=== PATIENT | female | born 1940 | race Caucasian/White ===

== ENCOUNTER → 2020-07-07 09:32 | Outpatient (BNVA) | payer MEDICARE, SELFPAY | PROVIDERS: PCP Student in an Organized Health Care Education/Training Program; Referring Provider Student in an Organized Health Care Education/Training Program; Visit Provider Nurse Practitioner | DX: D12.6 Benign neoplasm of colon, unspecified (principal) | CPT/HCPCS: 99203; Q3014 ==

== ENCOUNTER → 2020-09-03 14:13 | Outpatient (BNVA) | payer MEDICARE, SELFPAY | PROVIDERS: PCP Student in an Organized Health Care Education/Training Program; Visit Provider Orthopaedic Surgery | DX: Z96.652 Presence of left artificial knee joint (principal) | CPT/HCPCS: 99212 ==

== ENCOUNTER 2020-09-30 13:00 | Outpatient (RCR) | payer MEDICARE, SELFPAY ==
--- NOTE | 2020-09-23 13:52 | MHC.PT.EP ---
[facility] [place] [facility] [place] [facility] [place] [facility] [address] [phone] F: [phone] F: [phone] F: [phone] F: [phone] Physical Therapy Plan of Care Date of Evaluation: 09/23/20 Date of Surgery: 03/03/2020 Diagnosis: This is an 80 yo female presenting to skilled PT with a script for hx of L TKA . Assessment: This patient has been to this facility in the past after her original surgery on 03/03/2020. She had 11 visits of outpatient and DC'd to [facility] (DC PT note reads: pt notes that she is feeling better overall and feels ready for d/c. reviewed stair mechanics and HEP. Knee strength 4-/5 flex/ext. SLB 8 seconds. I with HEP. d/c to HEP at this time). She returns today reporting continuation of pain and because my doctor told me to . States that she sometimes does exercises still at home. Her pain is located at the anterior knee and calf, it is constant. Assessment reveals pain that averages about a 6/10. She demos decreased knee ROM, strength, decreased pain tolerance and decreased gross functional and general conditioning. She reports functional limitations in walking, pain and ADLs. She would benefit from a general PT program for knee ROM, general strengthening and balance. She is a good candidate for skilled PT 2x/wk for 5wks but patient would like to do a month of therapy at this time. Frequency and Duration: The patient will be seen 2x/wk for 5wks Short Term Goals: I with [facility]P - 2 weeks SLS to 8 sec - weeks [facility] Goals: LEFS 50/80 - 5 weeks AROM 0-115, strength 4/5 - 3 weeks symmetrical gait with stairs, no HH assist - 4 weeks Treatment Plan: Modalities to reduce pain, spasms and effusion. Manual therapy to restore motion and function. Therapeutic exercise to improve strength and flexibility. Neuromuscular re-education for posture and balance. Therapeutic activities to return to functional activities of daily living. Electronically signed by: Melissa Saez, PT Please sign and return to therapist. Thank you for your referral.
--- NOTE | 2020-10-22 13:17 | MHC.PT.DC ---
[facility] [place] [facility] [place] [facility] [place] [facility] [address] Lynn Sharpe [address] [phone] F: [phone] F: [phone] F: [phone] F: [phone] Physical Therapy Discharge Report Diagnosis: This is an 80 yo female presenting to skilled PT with a script for hx of L TKA . Date of Surgery: 03/03/2020 Date of Evaluation: 09/23/20 Date of Discharge: 10/22/20 Treatments to Date: 2 Cancellations to Date: 0 No Shows to Date: 0 Discharge Status: Independent with [facility]P Patient Elected to Stop Discharge Summary: This patient has been to this facility in the past after her original surgery on 03/03/2020. She had 11 visits of outpatient and DC'd to [facility]. She came for a second eval as she was told to by the MD however called after 2 visits and reported that she is ready for DC at this time. Has [facility]P, DC to [facility]P per patient request. Electronically signed by: Melissa Saez PT Please sign and return to therapist. Thank you for your referral.
== END 2020-10-22 13:18 | disposition home or self-care (01) ==
LOC: HO.PTCHIC 13:00
PROVIDERS: Visit Provider Orthopaedic Surgery
DX: Z47.1 Aftercare following joint replacement surgery (principal); Z96.652 Presence of left artificial knee joint
CPT/HCPCS: 97110; 97162

== ENCOUNTER 2021-03-06 08:17 | Outpatient (REF) | payer MEDICARE, SELFPAY | END 2021-03-06 08:18 | disposition home or self-care (01) | LOC: HO.HOSX 08:17 | PROVIDERS: Visit Provider Orthopaedic Surgery | DX: Z13.89 Encounter for screening for other disorder (principal) ==

== ENCOUNTER 2021-03-11 06:27 | Outpatient (REF) | payer MEDICARE, SELFPAY ==
--- NOTE | ~2021-03-11 | XR_ITS ---
EXAMINATION: KNEE X-RAY CLINICAL INFORMATION: Pain COMPARISON: Previous x-ray May 2020 TECHNIQUE: Standing AP view of both knees and lateral view of the left knee FINDINGS: Left knee: There is a 3 component left knee replacement in satisfactory position. No fracture, dislocation or x-ray evidence of loosening is seen. There is no joint effusion. There is a right knee replacement in satisfactory position. XR/XR knee LT 2V IMPRESSION: Bilateral knee replacements. Satisfactory appearance of left knee replacement.
--- NOTE | ~2021-03-11 | XR_ITS ---
EXAMINATION: KNEE X-RAY CLINICAL INFORMATION: Pain COMPARISON: Previous x-ray May 2020 TECHNIQUE: Standing AP view of both knees and lateral view of the left knee FINDINGS: Left knee: There is a 3 component left knee replacement in satisfactory position. No fracture, dislocation or x-ray evidence of loosening is seen. There is no joint effusion. There is a right knee replacement in satisfactory position. XR/XR knee standing BI IMPRESSION: Bilateral knee replacements. Satisfactory appearance of left knee replacement.
== END 2021-03-11 06:28 | disposition home or self-care (01) ==
LOC: HO.HOSX 06:27
PROVIDERS: Visit Provider Orthopaedic Surgery
DX: T84.84XA Pain due to internal orthopedic prosthetic devices, implants and grafts, initial encounter (principal); M25.561 Pain in right knee; Z96.652 Presence of left artificial knee joint
CPT/HCPCS: 73560; 73565; 99212

== ENCOUNTER → 2021-04-13 07:56 | Outpatient (BNVA) | payer MEDICARE, SELFPAY | PROVIDERS: PCP Student in an Organized Health Care Education/Training Program; Visit Provider Obstetrics & Gynecology | DX: N90.4 Leukoplakia of vulva (principal) | CPT/HCPCS: 99212 ==

== ENCOUNTER 2021-04-27 11:03 | Outpatient (REF) | payer MEDICARE, SELFPAY | END 2021-04-27 11:04 | disposition home or self-care (01) | LOC: HO.LAB 11:03 | PROVIDERS: PCP Student in an Organized Health Care Education/Training Program; Visit Provider Obstetrics & Gynecology | DX: N90.4 Leukoplakia of vulva (principal); Z87.891 Personal history of nicotine dependence | CPT/HCPCS: 56605; 88305; 88312 ==

== ENCOUNTER → 2021-05-11 11:25 | Outpatient (BNVA) | payer MEDICARE, SELFPAY | PROVIDERS: PCP Student in an Organized Health Care Education/Training Program; Visit Provider Obstetrics & Gynecology | DX: L90.0 Lichen sclerosus et atrophicus (principal) | CPT/HCPCS: Q3014 ==

== ENCOUNTER → 2022-02-11 09:12 | Outpatient (BNVA) | payer OTHER, SELFPAY | PROVIDERS: PCP Student in an Organized Health Care Education/Training Program; Visit Provider Internal Medicine | DX: R06.02 Shortness of breath (principal); I10 Essential (primary) hypertension; I35.8 Other nonrheumatic aortic valve disorders | CPT/HCPCS: 93005; 99202 ==

== ENCOUNTER → 2022-03-05 12:44 | Outpatient (BNVA) | payer OTHER, SELFPAY | PROVIDERS: Visit Provider Physician Assistant | DX: Z47.1 Aftercare following joint replacement surgery (principal); Z96.652 Presence of left artificial knee joint | CPT/HCPCS: 99212 ==

== ENCOUNTER → 2022-03-30 12:43 | Outpatient (REF) | payer OTHER, SELFPAY ==
--- NOTE | 2022-03-30 12:46 | CA_ITS ---
Transthoracic Echocardiogram Patient (Last, First, Middle): Neha Bowman, Gender: Female Date of : 1940 Age: 82 Procedure Date: 03/30/2022 Procedure Type: Transthoracic Echocardiogram Location: OP Height: 152.4 cm Weight: 66.23 kg BSA: 1.63 m2 Heart Rate: 80 bpm BP: 146 / 84 mmHg Plasterer Spray Gun: SAM Referring MD: Tapan Weber MD Construction Materials Tester: Vic Mcfadden MD Symptoms: R06.02 - Shortness of breath Study Quality: Adequate ECG Rhythm: Sinus Conclusions: - 1. Normal LV systolic function with impaired relaxation filling pattern with elevated filling pressures 2. Mildly dilated left atrium 3. Normal cardiac valvular Doppler 4. Upper limits of normal RV systolic pressure 5. No pericardial effusion Findings Left Ventricle Normal left ventricular size, thickness, and systolic function. The visually estimated ejection fraction is between 60-65%. Spectral Doppler is indicative of an impaired relaxation filling pattern. Elevated filling pressures. E/E prime ratio is >15, consistent with elevated filling pressures. Right Ventricle Normal right ventricular cavity size and systolic function. Atria The left atrium is mildly dilated. There is lipomatous hypertrophy of the interatrial septum. There is no evidence of interatrial shunt. The right atrium is likely dilated. Aortic Valve Normal aortic valve structure and function. There is no aortic valve stenosis. There is no aortic valve regurgitation. Mitral Valve There is trace mitral valve regurgitation. There is no mitral valve stenosis. Pulmonic Valve The pulmonic valve was not well visualized. Tricuspid Valve Normal tricuspid valve structure. There is trace tricuspid valve regurgitation. The right ventricular systolic pressure is 38 mmHg. Normal right atrial pressure. There is no evidence of pulmonary hypertension. Great Vessels All visible segments of the aorta are normal in size. The pulmonary artery was not well visualized. Venous The inferior vena cava is normal in size and collapses greater than 50% with inspiration. Pericardium/Pleural There is no evidence of pericardial effusion. Prior Study Comparison No prior study available for comparison. Measurements 2D Linear Measurements IVSd: 1.16 0.6-0.9/0.6-1.0 cm LVIDd: 4.44 3.9-5.3/4.2-5.9 cm LVIDd Index: 2.72 2.4-3.2/2.2-3.1 cm/m2 LVIDs: 2.96 2.0-3.6 cm LVPWd: 0.61 0.7-1.1 cm LA Diam: 4.00 2.7-3.8/3.0-4.0 cm LAIDs Index: 2.45 1.5-2.3 cm/m2 LV Mass: 157.55 67-162/88-224 g LV Mass Index: 96.66 43-95/49-115 g/m2 LVOT Diam: 1.70 3.0+(-)1.3 cm 2D Systolic Function EF 4C: 58.70 >55% EF 2C: 51.40 >55% EF BiP: 55.10 >55% Mitral Valve MV Pk E: 1.05 MV PK A: 1.17 MV Decel Time: 237.00 E/A: 0.90 E'Lateral: 6.09 E'Medial: 4.68 E/E' Med: 22.40 E/E' Lat: 17.20 PHT: 70.00 MVA PHT: 3.14 Decel [place]: 4.42 Aortic Valve AoV Pk Rodri: 1.47 AoV Mn Rodri: 1.00 AoV VTI: 0.31 AoV Pk Grad: 9.00 Aov Mn Grad: 5.00 JUAN Cont.VTI: 1.98 LVOT LVOT Pk Rodri: 1.26 LVOT Mn Rodri: 0.83 LVOT VTI: 0.27 LVOT Pk Grad: 6.00 LVOT Mn Grad: 3.00 LVOT Diam: 1.70 LVOT Area: 2.27 Diastolic Function MV Pk E: 1.05 MV Pk A: 1.17 E/A: 0.90 E'Medial: 4.68 E/E' Med: 22.40 E' Laterial: 6.09 E/E' Lat: 17.20 Right Ventricle TAPSE (mm): 15.50 TVS' Rodri: 10.70 Tricuspid Valve TR Pk Rodri: 2.94 TR Pk Grad: 35.00 RA Press: 3.00 RVSP: 38.00 Great Vessels Aorta Sinus of Valsalva: 3.10 2.0-3.5 cm Ao Asc: 3.20 2.1-3.4 cm Pulmonary Veins Pulm Vein S/D 1.30 Pulmonary Valve PV Pk Rodri: 1.01 Peak PV Grad: 4.00 Updated in Other Vendor System with Status of Final Vic Mcfadden MD electronically signed on 03/30/2022 2:18:49 PM with status of Final
== END ==
LOC: HO.CARD 12:43
PROVIDERS: PCP Student in an Organized Health Care Education/Training Program; Visit Provider Internal Medicine
DX: R06.02 Shortness of breath (principal)
CPT/HCPCS: 93306

== ENCOUNTER → 2022-04-06 09:33 | Outpatient (REF) | payer OTHER, SELFPAY ==
--- NOTE | ~2022-04-06 | NM_ITS ---
Myocardial perfusion study Indication: Shortness of breath evaluate for myocardial ischemia Technique: The patient was brought in for a Lexiscan perfusion study on 04/06/2022. Patient performed low-level exercise and was injected 0.4 mg of Lexiscan intravenously. Within a minute of injection, 25 mCi of sestamibi was given intravenously. Images were obtained using the SPECT gamma camera interlaced with the gating device. Images were obtained in supine position. Resting perfusion study was performed on 04/08/2022. Patient was administered 25 mCi of sestamibi intravenously at rest. Images were then obtained in supine position. Images obtained with and without CT attenuation. Total DLP 79 mGy-cm. Images were processed with the software and compared side to side in short axis, horizontal long axis and vertical long axis views. Findings: The stress perfusion study showed non attenuated images show minimal thinning of the apex of the LV myocardium. Remainder of the LV myocardium is normally perfused. Attenuation corrected images show normal uptake of radiotracer in all segments of LV myocardium. The gated study shows normal LV systolic function with calculated LVEF of 72%. LV cavity is normal in size. The gated study shows normal systolic wall thickening and contraction of segments. Resting study shows no change in perfusion pattern compared to stress perfusion study. Gating at rest reveals normal systolic wall motion with ejection fraction at 72%. The findings are consistent with normal myocardial perfusion. VA/NM cardiolite stress test Impression: 1. Myocardial perfusion imaging study shows normal myocardial perfusion 2. Gated LVEF is 72% 3. Transient ischemic dilatation not present EKG is nondiagnostic for ischemia
--- NOTE | 2022-04-06 09:37 | CA_ITS ---
Acquisition Time: 2022-04-06 09:44:40 Total Exercise Time: 00:02:00 Test Indications: R06.02 SHORTNESS OF BREATH Medications: SEE H Protocol: LEXISCAN Max HR: 116 BPM 84% of Pred: 138 BPM Max BP: 160/084 mmHG Max Work Load: 1.0 METS Pharmacological stress test with Lexiscan injection, while sitting and kicking her legs, without anginal symptoms, with isolated PAC, with normotensive response to injection, with nondiagnostic EKG for ischemia. In recovery she reported sharp pains in her abdomen which was treated with Aminophylline 75mg IVP to reverse Lexiscan with resolution of symptom. Nuclear images pending. Test reviewed with Dr Weber. Referred By: Tapan Weber Overread By: ADONIS BYRD
== END ==
LOC: HO.CARD 09:33
PROVIDERS: PCP Student in an Organized Health Care Education/Training Program; Visit Provider Internal Medicine
DX: R06.02 Shortness of breath (principal)
CPT/HCPCS: 78452; 93017; A9500; J0280; J2785

== ENCOUNTER → 2022-04-22 12:42 | Outpatient (BNVA) | payer OTHER, SELFPAY | PROVIDERS: PCP Student in an Organized Health Care Education/Training Program; Visit Provider Nurse Practitioner Family | DX: R06.02 Shortness of breath (principal); I10 Essential (primary) hypertension | CPT/HCPCS: 99212 ==

== ENCOUNTER 2022-06-02 13:01 | Outpatient (REF) | payer OTHER, SELFPAY ==
--- NOTE | ~2022-06-02 | MM_ITS ---
EXAMINATION: MM SCREENING DIGITAL BREAST TOMOSYNTHESIS, BILATERAL CLINICAL INFORMATION: Screening. Asymptomatic. The lifetime risk of breast cancer based on the Tyrer-Cuzick Model is 2%. COMPARISON: Outside mammography: 01/17/2018, 09/01/2016 ([facility]) TECHNIQUE: Digital breast tomosynthesis is performed in both the craniocaudal and mediolateral oblique views along with computer-aided detection (CAD). Synthesized 2D images are generated from the tomosynthesis. FINDINGS: There are scattered areas of fibroglandular density (ACR BI-RADS breast composition Category b). There are no significant masses, abnormal calcifications, or other abnormalities. Parenchymal pattern is similar to prior outside exams. There is no developing density or architectural abnormality. The axilla and skin contours are unremarkable. No significant changes. MM/MM tomosynthesis screening BI IMPRESSION: No mammographic evidence of malignancy. ASSESSMENT: BI-RADS 1: Negative RECOMMENDATION: Routine annual mammography screening. This patient's information was entered into a reminder system with a target due date for their next mammogram.
--- NOTE | ~2022-06-02 | MM_ITS ---
EXAMINATION: BONE DENSITOMETRY CLINICAL INDICATION: Asymptomatic menopausal state. COMPARISON: Baseline BD dated 05/28/2014. TECHNIQUE: Using a [employer] DXA System (software version: 13.1) manufactured by [employer], dual-energy x-ray absorptiometry was performed of the lumbar spine and left hip. The images are of good technical quality. Summary results are attached. FINDINGS: AP SPINE L1-L4: Current: BMD 0.690 g/cm2, Z-score -2.2, T-score -4.1, osteoporosis, 1.0% increase from baseline (<5% change is not significant). Baseline: BMD 0.683 g/cm2. LEFT FEMUR, NECK: Current: BMD 0.531 g/cm2, Z-score -1.4, T-score -3.6, osteoporosis. Baseline: BMD 0.507 g/cm2. LEFT FEMUR, TOTAL: Current: BMD 0.566 g/cm2, Z-score -1.4, T-score -3.5, osteoporosis, 0.4% increase from baseline (<5% change is not significant). Baseline: BMD 0.564 g/cm2. IDENTIFIED RISK FACTORS: Height loss, osteoporosis, menopause. HISTORY OF FRACTURE: None listed. MEDICATIONS: Vitamin D. MM/XR DEXA axial skeleton IMPRESSION: 1. DIAGNOSIS: Osteoporosis based on the lowest T-score value of -4.1 in the lumbar spine applying World Health Organization criteria. 2. 10- 10-YEAR FRACTURE RISK PREDICTION, FRAX: According to the guidelines, FRAX calculation should only be performed on patients in the osteopenia bone density category. Therefore, FRAX was not performed on this patient. 3. Treatment Recommendations: NOF guidelines recommend consideration for treatment in postmenopausal women and men age 50 and older presenting with the following: -A hip or vertebral (clinical or morphometric) fracture. -T-score less than or equal to -2.5 at the femoral neck or spine after appropriate evaluation to exclude secondary causes. -Low bone mass at the hip or spine and a 10-year fracture probability by FRAX of greater than or equal to 3% for hip fracture or greater than or equal to 20% for major osteoporotic fracture based on the [place] adapted WHO algorithm. 4. Other Recommendations: All treatment decisions require clinical judgment and consideration of individual patient factors, including patient preferences, comorbidities, previous drug use, risk factors not captured in the FRAX model (e.g. frailty, falls, vitamin D deficiency, increased bone turnover, interval significant decline in bone density) and possible under or overestimation of fracture risk by FRAX. Additional medical evaluation for secondary cause of low bone mineral density may be appropriate. FUTURE SCAN RECOMMENDATION: People with diagnosed cases of osteoporosis or at high risk for fracture should have regular bone mineral density tests. For patients eligible for Medicare, routine testing is allowed once every 2 years. The testing frequency can be increased to one year for patients who have rapidly progressing disease, those who are receiving or discontinuing medical therapy to restore bone mass, or have additional risk factors.
== END 2022-06-02 13:02 | disposition home or self-care (01) ==
LOC: HO.MAMMO 13:01
PROVIDERS: PCP Student in an Organized Health Care Education/Training Program; Visit Provider Obstetrics & Gynecology
DX: Z12.31 Encounter for screening mammogram for malignant neoplasm of breast (principal); Z13.820 Encounter for screening for osteoporosis; Z78.0 Asymptomatic menopausal state
CPT/HCPCS: 77063; 77067; 77080

== ENCOUNTER → 2022-06-22 11:38 | Outpatient (BNVA) | payer OTHER, SELFPAY | PROVIDERS: PCP Student in an Organized Health Care Education/Training Program; Visit Provider Obstetrics & Gynecology | DX: M81.0 Age-related osteoporosis without current pathological fracture (principal) | CPT/HCPCS: 99212 ==

== ENCOUNTER → 2022-08-26 12:51 | Outpatient (BNVA) | payer OTHER, SELFPAY | PROVIDERS: PCP Student in an Organized Health Care Education/Training Program; Referring Provider Student in an Organized Health Care Education/Training Program; Visit Provider Nurse Practitioner Family | DX: R06.02 Shortness of breath (principal); I10 Essential (primary) hypertension | CPT/HCPCS: 99212 ==

== ENCOUNTER → 2022-09-24 09:30 | Outpatient (BNVA) | payer OTHER, SELFPAY | PROVIDERS: PCP Student in an Organized Health Care Education/Training Program; Visit Provider Student in an Organized Health Care Education/Training Program | DX: M81.0 Age-related osteoporosis without current pathological fracture (principal) | CPT/HCPCS: 99202 ==

== ENCOUNTER 2022-09-24 10:46 | Outpatient (REF) | payer OTHER, SELFPAY ==
[2022-09-24 10:59] LABS: MANUAL DIFF FLAG NO
[2022-09-24 12:29] LABS: Basophils Absolute Auto 0.1 X10*3/uL (0.0-0.2); Basophils Percent Auto 0.9 % (0-2); Eosinophils Absolute Auto 0.3 X10*3/uL (0.0-0.4); Eosinophils Percent Auto 3.4 % (0-4); Hematocrit 39.3 % (37.0-47.0); Hemoglobin 12.6 g/dl (12.0-16.0); Imm Gran Abs Auto 0.02 X10*3/uL (0.00-0.03); Imm Gran Pct Auto 0.3 % (0.0-0.4); Lymphocytes Absolute Auto 2.3 X10*3/uL (1.2-4.9); Lymphocytes Percent Auto 30.9 % (20-40); Mean Corpuscular HGB Conc 32.1 g/dl (31.0-35.0); Mean Corpuscular Volume 93.6 fL (80.0-98.0); Mean Platelet Volume 10.3 fL (9.4-12.3); Monocytes Absolute Auto 0.7 X10*3/uL (0.1-1.2); Monocytes Percent Auto 9.4 % (2-11); Neutrophils Absolute Auto 4.1 x10*3/uL (2.0-8.3); Neutrophils Percent Auto 55.1 % (45-73); Platelet Count 313 X10*3/uL (160-400); Red Cell Distribution Width 13.4 % (11.0-16.0); White Blood Count 7.4 X10*3/uL (4.8-10.8)
[2022-09-24 12:53] LABS: Alanine Aminotransferase 15 U/L (0-31); Albumin Level 4.1 g/dL (3.5-5.0); Alkaline Phosphatase 96 U/L (39-117); Anion Gap 13 (12-20); Aspartate Amino Transferase 25 U/L (5-31); Bilirubin Total 0.5 mg/dL (0.0-1.0); Blood Urea Nitrogen 19 mg/dL (9-16); Calcium 9.5 mg/dL (8.4-10.2); Carbon Dioxide 28 mmol/L (22-29); Chloride 106 mmol/L (96-108); Estimated Glomerular Filt Rate > 60; Glucose Random 95 mg/dL (60-115); Potassium 4.5 mmol/L (3.3-5.1); Sodium 142 mmol/L (135-145); Total Protein 7.4 g/dL (6.5-8.0)
[2022-09-24 13:03] LABS: TSH reflex Free T4 7.58 uIU/mL (0.32-4.0)
[2022-09-24 13:39] LABS: Free T4 (Free Thyroxine) 0.91 ng/dL (0.71-1.85)
[2022-09-27 12:13] LABS: Prot Elec - Albumin 4.1 g/dL (3.8-4.8); Prot Elec - Alpha1 0.2 g/dL (0.2-0.3); Prot Elec - Alpha2 0.7 g/dL (0.5-0.9); Prot Elec - Beta 1 0.4 g/dL (0.4-0.6); Prot Elec - Beta 2 0.6 g/dL (0.2-0.5); Prot Elec - Gamma 1.2 g/dL (0.8-1.7); Prot Elec - Total Protein 7.1 g/dL (6.1-8.1)
[2022-09-27 13:24] LABS: Calcium (PTHI) 9.4 mg/dL (8.6-10.4); PTHI 53 pg/mL (16-77)
[2022-10-02 00:44] LABS: VITAMIN D (1,25 OH) D3 32 pg/mL; Vit D (1,25-Dihydroxy) Total 32 pg/mL (18-72); Vitamin D (1,25 OH) D2 <8 pg/mL
[2022-10-02 15:17] LABS: Vitamin D 25-OH, D2 <4 ng/mL; Vitamin D 25-OH, D3 14 ng/mL; Vitamin D 25-OH, Total 14 ng/mL (30-100)
== END 2022-09-24 10:47 | disposition home or self-care (01) ==
LOC: HO.LAB 10:46
PROVIDERS: Visit Provider Student in an Organized Health Care Education/Training Program
DX: M81.0 Age-related osteoporosis without current pathological fracture (principal); E03.9 Hypothyroidism, unspecified; I10 Essential (primary) hypertension; Z79.899 Other long term (current) drug therapy
CPT/HCPCS: 36415; 80053; 82306; 82652; 83519; 83970; 84165; 84439; 84443; 85025

== ENCOUNTER → 2022-10-26 10:45 | Outpatient (BNVA) | payer OTHER, SELFPAY | PROVIDERS: PCP Student in an Organized Health Care Education/Training Program; Visit Provider Student in an Organized Health Care Education/Training Program | DX: M81.0 Age-related osteoporosis without current pathological fracture (principal) | CPT/HCPCS: 96372 ==

== ENCOUNTER 2023-05-12 14:41 | Outpatient (AMB) | payer OTHER, SELFPAY ==
--- NOTE | 2023-05-12 14:46 | A.OFFVIS_ITS ---
Intake Vital Signs 05/12/23 14:47 Height 5 ft 1 in Weight 139 lb 15.896 oz BMI 26.4 BP 122/70 Blood Pressure Location Rt brachial Position Sitting Pulse 73 Pulse Source Pulse Oximeter Temp 98.3 F Temp Source Skin Pulse Oximetry (%) 96 Intake Visit Reasons: Osteoporosis/Prolia inj. Intake Note: Pt seen today for Osteoporosis follow up. Italian Lecturer Required: No Accompanied by: Sister Allergies sulfamethoxazole [From BACTRIM] Allergy (Intermediate, Verified 05/12/23 15:00) ITCHING trimethoprim [From BACTRIM] Allergy (Intermediate, Verified 05/12/23 15:00) ITCHING Penicillins [PENICILLINS] Allergy (Unknown, Verified 05/12/23 15:00) UNKNOWN-? CHILDHOOD ALLERGY Medication List - Last Reconciled 05/12/23 by Rosie Durán MD cholecalciferol (vitamin D3) 125 mcg PO DAILY denosumab (Prolia) 60 mg subcut [id number] levothyroxine 100 mcg PO DAILY losartan 50 mg PO DAILY melatonin 5 mg PO BEDTIME HPI HPI Comments History of Present Illness Details 83-year-old female with osteoporosis and osteoarthritis returns for follow-up. Prolia injection 11/04 was uneventful. Patient states that she is doing about the same overall. She gets knee pain when standing up after sitting down for a while. Able to walk a little less than a mile, limited by her knee pain Initial history: This is an 82-year-old female with a past medical history of hypothyroidism and hypertension who presents for evaluation of osteoporosis. She has no complaints. She denies history of kidney stones. Her sister who is 70 years old accompanies her and she also mentions she has osteoporosis. Denies history of falls or fractures PFSH Medical History Essential hypertension Surgical History H/O tubal ligation H/O: knee surgery Hx of colonoscopy Family History Father Throat cancer Mother No problems noted. Brother Diabetes Social History Household Members: None Household Members Other:: Lives alone Housing: Apartment Alcohol intake: former Patient Tobacco Use Status: Former Tobacco user Quit Date: 4-5 yrs ago Female Reproductive History Menstrual Age of Menarche: 12 Review of Systems [facility] [place] Reports arthralgias Physical Exam Vital Signs: Last Vital Signs Temp 98.3 F 05/12/23 14:47 Pulse 73 05/12/23 14:47 BP 122/70 05/12/23 14:47 Pulse Ox 96 05/12/23 14:47 BMI result Body Mass Index 26.4 Const General: cooperative, healthy appearing, comfortable and no acute distress Nutritional Appearance: overweight Limitations: no limitations HEENT Head: Yes normocephalic and Yes atraumatic Resp Effort & Inspection: normal respiratory effort and able to speak in complete sentences Auscultation: crackles bilateral at the base Extrem Other: Mild osteoarthritic changes of both hands. Normal range of motion of shoulders, normal gait Bilateral knee pain with flexion Results Reviewed Results Reviewed: DEXA 05/2022 Impression: L spine T-score -4.1.? 1% increase from baseline Left femur neck T-score -3.6 Left femur total T-score -3.5 Assessment & Plan Assessment & Plan (1) Osteoporosis: Comment: DEXA 05/2022 L spine T-score -4.1.? 1% increase from baseline Left femur neck T-score -3.6 Left femur total T-score -3.5 Prolia 10/2022 Code(s): M81.0 - Age-related osteoporosis without current pathological fracture Qualifiers: Osteoporosis type: age-related Presence of current pathological fracture: without current pathological fracture Qualified Code(s): M81.0 - Age- related osteoporosis without current pathological fracture Plan: This is an 83-year-old female with osteoporosis presents for follow-up. Doing well overall. Tolerated the 1st injection of Prolia. She is due for her 2nd injection today. Continue Prolia every 6 months. Labs before next visit. Repeat DEXA 05/2024 (2) Bilateral primary osteoarthritis of knee: Code(s): M17.0 - Bilateral primary osteoarthritis of knee Plan: Mildly symptomatic. Patient still able to walk. Advised patient to use Tylenol as needed, consider using [id number] Voltaren gel Plan I spent 26 minutes reviewing patient's chart, evaluating patient, ordering diagnostic workup, counseling patient and her sister and documenting in the chart Orders: Orders Basic Metabolic Panel 6 Months M81.0 - Age-related osteoporosis without current pathological fracture Coding Level of Care Code Est Pt Level 4 (01450) Diagnoses Osteoporosis M81.0 Osteoporosis type: age-related Presence of current pathological fracture: without current pathological fracture Bilateral primary osteoarthritis of knee M17.0
[2023-05-12 14:47] VITALS: BP 122/70; PULSE 73; TEMP 36.8; O2SAT 96; BMI 26.4
== END 2023-05-12 15:15 | disposition home or self-care (01) ==
PROVIDERS: PCP Student in an Organized Health Care Education/Training Program; Visit Provider Student in an Organized Health Care Education/Training Program
DX: M81.0 Age-related osteoporosis without current pathological fracture (principal); M17.0 Bilateral primary osteoarthritis of knee
CPT/HCPCS: 99214

== ENCOUNTER → 2023-05-12 14:41 | Outpatient (BNVA) | payer OTHER, SELFPAY | PROVIDERS: Visit Provider Student in an Organized Health Care Education/Training Program | DX: M81.0 Age-related osteoporosis without current pathological fracture (principal); M17.0 Bilateral primary osteoarthritis of knee | CPT/HCPCS: 96372; 99212; J0897 ==

== ENCOUNTER 2023-06-08 13:01 | Outpatient (REF) | payer OTHER, SELFPAY | END 2023-06-08 13:02 | disposition home or self-care (01) | LOC: HO.MAMMO 13:01 | PROVIDERS: PCP Student in an Organized Health Care Education/Training Program; Visit Provider Student in an Organized Health Care Education/Training Program | DX: Z12.31 Encounter for screening mammogram for malignant neoplasm of breast (principal) | CPT/HCPCS: 77063; 77067 ==

== ENCOUNTER → 2023-06-08 13:30 | Outpatient (BNV) | payer OTHER, SELFPAY | PROVIDERS: PCP Student in an Organized Health Care Education/Training Program; Visit Provider Radiology Diagnostic Radiology | DX: Z12.31 Encounter for screening mammogram for malignant neoplasm of breast (principal) | CPT/HCPCS: 77063; 77067 ==

== ENCOUNTER 2023-10-10 14:01 | Outpatient (REF) | payer OTHER, SELFPAY | END 2023-10-10 14:02 | disposition home or self-care (01) | LOC: HO.CHCLNP 14:01 | PROVIDERS: Visit Provider Registered Nurse | DX: R30.0 Dysuria (principal) | CPT/HCPCS: 36415; 81513; 87086; 87481; 87491; 87591; 87661 ==

== ENCOUNTER 2023-11-01 09:46 | Outpatient (REF) | payer OTHER, SELFPAY ==
[2023-11-01 15:19] LABS: Anion Gap 12 (12-20); Blood Urea Nitrogen 19 mg/dL (9-16); Carbon Dioxide 29 mmol/L (22-29); Chloride 105 mmol/L (96-108); Estimated Glomerular Filt Rate > 60; Glucose Random 102 mg/dL (60-115); Sodium 142 mmol/L (135-145)
== END 2023-11-01 09:47 | disposition home or self-care (01) ==
LOC: HO.CHCLDS 09:46
PROVIDERS: Visit Provider Student in an Organized Health Care Education/Training Program
DX: M81.0 Age-related osteoporosis without current pathological fracture (principal)
CPT/HCPCS: 36415; 80048

== ENCOUNTER 2023-11-09 12:54 | Outpatient (AMB) | payer OTHER, SELFPAY ==
[2023-11-09 13:04] VITALS: BP 140/72; PULSE 70; TEMP 36.2; O2SAT 97; BMI 28.2
--- NOTE | 2023-11-09 13:04 | A.OFFVIS_ITS ---
Intake Vital Signs 11/09/23 13:04 Height 4 ft 11.17 in Weight 140 lb 6.951 oz BMI 28.2 BP 140/72 H Blood Pressure Location Rt brachial Position Sitting Pulse 70 Pulse Source Pulse Oximeter Temp 97.2 F Temp Source Skin Pulse Oximetry (%) 97 Oxygen Delivery Method Room Air Intake Visit Reasons: osteoporosis/prolia Intake Note: Patient last seen 05/12/23 presents today for follow up and prolia injection. Seen at [facility] ED 10/31 for high BP and flu like symptoms, today still has congestion. Taking coricidin Information Assurance Specialist Required: No Accompanied by: Sister Allergies sulfamethoxazole [From BACTRIM] Allergy (Intermediate, Verified 11/09/23 13:07) ITCHING trimethoprim [From BACTRIM] Allergy (Intermediate, Verified 11/09/23 13:07) ITCHING Penicillins [PENICILLINS] Allergy (Unknown, Verified 11/09/23 13:07) UNKNOWN-? CHILDHOOD ALLERGY Medication List - Last Reconciled 11/09/23 by Rosie Durán MD cholecalciferol (vitamin D3) 125 mcg PO DAILY denosumab (Prolia) 60 mg subcut [id number] levothyroxine 100 mcg PO DAILY losartan 50 mg PO DAILY melatonin 5 mg PO BEDTIME HPI HPI Comments History of Present Illness Details 83-year-old female with osteoporosis and osteoarthritis returns for follow-up. Prolia injection 05/04 was uneventful. Patient states that she is doing about the same overall. She went to the hospital about a week ago for flu-like symptoms and prescribed cough remedy with improvement. He has no complaints today. Initial history: This is an 82-year-old female with a past medical history of hypothyroidism and hypertension who presents for evaluation of osteoporosis. She has no complaints. She denies history of kidney stones. Her sister who is 70 years old accompanies her and she also mentions she has osteoporosis. Denies history of falls or fractures [facility] Medical History Essential hypertension Surgical History H/O tubal ligation H/O: knee surgery Hx of colonoscopy Family History Father Throat cancer Mother No problems noted. Brother Diabetes Social History Household Members: None Household Members Other:: Lives alone Housing: Apartment Alcohol intake: former Patient Tobacco Use Status: Former Tobacco user Quit Date: 4-5 yrs ago Female Reproductive History Menstrual Age of Menarche: 12 Review of Systems ENT Details: Nasal congestion and runny nose Physical Exam Vital Signs: Last Vital Signs Temp 97.2 F 11/09/23 13:04 Pulse 70 11/09/23 13:04 BP 140/72 H 11/09/23 13:04 Pulse Ox 97 11/09/23 13:04 Oxygen Delivery Method Room Air 11/09/23 13:04 BMI result Body Mass Index 28.2 Const General: cooperative, healthy appearing, comfortable and no acute distress Nutritional Appearance: overweight Limitations: no limitations HEENT Other: Runny nose Head: Yes normocephalic and Yes atraumatic Resp Effort & Inspection: normal respiratory effort and able to speak in complete sentences Extrem Other: Mild osteoarthritic changes of both hands. Normal range of motion of shoulders, normal gait Kyphotic Bilateral knee pain with flexion Normal gait Results Reviewed Results Reviewed: DEXA 05/2022 Impression: L spine T-score -4.1.? 1% increase from baseline Left femur neck T-score -3.6 Left femur total T-score -3.5 Assessment & Plan Assessment & Plan (1) Osteoporosis: Comment: DEXA 05/2022 L spine T-score -4.1.? 1% increase from baseline Left femur neck T-score -3.6 Left femur total T-score -3.5 Prolia 10/2022 Code(s): M81.0 - Age-related osteoporosis without current pathological fracture Qualifiers: Osteoporosis type: age-related Presence of current pathological fracture: without current pathological fracture Qualified Code(s): M81.0 - Age- related osteoporosis without current pathological fracture Plan: This is an 83-year-old female with osteoporosis presents for follow-up. Doing well overall. She is here for her 3rd Prolia injection the 1st 2 injections were uneventful Continue Prolia every 6 months. Continue with vitamin-D supplementation Labs before next visit. Repeat DEXA 05/2024 Plan I spent 26 minutes reviewing patient's chart, evaluating patient, ordering diagnostic workup, counseling patient and her sister and documenting in the chart Orders: Orders Comprehensive Met. Panel 6 Months M81.0 - Age-related osteoporosis without current pathological fracture Vitamin D 25-OH (D2 and D3) 6 Months E55.9 - Vitamin D deficiency, unspecified Coding Level of Care Code Est Pt Level 4 (25931) Diagnoses Age-related osteoporosis without current pathological fracture M81.0 Osteoporosis type: age-related Presence of current pathological fracture: without current pathological fracture
== END 2023-11-09 13:28 | disposition home or self-care (01) ==
PROVIDERS: PCP Student in an Organized Health Care Education/Training Program; Visit Provider Student in an Organized Health Care Education/Training Program
DX: M81.0 Age-related osteoporosis without current pathological fracture (principal)
CPT/HCPCS: 99214

== ENCOUNTER → 2023-11-09 12:54 | Outpatient (BNVA) | payer OTHER, SELFPAY | PROVIDERS: PCP Student in an Organized Health Care Education/Training Program; Visit Provider Student in an Organized Health Care Education/Training Program | DX: L90.0 Lichen sclerosus et atrophicus (principal); M81.0 Age-related osteoporosis without current pathological fracture | CPT/HCPCS: 96372; 99212; J0897 ==

== ENCOUNTER 2023-11-09 13:49 | Outpatient (AMB) | payer OTHER, SELFPAY ==
[2023-11-09 14:18] VITALS: BP 130/72; BMI 28.0
--- NOTE | 2023-11-09 14:18 | MHC.OFFVIS ---
Intake Vital Signs 11/09/23 14:18 Height 4 ft 11 in Weight 138 lb 14.259 oz BMI 28.0 BP 130/72 Intake Visit Reasons: Lichen sclerosus Crane Chaser Required: Yes Crane Chaser Language: Reading Recovery Teacher Name: Jenna ISRAEL Information Interpreted: non-clinical & clinical Operating Engineer Apprentice: Operating Engineer Apprentice Present (Jenna ISRAEL) Accompanied by: Self / Same As Patient Allergies sulfamethoxazole [From BACTRIM] Allergy (Intermediate, Verified 11/09/23 14:22) ITCHING trimethoprim [From BACTRIM] Allergy (Intermediate, Verified 11/09/23 14:22) ITCHING Penicillins [PENICILLINS] Allergy (Unknown, Verified 11/09/23 14:22) UNKNOWN-? CHILDHOOD ALLERGY HPI HPI Comments History of Present Illness Details Presenting for yearly vulvar inspection for lichen sclerosus. The patient is doing well being clobetasol cream 2 to 3 times a week with good relief. No reported open ulcer or hard area the perineal area PFSH Medical History Essential hypertension Surgical History H/O tubal ligation H/O: knee surgery Hx of colonoscopy Family History Father Throat cancer Mother No problems noted. 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, 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) Speculum Exam - Vagina: normal appearance of the vagina, normal palpation, no lesions and no masses Speculum Exam - Cervix: normal appearance of the cervix, normal palpation, no lesions, no masses and nontender Bimanual exam- vagina & uterus: normal bimanual exam, normal palpation, uterine size normal, normal palpation, uterine shape normal, No Cervical tenderness present and non-tender Bimanual Exam- Adnexa, other: normal adnexae Back/Spine/Pelvis Back: no CVA tenderness Assessment & Plan Assessment & Plan (1) Lichen sclerosus: Code(s): L90.0 - Lichen sclerosus et atrophicus Plan: Discussed with the patient the findings on pelvic exam showing no evidence of ulcers, or hard areas. Explained to the patient that Lichen sclerosus refers to a benign, chronic, progressive dermatologic condition characterized by marked inflammation, epithelial thinning accompanied by pruritus and pain. In addition, discussed with the patient that there is a small increased risk of squamous cell cancer of the vulva in patients with lichen sclerosus. Adequate treatment of the disease seems to be associated with a reduced risk of development of neoplasia. Instructed the patient to schedule an appointment in a year to examine the affected area, with possible biopsy of suspicious lesions, in addition explained to the patient that she should look at the skin of the affected area and touch with fingertips monthly to search for thickened lumps or sores that do not heal & to report such findings for inspection & possible biopsy to rule out vulvar cancer Recommended the patient to continue Clobetasol propionate 0.05% ointment and to be applied as maintenance therapy two to three times per week . Coding Level of Care Code Est Pt Level 3 (28771) Diagnoses Lichen sclerosus L90.0
== END 2023-11-09 14:41 | disposition home or self-care (01) ==
LOC: HO.HWS 13:50
PROVIDERS: PCP Student in an Organized Health Care Education/Training Program; Visit Provider Obstetrics & Gynecology
DX: L90.0 Lichen sclerosus et atrophicus (principal)
CPT/HCPCS: 99213

== ENCOUNTER 2023-11-30 11:25 | Outpatient (REF) | payer OTHER, SELFPAY ==
[2023-11-30 14:54] LABS: Alanine Aminotransferase 13 U/L (0-31); Albumin Level 3.8 g/dL (3.5-5.0); Alkaline Phosphatase 54 U/L (39-117); Anion Gap 11 (12-20); Aspartate Amino Transferase 25 U/L (5-31); Bilirubin Total 0.4 mg/dL (0.0-1.0); Blood Urea Nitrogen 24 mg/dL (9-16); Calcium 9.5 mg/dL (8.4-10.2); Carbon Dioxide 30 mmol/L (22-29); Chloride 104 mmol/L (96-108); Estimated Glomerular Filt Rate > 60; Glucose Random 178 mg/dL (60-115); Potassium 3.7 mmol/L (3.3-5.1); Sodium 141 mmol/L (135-145); Total Protein 7.2 g/dL (6.5-8.0)
[2023-12-06 13:34] LABS: Vitamin D 25-OH, D2 <4 ng/mL; Vitamin D 25-OH, D3 20 ng/mL; Vitamin D 25-OH, Total 20 ng/mL (30-100)
== END 2023-11-30 11:26 | disposition home or self-care (01) ==
LOC: HO.CHCLDS 11:25
PROVIDERS: Visit Provider Student in an Organized Health Care Education/Training Program
DX: M81.0 Age-related osteoporosis without current pathological fracture (principal); E55.9 Vitamin D deficiency, unspecified
CPT/HCPCS: 36415; 80053; 82306

== ENCOUNTER 2024-01-12 11:43 | Outpatient (REF) | payer OTHER, SELFPAY | END 2024-01-12 11:44 | disposition home or self-care (01) | LOC: HO.CHCLNP 11:43 | PROVIDERS: Visit Provider Family Medicine | DX: N90.4 Leukoplakia of vulva (principal) | CPT/HCPCS: 36415; 81513; 87481; 87491; 87591; 87661 ==

== ENCOUNTER 2024-03-29 09:56 | Outpatient (REF) | payer OTHER, SELFPAY ==
[2024-03-29 14:36] LABS: TSH reflex Free T4 4.98 uIU/mL (0.32-4.0)
[2024-03-29 15:20] LABS: Free T4 (Free Thyroxine) 0.83 ng/dL (0.71-1.85)
== END 2024-03-29 09:57 | disposition home or self-care (01) ==
LOC: HO.CHCLDS 09:56
PROVIDERS: Visit Provider Student in an Organized Health Care Education/Training Program
DX: E03.9 Hypothyroidism, unspecified (principal)
CPT/HCPCS: 36415; 84439; 84443

== ENCOUNTER 2024-04-06 17:42 | Outpatient (REF) | payer OTHER, SELFPAY ==
[2024-04-06 19:36] LABS: Bacterial Vaginosis PCR NEGATIVE (Negative); Candida Group PCR NOT DETECTED (Not Detect); Candida glab krusei PCR NOT DETECTED (Not Detect); Trichomonas vaginalis PCR NOT DETECTED (Not Detect)
[2024-04-06 20:00] LABS: CT PCR NOT DETECTED (Not Detect.); NG PCR NOT DETECTED (Not Detect.)
== END 2024-04-06 17:43 | disposition home or self-care (01) ==
LOC: HO.HHCLNP 17:42
PROVIDERS: Visit Provider Registered Nurse
DX: N94.9 Unspecified condition associated with female genital organs and menstrual cycle (principal); R31.29 Other microscopic hematuria; R39.9 Unspecified symptoms and signs involving the genitourinary system
CPT/HCPCS: 0352U; 87086; 87491; 87591

== ENCOUNTER 2024-05-11 13:26 | Outpatient (REF) | payer OTHER, SELFPAY ==
[2024-05-11 15:35] LABS: Anion Gap 13 (12-20); Blood Urea Nitrogen 16 mg/dL (9-16); Calcium 9.7 mg/dL (8.4-10.2); Carbon Dioxide 26 mmol/L (22-29); Chloride 103 mmol/L (96-108); Estimated Glomerular Filt Rate > 60; Glucose Random 205 mg/dL (60-115); Potassium 4.2 mmol/L (3.3-5.1); Sodium 138 mmol/L (135-145)
[2024-05-17 15:13] LABS: Vitamin D 25-OH, D2 <4 ng/mL; Vitamin D 25-OH, D3 21 ng/mL; Vitamin D 25-OH, Total 21 ng/mL (30-100)
== END 2024-05-11 13:27 | disposition home or self-care (01) ==
LOC: HO.CHCLDS 13:26
PROVIDERS: Visit Provider Student in an Organized Health Care Education/Training Program
DX: M81.0 Age-related osteoporosis without current pathological fracture (principal); E55.9 Vitamin D deficiency, unspecified
CPT/HCPCS: 36415; 80048; 82306

== ENCOUNTER 2024-05-24 14:20 | Outpatient (AMB) | payer OTHER, SELFPAY ==
--- NOTE | 2024-05-24 14:25 | MHC.OFFVIS ---
Vital Signs 05/24/24 14:34 Height 4 ft 11 in Weight 140 lb 3.424 oz BMI 28.3 BP 134/72 Blood Pressure Location Lt brachial Position Sitting Pulse 68 Pulse Source Pulse Oximeter Pulse Oximetry (%) 98 Oxygen Delivery Method Room Air Intake Visit Reasons: Osteoporosis/prolia Intake Note: Patient presents for Osteoporosis/Prolia injection. Allergies sulfamethoxazole [From BACTRIM] Allergy (Intermediate, Verified 05/24/24 14:30) ITCHING trimethoprim [From BACTRIM] Allergy (Intermediate, Verified 05/24/24 14:30) ITCHING Penicillins [PENICILLINS] Allergy (Unknown, Verified 05/24/24 14:30) UNKNOWN-? CHILDHOOD ALLERGY Medication List - Last Reconciled 05/24/24 by Rosie Durán MD cholecalciferol (vitamin D3) 2,000 units PO TID denosumab (Prolia) 60 mg subcut [id number] levothyroxine 150 mcg PO DAILY losartan 25 mg PO DAILY melatonin 5 mg PO BEDTIME HPI Comments Details: 84-year-old female with osteoporosis and osteoarthritis returns for follow-up with her sister. Prolia injection 11/05 was uneventful. Patient states that she is doing about the same overall. Denies any recent falls or fractures. She takes 50 mcg of vitamin D daily Initial history: This is an 82-year-old female with a past medical history of hypothyroidism and hypertension who presents for evaluation of osteoporosis. She has no complaints. She denies history of kidney stones. Her sister who is 70 years old accompanies her and she also mentions she has osteoporosis. Denies history of falls or fractures [facility] Medical History Essential hypertension Surgical History H/O tubal ligation H/O: knee surgery Hx of colonoscopy Family History Father Throat cancer Mother No problems noted. Brother Diabetes Social History Household Members: None Household Members Other:: Lives alone Housing: Apartment Alcohol intake: former Patient Tobacco Use Status: Former Tobacco user Female Reproductive History Menstrual Age of Menarche: 12 Review of Systems Musc Denies joint swelling Physical Exam Vital Signs: Last Vital Signs Pulse 68 05/24/24 14:34 BP 134/72 05/24/24 14:34 Pulse Ox 98 05/24/24 14:34 Oxygen Delivery Method Room Air 05/24/24 14:34 BMI result Body Mass Index 28.3 Const General: cooperative, healthy appearing, comfortable and no acute distress Nutritional Appearance: overweight Limitations: no limitations HEENT Head: Yes normocephalic and Yes atraumatic Resp Effort & Inspection: normal respiratory effort and able to speak in complete sentences Extrem Other: Mild osteoarthritic changes of both hands. Normal range of motion of shoulders, normal gait Kyphotic Bilateral knee pain with flexion Normal gait Office Meds Prolia 60 mg/mL subcutaneous syringe Performing Provider: Rosie Durán MD Performing Location: [facility] [place] Rhe[facility] Administered by: Rosie Durán MD on 05/24/24 15:32 Dose Route Admin Location Dispensed Lot Number Expiration Date ND Tag Machine Operator 60 mg subcut 1 mL [id number] 08/11/26 25849-300-23 [employer] Results Reviewed Results Reviewed: DEXA 05/2022 Impression: L spine T-score -4.1.? 1% increase from baseline Left femur neck T-score -3.6 Left femur total T-score -3.5 Assessment & Plan Assessment & Plan (1) Osteoporosis: Comment: DEXA 05/2022 L spine T-score -4.1.? 1% increase from baseline Left femur neck T-score -3.6 Left femur total T-score -3.5 Prolia 10/2022 Code(s): M81.0 - Age-related osteoporosis without current pathological fracture Category: Medical Qualifiers: Osteoporosis type: age-related Presence of current pathological fracture: without current pathological fracture Qualified Code(s): M81.0 - Age-related osteoporosis without current pathological fracture Plan: This is an 84-year-old female with osteoporosis presents for follow-up. Doing well overall. She is here for her 4th Prolia injection. Previous injections were uneventful. She received the Prolia injection in clinic today. Continue Prolia every 6 months. Vitamin-D levels low. Advised patient to increase her vitamin D from 50 mcg daily to 150 mcg daily Labs before next visit. Repeat DEXA 10/2024 Plan I spent 26 minutes reviewing patient's chart, evaluating patient, ordering diagnostic workup, counseling patient and her sister and documenting in the chart Orders: Orders Comprehensive Met. Panel 6 Months M81.0 - Age-related osteoporosis without current pathological fracture Vitamin D 25-OH (D2 and D3) 6 Months E55.9 - Vitamin D deficiency, unspecified XR DEXA axial skeleton 10/15/24 M81.0 - Age-related osteoporosis without current pathological fracture AMB Denosumab Injection Patient Supplied Today M81.0 - Age-related osteoporosis without current pathological fracture Medications: New Prolia (denosumab) 60 mg subcut ONCE 1 mL 0RF NS M81.0 - Age-related osteoporosis without current pathological fracture Changed From cholecalciferol (vitamin D3) 2,000 units PO BID 180 caps 1RF To cholecalciferol (vitamin D3) 2,000 units PO TID 270 caps 1RF Coding Level of Care Code Est Pt Level 3 (16502) Diagnoses Age-related osteoporosis without current pathological fracture M81.0 Osteoporosis type: age-related Presence of current pathological fracture: without current pathological fracture
[2024-05-24 14:34] VITALS: BP 134/72; PULSE 68; O2SAT 98; BMI 28.3
== END 2024-05-24 15:06 | disposition home or self-care (01) ==
PROVIDERS: PCP Student in an Organized Health Care Education/Training Program; Visit Provider Student in an Organized Health Care Education/Training Program
DX: M81.0 Age-related osteoporosis without current pathological fracture (principal)
CPT/HCPCS: 99213

== ENCOUNTER → 2024-05-24 14:20 | Outpatient (BNVA) | payer OTHER, SELFPAY | PROVIDERS: PCP Student in an Organized Health Care Education/Training Program; Visit Provider Student in an Organized Health Care Education/Training Program | DX: M81.0 Age-related osteoporosis without current pathological fracture (principal); Z79.620 Long term (current) use of immunosuppressive biologic | CPT/HCPCS: 96372; 99212; J0897 ==

== ENCOUNTER 2024-06-13 13:08 | Outpatient (REF) | payer OTHER, SELFPAY ==
--- NOTE | ~2024-06-13 | MM_ITS ---
EXAMINATION: MM SCREENING DIGITAL BREAST TOMOSYNTHESIS, BILATERAL CLINICAL INFORMATION: Screening. Asymptomatic. COMPARISON: Mammography: Comparison is made with available priors TECHNIQUE: Digital breast mammography with tomosynthesis is performed in both the craniocaudal and mediolateral oblique views along with computer-aided detection (CAD). FINDINGS: There are scattered areas of fibroglandular density (ACR BI-RADS breast composition Category b). There are no significant masses, abnormal calcifications, or other abnormalities. MM/MM tomosynthesis screening BI IMPRESSION: No mammographic evidence of malignancy. ASSESSMENT: BI-RADS BI-RADS 1 - Negative RECOMMENDATION: Routine annual mammography screening. 1 year F/U This examination should not preclude the clinical evaluation of a suspicious palpable abnormality. This patient's information was entered into a reminder system with a target due date for their next mammogram. Electronically signed by: Kym Sidhu DO 06/25/2024 01:51 PM EDT
== END 2024-06-13 13:09 | disposition home or self-care (01) ==
LOC: HO.MAMMO 13:08
PROVIDERS: PCP Student in an Organized Health Care Education/Training Program; Visit Provider Student in an Organized Health Care Education/Training Program
DX: Z12.31 Encounter for screening mammogram for malignant neoplasm of breast (principal)
CPT/HCPCS: 77063; 77067

== ENCOUNTER → 2024-06-13 13:30 | Outpatient (BNV) | payer OTHER, SELFPAY | PROVIDERS: PCP Student in an Organized Health Care Education/Training Program; Visit Provider Internal Medicine | DX: Z12.31 Encounter for screening mammogram for malignant neoplasm of breast (principal) | CPT/HCPCS: 77063; 77067 ==

== ENCOUNTER 2024-07-09 13:13 | Outpatient (REF) | payer OTHER, SELFPAY ==
[2024-07-09 15:09] LABS: TSH reflex Free T4 2.38 uIU/mL (0.32-4.0)
== END 2024-07-09 13:14 | disposition home or self-care (01) ==
LOC: HO.CHCLDS 13:13
PROVIDERS: Visit Provider Student in an Organized Health Care Education/Training Program
DX: E03.9 Hypothyroidism, unspecified (principal)
CPT/HCPCS: 36415; 84443

== ENCOUNTER 2024-10-16 12:31 | Outpatient (REF) | payer OTHER, SELFPAY ==
--- NOTE | ~2024-10-16 | MM_ITS ---
EXAMINATION: DXA BONE DENSITY AXIAL HISTORY: Estrogen deficiency TECHNIQUE: anchor.travel Dual energy absorptiometry (DEXA) of the lumbar spine, total left hip, and femoral neck was performed. COMPARISON: Comparison is made with the prior examination dated 06/02/2022. FINDINGS: The bone mineral density of the lumbar spine is 0.717 with a T-score of -3.9, and a Z-score of -1.9. This represents a BMD change of 3.9% compared to the prior exam. This is not statistically significant. The bone mineral density of the left total hip is 0.596 with a T-score of -3.3, and a Z-score of -1.0. This represents BMD change of 5.3% compared to the prior exam. This is not statistically significant. The bone mineral density of the left femoral neck is 0.563 with a T-score of -3.4, and a Z-score of -1.0. This represents BMD change of 6.0% compared to the prior exam. MM/XR DEXA axial skeleton IMPRESSION: Based on bone mineral density, and according to World Health Organization (WHO) criteria, the diagnosis is consistent with osteoporosis. All bone density values are in grams per centimeter squared (g/cm2). Statistically, 68% of repeat scans fall within 1 SD (+/- 0.010 g/cm2 for AP spine L1-L4) and 1 SD (+/- 0.012 g/cm2 for femur total) FRAX is a trademark of the [employer]'s [place] for Metabolic Bone Disease, a World Health Organization (WHO) Collaborating Center. Electronically signed by: Jose Elias Gibson MD 10/18/2024 07:41 AM EST
--- OUTSIDE RECORDS SUMMARY | 2024-10-16 13:02 | XMS_ITS | Encounter Summary ---
Author Organization [employer] Address [address] [place] [address] Care Team Providers Care Bookseamer Blindstitch Name Role Phone Sonya Interiano MD Primary Care Provider [phone] Encounter Details Date Type Department Care Team ([facility] Contact Info) Description 02/03/2023 Orders Only [facility] MED [facility] PEDS [address], [place] [phone] Sonya Interiano MD [address] [place], [place] [phone] Social History Tobacco Use Types Packs/Day Years Used Date Smoking Tobacco: Never Passive Smoke Exposure: Never Smokeless Tobacco: Never Alcohol Use Standard Drinks/Week Comments Never 0 (1 standard drink = 0.6 oz pur e alcohol) Comments Unknown Sex and Gender Information Value Date Recorded Sex Assigned at Female 07/12/2022 10:20 AM EDT Legal Sex Female 10:20 AM EDT Gender Identity Female 07/12/2022 10:20 AM EDT Sexual Orientation Straight 07/12/2022 10 :20 AM EDT COVID-19 Exposure Response Date Recorded In the last 10 days, have yo u been in contact with someone who was confirmed or suspected to have Coronavirus/COVID-19? No / Unsure 02/02/2023 9:04 AM EDT documented as of this encounter Plan of Treatment Upcoming Encounters Date Type Department Care Team ([facility] Contact Info) Description 10/25/2024 11:15 AM EST Office Visit [facility] [address], [place] [phone] Aneta Carlson, HUNTER [address] [place], [place] [phone] documented as of this encounter Visit Diagnoses Not on filedocumented in this encounter Care Teams Bookseamer Blindstitch Relationship Specialty Start Date End Date Sonya Interiano MD [address] [place] [phone] PCP - General Family Medicine 08/28/12 [facility] 09/17/24 documented as of this encounter
--- OUTSIDE RECORDS SUMMARY | 2024-10-16 13:02 | XMS_ITS | Encounter Summary ---
Author Organization [employer] Address [address] [place] [address] Care Team Providers Care Mold Shifter Name Role Phone Sonya Interiano MD Primary Care Provider Reason for Visit * Reason Onset Date Comments Call Back Request 03/26/2024 Encounter Details Date Type Department Care Team ([facility] st Contact Info) Description 03/26/2024 Telephone [facility] [address] [place] [address] Sonya Interiano MD [address] [place] [address] Call Back Request Social History Tobacco Use Types Packs/Day Years Used Date Smoking Tobacco: Never Passive Smoke Exposure: Never Smokeless Tobacco: Never Alcohol Use Standard Drinks/Week Comments Never 0 (1 standard drink = 0.6 oz pur e alcohol) Depression Answer Date Recorded Patient Health Questionnaire-9 Score 11 10/19/2023 Patient Health Questionnaire-9 Score 11 10/19/2023 Last PHQ-9: Questionnaire Data Not on file 0 10/19/2023 Housing Stability Answer Date Recorded What is your housing situation today? I have ayan badul 10/19/[address] you li ve. Do you have problems with any of the following? None of the above 10/19/2023 Food Insecurity Answer Date Recorded Within the past 12 months, y ou worried that your food would run out before you got money to buy more: Never True 10/19/2023 Within the past 12 months,th e food you bought just didn't last and you didn't have enough money to get more: Never True 03/2024 Transportation Answer Date Recorded In the past 12 months, has l ack of transportation kept you from medical appts, meetings, work or from getting things needed for daily living? No 10/19/2023 Utilities Answer Date Recorded In the past 12 months, has t he electric, gas, oil or water company threatened to shut off services in your home? No 10/19/2023 Depression Answer Date Recorded Patient Health Questionnaire-2 Score 4 10/19/2023 Comments No Sex and Gender Information Value Date Recorded Sex Assigned at Female 07/12/2022 10:20 AM EDT Legal Sex Female 10:20 AM EDT Gender Identity Female 07/12/2022 10:20 AM EDT Sexual Orientation Straight 07/12/2022 10 :20 AM EDT documented as of this encounter Miscellaneous Notes * Telephone Encounter - Letty Gayle RN - 03/28/2024 9:33 AM EDT Tc from patient calling to request a call back in regards to the levothyroxine (Synthroid) 100 MCG tablet states has not been taking this medication due to not having any labs done and is unsure if the thyroid levels are high or low TC placed to pt labs were ordered in November and she needs to go have labs done, pt should not stop taking her medication. Left message for a call back will re- task to green team to make another attempt * Telephone Encounter - Alok Lawler - 03/26/2024 11:27 AM EDT Tc from patient calling to request a call back in regards to the levothyroxine (Synthroid) 100 MCG tablet states has not been taking this medication due to not having any labs done and is unsure if the thyroid levels are high or low documented in this encounter Plan of Treatment Upcoming Encounters Date Type Department Care Team (Late st Contact Info) Description 10/25/2024 11:15 AM EST Office Visit [facility] MED [facility] PEDS [address] [place], [place] [phone] Aneta Carlson, HUNTER [address] [place] [address] documented as of this encounter Visit Diagnoses Not on filedocumented in this encounter Additional Health Concerns Assessment Noted Time PHQ-9 Depression Total Score: 11 024 10:51 AM EST documented as of this encounter Care Teams Mold Shifter Relationship Specialty Start Date End Date Sonya Interiano MD [address] [place] [address] PCP - General Family Medicine 08/28/12 [facility] 09/17/24 documented as of this encounter
--- OUTSIDE RECORDS SUMMARY | 2024-10-16 13:02 | XMS_ITS | Data Portability ---
Author Organization [facility], [facility] Address [address] [place] [phone] Assessment Encounter Date Assessment Date Assessment LastModified by Organization Details LastModified Time 09/30/2023 09/30/2023 I provided real -time medical direction via phone for this encounter, and was available for additional phone based assistance as needed. I have reviewed and agree with the Assessment and Plan as documented by the Drum Printer. We discussed the diagnostic uncertainty of home visits and the risk associated with this. The patient given the opportunity to ask questions. Advised the patient, the computer support specialist that while lack of response 1 dose of meclizine does not rule out BPV, cannot rule out cerebellar stroke. Labs normal/ EKG has no glaring findings on it however she could be developing hypertensive heart disease or unstable angina since has had pain for several hours and I advised the safest thing would be to transfer her to the ER for definitive workup and treatment she verbalized understanding via the computer support specialist [email or web address] Not available 09/30/2023 14:10:34 Plan of Treatment Reminders Order Date Submit Date Provider Last Modified By Organization Details Last Modified Time Details Appointments None recorded. Lab BMP, serum or plasma 2023 024 [email or web address] 0 [facility], [address] [place] [address], [phone], 4 13:59:28 Referral None recorded. Procedures None recorded. Surgeries None recorded. Imaging electrocard iogram 2023 024 [email or web address] 0 [facility], [address] [place] [address], [phone], 4 13:59:24 Medication Orders meclizine 25 mg tablet 2023 024 [email or web address] 0 Not available 13:59:25 metoprolol tartrate 25 mg tablet 2023 024 [email or web address] 0 Not available 13:59:24 Patient TargetsNo targets recorded. Patient InstructionsNo instructions recorded. Reason for Referral None Reported. Results Created Date Observation Date Name Description Value Unit Range Abnormal Flag Note LastModifiedBy Organization Detail LastModifiedTime 09/30/19 24 09/30/2023 BMP, serum or plasm a BUN 16 Not Available Main - Ins [address], [phone], 09/30/2023 12:45:59 09/30/19 24 09/30/2023 BMP, serum or plasm a Ca Ionize d calciu m 1.05 Not Available Main - [address], [address], 09/30/2023 12:45:59 09/30/19 24 09/30/2023 BMP, serum or plasm a CI- 104 Not Available Main - Ins [address], [address], 09/30/2023 12:45:59 09/30/19 24 09/30/2023 BMP, serum or plasm a CRE 0.5 Not Available Main - [facility] [address], [address], 09/30/2023 12:45:59 09/30/19 24 09/30/2023 BMP, serum or plasm a GLU 133 Not Available Main - [facility] [address], [address], 09/30/2023 12:45:59 09/30/19 24 09/30/2023 BMP, serum or plasm a K+ 4.4 Not Available Main - [facility] [address], [address], 09/30/2023 12:45:59 09/30/19 24 09/30/2023 BMP, serum or plasm a Na+ 138 Not Available Main - [facility] [address], [address], 09/30/2023 12:45:59 09/30/19 24 09/30/2023 BMP, serum or plasm a tCO2 28 Not Available Main - Ins jaun [address] [place] [address], [phone], 09/30/2023 12:45:59 09/30/19 24 09/30/2023 elect [email or web address] No observ ation record ed. [email or web address] Main - [facility] [address] [place] [address], [phone], 09/30/2023 13:59:20 Result Notes None recorded. Procedures Surgical History None recorded. Imaging Results Imaging Date Name Status LastModified by Organization Details LastModified Time 09/30/2023 electrocardiogram completed [email or web address] Main - [facility] [address] [place] [address], [phone], 09/30/2023 13:59:20 Procedure Notes None recorded. Medical Equipment None Reported. Allergies Allergen ID Allergen Name Allergen Category Reaction Reaction Severity Criticality Documentation Date Start Date Code Code System Note Provider Name and Address Organization Details Recorded Time 4387 Substance with sulfonami de structure and antibacte rial mechanism of action (substanc e) medicatio n Not available Not available Not available 09/30/2023 46147 8003 SNOMED Yulia Bell MD [address] [place] [address],[address], [place], [phone], [place] [employer] 4 12:44:32 4388 Product containin g penicilli n and antibioti c (product) medicatio n Not available Not available Not available 09/30/2023 67266 05 SNOMED Not Available [facility] - production 4 04:14:08 Medications Name Sig Start Date Stop Date Status Note LastModified by Organization Details LastModified Time losartan 50 mg tablet TAKE ONE TABLET BY MOUTH EVERY DAY active Not Available Not Available No t Available naproxen 375 mg tablet active Not Available Not Available No t Available cetirizine 10 mg tablet TAKE ONE TABLET BY MOUTH EVERY MORNING active Not Available Not Available No t Available cetirizine 5 mg tablet TAKE ONE TABLET EVERY NIGHT active Not Available Not Available Not Available prednisone 20 mg tablet TAKE TWO TABLETS ONCE DAILY IN THE MORNING FOR FIVE DAYS active Not Available Not Available No t Available guaifenesin 100 mg/5 mL oral liquid TAKE 20 ML BY MOUTH EVERY 8 HOURS active Not Available Not Available No t Available triamcinolon e acetonide 0.1 % topical cream APPLY TO THE AFFECTED AREA(S) TWICE DAILY IN THE MORNING AND AT BEDTIME NEEDED FOR PAIN AND FOR SWELLING active Not Available Not Available No t Available Sudogest 30 mg tablet TAKE ONE TABLET EVERY 4 HOURS NEEDED FOR CONGESTION active Not Available Not Available N ot Available levothyroxin e 100 mcg tablet TAKE ONE TABLET DAILY active Not Available Not Available No t Available meclizine 25 mg tablet Take 1 tablet by oral route. 2023 active Not Available Not Available Not Avai lable levothyroxin e 50 mcg tablet TAKE ONE TABLET BY MOUTH EVERY MORNING active Not Available Not Available No t Available triamcinolon e acetonide 0.1 % topical ointment APPLY TO THE AFFECTED AREA(S) TWICE DAILY active Not Available Not Available Not Available clobetasol 0.05 % topical ointment APPLY TO THE AFFECTED AREA(S) TWICE DAILY active Not Available Not Available Not Available cholecalcife rol (vitamin D3) 125 mcg (5,000 unit) capsule TAKE ONE CAPSULE EVERY MORNING active Not Available Not Available No t Available doxycycline hyclate 100 mg tablet TAKE 1 TABLET TWICE DAILY WITH WATER UNTIL FINISHED. DO NOT LIE DOWN FOR 30 MINUTES AFTER active Not Available Not Available No t Available Ventolin HFA 90 mcg/actuatio n aerosol inhaler INHALE TWO PUFFS EVERY 4 HOURS NEEDED FOR WHEEZING active Not Available Not Available No t Available Premarin 0.625 mg/gram vaginal cream INSERT 0.65 MG VAGINALLY ONCE A WEEK active Not Available Not Available Not Available metoprolol tartrate 25 mg tablet Take 1 tablet by oral route. 2023 active Not Available Not Available Not Avai lable nitrofuranto in monohydrate/ macrocrystal s 100 mg capsule TAKE ONE CAPSULE TWICE DAILY FOR 7 DAYS active Not Available Not Available N ot Available melatonin 5 mg tablet TAKE TWO TABLETS BY MOUTH AT BEDTIME active Not Available Not Available No t Available Prolia 60 mg/mL subcutaneous syringe active Not Available Not Available Not Available Chest Congestion Relief DM 10 mg-100 mg/5 mL oral syrup TAKE FIVE ML'S BY MOUTH EVERY 4 HOURS NEEDED FOR COUGH active Not Available Not Available No t Available Vitals Date Recorded Heart rate Body temperature Respiratory rate Oxygen saturation Oxygen saturation in Arterial blood by Pulse oximetry Systolic blood pressure Diastolic blood pressure Provider Name and Address Organization Details Last Updated DateTime 4 72 /min 98.6 [degF] 12 /min 97 % 97 % 168 mm[Hg] 88 mm[Hg] Not Available [facility] 4 12:44:10 Date Recorded Systolic blood pressure Diastolic blood pressure Systolic blood pressure Diastolic blood pressure Provider Name and Address Organization Details Last Updated DateTime 09/30/2023 171 mm[Hg] 82 mm[Hg] 188 mm[Hg] 94 mm[Hg] Yulia Bell MD [address] [place] [address],[address] [place], [address] , [facility] [employer] [facility] 4 13:39:13 Social History None recorded. Functional Status None recorded. Mental Status None recorded. Family History Nothing Reported. Medical History No medical history recorded. Gynecological HistoryNo gynecological history recorded. Obstetrics History GPAL:G 0 P 0 0 0 0 Past Encounters Encounter ID Performer Location Encounter Start Date Encounter Closed Date Diagnosis/Indication Diagnosis SNOMED-CT Code Diagnosis ICD10 Code Diagnosis Note [id number] Yulia Bell MD [address] [address] 09/30/2023 12:44:05 10/02/2023 13:48:29 Chest discomfort 566490312 R07.89 Medic alone, reported only has BLS transport, would avoid nitroglyce rin right now due to risk of increasing headache and symptomati c rapid lowering of blood pressure /report given to the [facility] ER the medic informed me patient declined the 324 mg of asa i ordered. medical laboratory technician aware Essential hypertension 71583081 I10 Will add 1 dose of metoprolol /also cardioprot ective-med ic did not have a chance to recheck the BP after metoprolol administra tion Dizziness 418051241 R42 Described as spinning and movement related question benign positional vertigo-ve rsus cerebellar stroke -no relief after 1 tablet 30 min Health Concerns Section Related Observation LastModified by Organization Detai ls LastModified Time None Recorded Concern Status LastModified by Organization Details LastModified Time None Recorded Advance Directives Directive None Recorded Payers Encounter Date Sequence Insurance Name Policy Number Policy Benoit Covered Member ID Benoit Member ID Guarantor Name 09/30/2023 1 [facility] - DOS ON OR AFTER 2022 - DUAL ELIGIBLE - HALFWAY OPTIONS AND ONE [employer] (MEDICARE REPLACEMENT/ADV ANTAGE - HMO) Neha Bowman [id number] Neha Colby Notes Date Note Type Note Provider Name and Address Organization Details Recorded Time 09/30/2023 text/html HPI: Call to Neha Colby, reports having elevated BP reading this morning 165/88. Per pt having dizziness constantly. Pt had not yet taken BP meds this morning. Pt had small amount of coffee and some crackers. At time of call BP 163/91 HR 71, per pt bp meds taken 1 hour ago. Pt staet has been drinking plenty of water. Pt advised of disposition, agrees to [facility] referral as not able to come into [facility]. Referral submitted online. .................... .................... .................... .................... .................... .................... .................... . [facility] Nurse Triage Notes (Mya Marrufo): Comments: No further information required to process visit. SEGMD: Patient was treated for a cold at the end of August.-Denies current URI symptoms. Awoke with a feeling of room spinning dizziness, making her unsteady on her feet worse when she gets up or walks.. She complains of a minor frontal headache, denies: Visual or speech changes, focal weakness or numbness, ringing in her ears, N/V/D, fever/chills/diaphor esis. She states she is chronically short of breath unchanged from baseline. She denies palpitations or racing heart or skipping beats. She initially denied chest pain to the medic then complained of constant pressure mid sternal non-radiating since she awoke this morning via her computer support specialist. She denied prior episodes of dizziness but her sister told the medics she has complained of this in the past. She has no known history of CAD. She has a history of HTN, hypothyroidism and takes 50 mg of losartan, cetirizine and levothyroxine daily as her only meds. She took her losartan 2 hours prior to medic arrival............. .................... .................... .................... .................... .................... .................... ......... Drum Printer Note From Kelly Montalvo: [facility] Drum Printer Samuel Montalvo [email or web address] dispatched to a orthopaedic hospital for an 83 yof C/O dizziness. Upon arrival, the pt was sitting in her living room, awake and alert, in no apparent distress. Her sister/dictaphone transcriber on scene translated-pt Danish speaking only. The pt stated she took 50 mg losartan daily for HTN, but that she had woken up that AM feeling unsteady on her feet/dizziness inside my head, as well as a MARC. She denied any weakness, syncope, or near syncope. She denied any vision changes, nausea, numbness/tingling, or confusion. No facial droop, one sided weakness, or slurred speech. She stated she did not feel dizzy when she went to bed the night prior at 11:30 pm. She also reported right ear itchiness and chest pressure, which she had felt before. She denied palpitations/tachyca rdia. She denied fever, sore throat, cough, CP, SOB, abd pain, vomiting, diarrhea, or urinary S/S. Lung sounds clear, no pedal edema. [facility] consulted; EKG and BMP in insted. She was given 25 mg meclizine and 25 mg metoprolol PO, and 911 was called. Pt was given 324 mg PO ASA but refused to take it. Nabil ANDUJAR arrived w/ [facility], and the pt was transported to [facility] ED. [facility] – [place] Lab Orders: BMP, serum or plasma: Performed .................... .................... .................... .................... .................... .................... .................... . Disposition: Fulfilled Yulia Bell MD [address] [place] [address],[address], [place], [phone], [employer] 09/30/2023 19:02:09 OBGyn Episode No OBEpisode recorded.
--- OUTSIDE RECORDS SUMMARY | 2024-10-16 13:02 | XMS_ITS | Clinical Summary ---
Author Organization [facility] ity Address [address] [place] [address] Care Team Providers Care Mailroom Clerk Name Role Phone Unavailable Primary Care Provider Unavailabl e Family History Medical History Relation Name Comments Breast cancer Sister 40 Relation Name Status Comments Sister 40 Alive Social History Tobacco Use Types Packs/Day Years Used Date Smoking Tobacco: Never Assessed Sex and Gender Information Value Date Recorded Sex Assigned at Not on file Gender Identity Not on file Sexual Orientation Not on file Obstetrics History Plan of Treatment Health Maintenance Due Date Last Done Comments DTaP,Tdap,and Td Vaccines (1 - Tdap) 02/23/1959 Zoster Vaccines (1 of 2) 02/23/1990 Pneumococcal Vaccine: 65+ Ye ars (1 of 1 - PCV) 02/23/2005 RSV Immunization Patients 60 + Years Old (1 - 1-dose 75+ series) 02/23/2015 Depression Screening 08/15/2022 Falls Risk Assessment 08/15/2022 Osteoporosis Screening (Bone Density Screening) 08/15/2022 Social Influencers of Health Screening 08/15/2022 COVID-19 Vaccine ( - 2023-2 5 season) 2024 Influenza Vaccine (#1) 2024 06/18/2020 HIB Vaccines Aged Out No longer eligi ble based on patient's age to complete this topic HPV Vaccines Aged Out No longer eligi ble based on patient's age to complete this topic Hepatitis A Vaccines Aged Out No long er eligible based on patient's age to complete this topic Hepatitis B Vaccines Aged Out No long er eligible based on patient's age to complete this topic IPV Vaccines Aged Out No longer eligi ble based on patient's age to complete this topic MMR Vaccines Aged Out No longer eligi ble based on patient's age to complete this topic Meningococcal ACWY Vaccine Aged Out N o longer eligible based on patient's age to complete this topic RSV Immunization Patients Un brown 20 months Aged Out No longer eligible b ased on patient's age to complete this topic Varicella Vaccines Aged Out No longer eligible based on patient's age to complete this topic
--- OUTSIDE RECORDS SUMMARY | 2024-10-16 13:02 | XMS_ITS | Encounter Summary ---
Author Organization [employer] Address [address] [place] [address] Care Team Providers Care Cleaning And Washing Equipment Operator Name Role Phone Sonya Interiano MD Primary Care Provider [phone] Reason for Visit * Reason Onset Date Comments Forms/questionnaires 03/22/2024 Encounter Details Date Type Department Care Team ([facility] st Contact Info) Description 03/22/2024 Telephone [facility] MEDICINE [address] [place] [address] Sonya Interiano MD [address] [place] [address] Forms/questionnaires Social History Tobacco Use Types Packs/Day Years [...] your housing situation today? I have ayan abdul 10/19/[address] you li [...] encounter Miscellaneous Notes * Telephone Encounter - Ale Powell RN - 03/23/2024 10:34 AM EDT Noted. Pt to follow forms process. * Telephone Encounter - Tatyana Barber - 03/22/2024 3:03 PM EDT Tc from [place] with [facility] would like to inform PCP that pt came in with a qualifying chronic condition form that will need to be reviewed and signed by PCP however pt advised [facility] that PCP declined. Narcotics Investigator informed protocol pt will need to come to HIM and dropped forms off. Advised will leave grey Regan verbalizes understanding, if any questions or concerns please contact at [phone] documented in this encounter Plan of Treatment Upcoming Encounters Date Type Department Care Team (Late st Contact Info) Description 10/25/2024 11:15 AM EST Office Visit [facility] MED & PEDS [address] [place] [address] Aneta Carlson, HUNTER [address] [place] [address] documented as of this encounter Visit Diagnoses Not on filedocumented in this encounter Additional Health Concerns Assessment Noted Time PHQ-9 Depression Total Score: 11 024 10:51 AM EST documented as of this encounter Care Teams Cleaning And Washing Equipment Operator Relationship Specialty Start Date End Date Sonya Interiano MD [address] [place] [id number] PCP - General Family Medicine 08/28/12 Stratio 09/17/24 documented as of this encounter
--- OUTSIDE RECORDS SUMMARY | 2024-10-16 13:03 | XMS_ITS | Clinical Summary ---
Author Organization [employer] Address [address] [facility] 7[address] [place] [address] Care Team Providers Care Car Sales Associate Name Role Phone Sonya Interiano MD Primary Care Provider [phone] Allergies Active Allergy Reactions Criticality Noted Date Comments Penicillin V Other reaction(s): unspecified Sulfamethoxazole 06/06/2012 Other reaction(s): Rash, Rash Trimethoprim 06/06/2012 Other reaction(s): Rash, Rash Medications polyethylene glycol, PEG, 3350 (MiraLax) 17 GM/SCOOP powder Take 1 packet by mouth every 12 (twelve) hours. 2 Active omeprazole (PriLOSEC) [address] capsule TAKE ONE CAPSULE TWICE DAILY 30 TO 60 MINUTES BEFORE MEALS 2 Active gabapentin (Neurontin) 100 MG capsule Take 100 mg by mouth at bedtime. 2 Active Prolia 60 MG/ML solution prefilled syringe 3 Active Elastic Bandages & Supports (TruForm Stockings 10-20mmHg) miscIndications: Venous stasis dermatitis of both lower extremities To use daily prior to getting out of bed 1 each 3 Active Emollient (CeraVe Moisturizing) creamIndications :Xerosis cutis Apply 453 g topically 2 times daily. 453 g 11 3 Active albuterol 108 (90 Base) MCG/ACT inhalerIndicatio ns:Bronchitis Inhale 2 puffs every 4 (four) hours if needed for wheezing. 18 g 4 Active cetirizine (ZyrTEC) 5 MG tabletIndication s:Upper respiratory tract infection, unspecified type Take 1 tablet by mouth at night. 30 tablet 4 Active Premarin 0.625 MG/GM cream Insert 0.65 mg into the vagina 1 (one) time per week. 30 g 3 4 Active mometasone (Elocon) 0.1 % ointment Apply topically Once per day. 45 g 3 4 Active naproxen (Naprosyn) 375 MG tabletIndication s:Acute midline thoracic back pain,Low back pain at multiple sites TAKE ONE TABLET TWICE DAILY WITH BREAKFAST AND SUPPER 60 tablet 11 4 Active levothyroxine (Synthroid) 150 MCG tablet Take 1 tablet (150 mcg) by mouth before breakfast. 30 tablet 11 4 03/30/20 25 Active triamcinolone (Kenalog) 0.1 % ointmentIndicati ons:Venous stasis dermatitis Apply topically 2 times daily. Apply thin layer to left lower leg topically 2 times daily for up to 2 weeks. 30 g 1 4 Active clobetasol (Temovate) 0.05 % ointmentIndicati ons:Lichen sclerosus of female genitalia Apply thin layer by topical route to vulva 2-3 times per week. 30 g 1 4 Active diphenhydrAMINE HCl, Sleep, (Unisom SleepMinis) 25 MG capsule 1 cap 1/2 hr before bedtime 28 capsule 3 4 Active losartan (Cozaar) 50 MG tablet Take 1 tablet (50 mg) by mouth Once per day. 90 tablet 1 4 Active Active Problems Problem Noted Date Diagnosed Date Bronchitis 09/14/2023 Assessment & Plan (09/19/2023 10:32 AM EST): Discussed supportive care, will send codeine-guaifenesin, cough may last for a while. Reports she is breathing better. Antibiotic was given for bronchitis, can hold. Recommended followup if worsening symptoms Assessment & Plan (09/14/2023 2:53 PM EST): Will treat for bronchitis, if no improvement recommended f/up prn. Rapid testing negative, will send out for PCR. Primary hypertension 10/08/2022 Assessment & Plan (10/05/2024 1:37 PM EST): Blood pressure is stable on today visit, told to keep a bp log, keep low sodium diet, target <140/90 Assessment & Plan (09/06/2024 2:34 PM EST): Uncontrolled HTN. Patient with hx of poor compliance and poor health literacy. - At this point will incr losartan 50 mg and recommend for patient to schedule followup with PCP - requested nursing to get records from ED, pt insist she was seen in [facility] - also requesting home VNA, this should suffice as a face to face attestation of her need, her confusion, poor health literacy and overall health issues will strongly benefit of monitoring. Assessment & Plan (10/13/2023 4:28 PM EST): -BP elevated in office, although appears well controlled per home readings -Asymptomatic -Continues losartan 50mg daily -Encouraged low salt diet and physical activity as able -ED/urgent care precautions reviewed Assessment & Plan (11/15/2022 1:50 PM EST): Uncontrolled. Last time seen by PCP was controlled following AAFP guidelines. Did not take medication today, recommended f/up PCP Assessment & Plan (10/08/2022 3:58 PM EST): - If SBP < 140/DBP <90 mmHg in more than 75% of home self-monitoring, continue current medication regimen and make f/u with PCP in 3 month - If SBP >140-165/DBP >90-115 mmHg , increase losartan to 100 mg and f/u with PCP in 1 month - If SBP > 165/ DBP> 115 mmHg, consult with covering provider - If SBP <90/DBP <50 mmHg, consult with covering provider. Dysuria 10/08/2022 Lichen sclerosus of female genitalia 05/06/2021 Assessment & Plan (04/08/2024 2:47 PM EDT): -Likely the cause of her symptoms as she had been using the premarin but not the high-potency steroid -Refill of clobetasol propionate 0.05% oint to be used 2-3 times per week -Follow up with specialists and PCP PRN Assessment & Plan (01/12/2024 11:20 AM EDT): Prescribed high potency steroids, she declined referral to [facility]. Will send out swab. Assessment & Plan (10/08/2022 3:57 PM EST): Patient with similar complaint she had prior, will send swab. Rx high dose steroid, reports she doesn't know if the gabapentin sent in the past was helpful, she has not asked for a refill. Recommended f/u with PCP Calculus in biliary tract 12/20/2013 Vitamin D deficiency 03/30/2012 Osteoporosis 03/30/2012 Microscopic hematuria 03/30/2012 Assessment & Plan (04/08/2024 2:46 PM EDT): History of microscopic hematuria, no recent consult notes on file. Pt does not recall following with Urology in the past few years. Will place update referral for further eval Insomnia 03/30/2012 Assessment & Plan (04/08/2024 2:45 PM EDT): Previous med trials: melatonin, doxepin Referral to Sleep medicine placed Assessment & Plan (01/12/2024 11:21 AM EDT): Explain to patient my concern of providing strong sleep medicine, reports has problems starting to sleep, send trial of doxepin and encourage her to discuss this issue with her PCP Generalized osteoarthritis 03/30/2012 Resolved Problems Problem Noted Date Diagnosed Date Resolved Date Upper respiratory tract infection 11/15/2022 12/16/2022 Assessment & Plan (11/15/2022 1:51 PM EST): Nl lung exam, nasal congestion, rapid testing negative. Pending PCR results. Recommended supportive care. Rx expectorant and antihistamine. Blood in urine 05/15/2013 04/08/2024 Encounters Date Type Department Care Team Description 10/15/2024 Telephone [facility] [address] [place], [place] [phone] Sonya Interiano MD Nurse Triage 10/03/2024 Travel 09/28/2024 11:15 AM EST Office Visit [facility] [address] [place] [address] Tayo Nelson MD Primary hypertension (Primary Dx) 09/28/2024 Travel 09/26/2024 Telephone [facility] [address] [place] [phone] Sonya Interiano MD Medication Question 09/21/2024 Telephone [facility] [address] [place] [address] Sonya Interiano MD isntED Follow UP 09/20/2024 10:45 AM EST Telemedicine [facility] [address] [place] [address] Sonya Interiano MD Primary hypertension (Primary Dx); Lichen sclerosus of female genitalia 09/20/2024 Telephone [facility] [address] [place] [address] Sonya Interiano MD Nurse Triage 09/20/2024 Travel 09/19/2024 Telephone [facility] [address] [place] [address] Sonya Interiano MD Nurse Triage 09/11/2024 Telephone [facility] [address] [place] [address] Sonya Interiano MD Nurse Triage 09/06/2024 2:30 PM EST Office Visit [facility] [address] [place] [address] Caroline Medina MD Primary hypertension (Primary Dx) 09/06/2024 Travel 08/29/2024 Telephone [facility] [address] [place] [address] Sonya Interiano MD 08/27/2024 Telephone [facility] [address] [place] [address] Sonya Interiano MD Nurse Triage 08/27/2024 Telephone [facility] [address] [place] [address] Sonya Interiano MD ER Follow-up 08/22/2024 Telephone [facility] [address] [place] [address], [place] [address] Sonya Interiano MD Nurse Triage 08/13/2024 Telephone [facility] [address] [place] [address] Sonya Interiano MD Nurse Triage from Last 3 Months Immunizations Name Administration Dates Next Due Influenza High-dose Quadrivalent Preservative Fr ee 07/06/2022,06/18/2020 Influenza injectable quadriv alent IIV4 with preservative 08/16/2018,07/20/2017 Influenza injectable quadrivalent preservative f ree 06/30/2015 Influenza, High Dose Seasonal, Preservative Free 06/20/2024 Influenza, Split (incl. purified surface antigen ) 07/18/2013 Pfizer Covid-19 Vaccine 12+ 06/02/2021, 1 Pneumococcal Conjugate PCV 13 07/20/2017 Pneumococcal Polysaccharide PPSV23 08/16/2018 Tdap 11/07/2017 Social History Tobacco Use Types Packs/Day Years Used Date Smoking Tobacco: Never Passive Smoke Exposure: Never Smokeless Tobacco: Never Tobacco Cessation:Counseling Given: Not Answered Alcohol Use Standard Drinks/Week Comments Never 0 [...] t he electric, gas, oil or water [employer] threatened to shut off services in your home? No 10/19/2023 Depression Answer Date Recorded Patient Health Questionnaire-2 Score 4 10/19/2023 Comments No Sex and Gender Information Value Date Recorded Sex Assigned at Female 07/12/2022 10:20 AM EDT Legal Sex Female 10:20 AM EDT Gender Identity Female 07/12/2022 10:20 AM EDT Sexual Orientation Straight 07/12/2022 10 :20 AM EDT Last Filed Vital Signs Vital Sign Reading Time Taken Comments Blood Pressure 136/78 09/28/2024 11:42 AM EST Pulse 68 09/28/2024 11:42 AM EST Temperature 37.1 ??C (98.7 ??F) 09/28/2024 11:[address] Respiratory Rate 16 09/28/2024 11:42 AM EST Oxygen Saturation 98% 09/06/2024 2:21 PM EST Inhaled Oxygen Concentration - - Weight 63.1 kg (139 lb 3.2 oz) 09/28/2024 11:42 AM EST Height 152.4 cm (5') 09/28/2024 11:42 AM EST Body Mass Index 27.19 09/28/2024 11:42 AM EST Plan of Treatment Upcoming Encounters Date Type Department Care Team (Late st Contact Info) Description 10/25/2024 11:15 AM EST Office Visit [facility] [address] [place] [address] Aneta Carlson, CNM [address] [place] [address] Health Maintenance Due Date Last Done Comments Alcohol/Substance Use Screening 1952 Zoster Vaccines (1 of 2) 02/23/1990 RSV Patients and Patients Aged 60 years or older (1 - 1-dose 75+ series) 02/23/2015 Depression Monitoring (PHQ-9) 04/18/2024 10/19/2023, 10/19/2023 COVID-19 Vaccine ( season) 2024 01/25/2023, 06/02/2021, 05/12/2021 Depression Screening 10/19/2024 10/19/2023, 10/19/19 24 SDOH Screening 10/19/2024 10/19/2023 Tobacco Screening 06/20/2025 06/20/2024 Lipid Panel 11/16/2026 11/16/2021 DTaP/Tdap/Td Vaccines (2 - Td or Tdap) 11/07/2027 11/07/2017, 08/23/2008 Pneumococcal Vaccine: 50+ Years Completed 08/16/2018, 07/20/2017, 07/08/2003 Influenza Vaccine Completed 06/20/2024, , 06/18/2020, Additional history exists HIB Vaccines Aged Out No longer eligi [...] patient's age to complete this topic Meningococcal Vaccine Aged Out No rahul yolanda eligible based on patient's age to complete this topic RSV under 20 months Aged Out No longe r eligible based on patient's age to complete this topic Rotavirus Vaccines Aged Out No longer eligible based on patient's age to complete this topic Procedures Procedure Name Priority Date/Time Associated Diagnosis Comments LIPID PANEL, STANDARD Routine 11/16/2021 10:13 AM EST from Last 3 Months or Most Recently Relevant to Health Maintenance Results * (ABNORMAL) LIPID PANEL, STANDARD (11/16/2021 10:13 AM EST) Chol/HDLC Ratio 2.8 <5.0 (calc) [facility] Cholesterol, Total 187 <200 mg/dL [facility] HDL Cholesterol 67 > OR = 50 mg/dL [facility] LDL Cholesterol 103(H) mg/dL (calc) [facility] Comment: Reference range: <100 ?? Desirable range <100 mg/dL for primary prevention; ?? <70 mg/dL for patients with CHD or diabetic patients ?? with > or = 2 CHD risk factors. ?? LDL-C is now calculated using the Alfred-Nuñez ?? calculation, which is a validated novel method providing ?? better accuracy than the Friedewald equation in the ?? estimation of LDL-C. ?? Alfred SS et al. JULI. 2013;310(19): 8177-6401 ?? (http://20/20 [employer]LY.com/faq/IFR619) Non-HDL Cholesterol 120 <130 mg/dL (calc) [facility] Comment: For patients with diabetes plus 1 major ASCVD risk ?? factor, treating to a non-HDL-C goal of <100 mg/dL ?? (LDL-C of <70 mg/dL) is considered a therapeutic ?? option. Triglycerides 78 <150 mg/dL [facility] 11/16/2021 10:1 3 AM EST us Sonya Interiano MD LAB BLOOD ORDERABLES Final Resul t [facility] [address] from Last 3 Months or Most Recently Relevant to Health Maintenance Insurance [facility] Care Teams Car Sales Associate Relationship Specialty Start Date End Date Sonya Interiano MD [address] [place] [phone] PCP - General Family Medicine 08/28/12 [employer] (Work) 09/17/24
--- OUTSIDE RECORDS SUMMARY | 2024-10-16 13:03 | XMS_ITS | Encounter Summary ---
Author Organization [email or web address] Address [address] [facility] 7[address] [place] [address] Care Team Providers Care Wine Master Name Role Phone Sonya Interiano MD Primary Care Provider [phone] Encounter Details Date Type Department Care Team ([facility] Contact Info) Description 06/11/2024 Orders Only [facility] P[facility]S [address] [place] [address] Sonya Interiano MD [address] [place] [address] Social History Tobacco Use Types Packs/Day Years [...] is your housing situation today? I have aayn abdul 10/19/[address] you [...] as of this encounter Miscellaneous Notes * Result Encounter Note - Sonya Interiano MD - 06/11/2024 4:26 PM EDT Annual Mammo documented in this encounter Plan of Treatment Upcoming Encounters Date Type Department Care Team (Late st Contact Info) Description 10/25/2024 11:15 AM EST Office Visit [facility] [address] [place] [address] Aneta Carlson, ANNY [address] [place] [address] documented as of this encounter Procedures Procedure Name Priority Date/Time Associated Diagnosis Comments BI MAMMOGRAM SCREENING TOMOSYNTHESIS BILATERAL Routine 06/13/2024 1:15 PM EDT documented in this encounter Results * BI Mammogram Screening Tomosynthesis Bilateral (06/13/2024 1:15 PM EDT) Anatomical Region Laterality Modality Breast Bilateral Mammography 06/13/2024 1:15 PM EDT Narrative 06/25/2024 1:54 PM EDT ? [facility] ? [address] ?[place] [address] ? Mammography Report ? Signed ? Patient: Colby,Neha ?MR#: [id number] ?? [id number] ? : 1940 ?Acct:[id number] ? Age/Sex: 84 / F ?ADM Date: 10//24 ? Loc: HO.MAMMO ? Attending Dr: Sonya Interiano MD ? Ordering Physician: Sonya Interiano MD ?Results: 1Negati ?? ve ? Date of Service: 06/13/24 ?Follow Up: 1 Year From Orig ?? inal Mammogram ? Procedure(s): MM tomosynthesis screening BI ?? Accession Number(s): [id number] ? cc: Sonya Interiano MD ? EXAMINATION: ?? MM SCREENING DIGITAL BREAST TOMOSYNTHESIS, BILATERAL ? CLINICAL INFORMATION: ? Screening. Asymptomatic. ? COMPARISON: ?? Mammography: Comparison is made with available priors ? TECHNIQUE: ?? Digital breast mammography with tomosynthesis is performed in both the ?? craniocaudal and mediolateral oblique views along with computer-aided ?? detection (CAD). ? FINDINGS: ?? There are scattered areas of fibroglandular density (ACR BI-RADS breast ?? composition Category b). ? There are no significant masses, abnormal calcifications, or other ?? abnormalities. ? MM/MM tomosynthesis screening BI ?? IMPRESSION: ?? No mammographic evidence of malignancy. ? ASSESSMENT: ? BI-RADS BI-RADS 1 - Negative ? RECOMMENDATION: ?? Routine annual mammography screening. ? 1 year F/U ? This examination should not preclude the clinical evaluation of a ?? suspicious palpable abnormality. ? This patient's information was entered into a reminder system with a ?? target due date for their next mammogram. ? Electronically signed by: ??Kym Sidhu DO ??06/25/2024 01:51 PM EDT ?? RP ? Dictated By: ?Kym Sidhu DO ? Signed By: ?<Electronically signed by Kym Sidhu, DO in OV> ? 06/25/24 1351 ? DD/ 1315 ? TD/TT: 06/13/24 1341 ? Smooth Stucco Resurfacer: ? Procedure Note Donotuseinterpreter, Image - 06/25/2024 [facility] [address] [place] [address] Mammography Report Signed Patient: Yusuf Bowman#: [id number] : 1940Acct:[id number] Age/Sex: 84 / FADM Date: 06/13/24 Loc: HO.MAMMO Attending Dr: Sonya Interiano MD Ordering Physician: Sonya Interiano MDResults: 1Negati ve Date of Service: 06/13/24Follow Up: 1 Year From Orig inal Mammogram Procedure(s): MM tomosynthesis screening BI Accession Number(s): [id number] cc: Sonya Interiano MD EXAMINATION: MM SCREENING DIGITAL BREAST TOMOSYNTHESIS, BILATERAL CLINICAL INFORMATION: Screening. Asymptomatic. COMPARISON: Mammography: Comparison is made with available priors TECHNIQUE: Digital breast mammography with tomosynthesis is performed in both the craniocaudal and mediolateral oblique views along with computer-aided detection (CAD). FINDINGS: There are scattered areas of fibroglandular density (ACR BI-RADS breast composition Category b). There are no significant masses, abnormal calcifications, or other abnormalities. MM/MM tomosynthesis screening BI IMPRESSION: No mammographic evidence of malignancy. ASSESSMENT: BI-RADS BI-RADS 1 - Negative RECOMMENDATION: Routine annual mammography screening. 1 year F/U This examination should not preclude the clinical evaluation of a suspicious palpable abnormality. This patient's information was entered into a reminder system with a target due date for their next mammogram. Electronically signed by: Kym Sidhu DO 06/25/2024 01:51 PM EDT Dictated By: Kym Sidhu DO Signed By: <Electronically signed by Kym Sidhu DO in OV> 06/25/24 1351 DD/ 1315 TD/TT: 06/13/24 1341 Smooth Stucco Resurfacer: Sonya Interiano MD IMG BI PROCEDURES Final Result documented in this encounter Visit Diagnoses Not on filedocumented in this encounter Additional Health Concerns Assessment Noted Time PHQ-9 Depression Total Score: 11 024 10:51 AM EST documented as of this encounter Care Teams Wine Master Relationship Specialty Start Date End Date Sonya Interiano MD [address] [place] [address] PCP - General Family Medicine 08/28/12 [employer] 09/17/24 documented as of this encounter
--- OUTSIDE RECORDS SUMMARY | 2024-10-16 13:03 | XMS_ITS | Encounter Summary ---
Author Organization [employer] Address [address] [facility] 7[address] [place] [address] Care Team Providers Care Plant Propagator Name Role Phone Sonya Interiano MD Primary Care Provider [phone] Reason for Visit * Reason Onset Date Comments Medication Question 09/20/2023 Encounter Details Date Type Department Care Team ([facility] st Contact Info) Description 09/20/2023 Telephone [facility] [address] [place] [address] Sonya Interiano MD [address] [place], [place] [id number] Medication Question Social History Tobacco Use Types Packs/Day Years [...] encounter Miscellaneous Notes * Telephone Encounter - Lanie Sosa RN - 09/20/2023 6:32 PM EST TC placed to patient via [employer] Herbicide Sprayer. No answer. LM to call us back. TC placed to patient without [place] [employer] Sprayer. Patient answered. Patient states that she is trying to take doxycycline as prescribed with just a glass of water but she is having nausea. States that she takes the prednisone with food but that the doxy says to take it with water. Advised to try taking both her prednisone and the doxy with food. She expressed understanding and said she would try it. States that she is still feeling chest tightness, SOB, and difficulty with respiration. Offered a f/u appointment at [facility] this week. Agreed to an appointment with Dr. Guardado on 09/23/23, @ 11:15. Advised to call us if she feels worse before that time. Routing to Dr. Medina so she is aware. * Telephone Encounter - Alok Lawler - 09/20/2023 2:33 PM EST Tc from patient calling in regards to the medication that was prescribed by Dr. Medina for bronchitis states every time patient takes the antibiotics the patient gets nauseous documented in this encounter Plan of Treatment Upcoming Encounters Date Type Department Care Team (Late st Contact Info) Description 10/25/2024 11:15 AM EST Office Visit [facility] MED & PEDS [address] [place] [address] Aneta Carlson CNM [address] [place] [address] documented as of this encounter Visit Diagnoses Not on filedocumented in this encounter Care Teams Plant Propagator Relationship Specialty Start Date End Date Sonya Interiano MD [address] [place] [address] PCP - General Family Medicine 08/28/12 [employer] 09/17/24 documented as of this encounter
--- OUTSIDE RECORDS SUMMARY | 2024-10-16 13:03 | XMS_ITS | Encounter Summary ---
Author Organization [employer] Address [address] [facility] 7t [place] [address] Care Team Providers Care Staff Climate Scientist Name Role Phone Sonya Interiano MD Primary Care Provider [phone] Reason for Visit * Reason Onset Date Comments Nurse Triage 11/04/2023 Encounter Details Date Type Department Care Team ([facility] Contact Info) Description 11/04/2023 Telephone [facility] [address] [place] [address] Sonya Interiano MD [address] [place] [address] Nurse Triage Social History Tobacco Use Types Packs/Day Years [...] encounter Miscellaneous Notes * Telephone Encounter - Sanam Wagner RN - 11/04/2023 11:03 AM EST Called pt. Via [employer] per diem interpreter [phone] Cb. Pt. States that she has been having a runny nose and eyes are watery x 4 days. Positive fever- 100.2. cough- slight. Pt. Has been taking Tylenol andit has helped her headache. Pt has bought some Sudafed but wants to know if she can take it. I advised pt. Not to take Sudafed due to her HTN and Diabetes dx. Pt. Does have sneezing also. Advised pt. To take 1 Zyrtec daily to reduce runny nose, sneezing, and watery eyes. Pt. BP this am 100/74- advised to increase water intake. Will call pt. Insurance [facility] to have a Nurse go to pt. Home to set up appt. To assess pt. Today. Called [facility]. Spoke with Nurse Wing. Gave sx. And they will be in touch with pt. Within 3 hours to set up arrival time. Pt. Aware that [facility] will be calling to make a home visit. Protocol Used: Sinus Pain or Congestion (Adult) Protocol-Based Disposition: [facility] will do in home visit today. Address and phone number confirmed with pt. And [facility]. Video visit not offered Positive Triage Questions: * headache * Fever present > 3 days (72 hours) * All higher-acuity triage questions were negative Care Advice Discussed: * For a Runny Nose - Blow Your Nose * Hydration * Telephone Encounter - Mari Cowan - 11/04/2023 11:00 AM EST Symptom: Cough Outcome: Schedule an appointment to be seen within 24 hours Reason: Caller denied all higher acuity questions The caller accepted this outcome Please contact pt at [phone] (Burmese) documented in this encounter Plan of Treatment Upcoming Encounters Date Type Department Care Team (Late st Contact Info) Description 10/25/2024 11:15 AM EST Office Visit [facility] PED[facility] [address] [place] [address] Antea Carlson CNM [address] [place] [address] documented as of this encounter Visit Diagnoses Diagnosis Upper respiratory tract infection, unspecified type documented in this encounter Additional Health Concerns Assessment Noted Time PHQ-9 Depression Total Score: 11 024 10:51 AM EST documented as of this encounter Care Teams Staff Climate Scientist Relationship Specialty Start Date End Date Sonya Interiano MD [address] [place] [address] PCP - General Family Medicine 08/28/12 [employer] 09/17/24 documented as of this encounter
--- OUTSIDE RECORDS SUMMARY | 2024-10-16 13:03 | XMS_ITS | Continuity of Care Document ---
Author Organization [employer] [facility] [employer] Address [address] [place] [id number] Care Team Providers Care Business Applications Manager Name Role Phone [facility] Referring Provider [facility] OTHER Assessment No assessment recorded. Plan of Treatment Reminders Order Date Submit Date Provider Last Modified By Organization Details Last Modified Time Details Appointments None record ed. Lab None record ed. Referral None record ed. Procedures None record ed. Surgeries None record ed. Imaging None record ed. Medication Orders None record ed. Patient TargetsNo targets recorded. Patient InstructionsNo instructions recorded. Reason for Referral None Reported. Medical Equipment None Reported. Allergies Allergen ID Allergen Name Allergen Category Reaction Reaction Severity Criticality Documentation Date Start Date Code Code System Note Provider Name and Address Organization Details Recorded Time 90149 sulfameth oxazole medicatio n Not available Not available Not available 08/13/2024 45789 RxNorm Not Available [facility] - production 4 09:53:45 76614 trimethop rim medicatio n Not available Not available Not available 08/13/2024 41234 RxNorm Not Available [facility] - production 4 09:53:45 8800 Product containin g penicilli n and antibioti c (product) medicatio n Not available Not available Not available 07/10/2024 08974 05 SNOMED Not Available [facility] - production 4 03:46:53 8801 Bactrim medicatio n Not available Not available Not available 07/10/2024 70396 9 RxNorm Not Available [facility] - production 4 03:46:53 Medications Name Sig Start Date Stop Date Status Note LastModified by Organization Details LastModified Time losartan 50 mg tablet TAKE ONE TABLET EVERY DAY active Not Available Not Available No t Available betamethason e valerate 0.1 % topical ointment APPLY TO THE AFFECTED AREA(S) TWICE DAILY IN THE MORNING AND AT BEDTIME NEEDED FOR DRY SKIN active Not Available Not Available No t Available naproxen 375 mg tablet TAKE ONE TABLET BY MOUTH TWICE DAILY WITH BREAKFAST AND WITH DINNER active Not Available Not Available No t Available loperamide 2 mg capsule TAKE 1 CAPSULE BY MOUTH FOUR TIMES A DAY NEEDED FOR DIARRHEA active Not Available Not Available No t Available polyethylene glycol 3350 17 gram oral powder packet MIX 1 PACKET IN 8OZ OF WATER, JUICE, SODA, COFFEE OR TEA TWICE DAILY NEEDED FOR CONSTIPATIO N active Not Available Not Available No t Available cetirizine 10 mg tablet TAKE ONE TABLET BY MOUTH EVERY MORNING active Not Available Not Available No t Available cetirizine 5 mg tablet TAKE ONE TABLET EVERY NIGHT active Not Available Not Available Not Available fluconazole 150 mg tablet TAKE ONE TABLET BY MOUTH ONCE active Not Available Not Available N ot Available metronidazol e 0.75 % (37.5 mg/5 gram) vaginal gel INSERT ONE APPLICATORF UL VAGINALLY AT BEDTIME FOR FIVE DAYS active Not Available Not Available No t Available prednisone 20 mg tablet TAKE TWO TABLETS ONCE DAILY IN THE MORNING FOR FIVE DAYS active Not Available Not Available No t Available loperamide 2 mg tablet Take 2 tablets by oral route. 2023 active Not Available Not Available Not Avai lable lactated Ringers intravenous solution Inject 1000 mL by intravenous route. 2023 active Not Available Not Available Not Avai lable clobetasol 0.05 % topical cream APPLY TO THE AFFECTED AREA(S) TWICE DAILY FOR FOURTEEN DAYS, THEN USE 2-3 TIMES WEEKLY DIRECTED. active Not Available Not Available No t Available clotrimazole 1 % vaginal cream INSERT ONE APPLICATORF UL VAGINALLY AT BEDTIME FOR SEVEN DAYS active Not Available Not Available No t Available amlodipine 5 mg tablet TAKE ONE TABLET BY MOUTH EVERY EVENING active Not Available Not Available No t Available doxepin 10 mg capsule TAKE ONE CAPSULE AT BEDTIME active Not Available Not Available No t Available amitriptylin e 50 mg tablet TAKE ONE TABLET BY MOUTH AT BEDTIME active Not Available Not Available No t Available acetaminophe n 500 mg tablet TAKE 1 TABLET BY MOUTH EVERY 4 TO 6 HOURS NEEDED FOR FEVER OR PAIN. DO NOT EXCEED 5 TABLETS PER 24 HOURS active Not Available Not Available No [...] Not Available N ot Available levothyroxin e 25 mcg tablet TAKE ONE TABLET BY MOUTH EVERY DAY active Not Available Not Available No t Available levothyroxin e 100 mcg tablet TAKE ONE TABLET DAILY active Not Available Not Available No t Available famotidine 20 mg tablet TAKE 1 TABLET BY MOUTH TWICE DAILY FOR 10 DAYS active Not Available Not Available No t Available meclizine 25 mg tablet TAKE 1 TABLET BY MOUTH THREE TIMES DAILY NEEDED FOR DIZZINESS active Not Available Not Available No t Available levothyroxin e 50 mcg tablet TAKE ONE TABLET BY MOUTH EVERY MORNING active Not Available Not Available No t Available triamcinolon e acetonide 0.1 % topical ointment APPLY A THIN LAYER TO LEGS TWICE DAILY FOR UP TO TWO WEEKS active Not Available Not Available No t Available levothyroxin e 150 mcg tablet TAKE ONE TABLET BY MOUTH EVERY DAY BEFORE BREAKFAST active Not Available Not Available No t Available losartan 25 mg tablet TAKE ONE TABLET BY MOUTH ONCE DAILY active Not Available Not Available No t Available Ear Drops (carbamide peroxide) 6.5 % PLACE FIVE DROPS IN AFFECTED EAR(S) TWICE DAILY active Not Available Not Available Not Available omeprazole 20 mg capsule,christel yed release TAKE ONE CAPSULE TWICE DAILY 30 TO 60 MINUTES BEFORE MEALS active Not Available Not Available No t Available Banophen 25 mg capsule TAKE ONE CAPSULE ONE-HALF HOUR BEFORE BEDTIME active Not Available Not Available No t Available mometasone 0.1 % topical ointment active Not Available Not Available Not Available zolpidem 5 mg tablet TAKE 1 TABLET BY MOUTH DAILY active Not Available Not Available Not Available gabapentin 100 mg capsule TAKE ONE CAPSULE BY MOUTH AT BEDTIME active Not Available Not Available No t Available clobetasol 0.05 % topical ointment APPLY A THIN LAYER TO VULVA TWO TO THREE TIMES PER WEEK active Not Available Not Available No t Available ondansetron 4 mg disintegrati ng tablet DISSOLVE 1 TABLET ON THE TONGUE EVERY 8 HOURS NEEDED FOR NAUSEA OR VOMITING active Not Available Not Available No t Available losartan 100 mg tablet TAKE ONE TABLET DAILY active Not Available Not Available No t Available cholecalcife rol (vitamin D3) 125 mcg [...] Premarin 0.625 mg/gram vaginal cream INSERT 0.65 mg's VAGINALLY ONCE PER WEEK active Not Available Not Available No t Available nitrofuranto in monohydrate/ macrocrystal s 100 mg capsule TAKE ONE CAPSULE TWICE DAILY FOR 7 DAYS active Not Available Not Available N ot Available ondansetron HCl (PF) 4 mg/2 mL injection solution Take 4 mg by injection route. 2023 active Not Available Not Available Not Avai lable melatonin 5 mg tablet TAKE TWO TABLETS BY MOUTH AT BEDTIME active Not Available Not Available No t Available cholecalcife rol (vitamin D3) 50 mcg (2,000 unit) capsule TAKE ONE CAPSULE TWICE DAILY active Not Available Not Available Not Available blood pressure test kit-large cuff Check blood pressure on arm as directed ONE TO TWO TIMES DAILY active Not Available Not Available Not Available Prolia 60 mg/mL subcutaneous syringe active Not Available Not Available Not Available Proctosol HC 2.5 % topical cream perineal applicator APPLY TO THE AFFECTED AREA(s) ONCE DAILY active Not Available Not Available N ot Available Chest Congestion Relief DM 10 mg-100 mg/5 mL oral syrup TAKE FIVE ML'S BY MOUTH EVERY 4 HOURS NEEDED FOR COUGH active Not Available Not Available No t Available Vitals Date Recorded Body temperature Oxygen saturation Oxygen saturation in Arterial blood by Pulse oximetry Heart rate Body weight Respiratory rate Systolic blood pressure Diastolic blood pressure Systolic blood pressure Diastolic blood pressure Provider Name and Address Organization Details Last Updated DateTime 5 98.4 [degF] 98 % 98 % 96 /min 70240.4 32 g 16 /min 176 mm[Hg] 62 mm[Hg] 168 mm[Hg] 98 mm[Hg] Not Available [facility] - production 5 20:16:12 Social History None recorded. Functional Status None recorded. Mental Status None recorded. Family History Nothing Reported. Medical History No medical history recorded. Gynecological HistoryNo gynecological history recorded. Obstetrics History GPAL:G 0 P 0 0 0 0 Past Encounters Encounter ID Performer Location Encounter Start Date Encounter Closed Date Diagnosis/Indication Diagnosis SNOMED-CT Code Diagnosis ICD10 Code Diagnosis Note [id number] Hai Govea MD [facility] [address] [place] [phone] 08/22/2024 18:15:29 08/23/2024 00:16:45 Headache 33466570 R51.9 [id number] Rachel Hines MD [facility] - [facility] [address] [place] [phone] 09/11/2024 14:10:17 09/11/2024 22:35:33 Hypertensive urgency [id number] I16.0 84 year old female with HTN, being evaluated for elevated BP readings on her home cuff. Patient reports feeling fine, without any headache, chest pain or neurologic symptoms, and only noticed her BP was elevated after incidental ly checking it, after taking her morning medication s. She takes losartan 50 mg daily, which is an increase from her 25 mg daily she started 1-2 weeks ago. Patient's home BP readings have been ranging from 150's to 190's systolic by her home BP cuff over the last few days. Exam notable for BP 204/98, with otherwise normal vital signs. Presentati on consistent with hypertensi ve urgency related to poorly controlled HTN. Recommend doubling losartan dose to 100 mg and contacting PCP on next available business day to reassess BP regimen. I have reviewed and agree with the assessment and plan as documented by the senior javascript engineer. I provided real-time medical direction for this encounter and was immediatel y available to provide additional phone-base d assistance as needed. We discussed the diagnostic uncertaint y of home visits and associated risks. We discussed the need to seek care urgently/e mergently in the setting of any new or worsening symptoms. [id number] John Ashraf MD [facility] - [facility] [address] [place] [phone] 09/20/2024 20:14:10 09/21/2024 12:53:55 Headache [id number] R51.9 Has resolved since making call. Essential hypertension [id number] I10 Asymptomat ic. Elevated today. Taking Losartan. Advised patient to reach out to PCP regarding up titrating her antihypert ensives. Discussed red flag symptoms for which to seek higher level of care. Health Concerns Section Related Observation LastModified by Organization [employer] LastModified Time None Recorded Concern Status LastModified by Organization Details LastModified Time None Recorded Payers Encounter Date Sequence Insurance Name Policy Number Policy Benoit Covered Member ID Benoit Member ID Guarantor Name 09/20/2024 1 [facility] - DOS ON OR AFTER 2022 - DUAL ELIGIBLE - DETENTION OPTIONS AND ONE CARE (MEDICARE REPLACEMENT/ADV ANTAGE - HMO) Neha Bowmna [id number] Neha Bowman Notes Date Note Type Note Provider Name and Address Organization Details Recorded Time 09/20/2024 text/html HPI: Call to Neha Bowman reports continues to have headache. Pt called in for triage yesterday and did not mention to provider during telehalth visit today. Pt states BP continues elevated today. Pt states headache and blurry vision. Not resolving with Tyelnol. No CP , SOB or severe dizziness. Pt advised of disposition, wishes to be seen. Requesting [facility] for eval. Confirmed demographics and allergies. .................. .................. .................. .................. .................. .................. .................. ............... [facility] Nurse Triage Notes (Leonora Barr - RN): Denies: Active Chest pain, radiates to neck jaw and or arm Sudden onset of nausea/Vomiting and shortness of breath. Shortness of Breath Unable to speak in full sentences without distress Palpitations, feeling dizzy Chest pain, increased fatigue Weakness/tachycard ia Chief Complaints: Headache PMH: Hypertension PMH Reviewed at 09/20/2024 - 17:07 Allergies Reviewed at 09/20/2024 - 17:07 Comments: HPI reviewed, called member for further details. Member reporting headache since yesterday, but pain is worse today. Not resolved w/ Tylenol. Denies blurry vision, reports eye irritation to x2 months d/t dry eye. Member reporting BP to be 172/86 this morning. Unaware of baseline BP. Denies CP, heart palpitations or SOB. Education provided on the response time and the member was advised to monitor reported s/s and seek emergency treatment if needed. .................. .................. .................. .................. .................. .................. .................. ............... Fire Investigator Note From Buster Renteria: Pt co low BP reading , pt denies dizziness headache, NVD, cp sob , blurry vision , or abdominal pain. Baseline vitals assessed, WNL , orthos assessed WNL . [facility] contacted and advised or to continue to monitor BP and record and follow up with pcp. Education provided on signs indicating the ER. .................. .................. .................. .................. .................. .................. .................. ............... [facility] Consulted: David Ashraf .................. .................. .................. .................. .................. .................. .................. ............... Disposition: Fulfilled John Ashraf MD [address] [place] [address],[address], [place], [phone], NIKA - CARLOS ARGUETA 09/20/2024 21:30:05 OBGyn Episode No OBEpisode recorded.
--- OUTSIDE RECORDS SUMMARY | 2024-10-16 13:03 | XMS_ITS | Encounter Summary ---
Author Organization [email or web address] Address [address] [facility] [facility] [address] [place] [address] Care Team Providers Care Demand Inspector Name Role Phone Sonya Interiano MD Primary Care Provider [phone] Encounter Details Date Type Department Care Team ([facility] Contact Info) Description 04/09/2024 Orders Only [facility] [address] [place], [place] [phone] ProviderAga MD Social History Tobacco Use Types Packs/Day Years [...] Description 10/25/2024 11:15 AM EST Office Visit [facility] [address] [place], [place] [phone] Aneta Carlson CNM [address] [place] [address] documented as of this encounter Procedures Procedure Name Priority Date/Time Associated Diagnosis Comments CT HEAD/BRAIN VENOGRAM Routine 04/07/2024 10:01 AM EDT MRI BRAIN W WO CONTRAST Routine 04/07/2024 10:[address] HEAD/BRAIN VENOGRAM Routine 04/07/2024 10:00 AM EDT documented in this encounter Results * CT HEAD/BRAIN VENOGRAM (04/07/2024 10:01 AM EDT) Anatomical Region Laterality Modality Computed Tomogra phy Historical Provider MD ESCUDERO CT PROCEDURES Final R esult * MRI BRAIN W WO CONTRAST (04/07/2024 10:00 AM EDT) Anatomical Region Laterality Modality Magnetic Resonan ce Historical Provider MD ESCUDERO MRI PROCEDURES Final Result * CT HEAD/BRAIN VENOGRAM (04/07/2024 10:00 AM EDT) Anatomical Region Laterality Modality Computed Tomogra phy Historical Provider MD ESCUDERO CT PROCEDURES Final R esult documented in this encounter Visit Diagnoses Not on filedocumented in this encounter Additional Health Concerns Assessment Noted Time PHQ-9 Depression Total Score: 11 024 10:51 AM EST documented as of this encounter Care Teams Demand Inspector Relationship Specialty Start Date End Date Sonya Interiano MD [address] [place] [id number] PCP - General Family Medicine 08/28/12 [employer] 09/17/24 documented as of this encounter
--- OUTSIDE RECORDS SUMMARY | 2024-10-16 13:03 | XMS_ITS | Encounter Summary ---
Author Organization [employer] Address [address] [place] [address] Care Team Providers Care Quill Collector Name Role Phone Sonya Interiano MD Primary Care Provider [phone] Reason for Visit * Reason Onset Date Comments Nurse Triage 06/06/2024 Encounter Details Date Type Department Care Team ([facility] st Contact Info) Description 06/06/2024 Telephone [facility] [address] [place] [address] Sonya Interiano MD [address] [place] [address] Nurse Triage Social History Tobacco Use Types [...] your housing situation today? I have ayan abudl 10/19/[address] you li [...] encounter Miscellaneous Notes * Telephone Encounter - Zee Leong RN - 06/07/2024 9:28 AM EDT Call to Neha Bowman for status check after review of [facility] note. Per notes in [employer] portal Sent to a call for a pt complaining of hypertension. SC8 arrives on scene, pt is alert and oriented, airway is patent. Pt states she has history of hypertension. Pt's Losartan was changed from 50mg to 25mg each morning. Family states pt complained of hypertension a few weeks ago for a short time. Pt complains of hypertension in evenings x 3 days. Pt states her BP is normal in morning before taking Losartan, but around 4:30pm BP starts to rise. Pt denies marc, dizziness, cp, sob, n/v/d, abd pain, fever, or loc. (sitting) BP:184/81, P:71, RR:18, SpO2:97% RA, T:98.5; (standing) BP:198/82, P:73; Head: unremarkable; Lung sounds: clear bilaterally; Abdomen: soft, non-tender, no distention; Back: unremarkable; Extremities: unremarkable; Skin: pink, warm, dry; 12 lead ECG: uploaded to [employer]; [facility] consulted and orders POC bloodwork. Venous blood draw performed; Istat Chem8+ results: uploaded to [employer]; Pt is advised to take Losartan 25mg PO this evening. Pt advised to contact PCP tomorrow for treatment plan. Pt advised if she does not hear from PCP tomorrow and BP rises in evening she can takeLosartan 25mg PO again. Pt is advised that PCP contact is imperative to ensure proper control/treatment of pt's hypertension. Red flags discussed. Pt has no further questions. ' Call to Neha Bowman, states has not yet checked BP this morning. Pt did take second dose of losartan 25mg as instructed. Pt advised will need PCP follow up. Offered appt next week but pt has conflicting appt. Pt agrees to OV with PCP the following week. Reviewed with pt to return call if BP elevated again this evening. Will forward update to PCP and team for review and follow up PRN with any changes to Plan of care for HTN management. * Telephone Encounter - Zee Leong RN - 06/06/2024 4:53 PM EDT Sent to team for ER status check PRN. * Telephone Encounter - Zee Leong RN - 06/06/2024 4:36 PM EDT Call returned to Neha Bowman to triage below. Reports checked BP of 192/89. Pt reports did take BP med losartan 25mg this AM as ordered. Per pt BP of 218/112. On right arm. Per pt was in sitting position. Pt denies any MARC or dizziness. This morning prior to meds had SBP of 140. Pt denies any MARC, CP, SOB or dizziness. Unsure if pt had correct placement of BP cuff. Pt states unable to come into our walk in center for BP check and to be evaluated by a provider. Pt agrees to instead for eval tonight. Confirmed name and > Pt advised to call 911 if sx develop. To rest, drink extra waterand recheck in 30 mins. Pt agrees. Protocol Used: Blood Pressure - High (Adult) Protocol-Based Disposition: Go to Office or Video Visit Now Positive Triage Question: * Systolic BP >= 200 OR Diastolic >= 120 and having NO cardiac or neurologic symptoms * All higher-acuity triage questions were negative Care Advice Discussed: * High Blood Pressure * Reasons To Call Back - Headache, blurred vision, difficulty talking, or difficulty walking occurs - Chest pain or difficulty breathing occurs - You become worse * Telephone Encounter - James Jacobsen - 06/06/2024 4:31 PM EDT Symptom: High Blood Pressure - Caller Reports Outcome: Schedule a same-day appointment or talk to a nurse or provider today Reason: Caller denied all higher acuity questions The caller accepted this outcome. documented in this encounter Plan of Treatment Upcoming Encounters Date Type Department Care Team (Late st Contact Info) Description 10/25/2024 11:15 AM EST Office Visit [facility] [address] [place] [address] Aneta Carlson CNM [address] [place] [address] documented as of this encounter Visit Diagnoses Not on filedocumented in this encounter Additional Health Concerns Assessment Noted Time PHQ-9 Depression Total Score: 11 024 10:51 AM EST documented as of this encounter Care Teams Quill Collector Relationship Specialty Start Date End Date Sonya Interiano MD [address] [place] [address] PCP - General Family Medicine 08/28/12 [employer] 09/17/24 documented as of this encounter
--- OUTSIDE RECORDS SUMMARY | 2024-10-16 13:03 | XMS_ITS | Continuity of Care Document ---
Author Organization [employer] [facility] [place] [facility] Address [address] [place] [phone] Care Team Providers Care Fire Investigator Name Role Phone [facility] Referring Provider HIM CCA OTHER Assessment Encounter Date Assessment Date Assessment LastModified by Organization Details LastModified Time 10/15/2024 10/15/2024 84 yo F with chronic insomnia calls with trouble sleeping. She has tried several medications in the past, has discussed this with her PCP, and has an upcoming sleep study to evaluate whether or not she has TARIK. Her VS sig for SBP 190s. Exam is unremarkable. Unfortunately, we do not have any medications to offer her with [facility]. She is aware of proper sleep hygiene habits. She plans to follow up with her PCP re: insomnia and BP. [email or web address] Not available 10/15/2024 20:57:09 Plan of Treatment Reminders Order Date Submit [...] Name and Address Organization Details Recorded Time 80213 sulfameth oxazole medicatio n Not available Not available Not available 08/13/2024 20973 RxNorm Not Available [facility] - production 09:53:45 83050 trimethop rim medicatio n Not available Not available Not available 08/13/2024 98862 RxNorm Not Available [facility] - production 09:53:45 8800 Product containin g penicilli n and antibioti c (product) medicatio n Not available Not available Not available 07/10/2024 76061 05 SNOMED Not Available [facility] 4 03:46:53 8801 Bactrim medicatio n Not available Not available Not available 07/10/2024 08668 9 RxNorm Not Available [facility] 4 03:46:53 Medications Name Sig [...] No t Available Vitals Date Recorded Body height Heart rate Body temperature Body weight Respiratory rate Oxygen saturation Oxygen saturation in Arterial blood by Pulse oximetry Systolic blood pressure Diastolic blood pressure Provider Name and Address Organization Details Last Updated DateTime 5 152.4 cm 86 /min 98.6 [degF] 81835.8 8 g 16 /min 99 % 99 % 192 mm[Hg] 84 mm[Hg] Not Available [facility] 18:29:03 Social History None recorded. Functional Status None recorded. Mental Status None recorded. Family History Nothing Reported. Medical History No medical history recorded. Gynecological HistoryNo gynecological history recorded. Obstetrics History GPAL:G 0 P 0 0 0 0 Past Encounters Encounter ID Performer Location Encounter Start Date Encounter Closed Date Diagnosis/Indication Diagnosis SNOMED-CT Code Diagnosis ICD10 Code Diagnosis Note [id number] John Ashraf MD [facility] [address] [place] [phone] 09/20/2024 20:14:10 09/21/2024 12:53:55 Headache 02418354 R51.9 Has resolved since making call. Essential hypertension 01388354 I10 Asymptomat ic. Elevated today. Taking Losartan. Advised patient to reach out to PCP regarding up titrating her antihypert ensives. Discussed red flag symptoms for which to seek higher level of care. [id number] REGGIE ESPOSITO MD [facility] [address] [place] [phone] 10/15/2024 18:29:01 10/15/2024 20:57:18 Chronic insomnia 553045792 F51.04 Essential hypertension 41827296 I10 Health Concerns Section Related Observation LastModified by Organization Detai ls LastModified Time None Recorded Concern Status LastModified by Organization Details LastModified Time None Recorded Payers Encounter Date Sequence Insurance Name Policy Number Policy Benoit Covered Member ID Benoit Member ID Guarantor Name 10/15/2024 1 [facility] - DOS ON OR AFTER 2022 - DUAL ELIGIBLE - LONG TERM OPTIONS AND ONE CARE (MEDICARE REPLACEMENT/ADV ANTAGE - HMO) Neha Bowman [id number] Neha Bowman Notes Date Note Type Note Provider Name and Address Organization Details Recorded Time 10/15/2024 text/html HPI: Triage call to Pt reports weakness, not sleeping, excessive fatigue. Pt unable to come to facility to be seen. Neg for fever, bodyaches, headache. .................. .................. .................. .................. .................. .................. .................. ............... [facility] Nurse Triage Notes (Isabel Cook - RN): Chief Complaints: Dizziness, Fatigue, Weakness PMH: Hypertension, Kidney Stones, Osteoarthritis, Osteoporosis PMH Reviewed at 10/15/2024:57 Allergies Reviewed at 10/15/2024:57 Comments: HPI reviewed .................. .................. .................. .................. .................. .................. .................. ............... Fisheries Officer Note From Mauricio Garcia: [facility] visit for female pt. Pt is [place]i speaking and so automobile or truck rental dispatcher was used. Pt presents complaining of 1 year of insomnia and resulting fatigue. Pt is currently taking benadryl without much reported effectiveness. Pt has sleep study scheduled in about 2 weeks. Pt states she has tried trazodone before and not enjoyed it. V/S taken as listed. Pt afebrile. Consulted with [facility] Dr. Esposito who suggested pt follow up with PCP and proceed with sleep study. Pt education provided. .................. .................. .................. .................. .................. .................. .................. ............... [facility] Consulted: Reggie Esposito .................. .................. .................. .................. .................. .................. .................. ............... Disposition: Fulfilled REGGIE ESPOSITO MD [address] [facility] [facility], [place], [phone], [employer] 10/15/2024 20:57:15 OBGyn Episode No OBEpisode recorded.
--- OUTSIDE RECORDS SUMMARY | 2024-10-16 13:03 | XMS_ITS | Encounter Summary ---
Author Organization [employer] Address [address] [facility] [address] [place] [address] Care Team Providers Care Infrastructure Administrator Name Role Phone Sonya Interiano MD Primary Care Provider [phone] Reason for Visit * Reason Onset Date Comments Appointment Request 08/12/2023 Encounter Details Date Type Department Care Team (Late Contact Info) Description 08/12/2023 Telephone [facility] [address] [place] [address] Sonya Interiano MD [address] [place] [phone] Appointment Request Social History Tobacco Use Types Packs/Day [...] encounter Miscellaneous Notes * Telephone Encounter - Carmen Knott - 08/12/2023 4:23 PM EST Tc from pt requesting a f/u appt with PCP, ghost writer ask pt and no concerns with her health. documented in this encounter Plan of Treatment Upcoming Encounters Date Type Department Care Team ([facility] Contact Info) Description 10/25/2024 11:15 AM EST Office Visit [facility] [address] [place] [address] Aneta Carlson CNM [address], [place] [phone] documented as of this encounter Visit Diagnoses Not on filedocumented in this encounter Care Teams Infrastructure Administrator Relationship Specialty Start Date End Date Sonya Interiano MD [address] [place] [address] PCP - General Family Medicine 08/28/12 Secure-24 09/17/24 documented as of this encounter
--- OUTSIDE RECORDS SUMMARY | 2024-10-16 13:03 | XMS_ITS | Data Portability ---
Author Organization [employer], [place] [facility] [place] Address [address] [place] [address] Care Team Providers Care Teleprinter Name Role Phone [facility] Referring Provider HIM [facility] OTHER Assessment Encounter Date Assessment Date Assessment LastModified by Organization Details LastModified Time 08/13/2024 08/13/2024 I provided real -time medical direction via phone for this encounter, and was available for additional phone based assistance as needed. I have reviewed and agree with the Assessment and Plan as documented by the Transcript Evaluator. We discussed the diagnostic uncertainty of home visits and the risk associated with this. In this case the patient and I felt this to be an acceptable and reasonable amount of risk given the benefit of avoiding an ED visit. The patient given the opportunity to ask questions. Advised if develops CP/severe SOB/turning blue/ severe abd pain/uncontrolle d n/v/d or black/bloody emesis or stool/ AMS/ syncope/ hi fever unresponsive to APAP to call 911- verbalized understanding of instruction [email or web address] Not available 08/13/2024 11:24:41 08/22/2024 08/22/2024 service called for confusion and MARC found 84 irene with hx HTN c/o MARC, confusion pt unable provide history given acute sx apparently LKW previous night VS BP 208/100 86 reported exam unable to follow instructions, neuro deficits BS 180 #MARC and Confusion very concerning re CVA immediate refer ED [email or web address] Not available 08/22/2024 19:59:15 10/15/2024 10/15/2024 84 yo F with chronic insomnia calls with trouble sleeping. She has tried several medications in the past, has discussed this with her PCP, and has an upcoming sleep study to evaluate whether or not she has TARIK. Her VS sig for SBP 190s. Exam is unremarkable. Unfortunately, we do not have any medications to offer her with [facility]. She is aware of proper sleep hygiene habits. She plans to follow up with her PCP re: insomnia and BP. [email or web address] Not available 10/15/2024 20:57:09 Plan of Treatment Reminders Order Date Submit Date Provider Last Modified By Organization Details Last Modified Time Details Appointments None recorded. Lab BMP, serum or plasma 2023 [email or web address] 0 [facility], [address] [place] [address], [id number], 4 11:24:13 rapid SARS CoV 2 Ag, QL IA, respiratory specimen 2023 [email or web address] 0 [facility] - [facility], [address] [place] [address], [id number], 4 11:24:13 rapid flu (A+B) 2023 [email or web address] 0 [facility], [address] [place] [address], [phone], 11:24:13 Referral None recorded. Procedures None recorded. Surgeries None recorded. Imaging None recorded. Medication Orders ondansetron HCl (PF) 4 mg/2 mL injection solution 2023 [email or web address] 0 [facility], [address] [place] [address], [id number], 4 11:24:13 ondansetron 4 mg disintegrat ing tablet 2023 [facility] #[id number], [address] [place], [place], [id number], 4 11:24:22 loperamide 2 mg tablet 2023 [email or web address] 0 [facility], [address] [place] [address], [id number], 4 11:24:13 loperamide 2 mg capsule 2023 [facility] #[id number], [address] [place], [place], [id number], 4 11:24:21 lactated Ringers intravenous solution 2023 024 [email or web address] 0 [facility], [address] [place], [place], [id number], 4 11:24:13 acetaminoph en 500 mg tablet 2023 024 [email or web address] 0 [facility], [address] [place], [place], [id number], 4 11:24:14 acetaminoph en 500 mg tablet 2023 [facility] #42775, [address] [place], [place], [id number], 4 11:24:23 famotidine 20 mg tablet 2023 024 [facility] #[id number], [address] [place], [place], [id number], 4 11:24:22 Patient TargetsNo targets recorded. Patient InstructionsNo instructions recorded. Reason for Referral None Reported. Results Created Date Observation Date Name Description Value Unit Range Abnormal Flag Note LastModifiedBy Organization Detail LastModifiedTime 08/13/20 24 08/13/2024 rapid flu (A+B) Flu negati ve Not Available Main - [facility] ed [address] [place] [address], [phone], 08/13/2024 11:11:30 08/13/20 24 08/13/2024 rapid SARS CoV 2 Ag, QL IA, respi rator y speci men rapid SARS CoV 2 Ag, QL IA, respiratory specimen negati ve Not Available Main - [facility] [address] [place] [address], [id number], 08/13/2024 11:11:29 Result Notes None recorded. Medical Equipment None Reported. Allergies Allergen ID Allergen Name Allergen Category Reaction Reaction Severity Criticality Documentation Date Start Date Code Code System Note Provider Name and Address Organization Details Recorded Time 24318 sulfameth oxazole medicatio n Not available Not available Not available 08/13/2024 69935 RxNorm Not Available [facility] - production 4 09:53:45 55183 trimethop rim medicatio n Not available Not available Not available 08/13/2024 75699 RxNorm Not Available [facility] - production 4 09:53:45 8800 Product containin g penicilli n and antibioti c (product) medicatio n Not available Not available Not available 07/10/2024 29362 05 SNOMED Not Available [facility] - production 4 03:46:53 8801 Bactrim medicatio n Not available Not available Not available 07/10/2024 89819 9 RxNorm Not Available [facility] - production 4 03:46:53 Medications Name Sig [...] Available No t Available Vitals Date Recorded Respiratory rate Oxygen saturation Oxygen saturation in Arterial blood by Pulse oximetry Body height Heart rate Body temperature Body weight Body height Body weight Body temperature Heart rate Respiratory rate Oxygen saturation Oxygen saturation in Arterial blood by Pulse oximetry Systolic blood pressure Diastolic blood pressure Systolic blood pressure Diastolic blood pressure Provider Name and Address Organization Details Last Updated DateTime 4 16 /min 97 % 97 % 152.4 cm 94 /min 98.8 [degF] 23800.6 56 g 152.4 cm 11288.6 56 g 98.8 [degF] 94 /min 16 /min 97 % 97 % 147 mm[Hg] 89 mm[Hg] 147 mm[Hg] 89 mm[Hg] Not Available [employer] 4 11:35:51 Date Recorded Respiratory rate Oxygen saturation Oxygen saturation in Arterial blood by Pulse oximetry Body temperature Heart rate Systolic blood pressure Diastolic blood pressure Provider Name and Address Organization Details Last Updated DateTime 4 16 /min 97 % 97 % 97.9 [degF] 86 /min 208 mm[Hg] 100 mm[Hg] Not Available [employer] 4 18:15:31 Date Recorded Respiratory rate Heart rate Body temperature Oxygen saturation Oxygen saturation in Arterial blood by Pulse oximetry Systolic blood pressure Diastolic blood pressure Provider Name and Address Organization Details Last Updated DateTime 4 16 /min 83 /min 98.9 [degF] 97 % 97 % 204 mm[Hg] 98 mm[Hg] Not Available [employer] 4 14:10:20 Date Recorded Body temperature Oxygen saturation Oxygen saturation in Arterial blood by Pulse oximetry Heart rate Body weight Respiratory rate Systolic blood pressure Diastolic blood pressure Systolic blood pressure Diastolic blood pressure Provider Name and Address Organization Details Last Updated DateTime 5 98.4 [degF] 98 % 98 % 96 /min 86779.4 32 g 16 /min 176 mm[Hg] 62 mm[Hg] 168 mm[Hg] 98 mm[Hg] Not Available [employer] 5 20:16:12 Date Recorded Body height Heart rate Body temperature Body weight Respiratory rate Oxygen saturation Oxygen saturation in Arterial blood by Pulse oximetry Systolic blood pressure Diastolic blood pressure Provider Name and Address Organization Details Last Updated DateTime 5 152.4 cm 86 /min 98.6 [degF] 36726.8 8 g 16 /min 99 % 99 % 192 mm[Hg] 84 mm[Hg] Not Available [employer] 5 18:29:03 Social History None recorded. Functional Status None recorded. Mental Status None recorded. Family History Nothing Reported. Medical History No medical history recorded. Gynecological HistoryNo gynecological history recorded. Obstetrics History GPAL:G 0 P 0 0 0 0 Past Encounters Encounter ID Performer Location Encounter Start Date Encounter Closed Date Diagnosis/Indication Diagnosis SNOMED-CT Code Diagnosis ICD10 Code Diagnosis Note [id number] Krystle Herrera MD Main - [facility] [address] [place] [id number] 11/09/2021 18:24:02 04/28/2022 12:20:20 Hypertension screening 263830825 Z13.6 [id number] Olaf Yusuf MD Main - [facility] [address] [place] [id number] 01/26/2023 12:05:56 01/27/2023 10:25:23 Fatigue 38200201 R53.83 Patient reports worsening fatigue, difficulty sleeping, and poor mood. No suicidal ideation. House appears well kept. Taking ARB and levothyrox ine as prescribed . Labs obtained and unremarkab le. Seems most consistent with mild depression . Does not meet criteria for involuntar y hospitaliz ation and I do not think that she is an acute danger to herself or others. Recommende d PCP appointmen t for recheck of TSH/FT4 and possible initiation of antidepres luis enrique. Of note, initial K hemolyzed and elevated to 5.9, normal at 4.0 on recheck. [id number] Prakash Watkins MD Main - [facility] [address] [place] [phone] 06/24/2023 15:47:53 06/26/2023 12:46:47 Urinary symptoms [id number] R39.9 [id number] Bradford Deshpande MD Main - [facility] [address] [place] [phone] 12/06/2023 10:18:38 12/06/2023 16:05:50 Influenza 3033775 J11.1 [id number] Hai Govea MD Main - [facility] [address] [place] [phone] 06/06/2024 19:33:14 06/07/2024 08:10:55 Essential hypertension 44019704 I10 [id number] Yulia Bell MD Main - [facility] [address] [place] [phone] 08/13/2024 10:51:26 08/13/2024 16:45:01 Epigastric pain 67137461 R10.13 w/ n/v/d- likely viral- labs non concerning - exposed to person with gi s/s last week- no recent abxPatient better after medication s. Medic does not have any Pepcid will send Rx. Patient has no chest pain or discomfort or shortness of breath. Her EKG on 06/06/2024 showed a QTc of 409-no QT prolongati on.Allergi es and pharmacy reviewed patient request to prescripti ons go to [facility] [place] Advised may take Tylenol along with the Pepcid. Her Tylenol , new Rx sent. Medic reviewed red flags as above and advised to stay on a clear liquid diet for 24 hours then advance slowly to a BRAT diet-patie nt reports feeling better after Rx. Advised to follow-up with PCP this week and is aware may call us for another visit whenever she feels the need. [id number] Hai Govea MD [facility] [address] [place] [phone] 08/22/2024 18:15:29 08/23/2024 00:16:45 Headache 76378078 R51.9 [id number] Rachel Hines MD Main - [facility] [address] [place] [phone] 09/11/2024 14:10:17 09/11/2024 22:35:33 Hypertensive urgency 008477101 I16.0 84 year old female with HTN, [...] assessment and plan as documented by the semiconductor bonder. I provided real-time medical direction for this encounter and was immediatel y available to provide additional phone-base d assistance as needed. We discussed the diagnostic uncertaint y of home visits and associated risks. We discussed the need to seek care urgently/e mergently in the setting of any new or worsening symptoms. [id number] John Ashraf MD [facility] - [facility] [address] [place] [id number] 09/20/2024 20:14:10 09/21/2024 12:53:55 Headache 91384028 R51.9 Has resolved since making call. Essential hypertension 08165048 I10 Asymptomat ic. Elevated today. Taking Losartan. Advised patient to reach out to PCP regarding up titrating her antihypert ensives. Discussed red flag symptoms for which to seek higher level of care. [id number] REGGIE SKY MD [facility] [address] [place] [phone] 10/15/2024 18:29:01 10/15/2024 20:57:18 Chronic insomnia 417755249 F51.04 Essential hypertension 79172987 I10 Health Concerns Section Related Observation LastModified by Organization Detai ls LastModified Time None Recorded Concern Status LastModified by Organization Details LastModified Time None Recorded Advance Directives Directive None Recorded Payers Encounter Date Sequence Insurance Name Policy Number Policy Benoit Covered Member ID Benoit Member ID Guarantor Name 08/13/2024 1 [facility] DOS ON OR AFTER 2022 - DUAL ELIGIBLE - [employer] OPTIONS AND ONE CARE (MEDICARE REPLACEMENT/ADV ANTAGE - HMO) Neha Bowman [id number] Neha Bowman 08/22/2024 1 [employer] - DOS ON OR AFTER 2022 - DUAL ELIGIBLE - [employer] OPTIONS AND ONE CARE (MEDICARE REPLACEMENT/ADV ANTAGE - HMO) Neha Bowman [id number] Neha Bowman 09/11/2024 1 [employer] - DOS ON OR AFTER 2022 - DUAL ELIGIBLE - [employer] OPTIONS AND ONE CARE (MEDICARE REPLACEMENT/ADV ANTAGE - HMO) Neha Bowman [id number] Neha Bowman 09/20/2024 1 [facility] - DOS ON OR AFTER 2022 - DUAL ELIGIBLE - [employer] OPTIONS AND ONE CARE (MEDICARE REPLACEMENT/ADV ANTAGE - HMO) Neha Bowman [id number] Neha Bowman 10/15/2024 1 [facility] - DOS ON OR AFTER 2022 - DUAL ELIGIBLE - [employer] OPTIONS AND ONE CARE (MEDICARE REPLACEMENT/ADV ANTAGE - HMO) Neha Bowman [id number] Neha Bowman Notes Date Note Type Note Provider Name and Address Organization Details Recorded Time 08/13/2024 text/html HPI: Call returned to Neha Bowman to triage below. Reports having epigastric pain and vomiting since Tuesday. Pt denies any green bile, blood or coffee grounds. Reports having vomiting today. Pt also endorses diarrhea. No blood in stool. No fever, QUIQUE. Reports having normal voiding. Pt does endorse mild dizziness. Pt advised of disposition, agrees to [facility] referral for exam. Confirmed demographics and allergies. ..................... ..................... ..................... ..................... ..................... ..................... ............... [facility] Nurse Triage Notes (Leonora Barr): Chief Complaints: Abdominal pain, Vomiting PMH: Hypertension Comments: No further questions at this time. Transcript Evaluator Organization Information for Edgar Gonzales Legal Name: [employer] Address: [address] [place] [address], [place] [address], [employer]ellow[employer] Filler: Rudi Forbes MD CLIA No.: [id number] Transcript Evaluator POC Test Results from Edgar Gonzales [facility] (10:59:52) pH: 7.41 pH units pCO2: 45.5 mmHg pO2: 25.1 mmHg Na: 138 mmol/L K: 3.6 mmol/L iCa: 1.05 mmol/L Cl: 102 mmol/L TCO2: 29.1 mEq/L Hct: 43 % Hb: 14.5 g/dL Glu: 140 mg/dL Lac: 1.2 mmol/L Cr: 0.76 mg/dL BUN: 28 mg/dL A Rapid COVID antigen (10:59:55) COVID: - Rapid influenza antigen (10:59:56) Flu: - ..................... ..................... ..................... ..................... ..................... ..................... ............... Transcript Evaluator Note From Edgar Gonzales: This 84-year-old female with a history including but not limited to HTN and hypothyroidism requested a visit today to address four days of ongoing nausea, vomiting, diarrhea. Patient states her grandsons girlfriend was at her home last week and was sick with similar symptoms. Patient states she's having two to three episodes of diarrhea per day and vomits any time she eats or drinks something. Patient also reports mild epigastric bloating. Patient denies any chest pain, shortness of breath, URI symptoms, headache, dizziness, fevers, chills or urinary symptoms.Patient presents awake and alert, in no acute distress. Her vital signs are reasonably stable and she is afebrile. Nonfocal neurological exam. Normal gait. Dry mucous membranes, normal skin turgor. Lungs are clear throughout auscultation. Abdomen is soft, nontender, nondistended. No CVA tenderness. No lower extremity edema. Rapid COVID and flu are both negative. Unremarkable POC labs are uploaded.I treated this patient with lactated ringers 1 L IV, ondansetron 4 mg IVP, acetaminophen 1 g PO and loperamide 4 mg PO. I provided education on all of her prescriptions as well as recommendations of clear liquids and BRAT diet for the next 24 to 48 hours. I instructed her to follow up with her primary care physician if symptoms persist and to present to the emergency department for any new or worsening severe symptoms such as chest pain, shortness of breath, high fever, altered mental status, black/blood he stools or emesis. The patient was given the opportunity to ask questions and is agreeable to this plan. ..................... ..................... ..................... ..................... ..................... ..................... ............... [facility] Consulted: Yulia Bell ..................... ..................... ..................... ..................... ..................... ..................... ............... Disposition: Fulfilled SEGMD: As above. Patient seen by me not Dr. Kwan-as above -patient denies hematemesis, melena or hematochezia. She does feel bloated. She denies any recent antibiotic use and was exposed to someone with identical symptoms which have since resolved per her report. She denies UTI symptoms. Yulia Bell MD [address] [facility],[address], [place], [phone], [employer] 08/13/2024 14:50:57 08/22/2024 text/html HPI: Elder;ly female with complaints of headache over left ey. Has not taken OTC analgesic. Has noted confusion this morning as she reports choosing flour instead of sugar for coffee.. Able to express all needs no slurred or delay in speech. ..................... ..................... ..................... ..................... ..................... ..................... ............... [facility] Nurse Triage Notes (Mya Marrufo): Chief Complaints: Altered mental status, Headache PMH: Hypertension Comments: HPI reviewed- NE Transcript Evaluator Organization Information for Nicholas Hinson [employer] Legal Name: [employer] Address: [address] [place] [id number], [employer]ellows Filler: Yuri FITZGERALD No.: [id number] Transcript Evaluator POC Test Results from Nicholas Hinson [employer] Blood Glucose Measurement (18:51:31) Blood Glucose: 184 mg/dL ..................... ..................... ..................... ..................... ..................... ..................... ............... Transcript Evaluator Note From Nicholas Hinson: Dispatched to the call address for the elderly female with confusion and a headache. Pt lives alone and speaks Indian and Burundian. Pt is not good historian at this time. She states she is confused and has a headache all over. Pt was not able to answer questions appropriately, even when asked in Burundian. Pt could not repeat the phrase The myriam is blue over Hope , Pt was able to smile and show appliquer zigzag strength (both equal) but she was unable to follow other commands, she had difficulty touching her own nose and then used her other hand to touch my finger, instructions repeated in Burundian and Pt still could not follow commands. Pt stated it was Tuesday, the year 2008 and was not sure which city she was currently in, could not tell me how old she was or when her birthday is but was aware that she was confused. When asked if she was having difficulty getting words out she nodded her head yes. Pt was found to be hypertensive and noted to take Losartan, No blood thinners were found amongst Pts medications. [facility] consulted and agreed that Pt needed to be seen in the ED for CVA rule out. 911 called, while on phone with dispatch IV place (20g L AC). Pt was asked when she last felt OK and not confused and she started 2330 last night. Blood glucose checked (184), Pt was found opening door, Alert and oriented to name only, airway open and patent, breathing non labored, able to speak in full sentences, -JVD, -HEENT, skin PWD with good turgor, mucous membranes pink and moist, lungs CTA, abd soft non tender/distended, pupils PERRL, +CMSx4, Afebrile. EMS arrival (Nabil ANDUJAR with [facility]). Pt was transported to [facility]. ALL times are approx. ..................... ..................... ..................... ..................... ..................... ..................... ............... [facility] Consulted: Hia Govea ..................... ..................... ..................... ..................... ..................... ..................... ............... Disposition: Fulfilled Hai Govea MD [address] [place] [address],[address] [facility], [place], [phone], [employer] 08/22/2024 19:59:35 09/11/2024 text/html HPI: Call returned to Neha Bowman to triage below. Reports having elevated BP reading of 160/88 this morning. This was half an hour after meds. Pt having palpitations. Pt denies any CP, SOB or MARC. Reports having BP 190/102 on left arm. HR 79. Pt denies any sx. Pt refusing to seek ER for evaluation of possible hypertensive crisis. [facility] and [facility]. Confirmed demographics and allergies. Pt instructed to call EMS If sx worsen. ..................... ..................... ..................... ..................... ..................... ..................... ............... [facility] Nurse Triage Notes (Isabel Cook - RN): Chief Complaints: Hypertension PMH: Hypertension Comments: HPI reviewed ..................... ..................... ..................... ..................... ..................... ..................... ............... Transcript Evaluator Note From Nicholas Hinson: Dispatched to the call address for the female with high blood pressure. Pt states prior to taking her BP medication her pressure was 190s systolic and approx 30 minutes after taking it she rechecked it and it was 160s systolic. She states that she was seen by her doctor last and they increased her losartan from 25mg to 50mg. Yesterday her BP was 150s systolic. Pt denies headache, diff breathing/sob, vision changes, dizziness, weakness or any other ailments. She states she feels fine but was worried because her pressure was high. Pt was found opening door, in no apparent distress, CAOx4, airway open and patent, breathing non labored, able to speak in full sentences, -JVD, -HEENT, skin PWD with good turgor, mucous membranes pink and moist, pupils PERRL, abd soft non tender/distended, lung sounds CTA, +CMSx4, -edema/swelling, afebrile, Rapid Covid/flu (-). [facility] consulted. Pt advised to follow up with PCP. Pt requested that I remain with her for 10-15 minutes because she was nervous, I sat with Pt and we had pleasant conversation until she felt more comfortable. Red flags discussed. ALL times are approx. ..................... ..................... ..................... ..................... ..................... ..................... ............... [facility] Consulted: Rachel Hines ..................... ..................... ..................... ..................... ..................... ..................... ............... Disposition: Fulfilled Rachel Hines MD [address] [place] [address],[address], [place], [phone], [employer] 09/11/2024 15:08:23 09/20/2024 text/html HPI: Call to Neha Bowman reports continues to have headache. Pt called in for triage yesterday and did not mention to provider during telehalth visit today. Pt states BP continues elevated today. Pt states headache and blurry vision. Not resolving with Tyelnol. No CP , SOB or severe dizziness. Pt advised of disposition, wishes to be seen. Requesting [facility] for eval. Confirmed demographics and allergies. ..................... ..................... ..................... ..................... ..................... ..................... ............... [facility] Nurse Triage Notes (Leonora Barr - RN): Denies: Active Chest pain, radiates to neck jaw and or arm Sudden onset of nausea/Vomiting and shortness of breath. Shortness of Breath Unable to speak in full sentences without distress Palpitations, feeling dizzy Chest pain, increased fatigue Weakness/tachycardia Chief Complaints: Headache PMH: Hypertension PMH Reviewed at 09/20/2024 - : Allergies Reviewed at 09/20/2024 - : Comments: HPI reviewed, called member for further [...] s/s and seek emergency treatment if needed. ..................... ..................... ..................... ..................... ..................... ..................... ............... Transcript Evaluator Note From Buster Renteria: Pt co low BP reading , pt denies dizziness headache, NVD, cp sob , blurry vision , or abdominal pain. Baseline vitals assessed, WNL , orthos assessed WNL . C contacted and advised or to continue to monitor BP and record and follow up with pcp. Education provided on signs indicating the ER. ..................... ..................... ..................... ..................... ..................... ..................... ............... [facility] Consulted: David Ashraf ..................... ..................... ..................... ..................... ..................... ..................... ............... Disposition: Fulfilled John Ashraf MD [address] [place] [address],[address], [place], [address], [employer]ONTAINE 09/20/2024 21:30:05 10/15/2024 text/html HPI: Triage call to Pt reports weakness, not sleeping, excessive fatigue. Pt unable to come to facility to be seen. Neg for fever, bodyaches, headache. ..................... ..................... ..................... ..................... ..................... ..................... ............... [facility] Nurse Triage Notes (Isabel Cook - RN): Chief Complaints: Dizziness, Fatigue, Weakness PMH: Hypertension, Kidney Stones, Osteoarthritis, Osteoporosis PMH Reviewed at 10/15/2024:57 Allergies Reviewed at 10/15/2024:57 Comments: HPI reviewed ..................... ..................... ..................... ..................... ..................... ..................... ............... Transcript Evaluator Note From Mauricio Garcia: [employer] visit for female pt. Pt is Burundian speaking and so paraprofessional interpreter was used. Pt presents complaining of 1 year of insomnia and resulting fatigue. Pt is currently taking benadryl without much reported effectiveness. Pt has sleep study scheduled in about 2 weeks. Pt states she has tried trazodone before and not enjoyed it. V/S taken as listed. Pt afebrile. Consulted with [facility] Dr. Sky who suggested pt follow up with PCP and proceed with sleep study. Pt education provided. ..................... ..................... ..................... ..................... ..................... ..................... ............... [facility] Consulted: Reggie Sky ..................... ..................... ..................... ..................... ..................... ..................... ............... Disposition: Fulfilled REGGIE SKY MD [address] [place] [address],[address], [place], [address], [facility] [email or web address] [facility] 10/15/2024 20:57:15 OBGyn Episode No OBEpisode recorded.
--- OUTSIDE RECORDS SUMMARY | 2024-10-16 13:04 | XMS_ITS | Encounter Summary ---
Author Organization [employer] Address [address] [facility] 7t [place] [address] Care Team Providers Care Debit Agent Name Role Phone Sonya Interiano MD Primary Care Provider [phone] Encounter Details Date Type Department Care Team ([facility] Contact Info) Description 09/28/2024 11:15 AM EST Office Visit [facility] MED & PEDS [address] [place], [place] [phone] Tayo Nelson MD [address] [place] [address] Primary hypertension (Primary Dx) Social History Tobacco Use Types Packs/Day Years [...] AM EDT documented as of this encounter Last Filed Vital Signs Vital Sign Reading Time Taken Comments Blood Pressure 136/78 09/28/2024 11:42 AM EST Pulse 68 09/28/2024 11:42 AM EST Temperature 37.1 ??C (98.7 ??F) 09/28/2024 11:[address] Respiratory Rate 16 09/28/2024 11:42 AM EST Oxygen Saturation - - Inhaled Oxygen Concentration - - Weight 63.1 kg (139 lb 3.2 oz) 09/28/2024 11:42 AM EST Height 152.4 cm (5') 09/28/2024 11:42 AM EST Body Mass Index 27.19 09/28/2024 11:42 AM EST documented in this encounter Progress Notes * Tayo Castaneda MD - 09/28/2024 11:15 AM EST Subjective Patient ID: Neha Bowman is a 84 y.o. female who presents for No chief complaint on file.. Hypertension This is a chronic problem. Pertinent negatives include no chest pain, headaches, malaise/fatigue orshortness of breath. Review of Systems Constitutional: Negative for malaise/fatigue. Respiratory: Negative for shortness of breath. Cardiovascular: Negative for chest pain. Neurological: Negative for headaches. Objective Physical Exam Constitutional: Appearance: Normal appearance. Cardiovascular: Rate and Rhythm: Normal rate. Heart sounds: No murmur heard. Pulmonary: Effort: Pulmonary effort is normal. No respiratory distress. Breath sounds: No stridor. Neurological: General: No focal deficit present. Mental Status: She is alert and oriented to person, place, and time. Psychiatric: Mood and Affect: Mood normal. Behavior: Behavior normal. Assessment/Plan Problem List Items Addressed This Visit Primary hypertension - Primary Blood pressure is stable on today visit, told to keep a bp log, keep low sodium diet, target <140/90 documented in this encounter Miscellaneous Notes * Assessment & Plan Note - Tayo Castaneda MD - 10/05/2024 1:37 PM ESTAssociated Problem(s): Primary hypertension Blood pressure is stable on today visit, told to keep a bp log, keep low sodium diet, target <140/90 documented in this encounter Plan of Treatment Upcoming Encounters Date Type Department Care Team (Late st Contact Info) Description 10/25/2024 11:15 AM EST Office Visit [facility] MED & PEDS [address] [place] [address] Aneta Carlson CNM [address] [place] [address] documented as of this encounter Visit Diagnoses Diagnosis Primary hypertension- Primary Unspecified essential hypertension documented in this encounter Additional Health Concerns Assessment Noted Time PHQ-9 Depression Total Score: 11 024 10:51 AM EST documented as of this encounter Care Teams Debit Agent Relationship Specialty Start Date End Date Sonya Interiano MD [address] [place] [address] PCP - General Family Medicine 08/28/12 [employer] 09/17/24 documented as of this encounter
--- OUTSIDE RECORDS SUMMARY | 2024-10-16 13:04 | XMS_ITS | Encounter Summary ---
Author Organization [employer] Address [address] [place] [address] Care Team Providers Care Claim Service Representative Name Role Phone Sonya Interiano MD Primary Care Provider [phone] Reason for Visit * Reason Onset Date Comments Call Back Request 12/06/2023 Med Refill 12/06/2023 Encounter Details Date Type Department Care Team ([facility] st Contact Info) Description 12/06/2023 Telephone [facility] MEDICINE [address] [place], [place] [phone] Sonya Interiano MD [address] [place] [address] Call Back Request; Med Refill Social History Tobacco Use Types Packs/Day Years [...] encounter Miscellaneous Notes * Telephone Encounter - Kay Basurto - 12/16/2023 4:00 PM EDT TC from pt calling requesting a refill on medication Losartan 50mg. PCP DR. Interiano * Telephone Encounter - Alok Lawler - 12/06/2023 3:26 PM EDT Tc from patient calling states was advised to call back to speak with nurse however there is no messages on patient charts documented in this encounter Plan of Treatment Upcoming Encounters Date Type Department Care Team (Late st Contact Info) Description 10/25/2024 11:15 AM EST Office Visit [facility] MED & PEDS [address] [place] [address] Aneta Carlson CNM [address] [place] [address] documented as of this encounter Visit Diagnoses Not on filedocumented in this encounter Additional Health Concerns Assessment Noted Time PHQ-9 Depression Total Score: 11 024 10:51 AM EST documented as of this encounter Care Teams Claim Service Representative Relationship Specialty Start Date End Date Sonya Interiano MD [address] [place] [address] PCP - General Family Medicine 08/28/12 [employer] 09/17/24 documented as of this encounter
--- OUTSIDE RECORDS SUMMARY | 2024-10-16 13:04 | XMS_ITS | Encounter Summary ---
Author Organization [employer] Address [address] [facility] [address]t [place] [address] Care Team Providers Care Clinical Research Assistant Name Role Phone Sonya Interiano MD Primary Care Provider [phone] Reason for Visit * Reason Onset Date Comments isntED Follow UP 09/21/2024 Encounter Details Date Type Department Care Team ([facility] Contact Info) Description 09/21/2024 Telephone [facility] CHC MED & PEDS [address] [place], [place] [phone] Sonya Interiano MD [address] [place] [address] isntED Follow UP Social History Tobacco Use Types Packs/Day Years [...] encounter Miscellaneous Notes * Telephone Encounter - Sonya Interiano MD - 09/24/2024 10:19 AM EST ER report reviewed. No ER follow up needed at this time. * Telephone Encounter - Zee Leong RN - 09/21/2024 9:59 AM EST Reviewed [facility] note. Scanned into chart. Sent to PCP as FYI to review and have [facility] primary care team follow up PRN re: HTN management. documented in this encounter Plan of Treatment Upcoming Encounters Date Type Department Care Team (Late st Contact Info) Description 10/25/2024 11:15 AM EST Office Visit [facility] MED & PEDS [address] [place], [place] [phone] Aneta Carlson CNM [address] [place] [address] documented as of this encounter Visit Diagnoses Not on filedocumented in this encounter Additional Health Concerns Assessment Noted Time PHQ-9 Depression Total Score: 11 024 10:51 AM EST documented as of this encounter Care Teams Clinical Research Assistant Relationship Specialty Start Date End Date Sonya Interiano MD [address] [place] [id number] PCP - General Family Medicine 08/28/12 [employer] 09/17/24 documented as of this encounter
--- OUTSIDE RECORDS SUMMARY | 2024-10-16 13:04 | XMS_ITS | Encounter Summary ---
Author Organization [employer] Address [address] [place] [address] Care Team Providers Care Knotter Name Role Phone Sonya Interiano MD Primary Care Provider [phone] Reason for Visit * Reason Onset Date Comments Medication Question 09/26/2024 Encounter Details Date Type Department Care Team ([facility] st Contact Info) Description 09/26/2024 Telephone [facility] MEDICINE [address] [place] [address] Sonya Interiano MD [address] [place], [place] [phone] Medication Question Social History Tobacco Use Types [...] Telephone Encounter - Zee Leong RN - 09/26/2024 11:04 AM EST Message forwarded to triage from primary care team. Call returned to Neha Bowman to triage below. States continues to have mildly elevated BP even with taking losartan 50mg daily. Pt wants to know if levothyroxine interacts with losartan. Per upto date no known interaction with both meds. Left arm BP 170/97 HR 79. Med taken 2 hours ago. Pt denies any MARC, dizziness , CP or SOB. Pt wants follow up appt. Pt given appt with team provider as no PCP appts in office with in 2 weeks.Unable to book into sick on site >24- 48 in advance. Pt also given number to contact [facility] to have in event needs them after hours or weekend. Reviewed home careadvise, ER precautions and reasons to call back. Pt advised to recheck in 1 hour and call back if continues elevated. Protocol Used: Blood Pressure - High (Adult) Protocol-Based Disposition: See in Office or Video Visit within 3 Days Future Appointments Date Time Provider Department Center 09/28/2024 11:15 AM Tayo Castaneda MD [facility] Insurance verified as active per Real Time Eligibility in [facility]. Video visit offer not recorded Positive Triage Question: * Systolic BP >= 160 OR Diastolic >= 100 * All higher-acuity triage questions were negative Care Advice Discussed: * Reassurance and Education - BP Under 130 / 80 and Taking BP Meds * Reasons To Call Back - Headache, blurred vision, difficulty talking, or difficulty walking occurs - Chest pain or difficulty breathing occurs - You become worse * Telephone Encounter - Jeremie Quigley - 09/26/2024 8:41 AM EST Tc from pt requesting a callback as pt having several concerns and will like to know if thyroid medication will level her blood pressure up. [phone] documented in this encounter Plan of Treatment Upcoming Encounters Date Type Department Care Team (Late st Contact Info) Description 10/25/2024 11:15 AM EST Office Visit [facility] CHC MED & PEDS [address] [place] [address] Aneta Carlson CNM [address] [place] [address] documented as of this encounter Visit Diagnoses Not on filedocumented in this encounter Additional Health Concerns Assessment Noted Time PHQ-9 Depression Total Score: 11 024 10:51 AM EST documented as of this encounter Care Teams Knotter Relationship Specialty Start Date End Date Sonya Interiano MD [address] [place] [address] PCP - General Family Medicine 08/28/12 [employer] 09/17/24 documented as of this encounter
--- OUTSIDE RECORDS SUMMARY | 2024-10-16 13:04 | XMS_ITS | Encounter Summary ---
Author Organization [employer] Address [address] [facility] [address]t [place] [address] Care Team Providers Care Data Support Specialist Name Role Phone Sonya Interiano MD Primary Care Provider [phone] Encounter Details Date Type Department Care Team (Latest Contact Info) Description 09/28/2024 Travel Social History Tobacco Use Types Packs/Day Years [...] 10/25/2024 11:15 AM EST Office Visit [facility] MED & PEDS [address] [place] [address] Aneta Carlson CNM [address] [place] [address] documented as of this encounter Visit Diagnoses Not on filedocumented in this encounter Additional Health Concerns Assessment Noted Time PHQ-9 Depression Total Score: 11 024 10:51 AM EST documented as of this encounter Care Teams Data Support Specialist Relationship Specialty Start Date End Date Sonya Interiano MD [address] [place] [address] PCP - General Family Medicine 08/28/12 [employer] 09/17/24 documented as of this encounter
--- OUTSIDE RECORDS SUMMARY | 2024-10-16 13:04 | XMS_ITS | Encounter Summary ---
Author Organization [employer] Address [address] [place] [address] Care Team Providers Care Forestry Adviser Name Role Phone Sonya Interiano MD Primary Care Provider [phone] Reason for Visit * Reason Onset Date Comments Nurse Triage 09/20/2024 Encounter Details Date Type Department Care Team ([facility] st Contact Info) Description 09/20/2024 Telephone [facility] MEDICINE [address] [place] [address] Sonya Interiano MD [address] [place] [address] Nurse Triage Social History Tobacco Use Types [...] Telephone Encounter - Zee Leong RN - 09/20/2024 4:41 PM EST Call to Neha Bowman reports continues to have headache. Pt called in for triage yesterday anddid not mention to provider during telehealth visit today. Pt states BP continues elevated today. Pt states headache and blurry vision. Not resolving with Tylenol. No CP , SOB or severe dizziness. Ptadvised of disposition, wishes to be seen. Requesting [facility] for eval. Confirmed demographics and allergies. instED referral place. Will set reminder for status check tomorrow by this triage nurse. Protocol Used: Headache (Adult) Protocol-Based Disposition: See in Office or Video Visit Today Video visit offer not recorded Positive Triage Question: * Patient wants to be seen * All higher-acuity triage questions were negative Care Advice Discussed: * Reassurance and Education - Migraine Headache * Pain Medicines * Cold Pack for Headache * Reasons To Call Back - Severe headache lasts over 2 hours after pain medicine - Stiff neck occurs (can't touch chin to chest) * Telephone Encounter - Sanam Wagner RN - 09/20/2024 4:05 PM EST Called pt. Via S cubing machine tender [id number] [address]. No answer. Audio Narrator left message for pt. To call back [facility] nurses at [phone]. Called pt. Back x 2 and no answer. Audio Narrator DID leave second message for pt. To call back [facility] nurses at [phone]. RE: Headache vision change and dizziness. * Telephone Encounter - Jerica Popeye Rojas - 09/20/2024 3:50 PM EST Symptoms: Headache, Vision Loss or Change Outcome: Talk to a nurse or provider within 15 minutes Reason: Trouble walking The caller accepted this outcome. [phone] ([place] Islander) documented in this encounter Plan of Treatment Upcoming Encounters Date Type Department Care Team (Late st Contact Info) Description 10/25/2024 11:15 AM EST Office Visit [facility] MED & PEDS [address] [place] [address] Aneta Carlson CNM [address] [place] [address] documented as of this encounter Visit Diagnoses Not on filedocumented in this encounter Additional Health Concerns Assessment Noted Time PHQ-9 Depression Total Score: 11 024 10:51 AM EST documented as of this encounter Care Teams Forestry Adviser Relationship Specialty Start Date End Date Sonya Interiano MD [address] [place] [address] PCP - General Family Medicine 08/28/12 [employer] 09/17/24 documented as of this encounter
--- OUTSIDE RECORDS SUMMARY | 2024-10-16 13:04 | XMS_ITS | Encounter Summary ---
Author Organization [employer] Address [address] [facility] [address]t [place] [address] Care Team Providers Care Digital Sales Director Name Role Phone Sonya Interiano MD Primary Care Provider [phone] Reason for Visit * Reason Onset Date Comments Nurse Triage 10/15/2024 Encounter Details Date Type Department Care Team ([facility] Contact Info) Description 10/15/2024 Telephone C CHC MED & PEDS [address] [place] [address] Sonya Interiano MD [address] [place] [address] Nurse Triage Social History Tobacco Use Types [...] encounter Miscellaneous Notes * Telephone Encounter - Marlys Myers RN - 10/15/2024 1:52 PM EST Triage call with S raw hide trimmer [place] [id number] Pt reports insominia, weakness and excessive fatigue for last 2 months. Pt may not be drinking adequate liquids. Pt denies any QUIQUE sx , neg for fever, bodyahces, headache. Pt is unable to come to facility to be seen by provider . InSTED visit is requested, Information is submitted and Pt agrees with this visit. Protocol Used: Weakness (Generalized) and Fatigue (Adult) Protocol-Based Disposition: See in Office or Video Visit within 3 Days Video visit not offered Positive Triage Questions: * Mild weakness (e.g., does not interfere with ability to work, go to school, normal activities) and persists > 1 week * Fatigue (i.e., tires easily, decreased energy) and persists > 1 week * All higher-acuity triage questions were negative Care Advice Discussed: * Reasons To Call Back - Unable to stand or walk - Passes out - Breathing difficulty occurs - You become worse * Drink Fluids * Telephone Encounter - Laurence Donahue - 10/15/2024 12:51 PM EST Symptom: Lethargic (Tired) and difficulty sleeping and weakness Outcome: Schedule an appointment to be seen within 3 days Reason: Caller denied all higher acuity questions The caller accepted this outcome. documented in this encounter Plan of Treatment Upcoming Encounters Date Type Department Care Team (Late st Contact Info) Description 10/25/2024 11:15 AM EST Office Visit [facility] MED & PEDS [address] [place] [address] Aneta Carlson CNM [address] [place] [address] documented as of this encounter Visit Diagnoses Not on filedocumented in this encounter Additional Health Concerns Assessment Noted Time PHQ-9 Depression Total Score: 11 024 10:51 AM EST documented as of this encounter Care Teams Digital Sales Director Relationship Specialty Start Date End Date Sonya Interiano MD [address] [place] [address] PCP - General Family Medicine 08/28/12 [employer] 09/17/24 documented as of this encounter
--- OUTSIDE RECORDS SUMMARY | 2024-10-16 13:04 | XMS_ITS | Encounter Summary ---
Author Organization [employer] Address [address] [place] [address] Care Team Providers Care Gas Singer Name Role Phone Sonya Interiano MD Primary Care Provider [phone] Reason for Visit * Reason Onset Date Comments Nurse Triage 01/02/2024 Lab Orders 01/02/2024 Encounter Details Date Type Department Care Team ([facility] st Contact Info) Description 01/02/2024 Telephone [facility] MEDICINE [address] [place] [address] Sonya Interiano MD [address] [place] [address] Nurse Triage; Lab Orders Social History Tobacco Use Types Packs/Day Years [...] Telephone Encounter - Ale Powell RN - 01/02/2024 12:10 PM EDT Noted. Pt to f/u PRN. * Telephone Encounter - Zee Leong RN - 01/02/2024 11:21 AM EDT Call to Neha Bowman, reports having dizziness x 2-3 days. Per pt has BP 129/80 HR 79. Pt denies any vomiting ,diarrhea or abdominal pain. No fever. Per pt dizziness with position changes. Pt denies any CP, SOB or MARC. Pt offered to set up inst[facility] or to seek WIC. Pt states will be stepping out with daughter and unsure when will return to home. Pt wants [facility] to go out tomorrow. Pt given contact for [facility] when ready to have them come to the home . Reviewed home care advise, ER precautions and reasons to call back. Sent to PCP and team per disposition below for follow up PRN Protocol Used: Dizziness (Adult) Protocol-Based Disposition: Discuss with PCP and Callback by Nurse Today Positive Triage Question: * Taking a medicine that could cause dizziness (e.g., blood pressure medications, diuretics) * All higher-acuity triage questions were negative Care Advice Discussed: * Sit Up Slowly Before Standing * Drink Fluids * Lie Down and Rest * Cool Off * Prevention - Dizziness * Reasons To Call Back - After 2 hours of rest and fluids and still feeling dizzy. - Passes out (faints). - You become worse. * Telephone Encounter - Tatyana Frosta - 01/02/2024 11:19 AM EDT Symptom: Dizziness Outcome: Schedule an urgent appointment (within 4 hours) or talk to a nurse or provider soon Reason: Getting worse The caller accepted this outcome Please contact at [phone] [employer] documented in this encounter Plan of Treatment Upcoming Encounters Date Type Department Care Team ([facility] st Contact Info) Description 10/25/2024 11:15 AM EST Office Visit [facility] MED & PEDS [address] [place] [address] Aneta Carlson CNM [address] [place] [address] documented as of this encounter Visit Diagnoses Not on filedocumented in this encounter Additional Health Concerns Assessment Noted Time PHQ-9 Depression Total Score: 11 024 10:51 AM EST documented as of this encounter Care Teams Gas Singer Relationship Specialty Start Date End Date Sonya Interiano MD [address] [place] [address] PCP - General Family Medicine 08/28/12 [employer] 09/17/24 documented as of this encounter
--- OUTSIDE RECORDS SUMMARY | 2024-10-16 13:04 | XMS_ITS | Encounter Summary ---
Author Organization [employer] Address 75 [facility] 7t [place] [address] Care Team Providers Care Food Quality Technician Name Role Phone Sonya Interiano MD Primary Care Provider [phone] Encounter Details Date Type Department Care Team (Latest Contact Info) Description 09/20/2024 Travel Social History Tobacco Use Types Packs/Day [...] Description 10/25/2024 11:15 AM EST Office Visit [facility] MED & PEDS [address] [place] [address] Aneta Carlson CNM [address] [place] [address] documented as of this encounter Visit Diagnoses Not on filedocumented in this encounter Additional Health Concerns Assessment Noted Time PHQ-9 Depression Total Score: 11 024 10:51 AM EST documented as of this encounter Care Teams Food Quality Technician Relationship Specialty Start Date End Date Sonya Interiano MD [address] [place] [address] PCP - General Family Medicine 08/28/12 [employer] 09/17/24 documented as of this encounter
--- OUTSIDE RECORDS SUMMARY | 2024-10-16 13:04 | XMS_ITS | Encounter Summary ---
Author Organization [employer] Address [address] [facility] [address] 7t [place] [address] Care Team Providers Care Senior Corporate Accountant Name Role Phone Sonya Interiano MD Primary Care Provider [phone] Reason for Visit * Reason Onset Date Comments Nurse Triage 09/19/2024 Encounter Details Date Type Department Care Team ([facility] st Contact Info) Description 09/19/2024 Telephone [facility] MEDICINE [address] [place] [address] Sonya Interiano MD [address] [place] [address] Nurse Triage Social History Tobacco Use Types [...] Telephone Encounter - Zee Leong RN - 09/19/2024 12:38 PM EST Call returned to Neha Bowman to triage below. Reports having headache x 2 days. Per pt using OTC tylenol with mild relief. Pt denies any QUIQUE sx. Denies any fever. Denies any N/V or dizziness. NO CP or SOB reported. Pt checked SBP 168. Per pt was 1 hour after meds. Current BP of 160/74, pt took Tylenol 1 hour ago for pain. Pt wants to know if able to take another dose of her losartan 50mg since one tab does not seem to be helping. Pt reminded of appt tomorrow with PCP for BP follow up. Will forward note to PCP to review and advise [facility] Primary Care team nurse of plan of care regarding dosing of Losartan. Protocol Used: Blood Pressure - High (Adult) Protocol-Based Disposition: See in Office or Video Visit within 3 Days Override (Final) Disposition: Discuss with PCP and Callback by Nurse within 1 Hour Override Reason: Other Override Notes: Pt has appt tomorrow. Looking for advise for today regarding BP meds Video visit offer not recorded Positive Triage Question: * Systolic BP >= 160 OR Diastolic >= 100 * All higher-acuity triage questions were negative Care Advice Discussed: * Reasons To Call Back - Headache, blurred vision, difficulty talking, or difficulty walking occurs - Chest pain or difficulty breathing occurs - You become worse * Telephone Encounter - Woody De Dios - 09/19/2024 10:45 AM EST Symptom: Headache Outcome: Schedule an urgent appointment (within 4 hours) or talk to a nurse or provider soon Reason: Getting worse The caller accepted this outcome. documented in this encounter Plan of Treatment Upcoming Encounters Date Type Department Care Team (Late st Contact Info) Description 10/25/2024 11:15 AM EST Office Visit [facility] MED & PEDS [address] [place] [address] Aneta Carlson CNM [address] [place] [address] documented as of this encounter Visit Diagnoses Not on filedocumented in this encounter Additional Health Concerns Assessment Noted Time PHQ-9 Depression Total Score: 11 024 10:51 AM EST documented as of this encounter Care Teams Senior Corporate Accountant Relationship Specialty Start Date End Date Sonya Interiano MD [address] [place] [address] PCP - General Family Medicine 08/28/12 [employer] 09/17/24 documented as of this encounter
--- OUTSIDE RECORDS SUMMARY | 2024-10-16 13:04 | XMS_ITS | Encounter Summary ---
Author Organization [employer] Address [address] [facility] [address] 7t [place] [address] Care Team Providers Care Regional Sales Engineer Name Role Phone Sonya Interiano MD Primary Care Provider [phone] Reason for Visit * Reason Onset Date Comments Med Refill 11/22/2022 Encounter Details Date Type Department Care Team ([facility] st Contact Info) Description 11/22/2022 Telephone [facility] MEDICINE [address] [place] [address] Sonya Interiano MD [address] [place] [address] Med Refill Social History Tobacco Use Types [...] Patient Health Questionnaire-2 Score 4 10/19/2023 Comments Unknown Sex and Gender Information Value [...] suspected to have Coronavirus/COVID-19? No / Unsure 02/22/2023 11:20 AM EDT documented as of this encounter Miscellaneous Notes * Telephone Encounter - Tatyana Barber - 11/22/2022 1:58 PM EDT Tc from pt requesting a med refill for guaifenesin 200 mg , advised pt script was sent 11/15/22 , however pharmacist stated never received script @ [facility] . Please contact at [phone] documented in this encounter Plan of Treatment Upcoming Encounters Date Type Department Care Team (Late st Contact Info) Description 10/25/2024 11:15 AM EST Office Visit [facility] MED & PEDS [address] [place] [address] Aneta Carlson CNM [address] [place] [address] documented as of this encounter Visit Diagnoses Not on filedocumented in this encounter Care Teams Regional Sales Engineer Relationship Specialty Start Date End Date Sonya Interiano MD [address] [place] [address] PCP - General Family Medicine 08/28/12 [employer] (Social Influence Quotient) 09/17/24 documented as of this encounter
--- OUTSIDE RECORDS SUMMARY | 2024-10-16 13:04 | XMS_ITS | Encounter Summary ---
Author Organization [employer] Address 75 [facility] 7t [place] [address] Care Team Providers Care Career Technical Supervisor Name Role Phone Sonya Interiano MD Primary Care Provider [phone] Encounter Details Date Type Department Care Team (Latest Contact Info) Description 10/03/2024 Travel Social History Tobacco Use Types Packs/Day [...] Description 10/25/2024 11:15 AM EST Office Visit [facility] MED & PEDS [address] [place] [address] Aneta Carlson CNM [address] [place] [address] documented as of this encounter Visit Diagnoses Not on filedocumented in this encounter Additional Health Concerns Assessment Noted Time PHQ-9 Depression Total Score: 11 024 10:51 AM EST documented as of this encounter Care Teams Career Technical Supervisor Relationship Specialty Start Date End Date Sonya Interiano MD [address] [place] [address] PCP - General Family Medicine 08/28/12 [employer] 09/17/24 documented as of this encounter
--- OUTSIDE RECORDS SUMMARY | 2024-10-16 13:04 | XMS_ITS | Encounter Summary ---
Author Organization [employer] Address 75 [facility] 7t [place] [address] Care Team Providers Care Bilingual Spanish Inbound Sales Name Role Phone Sonya Interiaon MD Primary Care Provider [phone] Reason for Referral * Consultation (Routine) - Closed Specialty Diagnoses / Procedures Referred By Martín holden Referred To Contact Midwifery Diagnoses Lichen sclerosus of female genitalia Sonya Interiano MD [address] [place] [address] Phone: tel: fax: Aneta Carlson, ANNY [address] [place] [address] Phone: tel: fax: Referral ID Status Reason Start Date Expiration Date V isits Requested Visits Authorized [id number] Closed Consult and Treat 09/20/2024 09/20/2025 1 1 Encounter Details Date Type Department Care Team (Late st Contact Info) Description 09/20/2024 10:45 AM EST Telemedicine [facility] MED & PEDS [address] [place], [place] [phone] Sonya Interiano MD [address] [place], [place] [phone] Primary hypertension (Primary Dx); Lichen sclerosus of female genitalia Social History Tobacco Use Types Packs/Day Years [...] Sign Reading Time Taken Comments Blood Pressure 162/86 09/20/2024 10:36 AM EST Ta purnima by CCA clinical case manager at 9:30am Pulse - - Temperature - - Respiratory Rate - - Oxygen Saturation - - Inhaled Oxygen Concentration - - Weight - - Height - - Body Mass Index - - documented in this encounter Progress Notes * Sonya Interiano MD - 09/20/2024 10:45 AM EST Subjective Patient ID: Neha Bowman is a 84 y.o. female who presents for No chief complaint on file.. Hypertension This is a chronic problem. The current episode started more than 1 year ago. The problem is unchanged. The problem is controlled (fluctuating). Pertinent negatives include no chest pain, headaches, neck pain, palpitations or shortness of breath. Risk factors for coronary artery disease include family history and sedentary lifestyle. Review of Systems Constitutional: Negative. Respiratory: Negative. Negative for shortness of breath. Cardiovascular: Negative for chest pain and palpitations. Gastrointestinal: Negative. Genitourinary: Negative. Musculoskeletal: Negative for neck pain. Neurological: Negative for headaches. Objective Physical Exam Psychiatric: Mood and Affect: Mood normal. Behavior: Behavior normal. Thought Content: Thought content normal. Judgment: Judgment normal. Assessment/Plan Diagnoses and all orders for this visit: Primary hypertension Comments: Strongly advised to be compliant with meds reduce caffine intake Lichen sclerosus of female genitalia Comments: Cont Premarin referred to Miri Orders: - Referral to Gynecology (Aneta); Future documented in this encounter Plan of Treatment Upcoming Encounters Date Type Department Care Team (Late st Contact Info) Description 10/25/2024 11:15 AM EST Office Visit [facility] MED & PEDS [address] [place] [address] Aneta Carlson, CNM [address] [place] [address] Scheduled Referrals Name Type Priority Associated Diagnoses Order Schedule Referral to Gynecology (Aneta) Outpatient Referral Routine Lichen sclerosus of female genitalia Expected: 09/20/2024 (Approximate), Expires: 09/20/2025 documented as of this encounter Visit Diagnoses Diagnosis Primary hypertension- Primary Unspecified essential hypertension Lichen sclerosus of female genitalia documented in this encounter Additional Health Concerns Assessment Noted Time PHQ-9 Depression Total Score: 11 024 10:51 AM EST documented as of this encounter Care Teams Bilingual Spanish Inbound Sales Relationship Specialty Start Date End Date Sonya Interiano MD [address] [place] [address] PCP - General Family Medicine 08/28/12 [employer] 09/17/24 documented as of this encounter
--- OUTSIDE RECORDS SUMMARY | 2024-10-16 13:04 | XMS_ITS | Encounter Summary ---
Author Organization [employer] Address 75 [facility] 7t [place] [address] Care Team Providers Care Programs Assistant Name Role Phone Sonya Interiano MD Primary Care Provider Reason for Visit * Reason Onset Date Comments call back 10/22/2022 Encounter Details Date Type Department Care Team ([facility] st Contact Info) Description 10/22/2022 Telephone [facility] MEDICINE [address] [place] [address] Sonya Interiano MD [address] [place] [address] call back Social History Tobacco Use Types Packs/Day Years [...] suspected to have Coronavirus/COVID-19? No / Unsure 10/22/2022 9:16 AM EST documented as of this encounter Miscellaneous Notes * Telephone Encounter - Keith Ponce - 10/22/2022 3:11 PM EST Tc from pt returning call. Pt requesting a call back documented in this encounter Plan of Treatment Upcoming Encounters Date Type Department Care Team (Late st Contact Info) Description 10/25/2024 11:15 AM EST Office Visit [facility] MED & PEDS [address] [place] [address] Aneta Carlson CNM [address] [place] [address] documented as of this encounter Visit Diagnoses Not on filedocumented in this encounter Care Teams Programs Assistant Relationship Specialty Start Date End Date Sonya Interiano MD [address] [place] [address] PCP - General Family Medicine 08/28/12 [employer] 09/17/24 documented as of this encounter
--- OUTSIDE RECORDS SUMMARY | 2024-10-16 13:04 | XMS_ITS | Encounter Summary ---
Author Organization [employer] Address [address] [facility] 7t [place] [address] Care Team Providers Care Salvation [employer] Officer Name Role Phone Sonya Interiano MD Primary Care Provider [phone] Encounter Details Date Type Department Care Team ([facility] Contact Info) Description 08/29/2024 Telephone [facility] MED & PEDS [address] [place], [place] [phone] Sonya Interiano MD [address] [place] [address] Social History Tobacco Use Types Packs/Day Years [...] encounter Miscellaneous Notes * Telephone Encounter - Mahi Valdovinos RN - 08/29/2024 12:16 PM EST Attempted to call x2 to reschedule appt, unable to reach. Will task to team nurses to follow up andschedule as appropriate. * Telephone Encounter - Laurence Donahue - 08/29/2024 11:06 AM EST TC from pt calling in to r/s sick appt. documented in this encounter Plan of Treatment Upcoming Encounters Date Type Department Care Team (Late st Contact Info) Description 10/25/2024 11:15 AM EST Office Visit [facility] MED & PEDS [address] [place] [address] Aneta Carlson CNM [address] [place] [address] documented as of this encounter Visit Diagnoses Not on filedocumented in this encounter Additional Health Concerns Assessment Noted Time PHQ-9 Depression Total Score: 11 024 10:51 AM EST documented as of this encounter Care Teams Salvation Army Officer Relationship Specialty Start Date End Date Sonya Interiano MD [address] [place] [address] PCP - General Family Medicine 08/28/12 [employer] 09/17/24 documented as of this encounter
== END 2024-10-16 12:32 | disposition home or self-care (01) ==
LOC: HO.MAMMO 12:31
PROVIDERS: PCP Student in an Organized Health Care Education/Training Program; Visit Provider Student in an Organized Health Care Education/Training Program
DX: M81.0 Age-related osteoporosis without current pathological fracture (principal)
CPT/HCPCS: 77080

== ENCOUNTER → 2024-10-16 13:00 | Outpatient (BNV) | payer OTHER, SELFPAY | PROVIDERS: PCP Student in an Organized Health Care Education/Training Program; Visit Provider Radiology Diagnostic Radiology | DX: M81.0 Age-related osteoporosis without current pathological fracture (principal); E28.39 Other primary ovarian failure | CPT/HCPCS: 77080 ==

== ENCOUNTER 2024-11-20 13:07 | Outpatient (REF) | payer OTHER, SELFPAY ==
[2024-11-20 14:49] LABS: Alanine Aminotransferase 16 U/L (0-31); Albumin Level 3.9 g/dL (3.5-5.0); Alkaline Phosphatase 52 U/L (39-117); Anion Gap 11 (12-20); Aspartate Amino Transferase 34 U/L (5-31); Bilirubin Total 0.5 mg/dL (0.0-1.0); Blood Urea Nitrogen 22 mg/dL (9-16); Calcium 9.5 mg/dL (8.4-10.2); Carbon Dioxide 26 mmol/L (22-29); Chloride 109 mmol/L (96-108); Estimated Glomerular Filt Rate > 60; Glucose Random 132 mg/dL (60-115); Sodium 142 mmol/L (135-145); Total Protein 7.6 g/dL (6.5-8.0)
[2024-11-20 15:02] LABS: TSH reflex Free T4 2.72 uIU/mL (0.32-4.0)
--- OUTSIDE RECORDS SUMMARY | 2024-11-20 15:56 | XMS_ITS | Data Portability ---
Author Organization [employer] [facility], Id in - [facility] Address [address] [place] [phone] Assessment Encounter Date Assessment Date Assessment LastModified by Organization Details LastModified Time 09/30/2023 09/30/2023 I provided real -time medical direction via phone for this encounter, and was available for additional phone based assistance as needed. I have reviewed and agree with the Assessment and Plan as documented by the Tourist Home Keeper. We discussed the diagnostic uncertainty of home visits and the risk associated with this. The patient given the opportunity to ask questions. Advised the patient, the bean picker machine operator that while lack of response 1 dose [...] and treatment she verbalized understanding via the bean picker machine operator [email or web address] Not available 09/30/2023 14:10:34 Plan of Treatment Reminders Order Date Submit Date Provider Last Modified By Organization Details Last Modified Time Details Appointments None recorded. Lab BMP, serum or plasma 2023 024 [email or web address] 0 [facility], [address] [place] [address], [phone], 4 13:59:28 Referral None recorded. Procedures None recorded. Surgeries None recorded. Imaging electrocard iogram 2023 024 [email or web address] 0 [facility], [address] [place] [address], [phone], 4 13:59:24 Medication Orders meclizine 25 mg [...] BUN 16 Not Available Main - Ins [address], [address], 09/30/2023 12:45:59 09/30/19 24 09/30/2023 BMP, serum or plasm a Ca Ionize d calciu m 1.05 Not Available Main - [address], [phone], 09/30/2023 12:45:59 09/30/19 24 09/30/2023 BMP, serum or plasm a CI- 104 Not Available Main - Ins [address], [address], 09/30/2023 12:45:59 09/30/19 24 09/30/2023 BMP, serum or plasm a CRE 0.5 Not Available Main - Ins [address], [address], 09/30/2023 12:45:59 09/30/19 24 09/30/2023 BMP, serum or plasm a GLU 133 Not Available Main - Ins [address], [address], 09/30/2023 12:45:59 09/30/19 24 09/30/2023 BMP, serum or plasm a K+ 4.4 Not Available Main - Ins [address], [address], 09/30/2023 12:45:59 09/30/19 24 09/30/2023 BMP, serum or plasm a Na+ 138 Not Available Main - Ins [address], [address], 09/30/2023 12:45:59 09/30/19 24 09/30/2023 BMP, serum or plasm a tCO2 28 Not Available Main - Ins juan [address] [place] [address], [phone], 09/30/2023 12:45:59 09/30/19 24 09/30/2023 elect josephine [email or web address] am No observ ation record ed. [email or web address] Main - [facility] [address] [place] [address], [phone], 09/30/2023 13:59:20 Result Notes None recorded. Procedures Surgical History None recorded. Imaging Results Imaging Date Name Status LastModified by Organization Details LastModified Time 09/30/2023 electrocardiogram completed [email or web address] Main - [facility] [address] [place] [address], [phone], 09/30/2023 13:59:20 Procedure Notes None recorded. Medical Equipment None Reported. Allergies Allergen ID Allergen Name Allergen Category Reaction Reaction Severity Criticality Documentation Date Start Date Code Code System Note Provider Name and Address Organization Details Recorded Time 4387 Substance with sulfonami de structure and antibacte rial mechanism of action (substanc e) medicatio n Not available Not available Not available 09/30/2023 80211 8003 SNOMED Yulia Bell MD [address] [place] [address],[address], [place], [address], [place] [employer] - [employer] 4 12:44:32 4388 Product containin g penicilli n (product) medicatio n Not available Not available Not available 09/30/2023 93248 8001 SNOMED Not Available [employer] - production 4 [...] 188 mm[Hg] 94 mm[Hg] Yulia Bell MD [address] [place] [address],[address], [place], [address] , [facility] [employer] [facility] 4 13:39:13 Social History None recorded. Functional Status None recorded. Mental Status None recorded. Family History Nothing Reported. Medical History No medical history recorded. Gynecological HistoryNo gynecological history recorded. Obstetrics History GPAL:G 0 P 0 0 0 0 Past Encounters Encounter ID Performer Location Encounter Start Date Encounter Closed Date Diagnosis/Indication Diagnosis SNOMED-CT Code Diagnosis ICD10 Code Diagnosis Note [id number] Yulia Bell MD [address] [phone] 09/30/2023 12:44:05 10/02/2023 13:48:29 Chest discomfort 620167857 R07.89 Medic alone, reported only has BLS transport, would avoid nitroglyce rin right now due to risk of increasing headache and symptomati c rapid lowering of blood pressure /report given to the [facility] ER the medic informed me patient declined the 324 mg of asa i ordered. transportation logistics internship aware Essential hypertension 66274940 I10 Will add 1 dose of metoprolol /also cardioprot ective-med ic did not have a chance to recheck the BP after metoprolol administra tion Dizziness 540083367 R42 Described as spinning and movement related [...] Benoit Member ID Guarantor Name 09/30/2023 1 [facility] - DOS ON OR AFTER 2022 - DUAL ELIGIBLE - RESIDENTIAL OPTIONS AND ONE CARE (MEDICARE REPLACEMENT/ADV ANTAGE - HMO) Neha Colby [id number] Neha Colby Notes Date Note Type Note [...] referral as not able to come into [facility] Office. Referral submitted online. .................... .................... .................... [...] since she awoke this morning via her bean picker machine operator. She denied prior episodes of dizziness but [...] .................... .................... .................... .................... .................... .................... ......... Tourist Home Keeper Note From Kelly Montalvo: [facility] Tourist Home Keeper Samuel Montalvo CCA1 dispatched to a [facility] for an 83 yof C/O dizziness. Upon arrival, the pt was sitting in her living room, awake and alert, in no apparent distress. Her sister/router tender on scene translated-pt Slovenian speaking only. The pt stated she took [...] ALS, and the pt was transported to [facility] ED. [facility] Lab Orders: BMP, serum or plasma: Performed .................... .................... .................... .................... .................... .................... .................... . Disposition: Fulfilled Yulia Bell MD [address] [place] [address],[address], [place], [address], [employer] [facility] [employer] 09/30/2023 19:02:09 OBGyn Episode No OBEpisode recorded.
--- OUTSIDE RECORDS SUMMARY | 2024-11-20 15:56 | XMS_ITS | Encounter Summary ---
Author Organization [employer] Address 75 [facility] 7t [place] [address] Care Team Providers Care Inspector [employer] Products Name Role Phone Sonya Interiano MD Primary Care Provider [phone] Reason for Visit * Reason Onset Date Comments Appointment Request 08/12/2023 Encounter Details Date Type Department Care Team ([facility] st Contact Info) Description 08/12/2023 Telephone [facility] MEDICINE [address] [place] [address] Sonya Interiano MD [address] [place], [place] [phone] Appointment Request Social History Tobacco Use Types [...] pt requesting a f/u appt with PCP, communications writer ask pt and no concerns with her health. documented in this encounter Plan of Treatment Not on file documented as of this encounter Visit Diagnoses Not on filedocumented in this encounter Care Teams Inspector [employer] Products Relationship Specialty Start Date End Date Sonya Interiano MD [address] [place] [address] PCP - General Family Medicine 08/28/12 [employer] 09/17/24 documented as of this encounter
--- OUTSIDE RECORDS SUMMARY | 2024-11-20 15:56 | XMS_ITS | Clinical Summary ---
Author Organization [facility] ity Address [address] [place] [address] Care Team Providers Care Alteration Tailor Apprentice Name Role Phone Unavailable Primary Care Provider Unavailabl e Family History Medical History Relation Name Comments Breast cancer Sister 40 Relation Name Status Comments Sister 40 Alive Social History Tobacco Use Types Packs/Day Years Used Date Smoking Tobacco: Never Assessed Comments Unknown Sex and Gender Information Value Date Recorded Sex Assigned at Not on file Legal Sex Female 4:55 AM EST Gender Identity Not on file Sexual Orientation Not on file Obstetrics History Plan of Treatment Health Maintenance Due Date Last Done Comments DTaP,Tdap,and Td Vaccines (1 - Tdap) 02/23/1959 Pneumococcal Vaccine: 50+ Ye ars (1 of 1 - PCV) 02/23/1990 Zoster Vaccines (1 of 2) 02/23/1990 RSV Immunization Patients 60 + Years Old [...] patient's age to complete this topic Meningococcal B Vacine Aged Out No lo nger eligible based on patient's age to complete this topic RSV Immunization Patients Un brown 20 months Aged Out No longer eligible b ased on patient's age to complete this topic Varicella Vaccines Aged Out No longer eligible based on patient's age to complete this topic
--- OUTSIDE RECORDS SUMMARY | 2024-11-20 15:56 | XMS_ITS | Encounter Summary ---
Author Organization [employer] Address [address] [facility] 7t [place] [address] Care Team Providers Care Finisher Wallboard And Plasterboard Name Role Phone Sonya Interiano MD Primary Care Provider [phone] Encounter Details Date Type Department Care Team ([facility] st Contact Info) Description 11/20/2024 Orders Only [facility] MEDICINE [address] [place] [address] Ant Badillo MD [address] [place], [place] [phone] Social History Tobacco Use Types Packs/Day Years [...] Recorded Patient Health Questionnaire-2 Score 4 10/19/2023 Internet Access Answer Date Recorded Internet Access Q1 Yes 10/17/2024 Internet Access Q2 Not on file 10/17/2024 Comments No Sex and Gender Information Value Date Recorded Sex Assigned at Female 07/12/2022 10:20 AM EDT Legal Sex Female 10:20 AM EDT Gender Identity Female 07/12/2022 10:20 AM EDT Sexual Orientation Straight 07/12/2022 10 :20 AM EDT documented as of this encounter Plan of Treatment Not on file documented as of this encounter Procedures Procedure Name Priority Date/Time Associated Diagnosis Comments TSH W/REFLEX TO FT4 Routine 11/20/2024 1 :10 PM EDT documented in this encounter Results * TSH with Reflex to Free T4 (11/20/2024 1:10 PM EDT) TSH reflex Free T4 2.72 0.32 - 4.0 uIU/mL [facility] 11/20/2024 1:10 PM EDT 11/20/2024 2:07 PM EDT us Ant Badillo MD LAB BLOOD ORDERABLES Final Result [facility] [address] [place] [phone] documented in this encounter Visit Diagnoses Not on filedocumented in this encounter Additional Health Concerns Assessment Noted Time PHQ-9 Depression Total Score: 11 024 10:51 AM EST documented as of this encounter Care Teams Finisher Wallboard And Plasterboard Relationship Specialty Start Date End Date Sonya Interiano MD [address] [place] [address] PCP - General Family Medicine 08/28/12 [employer] 09/17/24 documented as of this encounter
--- OUTSIDE RECORDS SUMMARY | 2024-11-20 15:56 | XMS_ITS | Encounter Summary ---
Author Organization [employer] Address [address] [facility] [address] 7t [place] [address] Care Team Providers Care Senior Architect/Design Manager Name Role Phone Sonya Interiano MD Primary Care Provider [phone] Reason for Visit * Reason Onset Date Comments Call Back Request 03/26/2024 Encounter Details Date Type Department Care Team ([facility] st Contact Info) Description 03/26/2024 Telephone [facility] MEDICINE [address] [place] [address] Sonya Interiano MD [address] [place] [address] Call Back Request Social History Tobacco Use [...] as of this encounter Care Teams Senior Architect/Design Manager Relationship Specialty Start Date End Date Sonya Interiano MD [address] [place] [address] PCP - General Family Medicine 08/28/12 [employer] 09/17/24 documented as of this encounter
--- OUTSIDE RECORDS SUMMARY | 2024-11-20 15:56 | XMS_ITS | Encounter Summary ---
Author Organization [employer] Address [address] [facility] 7t [place] [address] Care Team Providers Care Telephone Appointment Clerk Name Role Phone Sonya Interiano MD Primary Care Provider [phone] Encounter Details Date Type Department Care Team ([facility] Contact Info) Description 06/11/2024 Orders Only [facility] CHC MED & PEDS [address] [place] [address] Sonya Interiano MD 505 [place] [address] Social History Tobacco Use Types Packs/Day Years [...] EDT Narrative 06/25/2024 1:54 PM EDT ? [facility] [place] ? [facility] ?[place] [address] ? Mammography Report ? Signed ? Patient: Colby,Neha ?MR#: [id number] ?? [id number] ? : 1940 ?Acct:[id number] ? Age/Sex: 84 / F ?ADM Date: 10/02/24 ? Loc: HO.MAMMO ? Attending Dr: Sonya Interiano MD ? Ordering Physician: Sonya Interiano MD ?Results: 1Negati ?? ve ? Date of Service: 06/13/24 ?Follow Up: 1 Year From Orig ?? inal Mammogram ? Procedure(s): MM tomosynthesis screening BI ?? Accession Number(s): [id number] ? cc: Sonya Interiano MD ? EXAMINATION: [...] DD/ 1315 ? TD/TT: 06/13/24 1341 ? Motor Room Controller: ? Procedure Note Donotuseinterpreter, Image - 06/25/2024 [facility] [address] [place], [place] [address] Mammography Report Signed Patient: Yusuf Bowman#: [id number] : 1940Acct:[id number] Age/Sex: 84 / FADM Date: 06/13/24 Loc: HO.MAMMO Attending Dr: Sonya Interiano MD Ordering Physician: Sonya Interiano MDResults: 1Negati ve Date of Service: 06/13/24Follow Up: 1 Year From Orig inal Mammogram Procedure(s): MM tomosynthesis screening BI Accession Number(s): [id number] cc: Sonya Interiano MD EXAMINATION: MM SCREENING [...] 06/25/24 1351 DD/ 1315 TD/TT: 06/13/24 1341 Motor Room Controller: us Sonya Interiano MD IMG BI PROCEDURES Final Result documented in this encounter Visit Diagnoses Not on filedocumented in this encounter Additional Health Concerns Assessment Noted Time PHQ-9 Depression Total Score: 11 024 10:51 AM EST documented as of this encounter Care Teams Telephone Appointment Clerk Relationship Specialty Start Date End Date Sonya Interiano MD [address] [place] [address] PCP - General Family Medicine 08/28/12 [employer] 09/17/24 documented as of this encounter
--- OUTSIDE RECORDS SUMMARY | 2024-11-20 15:56 | XMS_ITS | Encounter Summary ---
Author Organization [employer] Address [address] [facility] 7t [place] [address] Care Team Providers Care Supervisor Mold Cleaning And Storage Name Role Phone Sonya Interiano MD Primary Care Provider Reason for Visit * Reason Onset Date Comments Nurse Triage 11/04/2023 Encounter Details Date Type Department Care Team ([facility] [place] [facility] Contact Info) Description 11/04/2023 Telephone [facility] MED [facility] PEDS 505 [place] [address] Sonya Interiano MD 505 [place] [address] Nurse Triage Social History Tobacco Use Types [...] 11/04/2023 11:03 AM EST Called pt. Via [employer] medical grade shoemaker [id number] Cb. Pt. States that she has been [...] accepted this outcome Please contact pt at [phone] (Tajik) documented in this encounter Plan of Treatment Not on file documented as of this encounter Visit Diagnoses Diagnosis Upper respiratory tract infection, unspecified type documented in this encounter Additional Health Concerns Assessment Noted Time PHQ-9 Depression Total Score: 11 024 10:51 AM EST documented as of this encounter Care Teams Supervisor Mold Cleaning And Storage Relationship Specialty Start Date End Date Sonya Interiano MD [address] [place] [address] PCP - General Family Medicine 08/28/12 [email or web address] 09/17/24 documented as of this encounter
--- OUTSIDE RECORDS SUMMARY | 2024-11-20 15:56 | XMS_ITS | Encounter Summary ---
Author Organization [employer] Address [address] [facility] [address] 7t [place] [address] Care Team Providers Care Heart Doctor Name Role Phone Sonya Interiano MD Primary Care Provider [phone] Encounter Details Date Type Department Care Team ([facility] Contact Info) Description 11/16/2024 Telephone [facility] CHC MED & PEDS [address] [place], [place] [phone] Sonya Interiano MD 505 [place] [address] Social History Tobacco Use Types Packs/Day Years [...] encounter Miscellaneous Notes * Telephone Encounter - Jerica Butt - 11/16/2024 1:14 PM EST Tc from [facility] calling to inform provider pt has been discharged VNA services as of 11/14/24. [facility] also stated pt is monitoring BP and will be reporting readings. If any questions contact [phone] documented in this encounter Plan of Treatment Not on file documented as of this encounter Visit Diagnoses Not on filedocumented in this encounter Additional Health Concerns Assessment Noted Time PHQ-9 Depression Total Score: 11 024 10:51 AM EST documented as of this encounter Care Teams Heart Doctor Relationship Specialty Start Date End Date Sonya Interiano MD [address] [place] [address] PCP - General Family Medicine 08/28/12 [employer] 09/17/24 documented as of this encounter
--- OUTSIDE RECORDS SUMMARY | 2024-11-20 15:56 | XMS_ITS | Encounter Summary ---
Author Organization [employer] Address [address] [facility] [address] 7[address] [place] [address] Care Team Providers Care Supervisor Lime Name Role Phone Sonya Interiano MD Primary Care Provider Reason for Visit * Reason Onset Date Comments Nurse Triage 06/06/2024 Encounter Details Date Type Department Care Team ([facility] st Contact Info) Description 06/06/2024 Telephone [facility] MEDICINE [address] [place] [address] Sonya Interiano MD [address] [place] [address] Nurse Triage Social History Tobacco Use Types [...] review of instED note. Per notes in [employer] portal Sent to a call for a [...] warm, dry; 12 lead ECG: uploaded to [employer]; [facility] consulted and orders POC bloodwork. Venous blood draw performed; Istat Chem8+ results: uploaded to [employer]; Pt is advised to take Losartan 25mg [...] as of this encounter Care Teams Supervisor Lime Relationship Specialty Start Date End Date Sonya Interiano MD [address] [place] [address] PCP - General Family Medicine 08/28/12 [employer] 09/17/24 documented as of this encounter
--- OUTSIDE RECORDS SUMMARY | 2024-11-20 15:56 | XMS_ITS | Encounter Summary ---
Author Organization [employer] Address [address] [facility] 7t [place] [address] Care Team Providers Care Clinical Instructor Name Role Phone Sonya Interiano MD Primary Care Provider [phone] Encounter Details Date Type Department Care Team ([facility] [address] Contact Info) Description 04/09/2024 Orders Only [facility] [address] [place], [place] [phone] ProviderAga MD Social History Tobacco Use Types [...] Laterality Modality Magnetic Resonan ce Historical Provider IMLeonila MRI PROCEDURES Final Result * CT HEAD/BRAIN VENOGRAM (04/07/2024 10:00 AM EDT) Anatomical Region Laterality Modality Computed Tomogra phy Historical Provider MD ESCUDERO CT PROCEDURES Final R esult documented in this encounter Visit Diagnoses Not on filedocumented in this encounter Additional Health Concerns Assessment Noted Time PHQ-9 Depression Total Score: 11 024 10:51 AM EST documented as of this encounter Care Teams Clinical Instructor Relationship Specialty Start Date End Date Sonya Interiano MD [address] [place] [address] PCP - General Family Medicine 08/28/12 [employer] 09/17/24 documented as of this encounter
--- OUTSIDE RECORDS SUMMARY | 2024-11-20 15:56 | XMS_ITS | Encounter Summary ---
Author Organization [employer] Address [address] [facility] 7t [place] [address] Care Team Providers Care Local Truck Driver Name Role Phone Sonya Interiano MD Primary Care Provider [phone] Encounter Details Date Type Department Care Team ([facility] Contact Info) Description 02/03/2023 Orders Only [facility] CHC MED & PEDS [address] [place], [place] [phone] Sonya Interiano MD [address] [place], [place] [phone] Social History Tobacco Use Types Packs/Day Years [...] on filedocumented in this encounter Care Teams Local Truck Driver Relationship Specialty Start Date End Date Sonya Interiano MD [address] [place] [address] PCP - General Family Medicine 08/28/12 [employer] 09/17/24 documented as of this encounter
--- OUTSIDE RECORDS SUMMARY | 2024-11-20 15:56 | XMS_ITS | Encounter Summary ---
Author Organization [employer] Address [address] [facility] 7t [place] [address] Care Team Providers Care Vending Supervisor Name Role Phone Sonya Interiano MD Primary Care Provider [phone] Reason for Visit * Reason Onset Date Comments Medication Question 09/20/2023 Encounter Details Date Type Department Care Team ([facility] st Contact Info) Description 09/20/2023 Telephone [facility] MEDICINE [address] [place] [address] Sonya Interiano MD [address] [place], [place] [phone] Medication Question Social History Tobacco Use Types [...] PM EST TC placed to patient via [employer] Regional Director. No answer. LM to call us back. TC placed to patient without [employer] Regional Director. Patient answered. Patient states that she is [...] respiration. Offered a f/u appointment at [facility] this week. Agreed to an appointment with [...] on filedocumented in this encounter Care Teams Vending Supervisor Relationship Specialty Start Date End Date Sonya Interiano MD [address] [place] [address] PCP - General Family Medicine 08/28/12 [employer] 09/17/24 documented as of this encounter
--- OUTSIDE RECORDS SUMMARY | 2024-11-20 15:56 | XMS_ITS | Encounter Summary ---
Author Organization [employer] Address [address] [facility] [address] 7t [place] [address] Care Team Providers Care Value Stream Manager Name Role Phone Sonya Interiano MD Primary Care Provider Reason for Visit * Reason Onset Date Comments Results 11/08/2024 Encounter Details Date Type Department Care Team ([facility] Contact Info) Description 11/08/[address] [facility] MEDICINE [address] [place] [address] Sonya Interiano MD [address] [place], [place] [phone] Results Social History Tobacco Use Types Packs/Day Years [...] encounter Miscellaneous Notes * Telephone Encounter - Sophia Terry RN - 11/19/2024 9:25 AM EDT TC to patient. Detailed message left for patient on voice. Instructed to call with any questions orconcerns. * Telephone Encounter - Sonya Interiano MD - 11/19/2024 9:08 AM EDT SLEEP STUDY WAS NORMAL * Telephone Encounter - Sophia Terry RN - 11/08/2024 9:04 AM EST Routing to provider for review and recommendations. * Telephone Encounter - Jeremie Quigley - 11/08/2024 8:57 AM EST Tc from pt requesting results from sleep medicine services that was done 10/27/2024 documented in this encounter Plan of Treatment Not on file documented as of this encounter Visit Diagnoses Not on filedocumented in this encounter Additional Health Concerns Assessment Noted Time PHQ-9 Depression Total Score: 11 024 10:51 AM EST documented as of this encounter Care Teams Value Stream Manager Relationship Specialty Start Date End Date Sonya Interiano MD [address] [place] [address] PCP - General Family Medicine 08/28/12 [employer] 09/17/24 documented as of this encounter
--- OUTSIDE RECORDS SUMMARY | 2024-11-20 15:57 | XMS_ITS | Encounter Summary ---
Author Organization [employer] Address [address] [facility] 7t [place] [address] Care Team Providers Care Client Solutions Specialist Name Role Phone Sonya Interiano MD Primary Care Provider [phone] Reason for Visit * Reason Onset Date Comments appointment cx 10/25/2024 Encounter Details Date Type Department Care Team ([facility] Contact Info) Description 10/25/2024 Telephone [facility] CHC MED & PEDS [address] [place] [address] Sonya Interiano MD [address] [place] [address] appointment cx Social History Tobacco Use Types Packs/Day Years [...] encounter Miscellaneous Notes * Telephone Encounter - Yamileth Marshall - 10/25/2024 9:17 AM EST Pt aware appt is cx today due to md being out, per pt she will call back to [place] due to transportation. Ok for call cnt to book documented in this encounter Plan of Treatment Not on file documented as of this encounter Visit Diagnoses Not on filedocumented in this encounter Additional Health Concerns Assessment Noted Time PHQ-9 Depression Total Score: 11 024 10:51 AM EST documented as of this encounter Care Teams Client Solutions Specialist Relationship Specialty Start Date End Date Sonya Interiano MD [address] [place] [address] PCP - General Family Medicine 08/28/12 [employer] 09/17/24 documented as of this encounter
--- OUTSIDE RECORDS SUMMARY | 2024-11-20 15:57 | XMS_ITS | Encounter Summary ---
Author Organization [email or web address] Address [address] [facility] [address] 7t [place] [address] Care Team Providers Care Glue Clamp Operator Name Role Phone Sonya Interiano MD Primary Care Provider [phone] Reason for Visit * Reason Onset Date Comments Nurse Triage 09/20/2024 Encounter Details Date Type Department Care Team ([facility] st Contact Info) Description 09/20/2024 Telephone [facility] MEDICINE [address] [place] [address] Sonya Interiano MD [address] [place] [address] Nurse Triage Social History Tobacco Use Types [...] 4:05 PM EST Called pt. Via S veneer glue spreader [phone] Adri. No answer. Quality Cloth Tester left message for pt. To call back [facility] nurses at [phone]. Called pt. Back x 2 and no answer. Quality Cloth Tester DID leave second message for pt. To call back [facility] nurses at [phone]. RE: Headache vision change and dizziness. * Telephone Encounter - Jerica Rojas - 09/20/2024 3:50 PM EST Symptoms: Headache, Vision Loss or Change Outcome: Talk to a nurse or provider within 15 minutes Reason: Trouble walking The caller accepted this outcome. [phone] (Chinese) documented in this encounter Plan of Treatment Not on file documented as of this encounter Visit Diagnoses Not on filedocumented in this encounter Additional Health Concerns Assessment Noted Time PHQ-9 Depression Total Score: 11 024 10:51 AM EST documented as of this encounter Care Teams Glue Clamp Operator Relationship Specialty Start Date End Date Sonya Interiano MD [address] [place] [id number] PCP - General Family Medicine 08/28/12 [employer] 09/17/24 documented as of this encounter
--- OUTSIDE RECORDS SUMMARY | 2024-11-20 15:57 | XMS_ITS | Clinical Summary ---
Author Organization [employer] Address [address] [facility] [address] [place] [address] Care Team Providers Care Department Coordinator Name Role Phone Sonya Interiano MD Primary Care Provider [phone] Allergies Active Allergy Reactions Criticality Noted Date [...] ED, pt insist she was seen in [facility] - also requesting home VNA, this should [...] high potency steroids, she declined referral to [facility]. Will send out swab. Assessment & Plan [...] Encounters Date Type Department Care Team Description 11/20/2024 Orders Only [facility] [address] [place] [phone] Ant Badillo MD 11/16/2024 Telephone [facility] [address] [place] [address] Sonya Interiano MD 11/08/[address] [address] Sonya Interiano MD Results 10/25/2024 Telephone [facility] [address] [place] [address] Sonya Interiano MD appointment cx 10/17/2024 Patient Outreach [facility] [address] [place] [address] Sonya Interiano MD Pre-visit Planning (SDOH negative, Tobacco screening negative. ) 10/16/2024 Orders Only [facility] External Provider, [facility] 10/15/2024 Telephone [facility] [address] [place] [address] Sonya Interiano MD Nurse Triage 10/03/2024 Travel 09/28/2024 11:15 AM EST Office Visit [facility] [address] [place] [address] Tayo Nelson MD Primary hypertension (Primary Dx) 09/28/2024 Travel 09/26/[address] [address] Sonya Interiano MD Medication Question 09/21/2024 Telephone [facility] [address] [place] [address] Sonya Interiano MD isntED Follow UP 09/20/2024 10:45 AM EST Telemedicine [facility] [address] [place] [address] Sonya Interiano MD Primary hypertension (Primary Dx); Lichen sclerosus of female genitalia 09/20/[address] [address] Sonya Interiano MD Nurse Triage 09/20/2024 Travel 09/19/[address] [address] Sonya Interiano MD Nurse Triage 09/11/2024 Telephone [facility] [address] [place] [address] Sonya Interiano MD Nurse Triage 09/06/2024 2:30 PM EST Office Visit [facility] [address] [place] [address] Caroline Medina MD Primary hypertension (Primary Dx) 09/06/2024 Travel 08/29/2024 Telephone [facility] [address] [place] [address] Sonya Interiano MD 08/27/2024 Telephone [facility] [address] [place] [address] Sonya Interiano MD Nurse Triage 08/27/[address] [address] Sonya Interiano MD ER Follow-up 08/22/2024 Telephone [facility] [address] [place] [address] Sonya Interiano MD Nurse Triage from Last 3 Months Immunizations Name Administration Dates Next Due Influenza High-dose Quadrivalent Preservative Fr ee 07/06/2022,06/18/2020 Influenza injectable quadriv alent IIV4 with preservative 08/16/2018,07/20/2017 Influenza injectable quadrivalent preservative f ree 06/30/2015 Influenza, High Dose Seasonal, Preservative Free 06/20/2024 Influenza, Split (incl. purified surface antigen ) 07/18/2013 Pfizer Covid-19 Vaccine 12+ 06/02/2021, Pneumococcal Conjugate PCV 13 07/20/2017 Pneumococcal Polysaccharide [...] 09/28/2024 11:42 AM EST Plan of Treatment Health Maintenance Due Date Last Done Comments Alcohol/Substance Use Screening 1952 Zoster Vaccines (1 of 2) 02/23/1990 RSV Patients and Patients Aged 60 years or older (1 - 1-dose 75+ series) 02/23/2015 Depression Monitoring (PHQ-9) 04/18/2024 10/19/2023, 10/19/2023 COVID-19 Vaccine ( - 2023- season) 2024 01/25/2023, 06/02/2021, 05/12/2021 Depression Screening 10/19/2024 10/19/2023, 10/19/19 24 Tobacco Screening 06/20/2025 06/20/2024 SDOH Screening 10/17/2025 10/17/2024 Lipid Panel 11/16/2026 11/16/2021 DTaP/Tdap/Td Vaccines (2 [...] FT4 Routine 11/20/2024 1 :10 PM EDT BD DEXA AXIAL Routine 10/16/2024 12:50 PM EST LIPID PANEL, STANDARD Routine 11/16/2021 10:13 AM EST from Last 3 Months or Most Recently Relevant to Health Maintenance Results * TSH with Reflex to Free T4 (11/20/2024 1:10 PM EDT) TSH reflex Free T4 2.72 0.32 - 4.0 uIU/mL [facility] 11/20/2024 1:10 PM EDT 11/20/2024 2:07 PM EDT us Ant Badillo MD LAB BLOOD ORDERABLES Final Result [facility] [address] [place] [address] [phone] * BD DEXA Axial (10/16/2024 12:50 PM EST) Anatomical Region Laterality Modality Body Radiographic Marisol ging 10/16/2024 12:5 0 PM EST Narrative 10/18/2024 7:44 AM EST ? [facility] [place] ? [address] ?[place] [address] ? Mammography Report ? Signed ? Patient: Neha Bowman ?MR#: [id number] ?? [id number] ? : 1940 ?Acct:[id number] ? Age/Sex: 84 / F ?ADM Date: // ? Loc: HO.MAMMO ? Attending Dr: Mohamed Talaat MD ? Ordering Physician: Talaat,Mohamed MD ?Results: ? Date of Service: // ?Follow Up: ? Procedure(s): XR DEXA axial skeleton ?? Accession Number(s): [id number] ? cc: Sonya Interiano MD; Rosie Durán MD ? EXAMINATION: ??DXA BONE DENSITY AXIAL ? HISTORY: ??Estrogen deficiency ? TECHNIQUE: SetMeUp Dual energy absorptiometry (DEXA) ?? of the lumbar spine, total left hip, and femoral neck was performed. ? COMPARISON: Comparison is made with the prior examination dated ?? 06/02/2022. ? FINDINGS: ? The bone mineral density of the lumbar spine is 0.717 with a T-score of ?? -3.9, and a Z-score of -1.9. ? This represents a BMD change of 3.9% compared to the prior exam. ??This ?? is not statistically significant. ? The bone mineral density of the left total hip is 0.596 with a T-score ?? of -3.3, and a Z-score of -1.0. ? This represents BMD change of 5.3% compared to the prior exam. ??This is ?? not statistically significant. ? The bone mineral density of the left femoral neck is 0.563 with a ?? T-score of -3.4, and a Z-score of -1.0. ? This represents BMD change of 6.0% compared to the prior exam. ? MM/XR DEXA axial skeleton ?? IMPRESSION: ?? Based on bone mineral density, and according to World Health ?? Organization (WHO) criteria, the diagnosis is consistent with ?? osteoporosis. ? All bone density values are in grams per centimeter squared (g/cm2). ?? Statistically, 68% of repeat scans fall within 1 SD (+/- 0.010 g/cm2 ?? for AP spine L1-L4) and 1 SD (+/- 0.012 g/cm2 for femur total) ?? FRAX is a trademark of the [employer]'s ?? [employer] for Metabolic Bone Disease, a World Health Organization (WHO) ?? Collaborating Center. ? Electronically signed by: ??Jose Elias Gibson MD ??10/18/2024 07:41 AM EST ?? RP ? Dictated By: ?Jose Elias Gibson MD ? Signed By: ?<Electronically signed by Jose Elias Gibson MD in OV> ?10/18/24 0741 ? DD/ 1250 ? TD/TT: 10/16/24 1311 ? Cable Dispatcher: ? Procedure Note Donotuseinterpreter, Image - 10/18/2024 [facility] [address] [place], [place] [address] Mammography Report Signed Patient: Yusuf Bowman#: [id number] : 1940Acct:[id number] Age/Sex: 84 / FADM Date: 10/16/24 Loc: HO.MAMMO Attending Dr: Rosie Durán MD Ordering Physician: Rosie Duránesults: Date of Service: 10/16/24Follow Up: Procedure(s): XR DEXA axial skeleton Accession Number(s): [id number] cc: Sonya Interiano MD; Rosie Durán MD EXAMINATION: DXA BONE DENSITY AXIAL HISTORY: Estrogen deficiency TECHNIQUE: SetMeUp Dual energy absorptiometry (DEXA) of the lumbar spine, total left hip, and femoral neck was performed. COMPARISON: Comparison is made with the prior examination dated 06/02/2022. FINDINGS: The bone mineral density of the lumbar spine is 0.717 with a T-score of -3.9, and a Z-score of -1.9. This represents a BMD change of 3.9% compared to the prior exam. This is not statistically significant. The bone mineral density of the left total hip is 0.596 with a T-score of -3.3, and a Z-score of -1.0. This represents BMD change of 5.3% compared to the prior exam. This is not statistically significant. The bone mineral density of the left femoral neck is 0.563 with a T-score of -3.4, and a Z-score of -1.0. This represents BMD change of 6.0% compared to the prior exam. MM/XR DEXA axial skeleton IMPRESSION: Based on bone mineral density, and according to World Health Organization (WHO) criteria, the diagnosis is consistent with osteoporosis. All bone density values are in grams per centimeter squared (g/cm2). Statistically, 68% of repeat scans fall within 1 SD (+/- 0.010 g/cm2 for AP spine L1-L4) and 1 SD (+/- 0.012 g/cm2 for femur total) FRAX is a trademark of the [employer] for Metabolic Bone Disease, a World Health Organization (WHO) Collaborating Center. Electronically signed by: Jose Elias Gibson MD 10/18/2024 07:41 AM EST RP Dictated By: Jose Elias Gibson MD Signed By: <Electronically signed by Jose Elias Gibson MD in OV> 10/18/24 0741 DD/ 1250 TD/TT: 10/16/24 1311 Cable Dispatcher: [facility] External Provider IMG DXA PROCEDURES Edited Result - Final * (ABNORMAL) LIPID PANEL, STANDARD (11/16/2021 10:13 [...] ?? Alfred SS et al. JULI. 2013;310(19): 1209-6843 ?? (http://education.[employer]/faq/RDP463) Non-HDL Cholesterol 120 <130 mg/dL (calc) [facility] Comment: For patients with diabetes plus 1 major ASCVD risk ?? factor, treating to a non-HDL-C goal of <100 mg/dL ?? (LDL-C of <70 mg/dL) is considered a therapeutic ?? option. Triglycerides 78 <150 mg/dL [facility] 11/16/2021 10:1 3 AM EST us Sonya Interiano MD LAB BLOOD ORDERABLES Final Resul t [facility] [address] from Last 3 Months or Most Recently Relevant to Health Maintenance Insurance [facility] Care Teams Department Coordinator Relationship Specialty Start Date End Date Sonya Interiano MD [address] [place] [address] PCP - General Family Medicine 08/28/12 [place] 09/17/24
--- OUTSIDE RECORDS SUMMARY | 2024-11-20 15:57 | XMS_ITS | Data Portability ---
Author Organization [employer] Address [address] [place] [address] Care Team Providers Care Hardware Supplies Sales Representative Name Role Phone [facility] Referring Provider HIM CCA OTHER Assessment Encounter Date Assessment Date Assessment LastModified by Organization Details LastModified Time 08/13/2024 08/13/2024 I provided real -time medical direction via phone for this encounter, and was available for additional phone based assistance as needed. I have reviewed and agree with the Assessment and Plan as documented by the Admin Prog Coord. We discussed the diagnostic uncertainty of home [...] to call 911- verbalized understanding of instruction [email or web address] Not available 08/13/2024 11:24:41 08/22/2024 08/22/2024 service [...] with her PCP re: insomnia and BP. [email or web address] Not available 10/15/2024 20:57:09 Plan of Treatment Reminders Order Date Submit Date Provider Last Modified By Organization Details Last Modified Time Details Appointments None recorded. Lab BMP, serum or plasma 2023 [email or web address] 0 [facility], [address] [place] [address], [phone], 4 11:24:13 rapid SARS CoV 2 Ag, QL IA, respiratory specimen 2023 [email or web address] 0 Main - [facility], [address] [place] [address], [phone], 4 11:24:13 rapid flu (A+B) 2023 [email or web address] 0 [facility], [address] [place] [address], [phone], 11:24:13 Referral None recorded. Procedures None recorded. Surgeries None recorded. Imaging None recorded. Medication Orders ondansetron HCl (PF) 4 mg/2 mL injection solution 2023 [email or web address] 0 [facility], [address] [place] [address], [id number], 4 11:24:13 ondansetron 4 mg disintegrat ing tablet 2023 [facility] #[id number], [address] [place], [place], [id number], 4 11:24:22 loperamide 2 mg tablet 2023 [email or web address] 0 [facility], [address] [place] [address], [id number], 4 11:24:13 loperamide 2 mg capsule 2023 [facility] #08741, [address] [place], [id number], 4 11:24:21 lactated Ringers intravenous solution 2023 024 [email or web address] 0 [facility], [address] [place], [place], [id number], 4 11:24:13 acetaminoph en 500 mg tablet 2023 024 [email or web address] 0 [facility], [address] [place], [place], [id number], 4 11:24:14 acetaminoph en 500 mg tablet 2023 [facility] #31927, [address] [place], [id number], 4 11:24:23 famotidine 20 mg tablet 2023 024 [facility] #58542, [address] [place], [id number], 4 11:24:22 Patient TargetsNo targets recorded. Patient InstructionsNo instructions recorded. Reason for Referral None Reported. Results Created Date Observation Date Name Description Value Unit Range Abnormal Flag Note LastModifiedBy Organization Detail LastModifiedTime 08/13/20 24 08/13/2024 rapid flu (A+B) Flu negati ve Not Available Main - [facility] ed [address] [place] [address], [phone], 08/13/2024 11:11:30 08/13/20 24 08/13/2024 rapid SARS CoV 2 Ag, QL IA, respi rator y speci men rapid SARS CoV 2 Ag, QL IA, respiratory specimen negati ve Not Available Main - [facility] [address] [place] [address], [phone], 08/13/2024 11:11:29 Result Notes None recorded. Medical Equipment None Reported. Allergies Allergen ID Allergen Name Allergen Category Reaction Reaction Severity Criticality Documentation Date Start Date Code Code System Note Provider Name and Address Organization Details Recorded Time 83662 sulfameth oxazole medicatio n Not available Not available Not available 08/13/2024 74300 RxNorm Not Available [facility] - production 4 09:53:45 82545 trimethop rim medicatio n Not available Not available Not available 08/13/2024 21800 RxNorm Not Available [facility] - production 4 09:53:45 8800 Product containin g penicilli n (product) medicatio n Not available Not available Not available 07/10/2024 86350 8001 SNOMED Not Available [employer] - production 4 03:46:53 8801 Bactrim medicatio n Not available Not available Not available 07/10/2024 38699 9 RxNorm Not Available [employer] - production 4 03:46:53 Medications Name Sig [...] % 152.4 cm 94 /min 98.8 [degF] 42047.6 56 g 152.4 cm 15754.6 56 g 98.8 [degF] 94 /min 16 /min 97 % 97 % 147 mm[Hg] 89 mm[Hg] 147 mm[Hg] 89 mm[Hg] Not Available POI 4 11:35:51 Date Recorded Respiratory rate Oxygen saturation Oxygen saturation in Arterial blood by Pulse oximetry Body temperature Heart rate Systolic blood pressure Diastolic blood pressure Provider Name and Address Organization Details Last Updated DateTime 4 16 /min 97 % 97 % 97.9 [degF] 86 /min 208 mm[Hg] 100 mm[Hg] Not Available POI 4 18:15:31 Date Recorded Respiratory rate Heart rate Body temperature Oxygen saturation Oxygen saturation in Arterial blood by Pulse oximetry Systolic blood pressure Diastolic blood pressure Provider Name and Address Organization Details Last Updated DateTime 4 16 /min 83 /min 98.9 [degF] 97 % 97 % 204 mm[Hg] 98 mm[Hg] Not Available POI 4 14:10:20 Date Recorded Body temperature Oxygen saturation Oxygen saturation in Arterial blood by Pulse oximetry Heart rate Body weight Respiratory rate Systolic blood pressure Diastolic blood pressure Systolic blood pressure Diastolic blood pressure Provider Name and Address Organization Details Last Updated DateTime 5 98.4 [degF] 98 % 98 % 96 /min 36030.4 32 g 16 /min 176 mm[Hg] 62 mm[Hg] 168 mm[Hg] 98 mm[Hg] Not Available [facility] - production 5 20:16:12 Date Recorded Body height Heart rate Body temperature Body weight Respiratory rate Oxygen saturation Oxygen saturation in Arterial blood by Pulse oximetry Systolic blood pressure Diastolic blood pressure Provider Name and Address Organization Details Last Updated DateTime 5 152.4 cm 86 /min 98.6 [degF] 78858.8 8 g 16 /min 99 % 99 % 192 mm[Hg] 84 mm[Hg] Not Available [facility] - production 5 18:29:03 Social History None recorded. Functional [...] 251 Krystle Herrera MD Main - [facility] [address] [place] [phone] 11/09/2021 18:24:02 04/28/2022 12:20:20 Hypertension screening [id number] Z13.6 [id number] Olaf Yusuf MD Main - [facility] [address] [place] [phone] 01/26/2023 12:05:56 01/27/2023 10:25:23 Fatigue 89373694 R53.83 Patient reports worsening fatigue, difficulty sleeping, [...] to 5.9, normal at 4.0 on recheck. [id number] Prakash Watkins MD Main - [facility] [address] [place] [phone] 06/24/2023 15:47:53 06/26/2023 12:46:47 Urinary symptoms [id number] R39.9 [id number] Bradford Deshpande MD Main - [facility] [address] [place] [phone] 0 12/06/2023 10:18:38 12/06/2023 16:05:50 Influenza 9664475 J11.1 27452 Hai Govea MD Main - [facility] [address] [place] [phone] [address] 06/06/2024 19:33:14 06/07/2024 08:10:55 Essential hypertension [id number] I10 [id number] Yulia Bell MD Main - [facility] [address] [place] [phone] 0 08/13/2024 10:51:26 08/13/2024 16:45:01 Epigastric pain 52867406 R10.13 w/ n/v/d- likely viral- labs non [...] patient request to prescripti ons go to [facility] [place] Advised may take Tylenol along with the [...] another visit whenever she feels the need. [id number] Hai oGvea MD Main - [facility] [address] [place] [address] [phone] 0 08/22/2024 18:15:29 08/23/2024 00:16:45 Headache 59404870 R51.9 [id number] Rachel Hines MD Main - [facility] [address] [place] [phone] 0 09/11/2024 14:10:17 09/11/2024 22:35:33 Hypertensive urgency [id number] I16.0 84 year old female with HTN, [...] assessment and plan as documented by the retina subspecialist. I provided real-time medical direction for this encounter and was immediatel y available to provide additional phone-base d assistance as needed. We discussed the diagnostic uncertaint y of home visits and associated risks. We discussed the need to seek care urgently/e mergently in the setting of any new or worsening symptoms. [id number] John Ashraf MD Main - [facility] [address] [place] [phone] 09/20/2024 20:14:10 09/21/2024 12:53:55 Headache 16970509 R51.9 Has resolved since making call. Essential hypertension [id number] I10 Asymptomat ic. Elevated today. Taking Losartan. Advised patient to reach out to PCP regarding up titrating her antihypert ensives. Discussed red flag symptoms for which to seek higher level of care. [id number] REGGIE SKY MD Main - [facility] [address] [place] [phone] 0 10/15/2024 18:29:01 10/16/2024 17:18:24 Chronic insomnia [id number] F51.04 Essential hypertension [id number] I10 Health Concerns Section Related Observation LastModified by Organization Detai ls LastModified Time None Recorded Concern Status LastModified by Organization Details LastModified Time None Recorded Advance Directives Directive None Recorded Payers Encounter Date Sequence Insurance Name Policy Number Policy Benoit Covered Member ID Benoit Member ID Guarantor Name 08/13/2024 1 [employer] - DOS ON OR AFTER 2022 - DUAL ELIGIBLE - RESIDENTIAL OPTIONS AND ONE CARE (MEDICARE REPLACEMENT/AD VANTAGE - HMO) Neha Bowman [id number] Neha Bowman 08/22/2024 1 [facility] - DOS ON OR AFTER 2022 - DUAL ELIGIBLE - RESIDENTIAL OPTIONS AND ONE CARE (MEDICARE REPLACEMENT/AD VANTAGE - HMO) Neha Bowman [id number] Neha Bowman 09/11/2024 1 [facility] [employer] - DOS ON OR AFTER 2022 - DUAL ELIGIBLE - RESIDENTIAL OPTIONS AND ONE CARE (MEDICARE REPLACEMENT/AD VANTAGE - HMO) Neha Bowman [id number] Neha Bowman 09/20/2024 1 [facility] [employer] - DOS ON OR AFTER 2022 - DUAL ELIGIBLE - RESIDENTIAL OPTIONS AND ONE CARE (MEDICARE REPLACEMENT/AD VANTAGE - HMO) Neha Bowman [id number] Neha Bowman 10/15/2024 1 [facility] - DOS ON OR AFTER 2022 - DUAL ELIGIBLE - RESIDENTIAL OPTIONS AND ONE CARE (MEDICARE REPLACEMENT/AD VANTAGE - HMO) Neha Bowman [id number] Neha Bowman Notes Date Note Type Note [...] Comments: No further questions at this time. Admin Prog Coord Organization Information for Edgar Gonzales Legal Name: [facility] [employer] Address: [address] [place] [address], [place] [address], Avian Keeper: Rudi Forbes MD CLIA No.: [id number] Admin Prog Coord POC Test Results from Edgar Gonzales [facility] (10:59:52) pH: 7.41 pH units pCO2: 45.5 [...] ..................... ..................... ..................... ..................... ..................... ..................... ............... Admin Prog Coord Note From Edgar Gonzales: This 84-year-old female [...] ..................... ..................... ..................... ..................... ..................... ..................... ............... [facility] Consulted: Yulia Bell ..................... ..................... ..................... ..................... ..................... ..................... ............... Disposition: Fulfilled SEGMD: As above. Patient seen by me not Dr. Kwan-as above -patient denies hematemesis, melena or hematochezia. She does feel bloated. She denies any recent antibiotic use and was exposed to someone with identical symptoms which have since resolved per her report. She denies UTI symptoms. Yulia Bell MD [address] [facility],[address], [place], [address], [employer] 08/13/2024 14:50:57 08/22/2024 text/html HPI: Elder;ly female with complaints of headache over left ey. Has not taken OTC analgesic. Has noted confusion this morning as she reports choosing flour instead of sugar for coffee.. Able to express all needs no slurred or delay in speech. ..................... ..................... ..................... ..................... ..................... ..................... ............... [facility] Nurse Triage Notes (Mya Marrufo): Chief Complaints: Altered mental status, Headache PMH: Hypertension Comments: HPI reviewed- NE Admin Prog Coord Organization Information for Nicholas Hinson [employer] Legal Name: [employer].? ? Address: [address] [place] [address], Avian Keeper: Yuri FITZGERALD No.: [id number] Admin Prog Coord POC Test Results from Nicholas Hinson [employer] [facility] Blood Glucose Measurement (18:51:31) Blood Glucose: 184 mg/dL ..................... ..................... ..................... ..................... ..................... ..................... ............... Admin Prog Coord Note From Nicholas Hinson: Dispatched to the call address for the elderly female with confusion and a headache. Pt lives alone and speaks Mongolian and Tajik. Pt is not good historian at this time. She states she is confused and has a headache all over. Pt was not able to answer questions appropriately, even when asked in Tajik. Pt could not repeat the phrase The myriam is blue over Randolph , Pt was able to smile and show assistant women's basketball coach strength (both equal) but she was unable to follow other commands, she had difficulty touching her own nose and then used her other hand to touch my finger, instructions repeated in Tajik and Pt still could not follow commands. [...] blood thinners were found amongst Pts medications. [facility] consulted and agreed that Pt needed to [...] with [facility]). Pt was transported to [facility]. ALL times are approx. ..................... ..................... ..................... ..................... ..................... ..................... ............... [facility] Consulted: Hai Govea ..................... ..................... ..................... ..................... ..................... ..................... ............... Disposition: Fulfilled Hai Govea MD [address] [place] [address],[address] [facility], [place], [address], [employer] 08/22/2024 19:59:35 09/11/2024 text/html HPI: Call returned [...] evaluation of possible hypertensive crisis. [email or web address]. Confirmed demographics and allergies. Pt instructed to call EMS If sx worsen. ..................... ..................... ..................... ..................... ..................... ..................... ............... [facility] Nurse Triage Notes (Isabel Cook - RN): Chief Complaints: Hypertension PMH: Hypertension Comments: HPI reviewed ..................... ..................... ..................... ..................... ..................... ..................... ............... Admin Prog Coord Note From Nicholas Hinson: Dispatched to the [...] ..................... ..................... ..................... ..................... ..................... ..................... ............... [facility] Consulted: Rachel Hines ..................... ..................... ..................... ..................... ..................... ..................... ............... Disposition: Fulfilled Rachel Hines MD [address] [place] [address],[address], [place], [address], [employer] 09/11/2024 15:08:23 09/20/2024 text/html HPI: Call to Neha Bowman reports continues to have headache. Pt called in for triage yesterday and did not mention to provider during telehalth visit today. Pt states BP continues elevated today. Pt states headache and blurry vision. Not resolving with Tyelnol. No CP , SOB or severe dizziness. Pt advised of disposition, wishes to be seen. Requesting [employer] for eval. Confirmed demographics and allergies. ..................... [...] ..................... ..................... ..................... ..................... ..................... ..................... ............... Admin Prog Coord Note From Buster Renteria: Pt co low [...] ..................... ..................... ..................... ..................... ..................... ..................... ............... [facility] Consulted: David Asharf ..................... ..................... ..................... ..................... ..................... ..................... ............... Disposition: Fulfilled John Ashraf MD [address] [place] [address],[address], [place], [address], [employer] 09/20/2024 21:30:05 10/15/2024 text/html HPI: Triage call [...] ..................... ..................... ..................... ..................... ..................... ..................... ............... Admin Prog Coord Note From Mauricio Garcia: [facility] Pt is Tajik speaking and so district wildlife manager was used. Pt presents complaining of 1 year of insomnia and resulting fatigue. Pt is currently taking benadryl without much reported effectiveness. Pt has sleep study scheduled in about 2 weeks. Pt states she has tried trazodone before and not enjoyed it. V/S taken as listed. Pt afebrile. Consulted with [facility] Dr. Sky who suggested pt follow up with PCP and proceed with sleep study. Pt education provided. ..................... ..................... ..................... ..................... ..................... ..................... ............... [facility] Consulted: Reggie Sky ..................... ..................... ..................... ..................... ..................... ..................... ............... Disposition: Fulfilled REGGIE SKY MD [address] [place] [address],[address], [place], [address], [facility] 10/15/2024 20:57:15 OBGyn Episode No OBEpisode recorded.
--- OUTSIDE RECORDS SUMMARY | 2024-11-20 15:57 | XMS_ITS | Encounter Summary ---
Author Organization [employer] Address [address] [facility] 7[address] [place] [address] Care Team Providers Care Mat Linker Name Role Phone Sonya Interiano MD Primary Care Provider [phone] Reason for Visit * Reason Onset Date Comments Nurse Triage 10/15/2024 Encounter Details Date Type Department Care Team ([facility] Contact Info) Description 10/15/2024 Telephone [facility] [address] [place] [address] Sonya Interiano MD [address] [place] [address] Nurse Triage Social History Tobacco Use Types [...] 10/15/2024 1:52 PM EST Triage call with [facility] salon/spa manager [place] [id number] Pt reports insominia, weakness and excessive fatigue [...] documented as of this encounter Care Teams Mat Linker Relationship Specialty Start Date End Date Sonya Interiano MD [address] [place] [address] PCP - General Family Medicine 08/28/12 [employer] 09/17/24 documented as of this encounter
--- OUTSIDE RECORDS SUMMARY | 2024-11-20 15:57 | XMS_ITS | Encounter Summary ---
Author Organization [employer] Address [address] [facility] [address] [place] [address] Care Team Providers Care Railway Traction Line Worker Name Role Phone Sonya Interiano MD Primary Care Provider Encounter Details Date Type Department Care Team ([facility] Contact Info) Description 08/29/[address] [facility] [address] [place], [place] [phone] Sonya Interiano MD [address] [place] [address] Social History Tobacco Use Types Packs/Day Years [...] documented as of this encounter Care Teams Railway Traction Line Worker Relationship Specialty Start Date End Date Sonya Interiano MD [address] [place] [address] PCP - General Family Medicine 08/28/12 [email or web address] 09/17/24 documented as of this encounter
--- OUTSIDE RECORDS SUMMARY | 2024-11-20 15:57 | XMS_ITS | Encounter Summary ---
Author Organization [employer] Address [address] [facility] [address] [place] [address] Care Team Providers Care Pretzel Twister Name Role Phone Sonya Interiano MD Primary Care Provider Reason for Visit * Reason Onset Date Comments Nurse Triage 09/19/2024 Encounter Details Date Type Department Care Team ([facility] st Contact Info) Description 09/19/2024 Telephone [facility] MEDICINE [address] [place] [address] Sonya Interiano MD [address] [place] [address] Nurse Triage Social History Tobacco Use Types [...] documented as of this encounter Care Teams Pretzel Twister Relationship Specialty Start Date End Date Sonya Interiano MD [address] [place] [address] PCP - General Family Medicine 08/28/12 [email or web address] 09/17/24 documented as of this encounter
--- OUTSIDE RECORDS SUMMARY | 2024-11-20 15:57 | XMS_ITS | Encounter Summary ---
Author Organization [employer] Address [address] [facility] [address] [place] [address] Care Team Providers Care Visualization Developer Name Role Phone Sonya Interiano MD Primary Care Provider [phone] Reason for Visit * Reason Onset Date Comments call back 10/22/2022 Encounter Details Date Type Department Care Team ([facility] st Contact Info) Description 10/22/2022 Telephone [facility] MEDICINE [address] [place] [address] Sonya Interiano MD [address] [place] [address] call back Social History Tobacco Use Types [...] on filedocumented in this encounter Care Teams Visualization Developer Relationship Specialty Start Date End Date Sonya Interiano MD [address] [place] [address] PCP - General Family Medicine 08/28/12 [employer] 09/17/24 documented as of this encounter
--- OUTSIDE RECORDS SUMMARY | 2024-11-20 15:57 | XMS_ITS | Encounter Summary ---
Author Organization [employer] Address [address] [facility] [address] [place] [address] Care Team Providers Care Automatic Data Processing Planner Name Role Phone Sonya Interiano MD Primary Care Provider [phone] Reason for Visit * Reason Onset Date Comments Call Back Request 12/06/2023 Med Refill 12/06/2023 Encounter Details Date Type Department Care Team ([facility] st Contact Info) Description 12/06/2023 Telephone [facility] MEDICINE [address] [place], [place] [phone] Sonya Interiano MD [address] [place] [address] Call Back Request; Med Refill Social History [...] documented as of this encounter Care Teams Automatic Data Processing Planner Relationship Specialty Start Date End Date Sonya Interiano MD [address] [place] [address] PCP - General Family Medicine 08/28/12 [employer] 09/17/24 documented as of this encounter
[2024-11-24 13:20] LABS: Vitamin D 25-OH, D2 <4 ng/mL; Vitamin D 25-OH, D3 22 ng/mL; Vitamin D 25-OH, Total 22 ng/mL (30-100)
== END 2024-11-20 13:08 | disposition home or self-care (01) ==
LOC: HO.CHCLDS 13:07
PROVIDERS: Referring Provider Internal Medicine; Visit Provider Student in an Organized Health Care Education/Training Program
DX: M81.0 Age-related osteoporosis without current pathological fracture (principal); E55.9 Vitamin D deficiency, unspecified
CPT/HCPCS: 36415; 80053; 82306; 84443

== ENCOUNTER 2024-11-23 08:47 | Outpatient (AMB) | payer OTHER, SELFPAY ==
--- OUTSIDE RECORDS SUMMARY | 2024-11-23 09:03 | XMS_ITS | Encounter Summary ---
Author Organization [employer] Address [address] [facility] [address] [place] [address] Care Team Providers Care Willow Specialists Name Role Phone Sonya Interiano MD Primary Care Provider [phone] Reason for Visit * Reason Onset Date Comments Call Back Request 03/26/2024 Encounter Details Date Type Department Care Team ([facility] st Contact Info) Description 03/26/[address] [facility] MEDICINE [address] [place] [address] Sonya Interiano MD [address] [place] [address] Call Back Request Social History Tobacco Use [...] Care Team (Late st Contact Info) Description 12/04/2024 11:00 AM EDT Office Visit [facility] [address] [place] [address] Sonya Interiano MD [address] [place] [address] documented as of this encounter Visit Diagnoses Not on filedocumented in this encounter Additional Health Concerns Assessment Noted Time PHQ-9 Depression Total Score: 11 10/19/ 024 10:51 AM EST documented as of this encounter Care Teams Willow Specialists Relationship Specialty Start Date End Date Sonya Interiano MD [address] [place] [address] PCP - General Family Medicine 08/28/12 [employer] 09/17/24 documented as of this encounter
--- OUTSIDE RECORDS SUMMARY | 2024-11-23 09:04 | XMS_ITS | Clinical Summary ---
Author Organization [facility] ity Address [address] [place] [address] Care Team Providers Care Human Resource Consultant Name Role Phone Unavailable Primary Care Provider [...]
--- OUTSIDE RECORDS SUMMARY | 2024-11-23 09:04 | XMS_ITS | Encounter Summary ---
Author Organization [employer] Address [address] [place] [address] Care Team Providers Care Commercial Driver Name Role Phone Sonya Interiano MD Primary Care Provider [phone] Reason for Visit * Reason Onset Date Comments Nurse Triage 11/22/2024 Encounter Details Date Type Department Care Team ([facility] st Contact Info) Description 11/22/2024 Telephone [facility] MED[facility]INE [address] [place] [address] Sonya Interiano MD [address] [place] [address] Nurse Triage Social History Tobacco Use Types [...] Telephone Encounter - Sonya Interiano MD - 11/22/2024 11:34 AM EDT Pt needs to be seen by a provider.Please advise pt to cont same meds * Telephone Encounter - Zee Leong RN - 11/22/2024 11:33 AM EDT Call returned to Neha Bowman to follow up below. States was not able to find notebook. Pt rechecked during call and left arm BP 160/92 HR 64. Still denies having any sx. Pt advised will send update to PCP. Pt offered appt tomorrow with PCP, pt not sure if appt with Ortho will allow for traveltime to appt tomorrow. Agrees to first OV with PCP available. Pt advised to return call if any sx develop. Future Appointments Date Time Provider Department Center 12/04/2024 11:00 AM Sonya Interiano MD [facility] Insurance verified as active per Real Time Eligibility in [facility]. * Telephone Encounter - Zee Leong RN - 11/22/2024 10:14 AM EDT Per chart rview pt has hx of primary HTN, on rx losartan 50mg daily. No interpreter and translator needed as this board writer speaks Czech. Call returned to Neha Bowman to triage below. Reports BP of 170/68 was 20 mins ago. Per pt took losartan around 9:30am. 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 Denies any CP , SOB or MARC. Pt not on any other BP meds. Per pt having higher readings x 4 days. Pt offered WIC today or appt tomorrow. Pt states will go to [place] tomorrow as already has appt in [place] with Ortho. Pt has a log but notebook is not nearby. Pt advised will contact within 1 hour to have pt read off BP log as well as repeat BP within 1 hour. Willforward note to PCP to review and further advise Primary Care team nurse of any other plan of care. Protocol Used: Blood Pressure - High (Adult) Protocol-Based Disposition: See in Office or Video Visit within 3 Days Video visit offer not recorded Positive Triage Question: * Systolic BP >= 160 OR Diastolic >= 100 * All higher-acuity triage questions were negative Care Advice Discussed: * Reasons To Call Back - Headache, blurred vision, difficulty talking, or difficulty walking occurs - Chest pain or difficulty breathing occurs - You become worse * Telephone Encounter - Jerica Rojas - 11/22/2024 9:39 AM EDT Symptom: High Blood Pressure - Caller Reports (170/68) Outcome: Schedule a same-day appointment or talk to a nurse or provider today Reason: Caller denied all higher acuity questions The caller accepted this outcome. [phone] *denied interpreter and translator ( states she understand a little) documented in this encounter Plan of Treatment Upcoming Encounters Date Type Department Care Team ([facility] st Contact Info) Description 12/04/2024 11:00 AM EDT Office Visit [facility] [address] [place] [address] Sonya Interiano MD [address] [place] [address] documented as of this encounter Visit Diagnoses Not on filedocumented in this encounter Additional Health Concerns Assessment Noted Time PHQ-9 Depression Total Score: 11 024 10:51 AM EST documented as of this encounter Care Teams Commercial Driver Relationship Specialty Start Date End Date Sonya Interiano MD [address] [place] [address] PCP - General Family Medicine 08/28/12 General Blood 09/17/24 documented as of this encounter
--- OUTSIDE RECORDS SUMMARY | 2024-11-23 09:04 | XMS_ITS | Encounter Summary ---
Author Organization [employer] Address [address] [place] [address] Care Team Providers Care Heavy Duty Mechanic Name Role Phone Sonya Interiano MD Primary Care Provider [phone] Encounter Details Date Type Department Care Team ([facility] Contact Info) Description 11/16/2024 Telephone [facility] MED & PEDS [address] [place], [place] [phone] Sonya Interiano MD [address] [place] [address] Social History Tobacco Use Types Packs/Day Years [...] - 11/16/2024 1:14 PM EST T[facility] from [facility] calling to inform provider pt has been discharged [facility] services as of 11/14/24. Maggie also stated pt is monitoring BP and will be reporting readings. If any questions contact [phone] documented in this encounter Plan of Treatment Upcoming Encounters Date Type Department Care Team (Late st Contact Info) Description 12/04/2024 11:00 AM EDT Office Visit [facility] [address] [place] [address] Sonya Interiano MD [address] [place] [address] documented as of this encounter Visit Diagnoses Not on filedocumented in this encounter Additional Health Concerns Assessment Noted Time PHQ-9 Depression Total Score: 11 024 10:51 AM EST documented as of this encounter Care Teams Heavy Duty Mechanic Relationship Specialty Start Date End Date Sonya Interiano MD [address] [place] [phone] PCP - General Family Medicine 08/28/12 [employer] 09/17/24 documented as of this encounter
--- OUTSIDE RECORDS SUMMARY | 2024-11-23 09:04 | XMS_ITS | Encounter Summary ---
Author Organization [employer] Address [address] [place] [address] Care Team Providers Care Gyroscopic Instrument Mechanic Name Role Phone Sonya Interiano MD Primary Care Provider [phone] Encounter Details Date Type Department Care Team ([facility] st Contact Info) Description 11/20/2024 Orders Only [facility] MEDICINE [address] [place] [address] Ant Badillo MD [address] [place], [place] [phone] Social History Tobacco Use Types Packs/Day Years [...] Upcoming Encounters Date Type Department Care Team ([facility] st Contact Info) Description 12/04/2024 11:00 AM EDT Office Visit [facility] PEDS [address] [place] [address] Sonya Interiano MD [address] [place] [address] documented as of this encounter Procedures Procedure Name Priority Date/Time Associated Diagnosis Comments TSH W/REFLEX TO FT4 Routine 11/20/2024 1 :10 PM EDT documented in this encounter Results * TSH with Reflex to Free T4 (11/20/2024 1:10 PM EDT) TSH reflex Free T4 2.72 0.32 - 4.0 uIU/mL [facility] 11/20/2024 1:10 PM EDT 11/20/2024 2:07 PM EDT us Ant Badillo MD LAB BLOOD ORDERABLES Final Result [facility] [address] [place] [address] [phone] documented in this encounter Visit Diagnoses Not on filedocumented in this encounter Additional Health Concerns Assessment Noted Time PHQ-9 Depression Total Score: 11 024 10:51 AM EST documented as of this encounter Care Teams Gyroscopic Instrument Mechanic Relationship Specialty Start Date End Date Sonya Interiano MD [address] [place] [phone] PCP - General Family Medicine 08/28/12 [employer] 09/17/24 documented as of this encounter
--- OUTSIDE RECORDS SUMMARY | 2024-11-23 09:04 | XMS_ITS | Encounter Summary ---
Author Organization [employer] Address [address] [place] [address] Care Team Providers Care Academic Computing Director Name Role Phone Sonya Interiano MD Primary Care Provider [phone] Reason for Visit * Reason Onset Date Comments Results 11/08/2024 Encounter Details Date Type Department Care Team ([facility] Contact Info) Description 11/08/2024 Telephone [facility] MEDICINE [address] [place] [address] Sonya Interiano MD [address] [place], [place] [phone] Results Social History Tobacco Use Types Packs/Day [...] Upcoming Encounters Date Type Department Care Team ([facility] st Contact Info) Description 12/04/2024 11:00 AM EDT Office Visit [facility] & PED[facility] [address] [place] [address] Sonya Interiano MD [address] [place] [address] documented as of this encounter Visit Diagnoses Not on filedocumented in this encounter Additional Health Concerns Assessment Noted Time PHQ-9 Depression Total Score: 11 024 10:51 AM EST documented as of this encounter Care Teams Academic Computing Director Relationship Specialty Start Date End Date Sonya Interiano MD [address] [place] [phone] PCP - General Family Medicine 08/28/12 [employer] 09/17/24 documented as of this encounter
--- OUTSIDE RECORDS SUMMARY | 2024-11-23 09:04 | XMS_ITS | Encounter Summary ---
Author Organization [employer] Address [address] [place] [address] Care Team Providers Care Grocery Carrier Name Role Phone Sonya Interiano MD Primary Care Provider [phone] Encounter Details Date Type Department Care Team ([facility] Contact Info) Description 04/09/2024 Orders Only [facility] [address] [place], [place] [phone] ProviderAga MD Social History Tobacco Use Types [...] Description 12/04/2024 11:00 AM EDT Office Visit [facility] MED [facility] PEDS [address] [place] [address] Sonya Interiano MD [address] [place] [address] documented as of this encounter Procedures Procedure [...] documented as of this encounter Care Teams Grocery Carrier Relationship Specialty Start Date End Date Sonya Interiano MD [address] [place] [address] PCP - General Family Medicine 08/28/12 [employer] 09/17/24 documented as of this encounter
--- OUTSIDE RECORDS SUMMARY | 2024-11-23 09:04 | XMS_ITS | Data Portability ---
Author Organization [facility], [place] - [facility] Address [address] [place] [address] Care Team Providers Care Tile Layer Drainage Name Role Phone [facility] Referring Provider HIM CCA OTHER Assessment Encounter Date Assessment Date Assessment LastModified by Organization Details LastModified Time 08/13/2024 08/13/2024 I provided real -time medical direction via phone for this encounter, and was available for additional phone based assistance as needed. I have reviewed and agree with the Assessment and Plan as documented by the Entertainment Agent. We discussed the diagnostic uncertainty of home [...] to call 911- verbalized understanding of instruction [email or web address] Not available 08/13/2024 11:24:41 08/22/2024 08/22/2024 service called for confusion and MARC found 84 irene with hx HTN c/o MARC, confusion pt unable provide history given acute sx apparently LKW previous night VS BP 208/100 86 reported exam unable to follow instructions, neuro deficits BS 180 #[facility] and Confusion very concerning re CVA immediate [...] with her PCP re: insomnia and BP. [email or web address] Not available 10/15/2024 20:57:09 Plan of Treatment Reminders Order Date Submit Date Provider Last Modified By Organization Details Last Modified Time Details Appointments None recorded. Lab BMP, serum or plasma 2023 [email or web address] 0 [facility], [address] [place] [address], [phone], 4 11:24:13 rapid SARS CoV 2 Ag, QL IA, respiratory specimen 2023 [email or web address] [facility], [address] [place] [address], [phone], 4 11:24:13 rapid flu (A+B) 2023 [email or web address] 0 [facility], [address] [place] [address], [phone], 11:24:13 Referral None recorded. Procedures None recorded. Surgeries None recorded. Imaging None recorded. Medication Orders ondansetron HCl (PF) 4 mg/2 mL injection solution 2023 [email or web address] [facility], [address] [place] [address], [id number], 4 11:24:13 ondansetron 4 mg disintegrat ing tablet 2023 [facility] #[id number], [address] [place], [place], [id number], 4 11:24:22 loperamide 2 mg tablet 2023 [email or web address] 0 [facility], [address] [place] [address], [id number], 4 11:24:13 loperamide 2 mg capsule 2023 [facility] #[id number], [address] [place], [id number], 4 11:24:21 lactated Ringers intravenous solution 2023 024 [email or web address] 0 [facility], [address] [place], [place], [id number], 4 11:24:13 acetaminoph en 500 mg tablet 2023 024 [email or web address] 0 [facility], [address] [place], [place], [id number], 4 11:24:14 acetaminoph en 500 mg tablet 2023 [facility] #19985, [address] [place], [id number], 4 11:24:23 famotidine 20 mg tablet 2023 024 [facility] #[id number], [address] [place], [id number], 4 11:24:22 Patient TargetsNo targets recorded. Patient InstructionsNo instructions recorded. Reason for Referral None Reported. Results Created Date Observation Date Name Description Value Unit Range Abnormal Flag Note LastModifiedBy Organization Detail LastModifiedTime 08/13/20 24 08/13/2024 rapid flu (A+B) Flu negati ve Not Available Main - [facility] ed [address] [place] [address], [phone], 08/13/2024 11:11:30 08/13/20 24 08/13/2024 rapid SARS CoV 2 Ag, QL IA, respi rator y speci men rapid SARS CoV 2 Ag, QL IA, respiratory specimen negati ve Not Available [facility] - [facility] [address] [place] [address], [phone], 08/13/2024 11:11:29 Result Notes None recorded. Medical Equipment None Reported. Allergies Allergen ID Allergen Name Allergen Category Reaction Reaction Severity Criticality Documentation Date Start Date Code Code System Note Provider Name and Address Organization Details Recorded Time 20137 sulfameth oxazole medicatio n Not available Not available Not available 08/13/2024 67204 RxNorm Not Available [facility] - production 4 09:53:45 36431 trimethop rim medicatio n Not available Not available Not available 08/13/2024 87312 RxNorm Not Available [facility] - production 4 09:53:45 8800 Product containin g penicilli n (product) medicatio n Not available Not available Not available 07/10/2024 30523 8001 SNOMED Not Available [facility] - production 4 03:46:53 8801 Bactrim medicatio n Not available Not available Not available 07/10/2024 04122 9 RxNorm Not Available [facility] - production 4 03:46:53 Medications Name Sig [...] % 152.4 cm 94 /min 98.8 [degF] 76325.6 56 g 152.4 cm 83083.6 56 g 98.8 [degF] 94 /min 16 /min 97 % 97 % 147 mm[Hg] 89 mm[Hg] 147 mm[Hg] 89 mm[Hg] Not Available [employer] [facility] [employer] 4 11:35:51 Date Recorded Respiratory rate Oxygen saturation Oxygen saturation in Arterial blood by Pulse oximetry Body temperature Heart rate Systolic blood pressure Diastolic blood pressure Provider Name and Address Organization Details Last Updated DateTime 4 16 /min 97 % 97 % 97.9 [degF] 86 /min 208 mm[Hg] 100 mm[Hg] Not Available [employer] 4 18:15:31 Date Recorded Respiratory rate Heart rate Body temperature Oxygen saturation Oxygen saturation in Arterial blood by Pulse oximetry Systolic blood pressure Diastolic blood pressure Provider Name and Address Organization Details Last Updated DateTime 4 16 /min 83 /min 98.9 [degF] 97 % 97 % 204 mm[Hg] 98 mm[Hg] Not Available [employer] 4 14:10:20 Date Recorded Body temperature Oxygen saturation Oxygen saturation in Arterial blood by Pulse oximetry Heart rate Body weight Respiratory rate Systolic blood pressure Diastolic blood pressure Systolic blood pressure Diastolic blood pressure Provider Name and Address Organization Details Last Updated DateTime 5 98.4 [degF] 98 % 98 % 96 /min 87915.4 32 g 16 /min 176 mm[Hg] 62 mm[Hg] 168 mm[Hg] 98 mm[Hg] Not Available [facility] - production 5 20:16:12 Date Recorded Body height Heart rate Body temperature Body weight Respiratory rate Oxygen saturation Oxygen saturation in Arterial blood by Pulse oximetry Systolic blood pressure Diastolic blood pressure Provider Name and Address Organization Details Last Updated DateTime 5 152.4 cm 86 /min 98.6 [degF] 46417.8 8 g 16 /min 99 % 99 [...] 251 Krystle Herrera MD Main - [facility] [address] [place] [phone] 11/09/2021 18:24:02 04/28/2022 12:20:20 Hypertension screening [id number] Z13.6 93530 Olaf Yusuf MD Main - [facility] [address] [place] [phone] 01/26/2023 12:05:56 01/27/2023 10:25:23 Fatigue 84440797 R53.83 Patient reports worsening fatigue, difficulty sleeping, [...] to 5.9, normal at 4.0 on recheck. 60650 Prakash Watkins MD Main - [facility] [address] [place] [phone] 06/24/2023 15:47:53 06/26/2023 12:46:47 Urinary symptoms [id number] R39.9 02839 Bradford Deshpande MD Main - [facility] [address] [place] [phone] 0 12/06/2023 10:18:38 12/06/2023 16:05:50 Influenza 7141661 J11.1 27285 Hai Govea MD Main - [facility] [address] [place] [phone] 06/06/2024 19:33:14 06/07/2024 08:10:55 Essential hypertension [id number] I10 01156 Yulia Bell MD Main - [facility] [address] [place] [phone] 08/13/2024 10:51:26 08/13/2024 16:45:01 Epigastric pain [id number] R10.13 w/ n/v/d- likely viral- labs non [...] patient request to prescripti ons go to [facility] [place] Advised may take Tylenol along with the [...] another visit whenever she feels the need. 71819 Hai Govea MD Main - [facility] [address] [place] [phone] 08/22/2024 18:15:29 08/23/2024 00:16:45 Headache 23202700 R51.9 32245 Rachel Hines MD Main - [facility] [address] [place] [phone] 09/11/2024 14:10:17 09/11/2024 22:35:33 Hypertensive urgency [id number] I16.0 84 year old female with HTN, [...] assessment and plan as documented by the traveling accountant. I provided real-time medical direction for this encounter and was immediatel y available to provide additional phone-base d assistance as needed. We discussed the diagnostic uncertaint y of home visits and associated risks. We discussed the need to seek care urgently/e mergently in the setting of any new or worsening symptoms. 82262 John Ashraf MD Main - [facility] [address] [place] [phone] 09/20/2024 20:14:10 09/21/2024 12:53:55 Headache 90351867 R51.9 Has resolved since making call. Essential hypertension [id number] I10 Asymptomat ic. Elevated today. Taking Losartan. Advised patient to reach out to PCP regarding up titrating her antihypert ensives. Discussed red flag symptoms for which to seek higher level of care. 88080 REGGIE SYK MD [facility] - [facility] [address] [place] [phone] 10/15/2024 18:29:01 10/16/2024 17:18:24 Chronic insomnia [id number] F51.04 Essential hypertension [id number] I10 Health Concerns Section Related Observation LastModified by Organization Detai ls LastModified Time None Recorded Concern Status LastModified by Organization Details LastModified Time None Recorded Advance Directives Directive None Recorded Payers Encounter Date Sequence Insurance Name Policy Number Policy Benoit Covered Member ID Benoit Member ID Guarantor Name 08/13/2024 1 [facility] [facility] - DOS ON OR AFTER 2022 - DUAL ELIGIBLE - GROUP HOME OPTIONS AND ONE CARE (MEDICARE REPLACEMENT/AD VANTAGE - HMO) Neha Bowman [id number] Neha Bowman 08/22/2024 1 [facility] - DOS ON OR AFTER 2022 - DUAL ELIGIBLE - GROUP HOME OPTIONS AND ONE CARE (MEDICARE REPLACEMENT/AD VANTAGE - HMO) Neha Bowman [id number] Neha Bowman 09/11/2024 1 [facility] [employer] - DOS ON OR AFTER 2022 - DUAL ELIGIBLE - GROUP HOME OPTIONS AND ONE CARE (MEDICARE REPLACEMENT/AD VANTAGE - HMO) Neha Bowman [id number] Neha Bowman 09/20/2024 1 [facility] - DOS ON OR AFTER 2022 - DUAL ELIGIBLE - GROUP HOME OPTIONS AND ONE CARE (MEDICARE REPLACEMENT/AD VANTAGE - HMO) Neha Bowman [id number] Neha Bowman 10/15/2024 1 [facility] - DOS ON OR AFTER 2022 - DUAL ELIGIBLE - GROUP HOME OPTIONS AND ONE CARE (MEDICARE REPLACEMENT/AD VANTAGE - HMO) Neha Bowman [id number] Neha Bowman Notes Date Note Type Note [...] Comments: No further questions at this time. Entertainment Agent Organization Information for Edgar Gonzales Legal Name: [facility] [employer] Address: [address] [place] [address], [place] [address], Supplier Relationship Director: Rudi Forbes MD CLIA No.: [id number] Entertainment Agent POC Test Results from Edgar Gonzales [facility] (10:59:52) pH: 7.41 pH [...] ..................... ..................... ..................... ..................... ..................... ..................... ............... Entertainment Agent Note From Edgar Gonzales: This 84-year-old female [...] ..................... ..................... ..................... ..................... ..................... ..................... ............... [facility] [place] Consulted: Yulia Bell ..................... ..................... ..................... ..................... ..................... ..................... ............... Disposition: Fulfilled SEGMD: As above. Patient seen by me not Dr. Kwan-as above -patient denies hematemesis, melena or hematochezia. She does feel bloated. She denies any recent antibiotic use and was exposed to someone with identical symptoms which have since resolved per her report. She denies UTI symptoms. Yulia Bell MD [address] [facility],[address], [place], [address], [facility] 08/13/2024 14:50:57 08/22/2024 text/html HPI: Elder;ly female with complaints of headache over left ey. Has not taken OTC analgesic. Has noted confusion this morning as she reports choosing flour instead of sugar for coffee.. Able to express all needs no slurred or delay in speech. ..................... ..................... ..................... ..................... ..................... ..................... ............... [facility] Nurse Triage Notes (Mya Marrufo): Chief Complaints: Altered mental status, Headache PMH: Hypertension Comments: HPI reviewed- NE Entertainment Agent Organization Information for Nicholas Hinson [employer] Legal Name: [employer] Address: [address] [place] [address], Supplier Relationship Director: Yuri FITZGERALD No.: [id number] Entertainment Agent POC Test Results from JoyaNicholas kurtz [employer] Blood Glucose Measurement (18:51:31) Blood Glucose: 184 mg/dL ..................... ..................... ..................... ..................... ..................... ..................... ............... Entertainment Agent Note From Nicholas Hinson: Dispatched to the call address for the elderly female with confusion and a headache. Pt lives alone and speaks Romanian and Ecuadorean. Pt is not good historian at this time. She states she is confused and has a headache all over. Pt was not able to answer questions appropriately, even when asked in Ecuadorean. Pt could not repeat the phrase The myriam is blue over [place] , Pt was able to smile and show beauty operator apprentice strength (both equal) but she was unable to follow other commands, she had difficulty touching her own nose and then used her other hand to touch my finger, instructions repeated in Ecuadorean and Pt still could not follow commands. [...] blood thinners were found amongst Pts medications. [facility] [place] and agreed that Pt needed to [...] with [facility]). Pt was transported [facility]. ALL times are approx. ..................... ..................... ..................... ..................... ..................... ..................... ............... [facility] [place] Consulted: Hai Govea ..................... ..................... ..................... ..................... ..................... ..................... ............... Disposition: Fulfilled Hai Govea MD [address] [place] [address],[address] [facility], [place], [phone], [employer] 08/22/2024 19:59:35 09/11/2024 text/html HPI: Call returned [...] evaluation of possible hypertensive crisis. Agreeable to [facility] for eval of BP and EKG. Confirmed demographics and allergies. Pt instructed to call EMS If sx worsen. ..................... ..................... ..................... ..................... ..................... ..................... ............... [facility] Nurse Triage Notes (Isabel Cook - RN): Chief Complaints: Hypertension PMH: Hypertension Comments: HPI reviewed ..................... ..................... ..................... ..................... ..................... ..................... ............... Entertainment Agent Note From Nicholas Hinson: Dispatched to the [...] CTA, +CMSx4, -edema/swelling, afebrile, Rapid Covid/flu (-). [facility] [place]. Pt advised to follow up with PCP. Pt requested that I remain with her for 10-15 minutes because she was nervous, I sat with Pt and we had pleasant conversation until she felt more comfortable. Red flags discussed. ALL times are approx. ..................... ..................... ..................... ..................... ..................... ..................... ............... [facility] [place] Consulted: Rachel Hines ..................... ..................... ..................... ..................... ..................... ..................... ............... Disposition: Fulfilled Rachel Hines MD [address] [place] [address],[address], [place], [phone], [facility] 09/11/2024 15:08:23 09/20/2024 text/html HPI: Call to Neha Bowman reports continues to have headache. Pt called in for triage yesterday and did not mention to provider during telehalth visit today. Pt states BP continues elevated today. Pt states headache and blurry vision. Not resolving with Tyelnol. No CP , SOB or severe dizziness. Pt advised of disposition, wishes to be seen. Requesting [facility] for eval. Confirmed demographics and allergies. ..................... [...] ..................... ..................... ..................... ..................... ..................... ..................... ............... Entertainment Agent Note From Buster Renteria: Pt co low [...] ..................... ..................... ..................... ..................... ..................... ..................... ............... [facility] [place] Consulted: David Ashraf ..................... ..................... ..................... ..................... ..................... ..................... ............... Disposition: Fulfilled John Ashraf MD [address] [place] [address],[address], [place], [phone], [facility] 09/20/2024 21:30:05 10/15/2024 text/html HPI: Triage call [...] ..................... ..................... ..................... ..................... ..................... ..................... ............... Entertainment Agent Note From Mauricio Garcia[facility] Pt is Ecuadorean speaking and so telegraph lineman was used. Pt presents complaining of 1 year of insomnia and resulting fatigue. Pt is currently taking benadryl without much reported effectiveness. Pt has sleep study scheduled in about 2 weeks. Pt states she has tried trazodone before and not enjoyed it. V/S taken as listed. Pt afebrile. Consulted with [facility] [place] Sky who suggested pt follow up with PCP and proceed with sleep study. Pt education provided. ..................... ..................... ..................... ..................... ..................... ..................... ............... [facility] [place] Consulted: Reggie Sky ..................... ..................... ..................... ..................... ..................... ..................... ............... Disposition: Fulfilled REGGIE SKY MD [address] [place] [address],[address], [place], [address], [facility] CARLOS ARGUETA 10/15/2024 20:57:15 OBGyn Episode No OBEpisode recorded.
--- OUTSIDE RECORDS SUMMARY | 2024-11-23 09:04 | XMS_ITS | Encounter Summary ---
Author Organization [employer] Address [address] [facility] [address] [place] [address] Care Team Providers Care Intervention Specialist Name Role Phone Sonya Interiano MD Primary Care Provider [phone] Encounter Details Date Type Department Care Team ([facility] Contact Info) Description 02/03/2023 Orders Only [facility] MED & PEDS [address] [place] [address] Sonya Interiano MD [address] [place] [address] Social History Tobacco Use Types Packs/Day Years [...] Upcoming Encounters Date Type Department Care Team ([facility] Contact Info) Description 12/04/2024 11:00 AM EDT Office Visit [facility] MED & PEDS [address] [place] [address] Sonya Interiano MD [address] [place], [place] [phone] documented as of this encounter Visit Diagnoses Not on filedocumented in this encounter Care Teams Intervention Specialist Relationship Specialty Start Date End Date Sonya Interiano MD [address] [place] [address] PCP - General Family Medicine 08/28/12 [employer] 09/17/24 documented as of this encounter
--- OUTSIDE RECORDS SUMMARY | 2024-11-23 09:04 | XMS_ITS | Encounter Summary ---
Author Organization [employer] Address [address] [facility] [address] [place] [address] Care Team Providers Care Mobile Home Lot Utility Worker Name Role Phone Sonya Interiano MD Primary Care Provider [phone] Reason for Visit * Reason Onset Date Comments Nurse Triage 11/04/2023 Encounter Details Date Type Department Care Team ([facility] Contact Info) Description 11/04/2023 Telephone [facility] MED [facility] PEDS [address] [place] [address] Sonya Interiano MD [address] [place] [address] Nurse Triage Social History Tobacco Use Types [...] 11/04/2023 11:03 AM EST Called pt. Via [employer] spanish interpreter [id number] Cb. Pt. States that she has been [...] accepted this outcome Please contact pt at [phone] (Kazakh) documented in this encounter Plan of Treatment Upcoming Encounters Date Type Department Care Team (Late st Contact Info) Description 12/04/2024 11:00 AM EDT Office Visit [facility] MED & PEDS [address] [place] [address] Sonya Interiano MD [address] [place] [address] documented as of this encounter Visit Diagnoses Diagnosis Upper respiratory tract infection, unspecified type documented in this encounter Additional Health Concerns Assessment Noted Time PHQ-9 Depression Total Score: 11 024 10:51 AM EST documented as of this encounter Care Teams Mobile Home Lot Utility Worker Relationship Specialty Start Date End Date Sonya Interiano MD [address] [place] [address] PCP - General Family Medicine 08/28/12 [employer] 09/17/24 documented as of this encounter
--- OUTSIDE RECORDS SUMMARY | 2024-11-23 09:04 | XMS_ITS | Encounter Summary ---
Author Organization [employer] Address [address] [facility] [address] [place] [address] Care Team Providers Care Plastering Supervisor Name Role Phone Sonya Interiano MD Primary Care Provider Reason for Visit * Reason Onset Date Comments Appointment Request 08/12/2023 Encounter Details Date Type Department Care Team (Late Contact Info) Description 08/12/2023 Telephone [facility] MEDICINE [address] [place] [address] Sonya Interiano MD [address] [place] [address] Appointment Request Social History Tobacco Use Types [...] pt requesting a f/u appt with PCP, tech writer ask pt and no concerns with her health. documented in this encounter Plan of Treatment Upcoming Encounters Date Type Department Care Team ([facility] Contact Info) Description 12/04/2024 11:00 AM EDT Office Visit [facility] MED & PEDS [address] [place] [address] Sonya Interiano MD [address] [place] [address] documented as of this encounter Visit Diagnoses Not on filedocumented in this encounter Care Teams Plastering Supervisor Relationship Specialty Start Date End Date Sonya Interiano MD [address] [place] [address] PCP - General Family Medicine 08/28/12 [employer] 09/17/24 documented as of this encounter
--- OUTSIDE RECORDS SUMMARY | 2024-11-23 09:04 | XMS_ITS | Data Portability ---
Author Organization [employer] [facility], [place] [facility] Address [address] [place] [phone] Assessment Encounter Date Assessment Date Assessment LastModified by Organization Details LastModified Time 09/30/2023 09/30/2023 I provided real -time medical direction via phone for this encounter, and was available for additional phone based assistance as needed. I have reviewed and agree with the Assessment and Plan as documented by the Investigator Internal Revenue. We discussed the diagnostic uncertainty of home visits and the risk associated with this. The patient given the opportunity to ask questions. Advised the patient, the seismic interpreter that while lack of response 1 dose [...] and treatment she verbalized understanding via the seismic interpreter [email or web address] Not available 09/30/2023 14:10:34 Plan of Treatment Reminders Order Date Submit Date Provider Last Modified By Organization Details Last Modified Time Details Appointments None recorded. Lab BMP, serum or plasma 2023 024 [email or web address] 0 [facility], [address] [place] [address], [phone], 4 13:59:28 Referral None recorded. Procedures None recorded. Surgeries None recorded. Imaging electrocard iogram 2023 024 [email or web address] 0 [facility], [address] [place] [address], [address], 4 13:59:24 Medication Orders meclizine 25 mg [...] BUN 16 Not Available Main - Ins [address], [address], 09/30/2023 12:45:59 09/30/19 24 09/30/2023 BMP, serum or plasm a Ca Ionize d calciu m 1.05 Not Available Main - [address], [address], 09/30/2023 12:45:59 09/30/19 24 09/30/2023 BMP, serum or plasm a CI- 104 Not Available Main - Ins [address], [address], 09/30/2023 12:45:59 09/30/19 24 09/30/2023 BMP, serum or plasm a CRE 0.5 Not Available Main - Ins [address], [address], 09/30/2023 12:45:59 09/30/19 24 09/30/2023 BMP, serum or plasm a GLU 133 Not Available Main - Ins [address], [address], 09/30/2023 12:45:59 09/30/19 24 09/30/2023 BMP, serum or plasm a K+ 4.4 Not Available Main - Ins [address], [address], 09/30/2023 12:45:59 09/30/19 24 09/30/2023 BMP, serum or plasm a Na+ 138 Not Available Main - Ins [address], [address], 09/30/2023 12:45:59 09/30/19 24 09/30/2023 BMP, serum or plasm a tCO2 28 Not Available Main - Ins juan [address] [place] [address], [address], 09/30/2023 12:45:59 09/30/19 24 09/30/2023 elect josephine [email or web address] am No observ ation record ed. [email or web address] Main - [facility] [address] [place] [address], [address], 09/30/2023 13:59:20 Result Notes None recorded. Procedures Surgical History None recorded. Imaging Results Imaging Date Name Status LastModified by Organization Details LastModified Time 09/30/2023 electrocardiogram completed [email or web address] Main - [facility] [address] [place] [address], [address], 09/30/2023 13:59:20 Procedure Notes None recorded. Medical Equipment None Reported. Allergies Allergen ID Allergen Name Allergen Category Reaction Reaction Severity Criticality Documentation Date Start Date Code Code System Note Provider Name and Address Organization Details Recorded Time 4387 Substance with sulfonami de structure and antibacte rial mechanism of action (substanc e) medicatio n Not available Not available Not available 09/30/2023 34363 8003 SNOMED Yulia Bell MD [address] [place] [address],[address], [place], [address], [place] [employer] [facility] [employer] 4 12:44:32 4388 Product containin g penicilli n (product) medicatio n Not available Not available Not available 09/30/2023 43418 8001 SNOMED Not Available [employer] - production [...] 188 mm[Hg] 94 mm[Hg] Yulia Bell MD [address] [place] [address],[address], [place], [address] , [facility] [employer] [facility] 4 13:39:13 Social History None recorded. Functional Status None recorded. Mental Status None recorded. Family History Nothing Reported. Medical History No medical history recorded. Gynecological HistoryNo gynecological history recorded. Obstetrics History GPAL:G 0 P 0 0 0 0 Past Encounters Encounter ID Performer Location Encounter Start Date Encounter Closed Date Diagnosis/Indication Diagnosis SNOMED-CT Code Diagnosis ICD10 Code Diagnosis Note [id number] Yulia Bell MD [address] [phone] 09/30/2023 12:44:05 10/02/2023 13:48:29 Chest discomfort 496990169 R07.89 Medic alone, reported only has BLS transport, would avoid nitroglyce rin right now due to risk of increasing headache and symptomati c rapid lowering of blood pressure /report given to the [facility] ER the medic informed me patient declined the 324 mg of asa i ordered. transportation manager aware Essential hypertension 74879685 I10 Will add 1 dose of metoprolol /also cardioprot ective-med ic did not have a chance to recheck the BP after metoprolol administra tion Dizziness 568081717 R42 Described as spinning and movement related [...] Guarantor Name 09/30/2023 1 [facility] - DOS ON OR AFTER 2022 - DUAL ELIGIBLE - RETIREMENT OPTIONS AND ONE CARE (MEDICARE REPLACEMENT/ADV ANTAGE - HMO) Neha Colby [id number] Neha Colby Notes Date Note Type Note [...] referral as not able to come into [facility] Office. Referral submitted online. .................... .................... [...] since she awoke this morning via her seismic interpreter. She denied prior episodes of dizziness but [...] .................... .................... .................... .................... .................... .................... ......... Investigator Internal Revenue Note From Kelly Montalvo: [facility] Investigator Internal Revenue Samuel Montalvo CCA1 dispatched to a [facility] for an 83 yof C/O dizziness. Upon arrival, the pt was sitting in her living room, awake and alert, in no apparent distress. Her sister/jewelry bearing maker on scene translated-pt Hungarian speaking only. The pt stated she took [...] ALS, and the pt was transported to [facility] ED. [facility] Lab Orders: BMP, serum or plasma: Performed .................... .................... .................... .................... .................... .................... .................... . Disposition: Fulfilled Yulia Bell MD [address] [place] [address],[address], [place], [address], [employer] 09/30/2023 19:02:09 OBGyn Episode No OBEpisode recorded.
--- OUTSIDE RECORDS SUMMARY | 2024-11-23 09:04 | XMS_ITS | Encounter Summary ---
Author Organization [employer] Address [address] [facility] [address] [place] [address] Care Team Providers Care Tie In Hand Name Role Phone Sonya Interiano MD Primary Care Provider [phone] Reason for Visit * Reason Onset Date Comments Medication Question 09/20/2023 Encounter Details Date Type Department Care Team ([facility] st Contact Info) Description 09/20/2023 Telephone [facility] MEDICINE [address] [place] [address] Sonya Interiano MD [address] [place], [place] [phone] Medication Question Social History Tobacco Use Types [...] PM EST TC placed to patient via [employer] Senior Environmental Scientist. No answer. LM to call us back. TC placed to patient without [place] Senior Environmental Scientist. Patient answered. Patient states that she is [...] with respiration. Offered a f/u appointment at [facility] this week. Agreed to an appointment with [...] 12/04/2024 11:00 AM EDT Office Visit [facility] [address] [place] [address] Sonya Interiano MD [address] [place] [address] documented as of this encounter Visit Diagnoses Not on filedocumented in this encounter Care Teams Tie In Hand Relationship Specialty Start Date End Date Sonya Interiano MD [address] [place] [address] PCP - General Family Medicine 08/28/12 [employer] 09/17/24 documented as of this encounter
--- OUTSIDE RECORDS SUMMARY | 2024-11-23 09:04 | XMS_ITS | Encounter Summary ---
Author Organization [employer] Address [address] [facility] [facility] [address] 7t [place] [address] Care Team Providers Care Hired Help Name Role Phone Sonya Interiano MD Primary Care Provider [phone] Reason for Visit * Reason Onset Date Comments Nurse Triage 06/06/2024 Encounter Details Date Type Department Care Team ([facility] st Contact Info) Description 06/06/2024 Telephone [facility] MEDICINE [address] [place] [address] Sonya Interiano MD [address] [place] [address] Nurse Triage Social History Tobacco Use Types [...] review of instED note. Per notes in [employer] portal Sent to a call for a [...] warm, dry; 12 lead ECG: uploaded to [email or web address]; [facility] consulted and orders POC bloodwork. Venous blood draw performed; Istat Chem8+ results: uploaded to [email or web address]; Pt is advised to take Losartan 25mg [...] Office Visit [facility] [address] [place] [address] Sonya Interiano MD [address] [place] [address] documented as of this encounter Visit Diagnoses Not on filedocumented in this encounter Additional Health Concerns Assessment Noted Time PHQ-9 Depression Total Score: 11 024 10:51 AM EST documented as of this encounter Care Teams Hired Help Relationship Specialty Start Date End Date Sonya Interiano MD [address] [place] [address] PCP - General Family Medicine 08/28/12 [place] 09/17/24 documented as of this encounter
--- OUTSIDE RECORDS SUMMARY | 2024-11-23 09:04 | XMS_ITS | Encounter Summary ---
Author Organization [employer] Address [address] [facility] 7t [place] [address] Care Team Providers Care Single Resource Boss Name Role Phone Sonya Interiano MD Primary Care Provider [phone] Encounter Details Date Type Department Care Team ([facility] Contact Info) Description 06/11/2024 Orders Only [facility] MED [facility] PEDS [address] [place] [address] Sonya Interiano MD [address] [place] [address] Social History Tobacco Use Types Packs/Day Years [...] Description 12/04/2024 11:00 AM EDT Office Visit [facility] MED & PEDS [address] [place] [address] Sonya Interiano MD [address] [place] [address] documented as of this encounter Procedures Procedure Name Priority Date/Time Associated Diagnosis Comments BI MAMMOGRAM SCREENING TOMOSYNTHESIS BILATERAL Routine 06/13/2024 1:15 PM EDT documented in this encounter Results * BI Mammogram Screening Tomosynthesis Bilateral (06/13/2024 1:15 PM EDT) Anatomical Region Laterality Modality Breast Bilateral Mammography 06/13/2024 1:15 PM EDT Narrative 06/25/2024 1:54 PM EDT ? [facility] ? [address] ?[place] [address] ? Mammography Report ? Signed ? Patient: Colby,Neha ?MR#: [id number] ?? [id number] ? : 1940 ?Acct:[id number] ? Age/Sex: 84 / F ?ADM Date: 10/02/24 ? Loc: HO.MAMMO ? Attending Dr: Sonya Interiano MD ? Ordering Physician: Sonya Interiano MD ?Results: 1Negati ?? ve ? Date of Service: 06/13/24 ?Follow Up: 1 Year From Orig ?? inal Mammogram ? Procedure(s): MM tomosynthesis screening BI ?? Accession Number(s): [id number] ? cc: Sonya Interiano MD ? EXAMINATION: [...] DD/ 1315 ? TD/TT: 06/13/24 1341 ? Air Deodorizer Servicer: ? Procedure Note Donotuseinterpreter, Image - 06/25/2024 [facility] [address] [place], [place] [address] Mammography Report Signed Patient: Yusuf Bowman#: [id number] : 1940Acct:[id number] Age/Sex: 84 / FADM Date: 06/13/24 Loc: HO.MAMMO Attending Dr: Sonya Interiano MD Ordering Physician: Sonya Interiano MDResults: 1Negati ve Date of Service: 06/13/24Follow Up: 1 Year From Orig inal Mammogram Procedure(s): MM tomosynthesis screening BI Accession Number(s): [id number] cc: Sonya Interiano MD EXAMINATION: MM SCREENING [...] Kym Sidhu DO 06/25/2024 01:51 PM EDT RP Dictated By: Kym Siduh DO Signed By: <Electronically signed by Kym Sidhu DO in OV> 06/25/24 1351 DD/ 1315 TD/TT: 06/13/24 1341 Air Deodorizer Servicer: Sonya Interiano MD IMG BI PROCEDURES Final Result documented in this encounter Visit Diagnoses Not on filedocumented in this encounter Additional Health Concerns Assessment Noted Time PHQ-9 Depression Total Score: 11 024 10:51 AM EST documented as of this encounter Care Teams Single Resource Boss Relationship Specialty Start Date End Date Sonya Interiano MD [address] [place] [address] PCP - General Family Medicine 08/28/12 [email or web address] 09/17/24 documented as of this encounter
--- OUTSIDE RECORDS SUMMARY | 2024-11-23 09:05 | XMS_ITS | Encounter Summary ---
Author Organization [employer] Address [address] [facility] [address] 7[address] [place] [address] Care Team Providers Care Boat Person Name Role Phone Sonya Interiano MD Primary Care Provider [phone] Reason for Visit * Reason Onset Date Comments Nurse Triage 09/19/2024 Encounter Details Date Type Department Care Team ([facility] st Contact Info) Description 09/19/2024 Telephone [facility] MEDICINE [address] [place] [address] Sonya Interiano MD [address] [place] [address] Nurse Triage Social History Tobacco Use Types [...] Description 12/04/2024 11:00 AM EDT Office Visit [facility] MED & PEDS [address] [place] [address] Sonya Interiano MD [address] [place] [address] documented as of this encounter Visit Diagnoses Not on filedocumented in this encounter Additional Health Concerns Assessment Noted Time PHQ-9 Depression Total Score: 11 024 10:51 AM EST documented as of this encounter Care Teams Boat Person Relationship Specialty Start Date End Date Sonya Interiano MD [address] [place] [address] PCP - General Family Medicine 08/28/12 [email or web address] 09/17/24 documented as of this encounter
--- OUTSIDE RECORDS SUMMARY | 2024-11-23 09:05 | XMS_ITS | Encounter Summary ---
Author Organization [employer] Address [address] [facility] [address] 7t [place] [address] Care Team Providers Care Programs Director Name Role Phone Sonya Interiano MD Primary Care Provider [phone] Reason for Visit * Reason Onset Date Comments Call Back Request 12/06/2023 Med Refill 12/06/2023 Encounter Details Date Type Department Care Team ([facility] st Contact Info) Description 12/06/[address] [facility] MEDICINE [address] [place], [place] [phone] Sonya Interiano MD [address] [place] [address] Call Back Request; Med Refill Social History [...] Description 12/04/2024 11:00 AM EDT Office Visit [facility] MED & PEDS [address] [place] [address] Sonya Interiano MD [address] [place] [address] documented as of this encounter Visit Diagnoses Not on filedocumented in this encounter Additional Health Concerns Assessment Noted Time PHQ-9 Depression Total Score: 11 024 10:51 AM EST documented as of this encounter Care Teams Programs Director Relationship Specialty Start Date End Date Sonya Interiano MD [address] [place] [address] PCP - General Family Medicine 08/28/12 [place] 09/17/24 documented as of this encounter
--- OUTSIDE RECORDS SUMMARY | 2024-11-23 09:05 | XMS_ITS | Encounter Summary ---
Author Organization [employer] Address [address] [facility] 7t [place] [address] Care Team Providers Care Army Helicopter Pilot Name Role Phone Sonya Interiano MD Primary Care Provider [phone] Reason for Visit * Reason Onset Date Comments appointment cx 10/25/2024 Encounter Details Date Type Department Care Team ([facility] Contact Info) Description 10/25/2024 Telephone [facility] MED [facility]EDS [address] [place] [address] Sonya Interiano MD [address] [place] [address] appointment cx Social History Tobacco Use Types [...] 12/04/2024 11:00 AM EDT Office Visit [facility] MED [facility] PEDS [address] [place] [address] Sonya Interiano MD [address] [place] [address] documented as of this encounter Visit Diagnoses Not on filedocumented in this encounter Additional Health Concerns Assessment Noted Time PHQ-9 Depression Total Score: 11 024 10:51 AM EST documented as of this encounter Care Teams Army Helicopter Pilot Relationship Specialty Start Date End Date Sonya Interiano MD [address] [place] [address] PCP - General Family Medicine 08/28/12 [email or web address] 09/17/24 documented as of this encounter
--- OUTSIDE RECORDS SUMMARY | 2024-11-23 09:05 | XMS_ITS | Encounter Summary ---
Author Organization [employer] Address [address] [facility] 7t [place] [address] Care Team Providers Care Milk Truck Driver Name Role Phone Sonya Interiano MD Primary Care Provider Reason for Visit * Reason Onset Date Comments Nurse Triage 10/15/2024 Encounter Details Date Type Department Care Team ([facility] Contact Info) Description 10/15/2024 Telephone [facility] [address] [place] [address] Sonya Interiano MD [address] [place] [address] Nurse Triage Social History Tobacco Use Types [...] 10/15/2024 1:52 PM EST Triage call with [facility] jewel corner brushing machine operator [place] [id number] Pt reports insominia, weakness and excessive fatigue [...] Upcoming Encounters Date Type Department Care Team ([facility] st Contact Info) Description 12/04/2024 11:00 AM EDT Office Visit [facility] MED & PEDS [address] [place] [address] Sonya Interiano MD [address] [place] [address] documented as of this encounter Visit Diagnoses Not on filedocumented in this encounter Additional Health Concerns Assessment Noted Time PHQ-9 Depression Total Score: 11 024 10:51 AM EST documented as of this encounter Care Teams Milk Truck Driver Relationship Specialty Start Date End Date Sonya Interiano MD [address] [place] [address] PCP - General Family Medicine 08/28/12 [employer] 09/17/24 documented as of this encounter
--- OUTSIDE RECORDS SUMMARY | 2024-11-23 09:05 | XMS_ITS | Encounter Summary ---
Author Organization [employer] Address [address] [facility] [address] [facility] [address] 7t [place] [address] Care Team Providers Care Cigar Making Supervisor Name Role Phone Sonya Interiano MD Primary Care Provider [phone] Reason for Visit * Reason Onset Date Comments Nurse Triage 09/20/2024 Encounter Details Date Type Department Care Team ([facility] st Contact Info) Description 09/20/2024 Telephone [facility] MEDICINE [address] [place] [address] Sonya Interiano MD [address] [place] [address] Nurse Triage Social History Tobacco Use Types [...] to chest) * Telephone Encounter - Sanam aWgner RN - 09/20/2024 4:05 PM EST Called pt. Via S american sign language interpreter [phone] Adri. No answer. Instrumentation And Control Technician left message for pt. To call back [facility] nurses at [phone]. Called pt. Back x 2 and no answer. Instrumentation And Control Technician DID leave second message for pt. To call back [facility] nurses at [phone]. RE: Headache vision change and dizziness. * Telephone Encounter - Jerica Popeye Rojas - 09/20/2024 3:50 PM EST Symptoms: Headache, Vision Loss or Change Outcome: Talk to a nurse or provider within 15 minutes Reason: Trouble walking The caller accepted this outcome. [phone] (Liberian) documented in this encounter Plan of Treatment Upcoming Encounters Date Type Department Care Team (Late st Contact Info) Description 12/04/2024 11:00 AM EDT Office Visit [facility] MED & PEDS [address] [place] [address] Sonya Interiano MD [address] [place] [address] documented as of this encounter Visit Diagnoses Not on filedocumented in this encounter Additional Health Concerns Assessment Noted Time PHQ-9 Depression Total Score: 11 024 10:51 AM EST documented as of this encounter Care Teams Cigar Making Supervisor Relationship Specialty Start Date End Date Sonya Interiano MD [address] [place] [address] PCP - General Family Medicine 08/28/12 [employer] 09/17/24 documented as of this encounter
--- OUTSIDE RECORDS SUMMARY | 2024-11-23 09:05 | XMS_ITS | Clinical Summary ---
Author Organization [employer] Address [address] [facility] 7t [place] [address] Care Team Providers Care Paediatrician Name Role Phone Sonya Interiano MD Primary Care Provider [phone] Allergies Active Allergy Reactions Criticality Noted Date [...] ED, pt insist she was seen in [facility] - also requesting home VNA, this should [...] high potency steroids, she declined referral to [facility]. Will send out swab. Assessment & Plan [...] Encounters Date Type Department Care Team Description 11/22/2024 Telephone [facility] MEDICINE [address] [place] [address] Sonya Interiano MD Nurse Triage 11/20/2024 Orders Only [facility] MEDICINE [address] [place] [address] Ant Badillo MD 11/16/2024 Telephone [facility] MED & PEDS [address] [place] [address] Sonya Interiano MD 11/08/[address] [address] Sonya Interiano MD Results 10/25/2024 Telephone [facility] MED & PEDS [address] [place] [address] Sonya Interiano MD appointment cx 10/17/2024 Patient Outreach [facility] MED [facility] PEDS [address] [place] [address] Sonya Interiano MD Pre-visit Planning (SDOH negative, Tobacco screening negative. ) 10/16/2024 Orders Only [facility] External Provider, [facility] 10/15/2024 Telephone [facility] MED & PEDS [address] [place] [address] Sonya Interiano MD Nurse Triage 10/03/2024 Travel 09/28/2024 11:15 AM EST Office Visit [facility] MED [facility] PEDS [address] [place] [address] Tayo Nelson MD Primary hypertension (Primary Dx) 09/28/2024 Travel 09/26/[address] [address] Sonya Interiano MD Medication Question 09/21/2024 Telephone [facility] MED [facility] PEDS [address] [place] [address] Sonya Interiano MD isntED Follow UP 09/20/2024 10:45 AM EST Telemedicine [facility] MED [facility] PEDS [address] [place] [address] Sonya Interiano MD Primary hypertension (Primary Dx); Lichen sclerosus of female genitalia 09/20/2024 Telephone [facility] MEDICINE [address] [place] [address] Sonya Interiano MD Nurse Triage 09/20/2024 Travel 09/19/2024 Telephone [facility] MEDICINE [address] [place] [address] Sonya Interiano MD Nurse Triage 09/11/[address] [address] Sonya Interiano MD Nurse Triage 09/06/2024 2:30 PM EST Office Visit [facility] MED [facility] PEDS [address] [place] [address] Caroline Medina MD Primary hypertension (Primary Dx) 09/06/2024 Travel 08/29/2024 Telephone [facility] MED & PEDS [address] [place], [place] [phone] Sonya Interiano MD 08/27/[address] [address] Sonya Interiano MD Nurse Triage 08/27/[address] [address] Sonya Interiano MD ER Follow-up from Last 3 Months Immunizations Name Administration [...] Description 12/04/2024 11:00 AM EDT Office Visit [facility] MED & PEDS [address] [place] [address] Sonya Interiano MD [address] [place] [address] Health Maintenance Due Date Last Done Comments Alcohol/Substance Use Screening 1952 Zoster Vaccines (1 of 2) 02/23/1990 RSV Patients and Patients Aged 60 years or older (1 - 1-dose 75+ series) 02/23/2015 Depression Monitoring (PHQ-9) 04/18/2024 10/19/2023, 10/19/2023 COVID-19 Vaccine ( season) 2024 01/25/2023, 06/02/2021, 05/12/2021 Depression Screening 10/19/2024 10/19/2023, 10/19/19 Tobacco Screening 06/20/2025 06/20/2024 SDOH Screening 10/17/2025 [...] Free T4 2.72 0.32 - 4.0 uIU/mL [facility] 11/20/2024 1:10 PM EDT 11/20/2024 2:07 PM EDT us Ant Badillo MD LAB BLOOD ORDERABLES Final Result Performing Organization Address City/State/[facility] Co de Phone Number [facility] [address] [place] [address] [phone] * BD DEXA Axial (10/16/2024 12:50 PM EST) Anatomical Region Laterality Modality Body Radiographic Marisol ging 10/16/2024 12:5 0 PM EST Narrative 10/18/2024 7:44 AM EST ? [facility] ? [address] ?[place] [address] ? Mammography Report ? Signed ? Patient: Colby,Neha ?MR#: [id number] ?? [id number] ? : 1940 ?Acct:[id number] ? Age/Sex: 84 / F ?ADM Date: 02/04/25 ? Loc: HO.MAMMO ? Attending Dr: Rosie Durán MD ? Ordering Physician: Rosie Durán MD ?Results: ? Date of Service: 10/16/24 ?Follow Up: ? Procedure(s): XR DEXA axial skeleton ?? Accession Number(s): [id number] ? cc: Sonya Interiano MD; Rosie Durán MD ? EXAMINATION: ??DXA BONE DENSITY AXIAL ? HISTORY: ??Estrogen deficiency ? TECHNIQUE: Pushing Green Dual energy absorptiometry (DEXA) ?? of the [...] is a trademark of the [employer]'s ?? [employer] for Metabolic Bone Disease, a World Health Organization (WHO) ?? Collaborating Center. ? Electronically signed by: ??Jose Elias Gibson MD ??10/18/2024 07:41 AM EST ?? RP ? Dictated By: ?Jose Elias Gibson MD ? Signed By: ?<Electronically signed by Jose Elias Gibson MD in OV> ?10/18/24 0741 ? DD/ 1250 ? TD/TT: 10/16/24 1311 ? [employer]: ? Procedure Note Radhater, Image - 10/18/2024 [facility] [address] [place] [address] Mammography Report Signed Patient: Yusuf Bowman#: [id number] : 1940Acct:[id number] Age/Sex: 84 / FADM Date: 10/16/24 Loc: HO.MAMMO Attending Dr: Rosie Durán MD Ordering Physician: Rosie Duránesults: Date of Service: 10/16/24Follow Up: Procedure(s): XR DEXA axial skeleton Accession Number(s): [id number] cc: Sonya Interiano MD; Rosie Durán MD EXAMINATION: DXA BONE DENSITY AXIAL HISTORY: Estrogen deficiency TECHNIQUE: Pushing Green Dual energy absorptiometry (DEXA) of the lumbar [...] is a trademark of the [employer]'s [employer] Metabolic Bone Disease, a World Health Organization (WHO) Collaborating Center. Electronically signed by: Jose Elias Gibson MD 10/18/2024 07:41 AM EST Dictated By: Jose Elias Gibson MD Signed By: <Electronically signed by Jose Elias Gibson MD in OV> 10/18/24 0741 DD/ 1250 TD/TT: 10/16/24 1311 [employer]: [facility] External Provider IM DXA PROCEDURES Edited Result - Final * [...] ?? LDL-C is now calculated using the Juani ?? calculation, which is a validated novel method providing ?? better accuracy than the Friedewald equation in the ?? estimation of LDL-C. ?? Alfred COLEMAN et al. JULI. 2013;310(19): 1754-2049 ?? (http://[employer]de[employer]ors/faq/KVV811) Non-HDL Cholesterol 120 <130 mg/dL (calc) [facility] Comment: For patients with diabetes plus 1 major ASCVD risk ?? factor, treating to a non-HDL-C goal of <100 mg/dL ?? (LDL-C of <70 mg/dL) is considered a therapeutic ?? option. Triglycerides 78 <150 mg/dL [facility] 11/16/2021 10:1 3 AM EST us Sonya Interiano MD LAB BLOOD ORDERABLES Final Resul t [facility] [address] from Last 3 Months or Most Recently Relevant to Health Maintenance Insurance [facility] [place] [address] Care Teams Paediatrician Relationship Specialty Start Date End Date Sonya Interiano MD [address] [place] [address] PCP - General Family Medicine 08/28/12 [employer] 09/17/24
--- OUTSIDE RECORDS SUMMARY | 2024-11-23 09:05 | XMS_ITS | Encounter Summary ---
Author Organization [employer] Address [address] [facility] 7t [place] [address] Care Team Providers Care Head Start Director Name Role Phone Sonya Interiano MD Primary Care Provider [phone] Reason for Visit * Reason Onset Date Comments call back 10/22/2022 Encounter Details Date Type Department Care Team ([facility] st Contact Info) Description 10/22/2022 Telephone [facility] MEDICINE [address] [place] [address] Sonya Interiano MD [address] [place] [address] call back Social History Tobacco Use Types [...] Description 12/04/2024 11:00 AM EDT Office Visit [facility]C MED & PEDS [address] [place] [address] Sonya Interiano MD [address] [place] [address] documented as of this encounter Visit Diagnoses Not on filedocumented in this encounter Care Teams Head Start Director Relationship Specialty Start Date End Date Sonya Interiaon MD [address] [place] [phone] PCP - General Family Medicine 08/28/12 [employer] 09/17/24 documented as of this encounter
--- OUTSIDE RECORDS SUMMARY | 2024-11-23 09:05 | XMS_ITS | Encounter Summary ---
Author Organization [employer] Address [address] [facility] [address] [place] [address] Care Team Providers Care Construction Supervisor/Carpenter Name Role Phone Sonya Interiano MD Primary Care Provider [phone] Encounter Details Date Type Department Care Team ([facility] Contact Info) Description 08/29/2024 Telephone [facility] MED & PEDS [address] [place], [place] [phone] Sonya Interiano MD [address] [place] [address] Social History Tobacco Use Types Packs/Day Years [...] Description 12/04/2024 11:00 AM EDT Office Visit [facility] MED & PEDS [address] [place] [address] Sonya Interiano MD [address] [place] [address] documented as of this encounter Visit Diagnoses Not on filedocumented in this encounter Additional Health Concerns Assessment Noted Time PHQ-9 Depression Total Score: 11 024 10:51 AM EST documented as of this encounter Care Teams Construction Supervisor/Carpenter Relationship Specialty Start Date End Date Sonya Interiano MD [address] [place] [address] PCP - General Family Medicine 08/28/12 [employer] 09/17/24 documented as of this encounter
--- NOTE | 2024-11-23 09:06 | A.OFFVIS_ITS ---
Vital Signs 11/23/24 09:13 Height 4 ft 11 in Weight 138 lb 14.259 oz BMI 28.0 BP 140/70 H Blood Pressure Location Lt brachial Position Sitting Pulse 70 Pulse Source Pulse Oximeter Pulse Oximetry (%) 99 Oxygen Delivery Method Room Air Intake Visit Reasons: osteoporosis/prolia inj Intake Note: Patient presents for Osteoporosis and Prolia injection. Supervisor Motor Vehicle Assembly Required: Yes Supervisor Motor Vehicle Assembly Language: Loader Helper Services: Supervisor Motor Vehicle Assembly Offered & Declined Supervisor Motor Vehicle Assembly Name: Kim Delarosa Information Interpreted: non-clinical & clinical Accompanied by: Sister Allergies sulfamethoxazole [From BACTRIM] Allergy (Intermediate, Verified 11/23/24 09:12) ITCHING trimethoprim [From BACTRIM] Allergy (Intermediate, Verified 11/23/24 09:12) ITCHING Penicillins [PENICILLINS] Allergy (Unknown, Verified 11/23/24 09:12) UNKNOWN-? 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 Interval History: Patient last seen 05/24/[address] Durán. At that time she was following up for her osteoporosis and osteoarthritis with her sister. Denied any fractures or falls. Today, Patient and sister had questions about the Prolia. There has been some concern because her blood pressure has been more uncontrolled recently and they had checked online and noticed that Prolia may be associated with increasing blood pressure. I discussed with them that Prolia is not known to cause an increase in blood pressure but can cause an increase in blood pressure especially when associated with steroid induced osteoporosis. It is unlikely that the Prolia is causing her worsening blood pressure at home. Denies any falls or fractures Rheumatologic History: Osteoporosis DEXA 05/2022 L spine T-score -4.1.? 1% increase from baseline Left femur neck T-score -3.6 Left femur total T-score -3.5 Prolia 10/2022 Current Rheumatology Medication(s): Prolia 60mg SC every 6 months Vitamin D 2000U TID PFSH Medical History Essential hypertension Surgical History H/O tubal ligation H/O: knee surgery Hx of colonoscopy Family History Father Throat cancer Mother No problems noted. Brother Diabetes Social History Household Members: None Household Members Other:: Lives alone Housing: Apartment Alcohol intake: former Patient Tobacco Use Status: Former Tobacco user Female Reproductive History Menstrual Age of Menarche: 12 Review of Systems Const Details: Review of Systems Constitutional: Denies fever, chills, weight loss ENT: Denies vision changes, eye pain or eye redness, dental caries, dry mouth GI: Denies nausea, vomiting, diarrhea, abdominal pain, change in BM Pulm: Denies SOB, SMITH, hemoptysis, wheezing Cards: Denies chest pain, palpitations Skin: Denies Raynaud's, rash, nail changes, photosensitivity, TOE TRIMMER: Denies headaches, weakness, paresthesias, recurrent falls MSK: as per HPI All other systems reviewed and are unremarkable except noted above Physical Exam Vital Signs: Last Vital Signs Pulse 70 11/23/24 09:13 BP 140/70 H 11/23/24 09:13 Pulse Ox 99 11/23/24 09:13 Oxygen Delivery Method Room Air 11/23/24 09:13 BMI result Body Mass Index 28.0 Vital signs reviewed Physical Examination CONSTITUITIONAL Patient alert and cooperative. Well appearing and in no apparent painful distress HEENT Conjunctiva and sclera clear. ?Pupils equal round and reactive to light. ?No lymphadenopathy. ? CHEST/RESPIRATORY SYSTEM Normal respiratory effort and able to speak in complete sentences. ?Clear to auscultation bilaterally. ?No crackles, rales, rhonchi, wheezes heard. CARDIAC SYSTEM Regular rate and rhythm. ?S1 and S2 heard no murmurs. ?Radial pulses intact bilaterally MSK Hands: ?Good intelligence group supervisor strength bilaterally. No deformities noted. ?No synovitis noted to the MCPs, PIPs or DIPs. ?No tenderness to palpation of these joints. Herbedens nodes Wrists: ?Full range of motion at the wrists without pain. ?No tenderness to palpation or synovitis noted to the wrists. Elbows: Full range of motion without pain. No tenderness, weakness, swelling, increased warmth or erythema. Shoulders: Full range of motion without pain. No tenderness, weakness, swelling, increased warmth or erythema. Knees: ?Full range of motion. ?No tenderness, swelling, increased warmth or erythema.?No effusion or crepitations. Bilateral surgical scars noted over the knees SKIN Skin intact without rashes. Results Reviewed Results Reviewed: Laboratory Tests 05/11/24 11/20/24 13:28 13:10 Sodium 142 Potassium 4.0 Chloride 109 H Carbon Dioxide 26 BUN 22 H Creatinine 0.78 Random Glucose 132 H Calcium 9.5 Total Bilirubin 0.5 AST 34 H ALT 16 Alkaline Phosphatase 52 25-OH Vitamin D Total 21 L Pending Assessment & Plan Assessment & Plan (1) Osteoporosis: Comment: DEXA 05/2022: AP spine -4.1, Left femur neck -3.6, Left femur total -3.5 DEXA 10/2024: AP spine -3.9, Left femur neck -3.3, Left femur total -3.3 Prolia 10/2022 Code(s): M81.0 - Age-related osteoporosis without current pathological fracture Category: Medical Qualifiers: Osteoporosis type: age-related Presence of current pathological fracture: without current pathological fracture Qualified Code(s): M81.0 - Age- related osteoporosis without current pathological fracture Plan: #Osteoporosis Patient is an 84-year-old female with osteoporosis here today for follow up. Repeat DEXA scan done 2024 shows improvement in her AP spine, and left femur neck as well as left femur total. Patient had a lot of questions about Prolia today including if it is causing her blood pressure to be more uncontrolled. I reassured her that given that her osteoporosis is not related to steroid is unlikely that the Prolia is the cause. I also discussed with her that once on Prolia you can not stop because there would be immediate regression of her bone. I did say that if we repeat the bone density in 2 years and there is continued improvement we can switch to oral medications for another 2 years and then stop after that. Sister and patient both understood. Plan - Prolia 60mg SC every 6 months, given today - Continue vitamin D - Encouraged weight bearing exercises - RTC 6 months - Labs before visit: CBC, CMP, ESR, CRP, vitamin-D (2) Polyarticular osteoarthritis: Code(s): M15.9 - Polyosteoarthritis, unspecified Plan: #Polyarticular OA Patient with polyarticular osteoarthritis with current complaints of her bilateral knees which are status post replacement and bilateral 1st CMC joints. Recommended topical [id number] Voltaren gel to be used 4 times a day (3) Encounter for monitoring denosumab therapy: Code(s): Z51.81 - Encounter for therapeutic drug level monitoring; Z79.620 - tank terminal gauger (current) use of immunosuppressive biologic Plan: #Long-term use of Denosumab Discussed with patient the risks and benefits of denosumab (Prolia) for the management of their osteoporosis Benefits include improved bone density, decreased fracture risk Risks include rapid bone loss if denosumab stopped, osteonecrosis of the jaw especially in patients with poor oral hygiene/diabetes/use of glucocor ticoids/age greater than 65 years, atypical femoral fractures, injection site reactions. Mild increased risk of infections due to RANKL on T helper cells, increased risk of hypocalcemia especially in CKD patients Keep vitamin-D at least 35 ng/mL Advised to delay non emergent dental procedures to toward the end of the 6 month cycle and if they plan to stop denosumab would need to continue antiresorptive to maintain the effects of denosumabe Plan I spent 30 minutes reviewing the record and labs, taking a history, examining the patient, discussing the treatment plan, ordering diagnostic work up, answering questions and documenting in the medical record Orders: Orders Comprehensive Met. Panel 6 Months E55.9 - Vitamin D deficiency, unspecified, M81.0 - Age-related osteoporosis without current pathological fracture Vitamin D 25-OH (D2 and D3) 6 Months E55.9 - Vitamin D deficiency, unspecified, M81.0 - Age-related osteoporosis without current pathological fracture Complete Blood Count Auto Diff 6 Months E55.9 - Vitamin D deficiency, unspecified, M81.0 - Age-related osteoporosis without current pathological fracture C Reactive Protein 6 Months E55.9 - Vitamin D deficiency, unspecified, M81.0 - Age-related osteoporosis without current pathological fracture Erythrocyte Sedimentation Rate 6 Months E55.9 - Vitamin D deficiency, unspecified, M81.0 - Age-related osteoporosis without current pathological fracture Coding Level of Care Code Est Pt Level 4 (34827) Diagnoses Age-related osteoporosis without current pathological fracture M81.0 Osteoporosis type: age-related Presence of current pathological fracture: without current pathological fracture Polyarticular osteoarthritis M15.9 Encounter for monitoring denosumab therapy Z51.81; Z79.709
[2024-11-23 09:13] VITALS: BP 140/70; PULSE 70; O2SAT 99; BMI 28.0
--- NOTE | 2024-11-23 10:51 | AM.OFFVISNUR ---
Vital Signs 11/23/24 09:13 Height 4 ft 11 in Weight 138 lb 14.259 oz BMI 28.0 BP 140/70 H Blood Pressure Location Lt brachial Position Sitting Pulse 70 Pulse Source Pulse Oximeter Pulse Oximetry (%) 99 Oxygen Delivery Method Room Air Intake Visit Reasons: osteoporosis/prolia inj Allergies sulfamethoxazole [From BACTRIM] Allergy (Intermediate, Verified 11/23/24 09:12) ITCHING trimethoprim [From BACTRIM] Allergy (Intermediate, Verified 11/23/24 09:12) ITCHING Penicillins [PENICILLINS] Allergy (Unknown, Verified 11/23/24 09:12) UNKNOWN-? CHILDHOOD ALLERGY Nursing Note Prolia (denosumab) 60 mg/mL subcutaneous injection Lot # [id number] Exp. 04/11/2027 [facility] [id number] [facility] Patient arrived accompanied by her daughter for Prolia 60 mg/mL subcutaneous injection. They have discussed the? pros and cons of the injection(s) with Dr. Arredondo.? The patient has not been experiencing fever or illness recently. Skin ? Injection site with no erythema, normal appearing skin Prolia 60 mg/mL injected to posterior left upper arm.The patient tolerated the procedure well.? We discussed follow-up? precautions including but not limited to injection site redness and? swelling, tongue or throat swelling, breathing problems and fever and what to do should she experience adverse reactions. The patient was held for post injection observation . No adverse reaction noted.??? Assessment & Plan Assessment & Plan (1) Osteoporosis: Comment: DEXA 05/2022: AP spine -4.1, Left femur neck -3.6, Left femur total -3.5 DEXA 10/2024: AP spine -3.9, Left femur neck -3.3, Left femur total -3.3 Prolia 10/2022 Code(s): M81.0 - Age-related osteoporosis without current pathological fracture Category: Medical Qualifiers: Osteoporosis type: age-related Presence of current pathological fracture: without current pathological fracture Qualified Code(s): M81.0 - Age-related osteoporosis without current pathological fracture Orders: Orders Comprehensive Met. Panel 6 Months E55.9 - Vitamin D deficiency, unspecified, M81.0 - Age-related osteoporosis without current pathological fracture Vitamin D 25-OH (D2 and D3) 6 Months E55.9 - Vitamin D deficiency, unspecified, M81.0 - Age-related osteoporosis without current pathological fracture Complete Blood Count Auto Diff 6 Months E55.9 - Vitamin D deficiency, unspecified, M81.0 - Age-related osteoporosis without current pathological fracture C Reactive Protein 6 Months E55.9 - Vitamin D deficiency, unspecified, M81.0 - Age-related osteoporosis without current pathological fracture Erythrocyte Sedimentation Rate 6 Months E55.9 - Vitamin D deficiency, unspecified, M81.0 - Age-related osteoporosis without current pathological fracture Coding Diagnoses Age-related osteoporosis without current pathological fracture M81.0 Osteoporosis type: age-related Presence of current pathological fracture: without current pathological fracture
== END 2024-11-23 10:00 | disposition home or self-care (01) ==
PROVIDERS: PCP Student in an Organized Health Care Education/Training Program; Visit Provider Student in an Organized Health Care Education/Training Program
DX: M81.0 Age-related osteoporosis without current pathological fracture (principal); M15.9 Polyosteoarthritis, unspecified; Z51.81 Encounter for therapeutic drug level monitoring; Z79.620 Long term (current) use of immunosuppressive biologic
CPT/HCPCS: 99214

== ENCOUNTER → 2024-11-23 08:47 | Outpatient (BNVA) | payer OTHER, SELFPAY | PROVIDERS: PCP Student in an Organized Health Care Education/Training Program; Visit Provider Student in an Organized Health Care Education/Training Program | DX: M81.0 Age-related osteoporosis without current pathological fracture (principal); Z51.81 Encounter for therapeutic drug level monitoring; M15.9 Polyosteoarthritis, unspecified; Z79.620 Long term (current) use of immunosuppressive biologic | CPT/HCPCS: 99212 ==

== ENCOUNTER 2025-01-16 15:44 | Outpatient (REF) | payer OTHER, SELFPAY ==
--- OUTSIDE RECORDS SUMMARY | 2025-01-16 16:26 | XMS_ITS | Encounter Summary ---
Author Organization [employer] Address [address] [facility] [address] [place] [address] Care Team Providers Care Setter Up Name Role Phone Sonya Interiano MD Primary Care Provider [phone] Encounter Details Date Type Department Care Team ([facility] Contact Info) Description 08/29/2024 Telephone [facility] CH[facility] MED & PEDS [address] [place], [place] [phone] Sonya Interiano MD [address] [place] [address] Social History Tobacco Use Types Packs/Day Years [...] Care Team (Late st Contact Info) Description 03/28/2025 11:15 AM EDT Telemedicine [facility] MED & PEDS [address] [place] [address] Sonya Interiano MD [address] [place] [address] documented as of this encounter Visit Diagnoses Not on filedocumented in this encounter Additional Health Concerns Assessment Noted Time PHQ-9 Depression Total Score: 11 024 10:51 AM EST documented as of this encounter Care Teams Setter Up Relationship Specialty Start Date End Date Sonya Interiano MD [address] [place] [address] PCP - General Family Medicine 08/28/12 [employer] 09/17/24 documented as of this encounter
--- OUTSIDE RECORDS SUMMARY | 2025-01-16 16:26 | XMS_ITS | Encounter Summary ---
Author Organization [employer] Address [address] [facility] [address] [place] [address] Care Team Providers Care Fishing Line Winding Machine Operator Name Role Phone Sonya Interiano MD Primary Care Provider [phone] Encounter Details Date Type Department Care Team (Latest Contact Info) Description 01/16/2025 Travel Social History Tobacco Use Types Packs/Day [...] Upcoming Encounters Date Type Department Care Team ([facility] st Contact Info) Description 03/28/2025 11:15 AM EDT Telemedicine [facility] [address] [place] [address] Sonya Interiano MD [address] [place] [address] documented as of this encounter Visit Diagnoses Not on filedocumented in this encounter Additional Health Concerns Assessment Noted Time PHQ-9 Depression Total Score: 11 024 10:51 AM EST documented as of this encounter Care Teams Fishing Line Winding Machine Operator Relationship Specialty Start Date End Date Sonya Interiano MD [address] [place] [id number] PCP - General Family Medicine 08/28/12 [place] 09/17/24 documented as of this encounter
--- OUTSIDE RECORDS SUMMARY | 2025-01-16 16:26 | XMS_ITS | Clinical Summary ---
Author Organization [facility] Address [address] [place] [address] Phone Care Team Providers Care Bus Steward Name Role Phone Physician, Pcp Unknown Primary Care Provider Amy vailable Allergies Active Allergy Reactions Criticality Noted Date Comments Penicillins Low 09/30/2023 Sulfamethoxazole Hives 06/06/2012 Other reaction(s): Rash, Rash Trimethoprim Hives 06/06/2012 Other reaction(s): Rash, Rash Medications levothyroxine (SYNTHROID, LEVOTHROID) 150 mcg tablet Take 1 tablet (150 mcg total) by mouth 1 (one) time each day before breakfast. 03/30/2024 Active losartan (COZAAR) 25 mg tablet Take 1 tablet (25 mg total) by mouth 1 (one) time each day. 06/05/2024 Active oxyCODONE (ROXICODONE) 5 mg immediate release tablet Take 0.5 tablets (2.5 mg total) by mouth every 6 (six) hours if needed for severe pain. Max Daily Amount: 10 mg 5 tablet 11/30/2024 Active docusate sodium (COLACE) 100 mg capsule Take 1 capsule (100 mg total) by mouth 2 (two) times a day. 14 each 11/30/2024 Active Active Problems No known active problems Resolved Problems Problem Noted Date Diagnosed Date Resolved Date Small bowel obstruction (CMS /HCC V24, CMS/HCC V28) 11/29/2024 11/30/2024 SBO (small bowel obstruction ) (CMS/HCC V24, CMS/HCC V28) 11/27/2024 11/30/2024 Inguinal hernia of left side without obstruction or gangrene 11/27/2024 11/30/2024 Encounters Date Type Department Care Team Description 12/10/2024 1:30 PM EDT Office Visit General Surgery - Man [address] [place] [phone] Rich Lyle MD History of robot-assisted repair of inguinal hernia (Primary Dx) 11/29/2024 2:11 PM EDT Anesthesia Event [facility] Main OR [address] [place] [phone] Tae Mendez MD 11/29/2024 1:45 PM EDT - 11/29/2024 3:45 PM EDT Surgery [facility] OR [address] [place] [phone] Rich Lyle MD REPAIR BILATERAL HERNIA INGUINAL LAPAROSCOPIC 11/27/2024 3:10 PM EDT - 11/30/2024 12:25 PM EDT Hospital Encounter [facility] Surgical Unit [address] [place] [phone] Lazaro Diallo MD White, Cullen D, DO Small bowel obstruction (CMS/HCC V24, CMS/HCC V28) (Primary Dx); Inguinal hernia of left side without obstruction or gangrene; SBO (small bowel obstruction) (CMS/HCC V24, CMS/HCC V28) Discharge Disposition: Home-Health Care Svc from Last 3 Months Family History Medical History Relation Name Comments Breast cancer Sister 40 Relation Name Status Comments Sister 40 Alive Social History Tobacco Use Types Packs/Day Years Used Date Smoking Tobacco: Former Cigarettes Q uit: 2001 Tobacco Cessation:Counseling Given: Not Answered Alcohol Use Standard Drinks/Week Comments Never 0 (1 standard drink = 0.6 oz pur e alcohol) Interpersonal Safety Answer Date Record ed Physical Abuse 11/28/2024 Verbal Abuse 11/28/2024 Comments Unknown Sex and Gender Information Value Date Recorded Sex Assigned at Female 11/27/2024 3:39 PM EDT Legal Sex Female 4:55 AM EST Gender Identity Female 11/27/2024 3:39 PM EDT Sexual Orientation Straight 11/27/2024 3: 39 PM EDT Obstetrics History Last Filed Vital Signs Vital Sign Reading Time Taken Comments Blood Pressure 129/79 12/10/2024 1:10 PM EDT Pulse 78 12/10/2024 1:10 PM EDT Temperature 37 ??C (98.6 ??F) 11/30/2024 7:39 AM EDT Respiratory Rate 16 11/30/2024 7:39 AM EDT Oxygen Saturation 98% 11/30/2024 7:39 AM EDT Inhaled Oxygen Concentration - - Weight 64 kg (141 lb) 12/10/2024 1:10 PM EDT Height 160 cm (5' 3 ) 12/10/2024 1:10 PM EDT Body Mass Index 24.98 12/10/2024 1:10 PM EDT Plan of Treatment Health Maintenance Due Date Last Done Comments Zoster Vaccines (1 of 2) 02/23/1990 RSV Immunization Adult Patients (1 - 1-dose 75+ series) 02/23/2015 Medicare Annual Wellness Visit 08/15/2022 Social Influencers of Health Screening 08/15/2022 COVID-19 Vaccine ( season) 2024 01/25/2023, 06/02/2021, 05/12/2021 Depression Screening 10/19/2024 10/19/2023 Falls Risk Assessment 11/30/2025 11/30/2024 Hypertension/CHF/CAD Annual BMP Blood Test 11/30/2025 11/30/2024, 11/29/2024, 11/28/2024, Additional history exists Cholesterol Screening (Lipid Panel) 11/16/2026 11/16/2021 DTaP,Tdap,and Td Vaccines (3 - Td or Tdap) 11/07/2027 11/07/2017, 08/23/2008 Osteoporosis Screening (Bone Density Screening) 10/16/2034 10/16/2024 Pneumococcal Vaccine: 50+ Years Completed 08/16/2018, 07/20/2017, [...] age to complete this topic Meningococcal B Vaccine Aged Out No l onger eligible based on patient's age to complete this topic RSV Immunization Patients Under 20 months Aged Out No longer eligible based on patient's age to complete this topic Varicella Vaccines Aged Out No longer eligible based on patient's age to complete this topic Medical Devices Implanted Type Area Assembly And Packing Supervisor Device Identifier Shelf Expiration Date Model / Serial / Lot Mesh 3dmax Lght Lg 4.1x6.2 L 4.1x6.2in - Sn/A - [id number] Implanted:Qty: 1 on 11/29/2024 by Rich Lyle MD at [facility] Surgical Mesh Sling Implants Left: Abdomen CR BARD - DAVOL DIV 06/09/2029 [id number] / N/A / [id number] Mesh 3dmax Lght Lg 4.1x6.2 R 4.1x6.2in - Sn/A - [id number] Implanted:Qty: 1 on 11/29/2024 by Rich Lyle MD at [facility] Surgical Mesh Sling Implants Right: Abdomen CR BARD - DAVOL DIV 04/08/2029 [id number] / N/A / [id number] Procedures Procedure Name Priority Date/Time Associated Diagnosis Comments CBC WITH AUTO DIFFERENTIAL Routine 11/30/2024 5:29 AM EDT MAGNESIUM Routine 11/30/2024 5:29 AM EDT BASIC METABOLIC PANEL Routine 11/30/2024 5:29 AM EDT CBC AND DIFFERENTIAL Routine 11/30/2024 5:29 AM EDT OXYGEN THERAPY, ADULT Routine 11/29/2024 4:45 PM EDT TH AN ENDOTRACHEAL(NO CHARGE) Routine 11/29/2024 3:03 PM EDT REPAIR HERNIA INGUINAL LAPAROSCOPIC 11/29/2024 2:12 PM EDT Inguinal hernia of left side without obstruction or gangrene Inguinal hernia of right side without obstruction or gangrene CBC WITH AUTO DIFFERENTIAL Routine 11/29/2024 6:01 AM EDT MAGNESIUM Routine 11/29/2024 6:01 AM EDT CBC AND DIFFERENTIAL Routine 11/29/2024 6:01 AM EDT BASIC METABOLIC PANEL Routine 11/29/2024 6:01 AM EDT TYPE AND SCREEN Routine 11/29/2024 6:01 AM EDT PROTHROMBIN TIME WITH INR Routine 11/29/2024 6:01 AM EDT XR ABDOMEN 2 VIEWS Routine 11/28/2024 9: 16 AM EDT CBC WITH AUTO DIFFERENTIAL Routine 11/28/2024 6:05 AM EDT MAGNESIUM Routine 11/28/2024 6:05 AM EDT CBC AND DIFFERENTIAL Routine 11/28/2024 6:05 AM EDT BASIC METABOLIC PANEL Routine 11/28/2024 6:[address] ABDOMEN PELVIS W CONTRAST STAT 11/27/2024 5:46 PM EDT LACTATE STAT 11/27/2024 4:36 PM EDT NORMAN URINE CULTURE TUBE STAT 11/27/2024 3:58 PM EDT URINALYSIS WITH REFLEX MICROSCOPIC AND CULTURE STAT 11/27/2024 3:58 PM EDT URINALYSIS WITH REFLEX MICROSCOPIC AND CULTURE STAT 11/27/2024 3:58 PM EDT ECG 12-LEAD STAT 11/27/2024 3:33 PM EDT HEPATIC FUNCTION PANEL STAT Add-on 11/27/2024 3:21 PM EDT CBC WITH AUTO DIFFERENTIAL STAT 11/27/2024 3:21 PM EDT MAGNESIUM STAT 11/27/2024 3:21 PM EDT BASIC METABOLIC PANEL STAT 11/27/2024 3:21 PM EDT CBC AND DIFFERENTIAL STAT 11/27/2024 3:21 PM EDT from Last 3 Months Results * (ABNORMAL) CBC auto differential (11/30/2024 5:29 AM EDT) Only the most recent of4 resultswithin the time period is included. WBC 10.1 4.8 - 10.8 K/mcL LAB HEMETOLOGY METHOD 11/30/2024 6:27 AM EDT [facility] RBC 4.00 3.80 - 4.80 M/mcL LAB HEMETOLOGY METHOD 11/30/2024 6:27 AM EDT [facility] Hemoglobin 12.0 11.5 - 16.0 g/dL LAB HEMETOLOGY METHOD 11/30/2024 6:27 AM EDT [facility] Hematocrit 36.7 35.0 - 47.0 % LAB HEMETOLOGY METHOD 11/30/2024 6:27 AM EDT [facility] MCV 92.9 79.0 - 98.0 FL LAB [facility] MCH 30.4 27.0 - 32.0 pcg LAB HEMETOLOGY METHOD 11/30/2024 6:27 AM EDT [facility] MCHC 32.7 32.0 - 37.0 g/dL LAB HEMETOLOGY METHOD 11/30/2024 6:[address] [facility] RDW 12.8 11.0 - 15.0 % LAB HEMETOLOGY METHOD 11/30/2024 6:[address] [facility] Platelets 246 130 - 400 K/mcL LAB HEMETOLOGY METHOD 11/30/2024 6:[address] [facility] MPV 10.4 7.0 - 11.0 FL LAB HEMETOLOGY METHOD 11/30/2024 6:[address] [facility] NRBC 0.0 <1.0 % LAB HEMETOLOGY METHOD 11/30/2024 6:[address] [facility] NRBC Absolute 0.00 <0.10 K/mcL LAB HEMETOLOGY METHOD 11/30/2024 6:[address] [facility] Neutrophils Relative 83.6 % LAB HEMETOLOGY METHOD 11/30/2024 6:[address] [facility] Lymphocytes Relative 9.5 % LAB HEMETOLOGY METHOD 11/30/2024 6:[address] [facility] Monocytes Relative 6.3 % LAB HEMETOLOGY METHOD 11/30/2024 6:[address] [facility] Eosinophils Relative 0.0 % LAB HEMETOLOGY METHOD 11/30/2024 6:[address] [facility] Basophils Relative 0.1 % LAB HEMETOLOGY METHOD 11/30/2024 6:[address] [facility] Immature Granulocytes Relative 0.5 % LAB HEMETOLOGY METHOD 11/30/2024 6:[address] [facility] Neutrophils Absolute 8.43(H) 1.50 - 7.00 K/mcL LAB HEMETOLOGY METHOD 11/30/2024 6:[address] [facility] Lymphocytes Absolute 0.96(L) 1.00 - 5.00 K/mcL LAB HEMETOLOGY METHOD 11/30/2024 6:27 AM EDT [facility] Monocytes Absolute 0.64 0.20 - 1.00 K/mcL LAB HEMETOLOGY METHOD 11/30/2024 6:27 AM EDT [facility] Eosinophils Absolute 0.00 0.00 - 0.50 K/mcL LAB HEMETOLOGY METHOD 11/30/2024 6:27 AM EDT [facility] Basophils Absolute 0.01 0.00 - 0.20 K/mcL LAB HEMETOLOGY METHOD 11/30/2024 6:27 AM EDT [facility] Immature Granulocytes Absolute 0.05(H) 0.00 - 0.03 K/mcL LAB HEMETOLOGY METHOD 11/30/2024 6:27 AM EDT [facility] Blood Venous blood specimen / Unknown Venipuncture / Unknown 11/30/2024 5:29 AM EDT 11/30/2024 6:18 AM EDT us Alisha PATE LAB BLOOD ORDERABLES Final Res ult Performing Organization Address City/[facility] Co de Phone Number [facility] [address] [place] [address], [place] [phone] * Magnesium (11/30/2024 5:29 AM EDT) Only the most recent of4 resultswithin the time period is included. Magnesium 2.3 1.9 - 2.6 mg/dL LAB CHEMISTRY METHOD 11/30/2024 7:14 AM EDT [facility] Blood Venous blood specimen / Unknown Venipuncture / Unknown 11/30/2024 5:29 AM EDT 11/30/2024 6:18 AM EDT us Alisha PATE LAB BLOOD ORDERABLES Final Res ult [facility] [address] [place] [address], [place] [phone] * (ABNORMAL) Basic metabolic panel (11/30/2024 5:29 AM EDT) Only the most recent of4 resultswithin the time period is included. Sodium 136 133 - 145 mmol/L LAB CHEMISTRY METHOD 11/30/2024 7:[address] [facility] Potassium 4.4 3.5 - 5.5 mmol/L LAB CHEMISTRY METHOD 11/30/2024 7:[address] [facility] Chloride 105 96 - 110 mmol/L LAB CHEMISTRY METHOD 11/30/2024 7:[address] [facility] CO2 25 21 - 32 mmol/L LAB CHEMISTRY METHOD 11/30/2024 7:[address] [facility] Anion Gap 6 3 - 11 LAB CHEMISTRY METHOD 11/30/2024 7:[address] [facility] Glucose 175(H) 70 - 100 mg/dL LAB CHEMISTRY METHOD 11/30/2024 7:[address] [facility] BUN 21 5 - 25 mg/dL LAB CHEMISTRY METHOD 11/30/2024 7:[address] [facility] Creatinine 0.79 0.50 - 1.10 mg/dL LAB CHEMISTRY METHOD 11/30/2024 7:[address] [facility] eGFR 74 >=60 mL/min/1. 73m2 LAB CHEMISTRY METHOD 11/30/2024 7:[address] [facility] Comment:Calculation based on the??Chronic Kidney Disease Epidemiology Collaboration (CKD-EPI) equation refit??without adjustment for race. BUN/Creatinine Ratio 26.6 LAB CHEMISTRY METHOD 11/30/2024 7:[address] [facility] Calcium 8.3(L) 8.5 - 10.5 mg/dL LAB CHEMISTRY METHOD 11/30/2024 7:14 AM EDT [facility] Blood Venous blood specimen / Unknown Venipuncture / Unknown 11/30/2024 5:29 AM EDT 11/30/2024 6:18 AM EDT Alisha PATE LAB BLOOD ORDERABLES Final Res ult [facility] [address] [place] [address], [place] [phone] * TH AN ENDOTRACHEAL(NO CHARGE) (11/29/2024 3:03 PM EDT) Narrative Ricardo Hickey CRNA - 11/29/2024 3:03 PM EDT Ricardo Hickey CRNA ? 11/29/2024 ??3:03 PM General Information and Staff Patient location during procedure: OR Resident/PROTECTIVE SERVICES SOCIAL WORKER: Ricardo Hickey CRNA Performed: resident/PROTECTIVE SERVICES SOCIAL WORKER/CAA Performed by: Ricardo Hickey CRNA Authorized by: Tae Mendez MD ?? Intubation Airway not difficult Urgency: elective Final Airway Details Successful airway: ETT Cuffed: yes Successful intubation technique: direct laryngoscopy Facilitating devices/methods: intubating stylet Endotracheal tube insertion site: oral Blade: Nader Blade size: #3 ETT size (mm): 7.5 Cormack-Lehane Classification: grade I - full view of glottis Placement verified by: chest auscultation and capnometry Measured from: gums ETT to gums (cm): 20 Number of attempts at approach: 1Final airway type: endotracheal airway Indications and Patient Condition Indications for airway management: anesthesia Spontaneous ventilation: present Sedation level: Yes Preoxygenated: yes Soft Tissue Damage: No Dentition Unchanged: Yes Patient position: sniffing MILS maintained throughout Mask difficulty assessment: 2 - vent by mask + OA or adjuvant +/- NMBA us Tae Mendez MD ANESTHESIA ORDERABLES Final R esult * Prothrombin time with INR (11/29/2024 6:01 AM EDT) Protime 12.1 10.6 - 13.9 sec LAB COAGULATION METHOD 11/29/2024 6:30 AM EDT [facility] INR 1.0 LAB COAGULATION METHOD 11/29/2024 6:30 AM EDT [facility] Blood Venous blood specimen / Unknown Venipuncture / Unknown 11/29/2024 6:01 AM EDT 11/29/2024 6:21 AM EDT Alisha PATE LAB BLOOD ORDERABLES Final Re sult Performing Organization Address [facility]/ZIP Co de Phone Number [facility] [address] [place] [address], [place] [phone] * Type and screen (11/29/2024 6:01 AM EDT) ABO Group O 11/29/2024 9:14 AM EDT [facility] Rh Type Positive 11/29/2024 9:14 AM EDT [facility] Antibody Screen Negative 11/29/2024 9:14 AM EDT [facility] Blood Venous blood specimen / Unknown Venipuncture / Unknown 11/29/2024 6:01 AM EDT 11/29/2024 6:21 AM EDT Alisha PATE LAB BLOOD BANK TEST ORDERABLE S Final Result Performing Organization Address [facility]/ZIP Co de Phone Number [facility] [address] [place] [address], [place] [phone] * XR Abdomen 2 Views (11/28/2024 9:16 AM EDT) Anatomical Region Laterality Modality Body Radiographic Marisol ging 11/28/2024 9:31 AM EDT Impressions 11/28/2024 9:37 AM EDT Decreased number and caliber of dilated small bowel loops since 11/27/2024, consistent with resolving small bowel obstruction. Code 97063 -------- FINAL REPORT -------- Dictated By: Faheem Whyte Dictated Date: 11/28/2024 09:31 ET Assigned Physician: Faheem Whyte Reviewed and Electronically Signed By: Faheem Whyte Signed Date: 11/28/2024 09:37 ET Workstation ID: [id number] Transcribed By: Self Edit Transcribed Date: 11/28/2024 09:31 ET Narrative 11/28/2024 9:37 AM EDT HISTORY: The patient is an 84-year-old female. CT scan of the abdomen and pelvis performed 11/27/2024 demonstrated small bowel obstruction consequent to a left inguinal hernia. The patient now presents for follow-up. FINDINGS: Supine and erect radiographs of the abdomen demonstrate degenerative changes and levoscoliosis of the lumbar spine as also seen on the CT scan of the abdomen and pelvis performed 11/27/2024. Excreted intravenous contrast material in the kidneys and urinary bladder, consequent to the CT scan, is noted. Dilated small bowel loops seen on the CT scan have decreased in caliber and number. Stool is present to the level of the sigmoid colon and gas is seen to the level of the rectum. No mass or radiopaque calculus is seen. Procedure Note Faheem Whyte MD - 11/28/2024 HISTORY: The patient is an 84-year-old female. CT scan of the abdomen andpelvis performed 11/27/2024 demonstrated small bowel obstruction consequentto a left inguinal hernia. The patient now presents for follow-up. FINDINGS: Supine and erect radiographs of the abdomen demonstratedegenerative changes and levoscoliosis of the lumbar spine as also seen onthe CT scan of the abdomen and pelvis performed 11/27/2024. Excretedintravenous contrast material in the kidneys and urinary bladder,consequent to the CT scan, is noted. Dilated small bowel loops seen on theCT scan have decreased in caliber and number. Stool is present to thelevel of the sigmoid colon and gas is seen to the level of the rectum. Nomass or radiopaque calculus is seen. IMPRESSION: Decreased number and caliber of dilated small bowel loops since 11/27/2024,consistent with resolving small bowel obstruction. Code 49088 -------- FINAL REPORT -------- Dictated By: Faheem Whyte Dictated Date: 11/28/2024 09:31 ET Assigned Physician: Faheem Whyte Reviewed and Electronically Signed By: Faheem Whyte Signed Date: 11/28/2024 09:37 ET Workstation ID: [id number] Transcribed By: Self Edit Transcribed Date: 11/28/2024 09:31 ET Alisha PATE IMG XR PROCEDURES Final Resul t * CT Abdomen Pelvis w Contrast (11/27/2024 5:46 PM EDT) Anatomical Region Laterality Modality Body Computed Tomogra phy 11/27/2024 6:28 PM EDT Addenda Addendum by Hero Mari MD on 11/27/2024 6:32 PM EDT ADDENDUM: This report was discussed with Dr. Muniz on Nov 27, 2024 18:32:00 EDT. This document has been electronically signed by: Zoie Fernandez on 11/27/2024 18:32:29 Impressions 11/27/2024 6:28 PM EDT 1. Developing small bowel obstruction with transition point in left inguinal hernia. 2. Dilated common bile duct measuring 1.2 cm, status post cholecystectomy. This could be reservoir effect from cholecystectomy. Correlate with LFTs and consider nonemergent MRCP for further evaluation. 3. Age indeterminate nondisplaced fractures of the right anterior 4th and 5th ribs. 4. Few tree-in-bud opacities in the right middle lobe, likely inflammatory. This document has been electronically signed by: Hero Mari MD on 11/27/2024 18:28:16 Narrative 11/27/2024 6:28 PM EDT INDICATION: Abdominal pain, acute, nonlocalized CT abdomen and pelvis with contrast Comparison: None Findings: Few tree-in-bud opacities in the right middle lobe. Small hiatal hernia. Hepatic steatosis. Gallbladder is absent. Dilated CBD measuring 1.2 cm. No radiopaque stones seen. Atrophic pancreas. Adrenal glands are within normal limits. No hydronephrosis. Symmetric contrast enhancement of the kidneys. Bilateral cortical and parapelvic cysts. Colonic diverticulosis without acute inflammation. Developing small-bowel obstruction with transition point in the left inguinal hernia. There are upstream fluid-filled loops of small bowel which are within normal limits of caliber however there is abrupt change in caliber within the inguinal hernia with underdistended loops distally. No pneumatosis or pneumoperitoneum. Aortic atherosclerosis. No aneurysm. Pelvic contents otherwise unremarkable. Normal appendix. Osteopenia. Degenerative changes of the spine. Age indeterminate nondisplaced fractures of the right anterior 4th and 5th ribs. Procedure Note Hero Mari MD - 11/27/2024 INDICATION: Abdominal pain, acute, nonlocalized CT abdomen and pelvis with contrast Comparison: None Findings: Few tree-in-bud opacities in the right middle lobe. Small hiatal hernia. Hepatic steatosis. Gallbladder is absent. Dilated CBD measuring 1.2 cm. No radiopaquestones seen. Atrophic pancreas. Adrenal glands are within normal limits. No hydronephrosis. Symmetric contrast enhancement of the kidneys. Bilateral cortical and parapelvic cysts. Colonic diverticulosis without acute inflammation. Developing small-bowel obstruction with transition point in the left inguinal hernia. There are upstream fluid-filled loops of small bowel which are within normal limits of caliber however there is abrupt change in caliber within the inguinal hernia with underdistended loopsdistally. No pneumatosis or pneumoperitoneum. Aortic atherosclerosis. No aneurysm. Pelvic contents otherwise unremarkable. Normal appendix. Osteopenia. Degenerative changes of the spine. Age indeterminate nondisplaced fractures of the right anterior 4th and5th ribs. IMPRESSION: 1. Developing small bowel obstruction with transition point in left inguinal hernia. 2. Dilated common bile duct measuring 1.2 cm, status postcholecystectomy. This could be reservoir effect from cholecystectomy. Correlate with LFTs and consider nonemergent MRCP for further evaluation. 3. Age indeterminate nondisplaced fractures of the right anterior 4thand 5th ribs. 4. Few tree-in-bud opacities in the right middle lobe, likelyinflammatory. This document has been electronically signed by: Hero Mari MD on 11/27/2024 18:28:16 Lazaro B Yoel SHANKAR IMG CT PROCEDURES Edited Result - Final * Lactate (11/27/2024 4:36 PM EDT) Pathologist [facility] Lactate 1.5 0.4 - 2.0 mmol/L LAB CHEMISTRY METHOD 11/27/2024 5:13 PM EDT [facility] Blood Venous blood specimen / Unknown Venipuncture / Unknown 11/27/2024 4:36 PM EDT 11/27/2024 4:44 PM EDT Lazaro Roberto Diallo MD LAB BLOOD ORDERABLES Final Resu lt [facility] [address] [place] [address], * (ABNORMAL) Urinalysis with reflex microscopic and culture (11/27/2024 3:58 PM EDT) [facility] [place] Urine 1.016 1.003 - 1.030 LAB URINALYSIS - AUTOMATED METHOD 11/27/2024 4:[address] [facility] pH, Urine 7.5 5.0 - 8.0 pH LAB URINALYSIS - AUTOMATED METHOD 11/27/2024 4:[address] [facility] Leukocytes, Urine Negative Negative LAB URINALYSIS - AUTOMATED METHOD 11/27/2024 4:[address] [facility] Nitrite, Urine Negative Negative LAB URINALYSIS - AUTOMATED METHOD 11/27/2024 4:[address] [facility] Protein, Urine Trace <=Trace mg/dL LAB URINALYSIS - AUTOMATED METHOD 11/27/2024 4:[address] [facility] Glucose, Urine 100(A) Negative mg/dL LAB URINALYSIS - AUTOMATED METHOD 11/27/2024 4:[address] [facility] Ketones, Urine 15(A) Negative mg/dL LAB URINALYSIS - AUTOMATED METHOD 11/27/2024 4:[address] [facility] Urobilinogen, Urine 0.2 0.2 - 1.0 mg/dL LAB URINALYSIS - AUTOMATED METHOD 11/27/2024 4:31 PM EDT [facility] Bilirubin, Urine Negative Negative LAB URINALYSIS - AUTOMATED METHOD 11/27/2024 4:31 PM EDT [facility] Blood, Urine Trace(A) Negative LAB URINALYSIS - AUTOMATED METHOD 11/27/2024 4:31 PM EDT [facility] RBC, Urine 9.5(H) 0 - 4 /HPF LAB URINALYSIS - AUTOMATED METHOD 11/27/2024 4:31 PM EDT [facility] WBC, Urine 0.8 0 - 4 /HPF LAB URINALYSIS - AUTOMATED METHOD 11/27/2024 4:[address] [facility] Squamous Epithelial, Urine 10 0 - 60 /LPF LAB URINALYSIS - AUTOMATED METHOD 11/27/2024 4:31 PM EDT [facility] Bacteria, Urine Negative Negative /HPF LAB URINALYSIS - AUTOMATED METHOD 11/27/2024 4:[address] [facility] Hyaline Casts, Urine 0.0 0 - 3 /LPF LAB URINALYSIS - AUTOMATED METHOD 11/27/2024 4:[address] [facility] Urine Urine specimen obtained by clean catch procedure / Unknown Non-blood Collection / Unknown 11/27/2024 3:58 PM EDT 11/27/2024 4:20 PM EDT us Lazaro B Yoel SHANKAR LAB URINE ORDERABLES Final Resu lt [facility] [address] [place] [address], * [place] urine culture tube (11/27/2024 3:58 PM EDT) Extra Tube Hold for add-ons. 11/27/2024 6:02 PM EDT [facility] Comment:Auto resulted. Urine Urine specimen obtained by clean catch procedure / Unknown Non-blood Collection / Unknown 11/27/2024 3:58 PM EDT 11/27/2024 4:20 PM EDT [facility] Roberto Diallo MD LAB URINE ORDERABLES Final Resu lt Performing Organization Address [facility] Co de Phone Number [facility] [address] [place] [address], [place] [phone] * ECG 12 lead (11/27/2024 3:33 PM EDT) Ventricular Rate ECG 78 BPM GEMUSE Atrial Rate 78 BPM GEMUSE P-R Interval 176 ms GEMUSE QRS Duration 82 ms GEMUSE Q-T Interval 384 ms GEMUSE QTc 437 ms GEMUSE P Wave [place] 56 degrees GEMUSE R [place] 34 degrees GEMUSE T [place] 49 degrees GEMUSE ECG Interpretation Normal sinus rhythm Normal ECG When compared with ECG of 07-APR-2024 12:52, QT has lengthened Confirmed by KRISTEN MONTES ([id number]) on 11/29/2024 9:37:53 AM GEMUSE 11/27/2024 3:33 PM EDT 11/29/2024 9:37 AM EDT Lazaro Roberto Diallo MD ECG ORDERABLES Final Result Performing Organization Address [facility] de Phone Number GEMUSE * Hepatic function panel (11/27/2024 3:21 PM EDT) Total Protein 7.7 6.0 - 8.0 g/dL LAB CHEMISTRY METHOD 11/27/2024 4:35 PM EDT [facility] Albumin 3.9 3.2 - 5.0 g/dL LAB CHEMISTRY METHOD 11/27/2024 4:35 PM EDT [facility] Total Bilirubin 0.5 0.0 - 1.4 mg/dL LAB CHEMISTRY METHOD 11/27/2024 4:35 PM EDT [facility] Bilirubin, Direct 0.2 0.0 - 0.3 mg/dL LAB CHEMISTRY METHOD 11/27/2024 4:35 PM EDT [facility] Bilirubin, Indirect 0.3 0.0 - 1.1 mg/dL LAB CHEMISTRY METHOD 11/27/2024 4:35 PM EDT [facility] ALT (SGPT) 21 10 - 60 unit/L LAB CHEMISTRY METHOD 11/27/2024 4:35 PM EDT [facility] AST (SGOT) 27 10 - 42 unit/L LAB CHEMISTRY METHOD 11/27/2024 4:35 PM EDT [facility] Alkaline Phosphatase 65 42 - 121 unit/L LAB CHEMISTRY METHOD 11/27/2024 4:35 PM EDT [facility] Blood Venous blood specimen / Unknown Venipuncture / Unknown 11/27/2024 3:21 PM EDT 11/27/2024 3:39 PM EDT Lazaro B Yoel SHANKAR LAB BLOOD ORDERABLES Final Resu lt [facility]) [facility] [address] [place] [address], [place] [phone] from Last 3 Months Insurance [facility] [employer] Member Subscriber Plan / Payer (Ef fective 2021-Present) Name:Neha Bowman Relation to Subscriber:Self Name:Neha Bowman Payer ID:[id number] Group ID:Not on file Type:Not on file Address: [place] [address] [address] [id number] Advance Directives Documents on File Type Date Recorded Patient Medical Record Technician Expl anation Advance Directives and Living Will 11/28/2024 11:10 AM Kim AmberMaximmariola Merged With [facility] Care Pr oxy Healthcare Agents on File Name Relationship Healthcare Agent Relationshi p Communication Kenneth Byrd First Alternate Health Care Agent Kim Arango Second Alternate Health Car e Agent Care Teams Bus Steward Relationship Specialty Start Date End Date Physician, Pcp Unknown PCP - General 11/27/24
--- OUTSIDE RECORDS SUMMARY | 2025-01-16 16:26 | XMS_ITS | Encounter Summary ---
Author Organization [employer] Address [address] [place] [address] Care Team Providers Care Brick Catcher Name Role Phone Sonya Interiano MD Primary Care Provider [phone] Reason for Visit * Reason Onset Date Comments Nurse Triage 01/15/2025 Encounter Details Date Type Department Care Team ([facility] st Contact Info) Description 01/15/2025 Telephone [facility] [address] [place] [address] Sonya Interiano MD [address] [place], [place] [phone] Nurse Triage Social History Tobacco Use Types [...] Telephone Encounter - Sanam Wagner RN - 01/15/2025 9:10 AM EDT Called pt. Via [employer] manufacturing machine operator [employer]. Pt. States that she has been having itchiness in vaginal area. No drainage. Pt. Has increased urination and frequency. No abdominal pain with urination.No fever. No visible blood in urine. Pt. Unable to come into office today but can come in tomorrow.Advised to increase water intake. Protocol Used: Vaginal Symptoms (Adult) Protocol-Based Disposition: See in Office or Video Visit Today or Tomorrow- appt. Made for [facility] for 01/16/25 at 11am. Positive Triage Questions: * Moderate-Severe itching (i.e., interferes with school, work, or sleep) * Symptoms of a yeast infection (i.e., itchy, white discharge, not bad smelling) and not improved > 3 days following Care Advice * All higher-acuity triage questions were negative Care Advice Discussed: * Antifungal Medicine for Yeast Infection * Telephone Encounter - Jerica Rojas - 01/15/2025 8:24 AM EDT Symptom: Vulvar Symptoms (itching) Outcome: Schedule an appointment to be seen within 24 hours Reason: Caller denied all higher acuity questions The caller accepted this outcome. [phone] documented in this encounter Plan of Treatment Upcoming Encounters Date Type Department Care Team (Late st Contact Info) Description 03/28/2025 11:15 AM EDT Telemedicine [facility] MED & PEDS [address] [place] [address] Sonya Interiano MD [address] [place] [address] documented as of this encounter Visit Diagnoses Not on filedocumented in this encounter Additional Health Concerns Assessment Noted Time PHQ-9 Depression Total Score: 11 024 10:51 AM EST documented as of this encounter Care Teams Brick Catcher Relationship Specialty Start Date End Date Sonya Interiano MD [address] [place] [id number] PCP - General Family Medicine 08/28/12 [employer] 09/17/24 documented as of this encounter
--- OUTSIDE RECORDS SUMMARY | 2025-01-16 16:26 | XMS_ITS | Encounter Summary ---
Author Organization [employer] Address [address] [place] [address] Care Team Providers Care Remote Sensing Surveyor Name Role Phone Sonya Interiano MD Primary Care Provider [phone] Reason for Visit * Reason Onset Date Comments Nurse Triage 09/19/2024 Encounter Details Date Type Department Care Team ([facility] st Contact Info) Description 09/19/2024 Telephone [facility] MEDICINE [address] [place] [address] Sonya Interiano MD [address] [place], [place] [phone] Nurse Triage Social History Tobacco Use Types [...] note to PCP to review and advise [facility] Primary Care team nurse of plan of [...] Info) Description 03/28/2025 11:15 AM EDT Telemedicine [facility] MED & PEDS [address] [place] [address] Sonya Interiano MD [address] [place] [address] documented as of this encounter Visit Diagnoses Not on filedocumented in this encounter Additional Health Concerns Assessment Noted Time PHQ-9 Depression Total Score: 11 024 10:51 AM EST documented as of this encounter Care Teams Remote Sensing Surveyor Relationship Specialty Start Date End Date Soyna Interiano MD [address] [place] [address] PCP - General Family Medicine 08/28/12 [place] 09/17/24 documented as of this encounter
--- OUTSIDE RECORDS SUMMARY | 2025-01-16 16:26 | XMS_ITS | Encounter Summary ---
Author Organization [employer] Address [address] [place] [address] Care Team Providers Care Music Historian Name Role Phone Sonya Interiano MD Primary Care Provider [phone] Encounter Details Date Type Department Care Team ([facility] Contact Info) Description 11/16/2024 Telephone [facility] [address] [place], [place] [phone] Sonya Interiano MD [address] [place] [address] Social History Tobacco Use Types Packs/Day Years [...] - 11/16/2024 1:14 PM EST [facility] calling to inform provider pt has been discharged VNA services as of 11/14/24. Maggie also stated pt is monitoring BP and will be reporting readings. If any questions contact [phone] documented in this encounter Plan of Treatment Upcoming Encounters Date Type Department Care Team (Late st Contact Info) Description 03/28/2025 11:15 AM EDT Telemedicine [facility] & [facility] [address] [place] [address] Sonya Interiano MD [address] [place] [address] documented as of this encounter Visit Diagnoses Not on filedocumented in this encounter Additional Health Concerns Assessment Noted Time PHQ-9 Depression Total Score: 11 024 10:51 AM EST documented as of this encounter Care Teams Music Historian Relationship Specialty Start Date End Date Sonya Interiano MD [address] [place] [id number] PCP - General Family Medicine 08/28/12 [employer] 09/17/24 documented as of this encounter
--- OUTSIDE RECORDS SUMMARY | 2025-01-16 16:26 | XMS_ITS | Encounter Summary ---
Author Organization [employer] Address [address] [place] [address] Care Team Providers Care Geoint Analyst Name Role Phone Sonya Interiano MD Primary Care Provider [phone] Reason for Visit * Reason Comments Vaginal Itching Encounter Details Date Type Department Care Team ([facility] Contact Info) Description 01/16/2025 11:00 AM EDT Office Visit [facility] [address] [place] [address] Sonya Interiano MD [address] [place] [address] Lichen sclerosus of female genitalia; Urinary tract infection without hematuria, site unspecified; Vaginal itching Social History Tobacco Use Types Packs/Day Years [...] Sign Reading Time Taken Comments Blood Pressure 136/70 01/16/2025 10:48 AM EDT Pulse 60 01/16/2025 10:48 AM EDT Temperature 36.7 ??C (98.1 ??F) 01/16/2025 10:48 AM E DT Respiratory Rate 18 01/16/2025 10:48 AM EDT Oxygen Saturation - - Inhaled Oxygen Concentration - - Weight - - Height - - Body Mass Index - - documented in this encounter Progress Notes * Sonya Interiano MD - 01/16/2025 11:00 AM EDT Subjective Patient ID: Neha Bowman is a 84 y.o. female who presents for Vaginal Itching. Vaginal Itching The patient's primary symptoms include genital itching. This is a chronic problem. The current episode started more than 1 year ago. The problem occurs intermittently. The problem has been unchanged.The pain is moderate. She is not . Pertinent negatives include no headaches. Review of Systems Constitutional: Negative. Respiratory: Negative. Negative for shortness of breath. Cardiovascular: Negative for chest pain and palpitations. Gastrointestinal: Negative. Genitourinary: Negative. Musculoskeletal: Negative for neck pain. Neurological: Negative for headaches. Objective Physical Exam Constitutional: Appearance: Normal appearance. Cardiovascular: Rate and Rhythm: Normal rate and regular rhythm. Pulses: Normal pulses. Heart sounds: Normal heart sounds. Pulmonary: Effort: Pulmonary effort is normal. Neurological: Mental Status: She is alert. Assessment/Plan Diagnoses and all orders for this visit: Lichen sclerosus of female genitalia Comments: Advised Clobetosol daily Cont Premarin Urinary tract infection without hematuria, site unspecified Comments: Started On Macrobid for 5days Advised plenty of fluids Educated about hygiene Orders: - POCT Urinalysis Vaginal itching - Bacterial Vaginosis Panel Other orders - nitrofurantoin, macrocrystal-monohydrate, (Macrobid) 100 MG capsule; Take 1 capsule (100 mg) by mouth 2 times daily for 5 days. documented in this encounter Plan of Treatment Upcoming Encounters Date Type Department Care Team (Late st Contact Info) Description 03/28/2025 11:15 AM EDT Telemedicine [facility] MED [facility] PEDS [address] [place] [address] Sonya Interiano MD [address] [place] [address] Scheduled Orders Name Type Priority Associated Diagnoses Orde r Schedule Bacterial Vaginosis Panel Microbiology Routine Vaginal itching Ordered: 01/16/2025 documented as of this encounter Procedures Procedure Name Priority Date/Time Associated Diagnosis Comments POCT URINALYSIS DIPSTICK Routine 01/16/2025 10:49 AM EDT Urinary tract infection without hematuria, site unspecified documented in this encounter Results * (ABNORMAL) POCT Urinalysis (01/16/2025 10:49 AM EDT) Color, UA Yellow Clarity, UA Cloudy Glucose, UA Negative Bilirubin, UA Negative Ketones, UA Negative Spec Grav, UA 1.025 Blood, UA Positive(A) Negative, None Detected Comment:trace-lysed pH, UA 7.0 Protein, UA Negative Urobilinogen, UA 0.2 Leukocytes, UA Moderate(A) Negative, Rare, Trace Nitrite, UA Negative Negative, None Detected Appearance, UA cloudy QC Media Lot # [id number] Lot# Expiration Date [id number] Urine 01/16/2025 10:4 9 AM EDT Sonya Interiano MD POINT OF CARE TEST ENTER/EDIT OR DERABLES Final Result documented in this encounter Visit Diagnoses Diagnosis Lichen sclerosus of female genitalia Urinary tract infection without hematuria, site unspecified Vaginal itching Pruritus of genital organs documented in this encounter Additional Health Concerns Assessment Noted Time PHQ-9 Depression Total Score: 11 024 10:51 AM EST documented as of this encounter Care Teams Geoint Analyst Relationship Specialty Start Date End Date Sonya Interiano MD [address] [place] [id number] PCP - General Family Medicine 08/28/12 [employer] 09/17/24 documented as of this encounter
--- OUTSIDE RECORDS SUMMARY | 2025-01-16 16:26 | XMS_ITS | Data Portability ---
Author Organization [employer] [facility], [place] - [facility] Address [address] [place] [id number] Care Team Providers Care First Beater Name Role Phone HIM CCA OTHER Assessment Encounter Date Assessment Date Assessment LastModified by Organization Details LastModified Time 09/30/2023 09/30/2023 I provided real -time medical direction via phone for this encounter, and was available for additional phone based assistance as needed. I have reviewed and agree with the Assessment and Plan as documented by the Enterprise Resource Planner. We discussed the diagnostic uncertainty of home visits and the risk associated with this. The patient given the opportunity to ask questions. Advised the patient, the registered nurse practitioner that while lack of response 1 dose [...] and treatment she verbalized understanding via the registered nurse practitioner Not available 09/30/2023 14:10:34 Plan of Treatment Reminders Order Date Submit Date Provider Last Modified By Organization Details Last Modified Time Details Appointments None recorded. Lab BMP, serum or plasma 2023 024 [email or web address], [address] 4 13:59:28 Referral None recorded. Procedures None recorded. Surgeries None recorded. Imaging electrocard iogram [email or web address], [address] 5 15:21:09 electrocard iogram 2023 024 [email or web address] [address], [address] 4 13:59:24 Medication Orders meclizine 25 mg tablet 2023 024 [email or web address] 0 Not available 4 13:59:25 metoprolol tartrate 25 mg tablet 2023 024 [email or web address] 0 Not available 4 13:59:24 Patient TargetsNo targets recorded. Patient InstructionsNo instructions recorded. Reason for Referral None Reported. Results Created Date Observation Date Name Description Value Unit Range Abnormal Flag Note LastModifiedBy Organization Detail LastModifiedTime 09/30/19 24 09/30/2023 BMP, serum or plasm a BUN 16 Not Available Main - Ins [address], [address] [place] [address] 09/30/2023 12:45:59 09/30/19 24 09/30/2023 BMP, serum or plasm a Ca Ionize d calciu m 1.05 Not Available Main - [address], [address] [place] [address] 09/30/2023 12:45:59 09/30/19 24 09/30/2023 BMP, serum or plasm a CI- 104 Not Available Main - Ins [address], [address] [place] [address] 09/30/2023 12:45:59 09/30/19 24 09/30/2023 BMP, serum or plasm a CRE 0.5 Not Available Main - Ins [address], [address] [place] [address] 09/30/2023 12:45:59 09/30/19 24 09/30/2023 BMP, serum or plasm a GLU 133 Not Available Main - Ins [address], [address] [place] [address] 09/30/2023 12:45:59 09/30/19 24 09/30/2023 BMP, serum or plasm a K+ 4.4 Not Available Main - Ins [address], [address] [place] [address] 09/30/2023 12:45:59 09/30/19 24 09/30/2023 BMP, serum or plasm a Na+ 138 Not Available Main - Ins [address], [address] [place] [address] 09/30/2023 12:45:59 09/30/19 24 09/30/2023 BMP, serum or plasm a tCO2 28 Not Available Main - Ins juan [address] [place] [address], [phone] 09/30/2023 12:45:59 09/30/19 24 09/30/2023 elect rocar diogr am No observ ation record ed. [email or web address] [address], [address] 09/30/2023 13:59:20 11/28/19 25 11/27/2024 elect rocar diogr am No observ ation record ed. [email or web address], [address] 11/27/2024 17:25:55 Result Notes None recorded. Procedures Surgical History None recorded. Imaging Results Imaging Date Name Status LastModified by Organization Details LastModified Time 09/30/2023 electrocardiogram completed [email or web address] [address], [address] 09/30/2023 13:59:20 11/27/2024 electrocardiogram completed [address], [address] 11/27/2024 17:25:55 Procedure Notes None recorded. Medical Equipment None Reported. Allergies Allergen ID Allergen Name Allergen Category Reaction Reaction Severity Criticality Documentation Date Start Date Code Code System Note Provider Name and Address Organization Details Recorded Time 05226 Levaquin medicatio n Not available Not available Not available 11/27/2024 35737 2 RxNorm Not Available [facility] - production 5 12:25:36 4387 Substance with sulfonami de structure and antibacte rial mechanism of action (substanc e) medicatio n Not available Not available Not available 09/30/2023 71670 8003 SNOMED Yulia Bell MD [address] [place] [address],[address], [place], [address], [facility] 4 12:44:32 4388 Product containin g penicilli n (product) medicatio n Not available Not available Not available 09/30/2023 34427 8001 SNOMED Not Available [facility] - production [...] % 168 mm[Hg] 88 mm[Hg] Not Available [employer] [facility] 4 12:44:10 Date Recorded Systolic blood pressure Diastolic blood pressure Systolic blood pressure Diastolic blood pressure Provider Name and Address Organization Details Last Updated DateTime 09/30/2023 171 mm[Hg] 82 mm[Hg] 188 mm[Hg] 94 mm[Hg] Yulia Bell MD [address] [place] [address],[address] [place] [address], [place], [address] , [facility] 4 13:39:13 Date Recorded Respiratory rate Body temperature Oxygen saturation Oxygen saturation in Arterial blood by Pulse oximetry Heart rate Systolic blood pressure Diastolic blood pressure Provider Name and Address Organization Details Last Updated DateTime 5 16 /min 98.5 [degF] 98 % 98 % 87 /min 150 mm[Hg] 90 mm[Hg] Not Available [employer] 5 13:31:22 Social History None recorded. Functional Status None recorded. Mental Status None recorded. Family History Nothing Reported. Medical History No medical history recorded. Gynecological HistoryNo gynecological history recorded. Obstetrics History GPAL:G 0 P 0 0 0 0 Past Encounters Encounter ID Performer Location Encounter Start Date Encounter Closed Date Diagnosis/Indication Diagnosis SNOMED-CT Code Diagnosis ICD10 Code Diagnosis Note [id number] Yulia Bell MD [facility] [address] [place] [address] 09/30/2023 12:44:05 10/02/2023 13:48:29 Chest discomfort 396825863 R07.89 Medic alone, reported only has BLS transport, would avoid nitroglyce rin right now due to risk of increasing headache and symptomati c rapid lowering of blood pressure /report given to the [facility] ER the medic informed me patient declined the 324 mg of asa i ordered. transportation aide aware Essential hypertension 40987582 I10 Will add 1 dose of metoprolol /also cardioprot ective-med ic did not have a chance to recheck the BP after metoprolol administra tion Dizziness 072520465 R42 Described as spinning and movement related question benign positional vertigo-ve rsus cerebellar stroke -no relief after 1 tablet 30 min [id number] John Ashraf MD Main - [facility] [address] [place] [address] 11/27/2024 13:26:14 11/27/2024 19:48:29 Abdominal pain 82322376 R10.9 Patient with acute abdominal pain, guarding on exam. Elevated blood pressure. Unable to take NSAIDs. Pain still 10/10 with nausea and epigastric in nature. EKG performed, no St-t wave changes. Given severity of pain, recommende d to go to ED and patient agrees. Health Concerns Section Related Observation LastModified by Organization Detai ls LastModified Time None Recorded Concern Status LastModified by Organization Details LastModified Time None Recorded Advance Directives Directive None Recorded Payers Insurance Date Sequence Insurance Name Policy Number Policy Benoit Covered Member ID Benoit Member ID Guarantor Name 11/27/2024 1 [facility] - DOS ON OR AFTER 2022 - DUAL ELIGIBLE - [employer] AND ONE CARE (MEDICARE REPLACEMENT/ADV ANTAGE - HMO) Neha Bowman [id number] Neha Bowman Notes Date Note Type Note Provider Name and Address Organization Details Recorded Time 09/30/2023 text/html HPI: Call to Neha Bowman, reports having elevated BP reading this morning [...] referral as not able to come into [facility] Office. Referral submitted online. .................... .................... [...] since she awoke this morning via her registered nurse practitioner. She denied prior episodes of dizziness but [...] .................... .................... .................... .................... .................... .................... ......... Enterprise Resource Planner Note From Kelly Montalvo: Community Enterprise Resource Planner SriArin Montalvo CCA1 dispatched to a red for an 83 yof C/O dizziness. Upon arrival, the pt was sitting in her living room, awake and alert, in no apparent distress. Her sister/egg grader on scene translated-pt Yakut speaking only. The pt stated she took [...] S/S. Lung sounds clear, no pedal edema. [facility] consulted; EKG and BMP in insted. She was given 25 mg meclizine and 25 mg metoprolol PO, and 911 was called. Pt was given 324 mg PO ASA but refused to take it. Nabil ANDUJAR arrived w/ [facility], and the pt was transported to [facility] ED. [facility] Lab Orders: BMP, serum or plasma: Performed .................... .................... .................... .................... .................... .................... .................... . Disposition: Fulfilled Yulia Bell MD [address] [facility],[address], [place], [address], [facility] 09/30/2023 19:02:09 11/27/2024 text/html [facility] Nurse Triage Notes (Mya Marrufo): Reason For Request: Patient has stomach pain, feels like vomiting, and just doesn't feel good. Patient Reports: Nausea and vomiting greater than 2 hours with abdominal pain; Nausea with or without vomiting Denies: Sharp focal or diffuse abdominal pain Vomiting blood/coffee ground material Bloating, jaundice new onset with pain Tearing pain that radiates to back Food Impaction Chief Complaints: Nausea / Vomiting PMH: Hypertension, Hypothyroidism PMH Reviewed at 11/27/2024: Allergies Reviewed at 11/27/2024: Comments: Abdominal pain and nausea started this morning at approx 830am. Reports pain is located to umbilical area. Feels increased pain when palpating. Pain does not radiate. vomited this morning. Took a Tylenol with relief. No diarrhea. Denies blood in vomit. Denies fever/chills. Denies urinary symptoms. Patient has urinary frequency but states she is drinking a lot of water. Education provided on the response time and the member was advised to monitor reported s/s and seek emergency treatment if needed. Enterprise Resource Planner Organization Information for Lance Jacobs Business Legal Name: [employer]? Address: [address] [place] [address], Vocational Psychologist: Yuri FITZGERALD No.: [id number] Enterprise Resource Planner POC Test Results from Lance Jacobs EKG (13:47:25) EKG test performed. Attachments uploaded as part of this test result can be found under Documents section. .................... .................... .................... .................... .................... .................... .................... . Enterprise Resource Planner Note From Lance Jacobs: Dispatched for an 84yo female with nausea, vomiting and abd pain. Pt states she had a woke up this morning with severe abd pain. Pt states she vomited 4 times since and has frequent urinations. Pt states she has never had anything like this happen before. Pt state pain is consistent and 9/10. Pt denies flank/back pain. [facility] consulted. 12lead ordered. [facility] advises pt should be seen at ED. Pt agrees to be transported by son in his car. Son states he will transported pt to [facility]. Pt found guarding, speaking in full sentences with mild distress. AO and GCS-15. PERRL. Skin pale/clammy. Airway open and lung sounds clear. NSR on monitor. 12lead NDSTEMI. ABD soft but tender in center and URQ. Rest of exam unremarkable. .................... .................... .................... .................... .................... .................... .................... . [facility] Consulted: David Ashraf .................... .................... .................... .................... .................... .................... .................... . Disposition: Eloise Ashraf MD [address] [facility],[address], [place], [address], [facility] 11/27/2024 15:21:23 OBGyn Episode No OBEpisode recorded.
--- OUTSIDE RECORDS SUMMARY | 2025-01-16 16:26 | XMS_ITS | Encounter Summary ---
Author Organization [employer] Address [address] [place] [address] Care Team Providers Care Burlapper Name Role Phone Sonya Interiano MD Primary Care Provider [phone] Reason for Visit * Reason Onset Date Comments Medication Question 09/20/2023 Encounter Details Date Type Department Care Team ([facility] st Contact Info) Description 09/20/2023 Telephone [facility] MEDICINE [address] [place] [address] Sonya Interiano MD [address] [place], [place] [phone] Medication Question Social History Tobacco Use Types [...] PM EST TC placed to patient via [employer]ile Supply Technician. No answer. LM to call us back. TC placed to patient without [place] [employer] Technician. Patient answered. Patient states that she is [...] with respiration. Offered a f/u appointment at [facility] this week. Agreed to an appointment [...] Info) Description 03/28/2025 11:15 AM EDT Telemedicine [facility] MED & PEDS [address] [place] [address] Sonya Interiano MD [address] [place] [address] documented as of this encounter Visit Diagnoses Not on filedocumented in this encounter Care Teams Burlapper Relationship Specialty Start Date End Date Sonya Interiano MD [address] [place] [address] PCP - General Family Medicine 08/28/12 [employer] 09/17/24 documented as of this encounter
--- OUTSIDE RECORDS SUMMARY | 2025-01-16 16:26 | XMS_ITS | Encounter Summary ---
Author Organization [employer] Address [address] [place] [address] Care Team Providers Care State Manager Name Role Phone Sonya Interiano MD Primary Care Provider [phone] Reason for Visit * Reason Onset Date Comments call back 10/22/2022 Encounter Details Date Type Department Care Team ([facility] st Contact Info) Description 10/22/2022 Telephone [facility] MEDICINE [address] [place] [address] Sonya Interiano MD [address] [place], [place] [phone] call back Social History Tobacco Use Types [...] Info) Description 03/28/2025 11:15 AM EDT Telemedicine [facility] MED & PEDS [address] [place] [address] Sonya Interiano MD [address] [place] [address] documented as of this encounter Visit Diagnoses Not on filedocumented in this encounter Care Teams State Manager Relationship Specialty Start Date End Date Sonya Interiano MD [address] [place] [address] PCP - General Family Medicine 08/28/12 [employer] 09/17/24 documented as of this encounter
--- OUTSIDE RECORDS SUMMARY | 2025-01-16 16:26 | XMS_ITS | Encounter Summary ---
Author Organization [employer] Address [address] [place] [address] Care Team Providers Care Medical Support Assistant Name Role Phone Sonya Interiano MD Primary Care Provider [phone] Reason for Visit * Reason Onset Date Comments Nurse Triage 10/15/2024 Encounter Details Date Type Department Care Team ([facility] Contact Info) Description 10/15/2024 Telephone [facility]S [address] [place] [address] Sonya Interiano MD [address] [place] [address] Nurse Triage Social History Tobacco Use Types [...] 10/15/2024 1:52 PM EST Triage call with [facility] surface grinding machine [place] [id number] Pt reports insominia, weakness and excessive fatigue [...] Upcoming Encounters Date Type Department Care Team ([facility] st Contact Info) Description 03/28/2025 11:15 AM EDT Telemedicine [facility] MED & PEDS [address] [place] [address] Sonya Interiano MD [address] [place] [address] documented as of this encounter Visit Diagnoses Not on filedocumented in this encounter Additional Health Concerns Assessment Noted Time PHQ-9 Depression Total Score: 11 024 10:51 AM EST documented as of this encounter Care Teams Medical Support Assistant Relationship Specialty Start Date End Date Sonya Interiano MD [address] [place] [address] PCP - General Family Medicine 08/28/12 [employer] 09/17/24 documented as of this encounter
--- OUTSIDE RECORDS SUMMARY | 2025-01-16 16:26 | XMS_ITS | Clinical Summary ---
Author Organization [employer] Address [address] [facility] 7t [place] [address] Care Team Providers Care Designer Name Role Phone Sonya Interiano MD Primary Care Provider [phone] Allergies Active Allergy Reactions Criticality Noted Date Comments Penicillin V Other reaction(s): unspecified Sulfamethoxazole 06/06/2012 Other reaction(s): Rash, Rash Trimethoprim 06/06/2012 Other reaction(s): Rash, Rash Medications polyethylene glycol, PEG, 3350 (MiraLax) 17 GM/SCOOP powder Take 1 packet by mouth every 12 (twelve) hours. 02/13/20 22 Active omeprazole (PriLOSEC) [address] capsule TAKE ONE CAPSULE TWICE DAILY 30 TO 60 MINUTES BEFORE MEALS 11/17/19 22 Active Prolia 60 MG/ML solution prefilled syringe 09/30/19 23 Active Elastic Bandages & Supports (TruForm Stockings 10-20mmHg) miscIndications :Venous stasis dermatitis of both lower extremities To use daily prior to getting out of bed 1 each 01/19/20 23 Active Emollient (CeraVe Moisturizing) creamIndication s:Xerosis cutis Apply 453 g topically 2 times daily. 453 g 11 02/23/20 23 Active albuterol 108 (90 Base) MCG/ACT inhalerIndicati ons:Bronchitis Inhale 2 puffs every 4 (four) hours if needed for wheezing. 18 g 09/14/19 24 Active cetirizine (ZyrTEC) 5 MG tabletIndicatio ns:Upper respiratory tract infection, unspecified type Take 1 tablet by mouth at night. 30 tablet 09/23/19 24 Active Premarin 0.625 MG/GM cream Insert 0.65 mg into the vagina 1 (one) time per week. 30 g 3 01/12/20 24 Active mometasone (Elocon) 0.1 % ointment Apply topically Once per day. 45 g 3 01/12/20 24 Active naproxen (Naprosyn) 375 MG tabletIndicatio ns:Acute midline thoracic back pain,Low back pain at multiple sites TAKE ONE TABLET TWICE DAILY WITH BREAKFAST AND SUPPER 60 tablet 11 03/21/20 24 Active levothyroxine (Synthroid) 150 MCG tablet Take 1 tablet (150 mcg) by mouth before breakfast. 30 tablet 11 03/30/20 24 025 Active triamcinolone (Kenalog) 0.1 % ointmentIndicat ions:Venous stasis dermatitis Apply topically 2 times daily. Apply thin layer to left lower leg topically 2 times daily for up to 2 weeks. 30 g 1 04/06/20 24 Active clobetasol (Temovate) 0.05 % ointmentIndicat ions:Lichen sclerosus of female genitalia Apply thin layer by topical route to vulva 2-3 times per week. 30 g 1 04/06/20 24 Active diphenhydrAMINE HCl, Sleep, (Unisom SleepMinis) 25 MG capsule 1 cap 1/2 hr before bedtime 28 capsule 3 06/20/20 24 Active losartan (Cozaar) 50 MG tablet Take 1 tablet (50 mg) by mouth Once per day. 90 tablet 12/09/19 25 Active traZODone (Desyrel) 50 MG tablet Take 1 tablet (50 mg) by mouth at bedtime. 30 tablet 2 12/28/19 25 025 Active nitrofurantoin, macrocrystal-mo nohydrate, (Macrobid) 100 MG capsule Take 1 capsule (100 mg) by mouth 2 times daily for 5 days. 10 capsule 01/17/20 25 025 Active gabapentin (Neurontin) 100 MG capsule Take 100 mg by mouth at bedtime. 01/20/20 22 025 Discontinued Active Problems Problem Noted Date Diagnosed Date Hx SBO 12/27/2024 Bronchitis 09/14/2023 Assessment & Plan (09/19/2023 10:32 [...] ED, pt insist she was seen in [facility] - also requesting home [...] high potency steroids, she declined referral to [employer]. Will send out swab. 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; Urinary tract infection without hematuria, site unspecified; Vaginal itching 01/16/2025 Travel 01/15/[address] [address] Sonya Interiano MD Medication Question 01/15/[address] [address] Sonya Interiano MD Nurse Triage 01/02/2025 Orders Only [facility] [address] [place] [address] Ant Badillo MD 12/27/2024 11:00 AM EDT Office Visit [facility] [address] [place] [address] Sonya Interiano MD Primary hypertension (Primary Dx); Hx SBO; Non-recurrent bilateral inguinal hernia with obstruction without gangrene; Insomnia, unspecified type 12/27/2024 Travel 12/19/2024 Patient Outreach [address] [address] Sonya Interiano MD Pre-visit Planning (Pre visit planning LVM ) 12/19/2024 Telephone [facility] [address] [place] [address] Sonya Interiano MD Nurse Triage 12/10/2024 Telephone [facility] [address] [place] [address] Tayo Nelson MD 12/08/2024 Telephone [facility] [address] [place] [address] Mya Childers FNP [employer] 11/27/2024 Patient Outreach [facility] [address] [place] [address] Sonya Interiano MD Pre-visit Planning (SDOH cancelled. ) 11/22/[address] [facility] [address] [place] [address] Sonya Interiano MD Nurse Triage 11/20/2024 Orders Only [address] [address] Ant Badillo MD Primary hypertension (Primary Dx) 11/16/2024 Telephone [facility] [address], [place] [phone] Sonya Interiano MD 11/08/[address] [address] Sonya Interiano MD Results 10/25/2024 Telephone [facility] [address], [place] [phone] Sonya Interiano MD appointment cx from Last 3 Months Immunizations Name Administration [...] 18 01/16/2025 10:48 AM EDT Oxygen Saturation 98% 09/06/2024 2:21 PM EST Inhaled Oxygen Concentration - - Weight 63 kg (139 lb) 12/27/2024 11:02 AM EDT Height 152.4 cm (5') 12/27/2024 11:02 AM EDT Body Mass Index 27.15 12/27/2024 11:02 AM EDT Plan of Treatment Upcoming Encounters Date Type Department Care Team (Late st Contact Info) Description 03/28/2025 11:15 AM EDT Telemedicine [facility] MED & PEDS [address] [place] [address] Sonya Interiano MD [address] [place] [address] Health Maintenance Due Date Last Done Comments Alcohol/Substance Use Screening 1952 Zoster Vaccines (1 of 2) 02/23/1990 RSV Patients and Patients Aged 60 years or older (1 - 1-dose 75+ series) 02/23/2015 COVID-19 Vaccine ( season) 2024 01/25/2023, 06/02/2021, 05/12/2021 Depression Screening 10/19/2024 10/19/2023, 10/19/19 24 SDOH Screening 10/17/2025 10/17/2024 Tobacco Screening 01/16/2026 01/16/2025 Lipid Panel 11/16/2026 11/16/2021 DTaP/Tdap/Td Vaccines (2 [...] Urinary tract infection without hematuria, site unspecified TSH W/REFLEX TO FT4 Routine 11/20/2024 1 :10 PM EDT LIPID PANEL, STANDARD Routine 11/16/2021 10:13 AM EST from Last 3 Months or Most Recently Relevant to Health Maintenance Results * (ABNORMAL) POCT Urinalysis (01/16/2025 10:49 [...] Media Lot # [id number] Lot# Expiration Date Urine 01/16/2025 10:4 9 AM EDT Sonya Interiano MD POINT OF CARE TEST ENTER/EDIT OR DERABLES Final Result * TSH with Reflex to Free T4 (11/20/2024 1:10 PM EDT) Pathologist [facility] TSH reflex Free T4 2.72 0.32 - 4.0 uIU/mL [facility] 11/20/2024 1:10 PM EDT 11/20/2024 2:07 PM EDT us Ant Badillo MD LAB BLOOD ORDERABLES Final Result [facility] [address] [place] [phone] * (ABNORMAL) LIPID PANEL, STANDARD (11/16/2021 10:13 AM EST) Pathologist [facility] Chol/HDLC Ratio 2.8 <5.0 (calc) [facility] [...] ?? Alfred COLEMAN et al. JULI. 2013;310(19): 9798-7099 ?? ([email or web address] [email or web address]/[email or web address]) Non-HDL Cholesterol 120 <130 mg/dL (calc) [facility] [...] Resul t [facility] [address] from Last 3 Months or Most Recently Relevant to Health Maintenance Insurance [facility] CORRECTION OPTIONS (HMO D-SNP) HERLINDA DEGROOT [id number] Care Teams Designer Relationship Specialty Start Date End Date Sonya Interiano MD [address] [place] [address] PCP - General Family Medicine 08/28/12 [employer] 09/17/24
--- OUTSIDE RECORDS SUMMARY | 2025-01-16 16:26 | XMS_ITS | Encounter Summary ---
Author Organization [employer] Address [address] [facility] 7t [place] [address] Care Team Providers Care Block Operator Name Role Phone Sonya Interiano MD Primary Care Provider [phone] Reason for Visit * Reason Onset Date Comments Nurse Triage 11/04/2023 Encounter Details Date Type Department Care Team ([facility] Contact Info) Description 11/04/2023 Telephone C [facility] [address] [place] [address] Sonya Interiano MD [address] [place] [address] Nurse Triage Social History Tobacco Use Types [...] 11/04/2023 11:03 AM EST Called pt. Via [employer] vocational psychologist [id number] Cb. Pt. States that she has been [...] accepted this outcome Please contact pt at [phone] (Belarusian) documented in this encounter Plan of Treatment Upcoming Encounters Date Type Department Care Team ([facility] st Contact Info) Description 03/28/2025 11:15 AM EDT Telemedicine [facility] [address] [place] [address] Sonya Interiano MD [address] [place] [address] documented as of this encounter Visit Diagnoses Diagnosis Upper respiratory tract infection, unspecified type documented in this encounter Additional Health Concerns Assessment Noted Time PHQ-9 Depression Total Score: 11 024 10:51 AM EST documented as of this encounter Care Teams Block Operator Relationship Specialty Start Date End Date Sonya Interiano MD [address] [place] [address] PCP - General Family Medicine 08/28/12 [facility] 09/17/24 documented as of this encounter
--- OUTSIDE RECORDS SUMMARY | 2025-01-16 16:26 | XMS_ITS | Encounter Summary ---
Author Organization [employer] Address [address] [facility] 7t [place] [address] Care Team Providers Care Hospice Care Transitions Coordinator Name Role Phone Sonya Interiano MD Primary Care Provider Encounter Details Date Type Department Care Team ([facility] Contact Info) Description 04/09/2024 Orders Only [facility] [address] [place], [place] [phone] Provider, MD Aga Social History Tobacco Use Types Packs/Day Years [...] Info) Description 03/28/2025 11:15 AM EDT Telemedicine [facility] MED & PEDS [address] [place] [address] Sonya Interiano MD [address] [place] [address] documented as of this encounter Procedures Procedure [...] documented as of this encounter Care Teams Hospice Care Transitions Coordinator Relationship Specialty Start Date End Date Sonya Interiano MD [address] [place] [address] PCP - General Family Medicine 08/28/12 [employer] 09/17/24 documented as of this encounter
--- OUTSIDE RECORDS SUMMARY | 2025-01-16 16:26 | XMS_ITS | Encounter Summary ---
Author Organization [employer] Address [address] [facility] 7t [place] [address] Care Team Providers Care Editorial Specialist Name Role Phone Sonya Interiano MD Primary Care Provider [phone] Encounter Details Date Type Department Care Team ([facility] Contact Info) Description 02/03/2023 Orders Only [facility] MED [facility] PEDS [address] [place] [address] Sonya Interiano MD [address] [place] [address] Social History Tobacco Use Types Packs/Day Years [...] Upcoming Encounters Date Type Department Care Team ([facility] Contact Info) Description 03/28/2025 11:15 AM EDT Telemedicine [facility] MED [facility] PEDS [address] [place] [address] Sonya Interiano MD [address] [place] [address] documented as of this encounter Visit Diagnoses Not on filedocumented in this encounter Care Teams Editorial Specialist Relationship Specialty Start Date End Date Sonya Interiano MD [address] [place] [phone] PCP - General Family Medicine 08/28/12 [employer] 09/17/24 documented as of this encounter
--- OUTSIDE RECORDS SUMMARY | 2025-01-16 16:26 | XMS_ITS | Encounter Summary ---
Author Organization [employer] Address [address] [facility] [address] 7[address] [place] [address] Care Team Providers Care Inside Sales Coordinator Name Role Phone Sonya Interiano MD Primary Care Provider [phone] Reason for Visit * Reason Onset Date Comments Call Back Request 12/06/2023 Med Refill 12/06/2023 Encounter Details Date Type Department Care Team ([facility] Contact Info) Description 12/06/2023 Telephone [facility] [address] [place] [address] Sonya Interiano MD [address] [place] [address] Call Back Request; Med Refill Social History [...] 03/28/2025 11:15 AM EDT Telemedicine [facility] MED [facility] [address] [place] [address] Sonya Interiano MD [address] [place] [address] documented as of this encounter Visit Diagnoses Not on filedocumented in this encounter Additional Health Concerns Assessment Noted Time PHQ-9 Depression Total Score: 11 024 10:51 AM EST documented as of this encounter Care Teams Inside Sales Coordinator Relationship Specialty Start Date End Date Sonya Interiano MD [address] [place] [address] PCP - General Family Medicine 08/28/12 [email or web address] 09/17/24 documented as of this encounter
--- OUTSIDE RECORDS SUMMARY | 2025-01-16 16:26 | XMS_ITS | Encounter Summary ---
Author Organization [employer] Address [address] [facility] [address] 7[address] [place] [address] Care Team Providers Care Protein Specialist Name Role Phone Sonya Interiano MD Primary Care Provider [phone] Encounter Details Date Type Department Care Team ([facility] Contact Info) Description 06/11/2024 Orders Only [facility] MED & PEDS [address] [place], [place] [phone] Sonya Interiano MD [address] [place] [address] Social History Tobacco Use Types Packs/Day Years [...] Info) Description 03/28/2025 11:15 AM EDT Telemedicine [facility] MED & PEDS [address] [place] [address] Sonya Interiano MD [address] [place] [address] documented as of this encounter Procedures Procedure Name Priority Date/Time Associated Diagnosis Comments BI MAMMOGRAM SCREENING TOMOSYNTHESIS BILATERAL Routine 06/13/2024 1:15 PM EDT documented in this encounter Results * BI Mammogram Screening Tomosynthesis Bilateral (06/13/2024 1:15 PM EDT) Anatomical Region Laterality Modality Breast Bilateral Mammography 06/13/2024 1:15 PM EDT Narrative 06/25/2024 1:54 PM EDT ? [facility] [place] ? [address] ?[place] [address] ? Mammography Report ? Signed ? Patient: Colby,Neha ?MR#: [id number] ?? [id number] ? : 1940 ?Acct:[id number] ? Age/Sex: 84 / F ?ADM Date: 06/13/24 ? Loc: HO.MAMMO ? Attending Dr: Sonya Interiano MD ? Ordering Physician: Sonya Interiano MD ?Results: 1Negati ?? ve ? Date of Service: 06/13/24 ?Follow Up: 1 Year From Orig ?? inal Mammogram ? Procedure(s): MM tomosynthesis screening BI ?? Accession Number(s): [id number] ? cc: Sonya Interiano MD ? EXAMINATION: [...] DD/ 1315 ? TD/TT: 06/13/24 1341 ? Metal Fabricator Apprentice: ? Procedure Note Donotuseinterpreter, Image - 06/25/2024 [facility] [address] [place] [address] Mammography Report Signed Patient: Yusuf Bowman#: [id number] : 1940Acct:[id number] Age/Sex: 84 / FADM Date: 06/13/24 Loc: HO.MAMMO Attending Dr: Sonya Interiano MD Ordering Physician: Sonya Interiano MDResults: 1Negati ve Date of Service: 06/13/24Follow Up: 1 Year From Orig inal Mammogram Procedure(s): MM tomosynthesis screening BI Accession Number(s): [id number] cc: Sonya Interiano MD EXAMINATION: MM SCREENING [...] 06/25/24 1351 DD/ 1315 TD/TT: 06/13/24 1341 Metal Fabricator Apprentice: Sonya Interiano MD IMG BI PROCEDURES Final Result documented in this encounter Visit Diagnoses Not on filedocumented in this encounter Additional Health Concerns Assessment Noted Time PHQ-9 Depression Total Score: 11 024 10:51 AM EST documented as of this encounter Care Teams Protein Specialist Relationship Specialty Start Date End Date Sonya Interiano MD [address] [place] [address] PCP - General Family Medicine 08/28/12 [employer] 09/17/24 documented as of this encounter
--- OUTSIDE RECORDS SUMMARY | 2025-01-16 16:26 | XMS_ITS | Encounter Summary ---
Author Organization [employer] Address [address] [facility] [address] 7[address] [place] [address] Care Team Providers Care Filter Plant Operator Name Role Phone Sonya Interiano MD Primary Care Provider Reason for Visit * Reason Onset Date Comments Nurse Triage 09/20/2024 Encounter Details Date Type Department Care Team ([facility] st Contact Info) Description 09/20/2024 Telephone [facility] MEDICINE [address] [place] [address] Sonya Interiano MD [address] [place], [place] [phone] Nurse Triage Social History Tobacco Use Types [...] 4:05 PM EST Called pt. Via S spanish interpreter/translator [phone] Adri. No answer. Mail Processing Equipment Mechanic left message for pt. To call back [facility] nurses at [phone]. Called pt. Back x 2 and no answer. Mail Processing Equipment Mechanic DID leave second message for pt. To call back [facility] nurses at [phone]. RE: Headache vision change and dizziness. * Telephone Encounter - Jerica Popeye Rojas - 09/20/2024 3:50 PM EST Symptoms: Headache, Vision Loss or Change Outcome: Talk to a nurse or provider within 15 minutes Reason: Trouble walking The caller accepted this outcome. [phone] (Italian) documented in this encounter Plan of Treatment Upcoming Encounters Date Type Department Care Team (Late st Contact Info) Description 03/28/2025 11:15 AM EDT Telemedicine [facility] [address] [place] [address] Sonya Interiano MD [address] [place] [address] documented as of this encounter Visit Diagnoses Not on filedocumented in this encounter Additional Health Concerns Assessment Noted Time PHQ-9 Depression Total Score: 11 024 10:51 AM EST documented as of this encounter Care Teams Filter Plant Operator Relationship Specialty Start Date End Date Sonya Interiano MD [address] [place] [address] PCP - General Family Medicine 08/28/12 [employer] 09/17/24 documented as of this encounter
--- OUTSIDE RECORDS SUMMARY | 2025-01-16 16:26 | XMS_ITS | Data Portability ---
Author Organization [employer] [place] [facility] Address [address] [place] [address] Care Team Providers Care Pitch Worker Name Role Phone [facility] Referring Provider HIM CCA OTHER Assessment Encounter Date Assessment Date Assessment LastModified by Organization Details LastModified Time 08/13/2024 08/13/2024 I provided real -time medical direction via phone for this encounter, and was available for additional phone based assistance as needed. I have reviewed and agree with the Assessment and Plan as documented by the Foster Winder. We discussed the diagnostic uncertainty of home [...] to call 911- verbalized understanding of instruction [email or web address] Not available 08/13/2024 11:24:41 08/22/2024 08/22/2024 service [...] with her PCP re: insomnia and BP. Not available 10/15/2024 20:57:09 Plan of Treatment Reminders Order Date Submit Date Provider Last Modified By Organization Details Last Modified Time Details Appointments None recorded. Lab BMP, serum or plasma 2023 [email or web address] 0 [facility], [address] [place] [address], [id number] 11:24:13 rapid SARS CoV 2 Ag, QL IA, respiratory specimen 2023 [email or web address] 0 [facility], [address] [place] [address], [id number] 4 11:24:13 rapid flu (A+B) 2023 [email or web address] 0 [facility], [address] [place] [address], [id number] 11:24:13 Referral None recorded. Procedures None recorded. Surgeries None recorded. Imaging None recorded. Medication Orders ondansetron HCl (PF) 4 mg/2 mL injection solution 2023 [email or web address] 0 [facility], [address] [place] [address], [id number], 11:24:13 ondansetron 4 mg disintegrat ing tablet 2023 [id number], [address] [place], [place], [id number], 11:24:22 loperamide 2 mg tablet 2023 024 [email or web address] 0 [facility], [address] [place] [address], [id number], 4 11:24:13 loperamide 2 mg capsule 2023 [facility] #[id number], [address] [place], [place], [id number], 4 11:24:21 lactated Ringers intravenous solution 2023 [email or web address] 0 [facility], [address] [place], [place], [id number], 4 11:24:13 acetaminoph en 500 mg tablet 2023 024 [email or web address] 0 [facility], [address] [place], [place], [id number], 4 11:24:14 acetaminoph en 500 mg tablet 2023 [facility] #[id number], [address] [place], [place], [id number], 4 11:24:23 famotidine 20 mg tablet 2023 [facility] #[id number], [address] [facility] [address] [place], [place], [id number], 4 11:24:22 Patient TargetsNo targets recorded. Patient InstructionsNo instructions recorded. Reason for Referral None Reported. Results Created Date Observation Date Name Description Value Unit Range Abnormal Flag Note LastModifiedBy Organization Detail LastModifiedTime 08/13/20 24 08/13/2024 rapid flu (A+B) Flu negati ve Not Available [facility] - [facility] ed [address] [place] [address], [id number] 08/13/2024 11:11:30 08/13/20 24 08/13/2024 rapid SARS CoV 2 Ag, QL IA, respi rator y speci men rapid SARS CoV 2 Ag, QL IA, respiratory specimen negati ve Not Available Main - [facility] ed [address] [place] [address], [id number] 08/13/2024 11:11:29 Result Notes None recorded. Medical Equipment None Reported. Allergies Allergen ID Allergen Name Allergen Category Reaction Reaction Severity Criticality Documentation Date Start Date Code Code System Note Provider Name and Address Organization Details Recorded Time 52821 sulfameth oxazole medicatio n Not available Not available Not available 08/13/2024 19671 RxNorm Not Available [facility] 4 09:53:45 10821 trimethop rim medicatio n Not available Not available Not available 08/13/2024 72304 RxNorm Not Available [facility] 4 09:53:45 8800 Product containin g penicilli n (product) medicatio n Not available Not available Not available 07/10/2024 68821 8001 SNOMED Not Available [facility] - production 4 03:46:53 8801 Bactrim medicatio n Not available Not available Not available 07/10/2024 32837 9 RxNorm Not Available [facility] - production 4 03:46:53 Medications Name Sig [...] % 152.4 cm 94 /min 98.8 [degF] 07826.6 56 g 152.4 cm 64364.6 56 g 98.8 [degF] 94 /min 16 /min 97 % 97 % 147 mm[Hg] 89 mm[Hg] 147 mm[Hg] 89 mm[Hg] Not Available [facility] 4 11:35:51 Date Recorded Respiratory rate Oxygen saturation Oxygen saturation in Arterial blood by Pulse oximetry Body temperature Heart rate Systolic blood pressure Diastolic blood pressure Provider Name and Address Organization Details Last Updated DateTime 4 16 /min 97 % 97 % 97.9 [degF] 86 /min 208 mm[Hg] 100 mm[Hg] Not Available [facility] 4 18:15:31 Date Recorded Respiratory rate Heart rate Body temperature Oxygen saturation Oxygen saturation in Arterial blood by Pulse oximetry Systolic blood pressure Diastolic blood pressure Provider Name and Address Organization Details Last Updated DateTime 4 16 /min 83 /min 98.9 [degF] 97 % 97 % 204 mm[Hg] 98 mm[Hg] Not Available [facility] 4 14:10:20 Date Recorded Body temperature Oxygen saturation Oxygen saturation in Arterial blood by Pulse oximetry Heart rate Body weight Respiratory rate Systolic blood pressure Diastolic blood pressure Systolic blood pressure Diastolic blood pressure Provider Name and Address Organization Details Last Updated DateTime 5 98.4 [degF] 98 % 98 % 96 /min 49722.4 32 g 16 /min 176 mm[Hg] 62 mm[Hg] 168 mm[Hg] 98 mm[Hg] Not Available [facility] - production 5 20:16:12 Date Recorded Body height Heart rate Body temperature Body weight Respiratory rate Oxygen saturation Oxygen saturation in Arterial blood by Pulse oximetry Systolic blood pressure Diastolic blood pressure Provider Name and Address Organization Details Last Updated DateTime 5 152.4 cm 86 /min 98.6 [degF] 85200.8 8 g 16 /min 99 % 99 % 192 mm[Hg] 84 mm[Hg] Not Available [facility] - production 5 18:29:03 Social History None [...] 251 Krystle Herrera MD [facility] [address] [place] [phone] 11/09/2021 18:24:02 04/28/2022 12:20:20 Hypertension screening [id number] Z13.6 [id number] Olaf Yusuf MD [facility] [address] [place] [phone] 01/26/2023 12:05:56 01/27/2023 10:25:23 Fatigue 89541705 R53.83 Patient reports worsening fatigue, difficulty sleeping, [...] to 5.9, normal at 4.0 on recheck. [id number] Prakash Watkins MD [facility] [address] [place] [phone] 06/24/2023 15:47:53 06/26/2023 12:46:47 Urinary symptoms 103416683 R39.9 [id number] Bradford Deshpande MD [facility] [address] [place] [phone] 12/06/2023 10:18:38 12/06/2023 16:05:50 Influenza 2417013 J11.1 [id number] Hai Govea MD [facility] [address] [place] [phone] 06/06/2024 19:33:14 06/07/2024 08:10:55 Essential hypertension 55141220 I10 [id number] Eliz Kwan MD [facility] [address] [place] [phone] 08/13/2024 10:51:26 08/13/2024 16:45:01 Epigastric pain 15621535 R10.13 w/ n/v/d- likely viral- labs non [...] patient request to prescripti ons go to [facility] on [facility] in [place] Advised may take Tylenol along with the [...] another visit whenever she feels the need. [id number] Hai Govea MD [facility] [address] [place] [phone] 08/22/2024 18:15:29 08/23/2024 00:16:45 Headache 31362002 R51.9 [id number] Rachel Hines MD [facility] [address] [place] [phone] 09/11/2024 14:10:17 09/11/2024 22:35:33 Hypertensive urgency [id number] I16.0 84 year old female with HTN, [...] assessment and plan as documented by the print production associate. I provided real-time medical direction for this encounter and was immediatel y available to provide additional phone-base d assistance as needed. We discussed the diagnostic uncertaint y of home visits and associated risks. We discussed the need to seek care urgently/e mergently in the setting of any new or worsening symptoms. [id number] John Ashraf MD [facility] [address] [place] [phone] 09/20/2024 20:14:10 09/21/2024 12:53:55 Headache 99190102 R51.9 Has resolved since making call. Essential hypertension 18149182 I10 Asymptomat ic. Elevated today. Taking Losartan. Advised patient to reach out to PCP regarding up titrating her antihypert ensives. Discussed red flag symptoms for which to seek higher level of care. [id number] REGGIE SKY MD [facility] [address] [place] [phone] 10/15/2024 18:29:01 10/16/2024 17:18:24 Chronic insomnia 291271700 F51.04 Essential hypertension 46553371 I10 Health Concerns Section Related Observation LastModified by Organization Detai ls LastModified Time None Recorded Concern Status LastModified by Organization Details LastModified Time None Recorded Advance Directives Directive None Recorded Payers Insurance Date Sequence Insurance Name Policy Number Policy Benoit Covered Member ID Benoit Member ID Guarantor Name 06/24/2023 1 [facility] - DOS PRIOR TO 2022 - DUAL ELIGIBLE (MEDICARE REPLACEMENT/AD VANTAGE - HMO) Neha Bowman [id number] Neha Bowman 10/17/2024 1 [facility] - DOS ON OR AFTER 2022 - DUAL ELIGIBLE - [employer] AND ONE CARE (MEDICARE REPLACEMENT/AD VANTAGE - HMO) Neha Colby [id number] Neha Bowman Notes Date Note Type Note Provider Name and Address Organization Details Recorded Time 08/13/2024 text/html HPI: Call returned to Neha Colby to triage below. Reports having epigastric pain [...] Comments: No further questions at this time. Foster Winder Organization Information for [facility] Legal Name: [facility] Transportation Address: [address] [place] [address], [place] [address], Advertising Sales Representative: Rudi Forbes MD CLIA No.: [id number] Foster Winder POC Test Results from Edgar Gonzales [facility] (10:59:52) pH: 7.41 pH units pCO2: 45.5 [...] ..................... ..................... ..................... ..................... ..................... ..................... ............... Foster Winder Note From Edgar Gonzales: This 84-year-old female [...] ..................... ..................... ..................... ..................... ..................... ..................... ............... [facility] Consulted: Yulia Bell ..................... ..................... ..................... ..................... ..................... ..................... ............... Disposition: Fulfilled SEGMD: As above. Patient seen by me not Dr. Kwan-as above -patient denies hematemesis, melena or hematochezia. She does feel bloated. She denies any recent antibiotic use and was exposed to someone with identical symptoms which have since resolved per her report. She denies UTI symptoms. Yulia Bell MD [address] [facility], [place], [phone], [employer] 08/13/2024 14:50:57 08/22/2024 text/html HPI: Elder;ly female with complaints of headache over left ey. Has not taken OTC analgesic. Has noted confusion this morning as she reports choosing flour instead of sugar for coffee.. Able to express all needs no slurred or delay in speech. ..................... ..................... ..................... ..................... ..................... ..................... ............... [facility] Nurse Triage Notes (Mya Marrufo): Chief Complaints: Altered mental status, Headache PMH: Hypertension Comments: HPI reviewed- [place] Foster Winder Organization Information for Joya Nicholas [employer] Legal Name: [employer] Address: [address] [place] [address], Advertising Sales Representative: Yuri FITZGERALD No.: [id number] Foster Winder POC Test Results from Nicholas Hinson [facility] Blood Glucose Measurement (18:51:31) Blood Glucose: 184 mg/dL ..................... ..................... ..................... ..................... ..................... ..................... ............... Foster Winder Note From Nicholas Hinson: Dispatched to the call address for the elderly female with confusion and a headache. Pt lives alone and speaks Citizen [place] and [place]ic. Pt is not good historian at this time. She states she is confused and has a headache all over. Pt was not able to answer questions appropriately, even when asked in Icelandic. Pt could not repeat the phrase The myriam is blue over [place] , Pt was able to smile and show finish cleaner strength (both equal) but she was unable to follow other commands, she had difficulty touching her own nose and then used her other hand to touch my finger, instructions repeated in Icelandic and Pt still could not follow commands. [...] blood thinners were found amongst Pts medications. [facility] consulted and agreed that Pt needed to [...] with [facility]). Pt was transported to [facility]. ALL times are approx. ..................... ..................... ..................... ..................... ..................... ..................... ............... [facility] Consulted: Hai Govea ..................... ..................... ..................... ..................... ..................... ..................... ............... Disposition: Fulfilled Hai Govea MD [address] [facility], [place], [address], [facility] 08/22/2024 19:59:35 09/11/2024 text/html HPI: Call returned [...] evaluation of possible hypertensive crisis. Agreeable to [facility] for eval of BP and EKG. Confirmed demographics and allergies. Pt instructed to call EMS If sx worsen. ..................... ..................... ..................... ..................... ..................... ..................... ............... [facility] Nurse Triage Notes (Isabel Cook - RN): Chief Complaints: Hypertension PMH: Hypertension Comments: HPI reviewed ..................... ..................... ..................... ..................... ..................... ..................... ............... Foster Winder Note From Nicholas Hinson: Dispatched to the [...] CTA, +CMSx4, -edema/swelling, afebrile, Rapid Covid/flu (-). [facility] consulted. Pt advised to follow up with PCP. Pt requested that I remain with her for 10-15 minutes because she was nervous, I sat with Pt and we had pleasant conversation until she felt more comfortable. Red flags discussed. ALL times are approx. ..................... ..................... ..................... ..................... ..................... ..................... ............... [facility] Consulted: Rachel Hines ..................... ..................... ..................... ..................... ..................... ..................... ............... Disposition: Fulfilled Rachel Hines MD [address] [facility], [place], [address], [employer] 09/11/2024 15:08:23 09/20/2024 text/html HPI: Call to Neha Bowman reports continues to have headache. Pt called in for triage yesterday and did not mention to provider during telehalth visit today. Pt states BP continues elevated today. Pt states headache and blurry vision. Not resolving with Tyelnol. No CP , SOB or severe dizziness. Pt advised of disposition, wishes to be seen. Requesting [facility] for eval. Confirmed demographics and allergies. ..................... [...] - : Allergies Reviewed at 09/20/2024 - 17:07 Comments: [...] ..................... ..................... ..................... ..................... ..................... ..................... ............... Foster Winder Note From Buster Renteria: Pt co low BP reading , pt denies dizziness headache, NVD, cp sob , blurry vision , or abdominal pain. Baseline vitals assessed, WNL , orthos assessed WNL . [facility] contacted and advised or to continue to monitor BP and record and follow up with pcp. Education provided on signs indicating the ER. ..................... ..................... ..................... ..................... ..................... ..................... ............... [facility] Consulted: David Ashraf ..................... ..................... ..................... ..................... ..................... ..................... ............... Disposition: Fulfilled John Ashraf MD [address] [facility], [place], [address], [facility] 09/20/2024 21:30:05 10/15/2024 text/html HPI: Triage call to Pt reports weakness, not sleeping, excessive fatigue. Pt unable to come to facility to be seen. Neg for fever, bodyaches, headache. ..................... ..................... ..................... ..................... ..................... ..................... ............... [facility] Nurse Triage Notes (Isabel Cook - RN): Chief Complaints: Dizziness, Fatigue, Weakness PMH: Hypertension, Kidney Stones, Osteoarthritis, Osteoporosis PMH Reviewed at 10/15/2024 13:57 Allergies Reviewed at 10/15/2024 - 13:57 Comments: HPI reviewed ..................... ..................... ..................... ..................... ..................... ..................... ............... Foster Winder Note From Mauricio Garcia: [facility] visit for female pt. Pt is Icelandic speaking and so coke production heater was used. Pt presents complaining of 1 year of insomnia and resulting fatigue. Pt is currently taking benadryl without much reported effectiveness. Pt has sleep study scheduled in about 2 weeks. Pt states she has tried trazodone before and not enjoyed it. V/S taken as listed. Pt afebrile. Consulted with [facility] Dr. Sky who suggested pt follow up with PCP and proceed with sleep study. Pt education provided. ..................... ..................... ..................... ..................... ..................... ..................... ............... [facility] Consulted: Reggie Sky ..................... ..................... ..................... ..................... ..................... ..................... ............... Disposition: Fulfilled REGGIE SKY MD [address] [facility], [place], [address], [employer] 10/15/2024 20:57:15 OBGyn Episode No OBEpisode recorded.
--- OUTSIDE RECORDS SUMMARY | 2025-01-16 16:26 | XMS_ITS | Encounter Summary ---
Author Organization [employer] Address [address] [place] [address] Care Team Providers Care Heavy Equipment Sales Manager Name Role Phone Sonya Interiano MD Primary Care Provider [phone] Reason for Visit * Reason Onset Date Comments Nurse Triage 11/22/2024 Encounter Details Date Type Department Care Team ([facility] st Contact Info) Description 11/22/[address] [facility] [address] [place] [address] Sonya Interiano MD [address] [place] [address] Nurse Triage Social History Tobacco Use Types [...] Center 12/04/2024 11:00 AM Sonya Interiano MD [facility] Insurance verified as active per Real Time Eligibility in [facility]. * Telephone Encounter - Zee Leong RN - 11/22/2024 10:14 AM EDT Per chart rview pt has hx of primary HTN, on rx losartan 50mg daily. No director of medical review needed as this tag writer speaks Surinamese. Call returned to Neha Bowman to triage below. Reports BP of 170/68 was 20 mins ago. Per pt took losartan around 9:30am. Pt asked to recheck BP while pad extraction tender 173/95 HR82 on left arm. Denies any CP , SOB or MARC. Pt not on any other BP meds. Per pt having higher readings x 4 days. Pt offered WIC today or appt tomorrow. Pt states will go to WIC tomorrow as already has appt in [place] with Ortho. Pt has a log but [...] acuity questions The caller accepted this outcome. [phone] *denied director of medical review ( states she understand a little) documented in this encounter Plan of Treatment Upcoming Encounters Date Type Department Care Team ([facility] st Contact Info) Description 03/28/2025 11:15 AM EDT Telemedicine [facility] [address] [facility] [place] [address] Sonya Interiano MD [address] [place] [address] documented as of this encounter Visit Diagnoses Not on filedocumented in this encounter Additional Health Concerns Assessment Noted Time PHQ-9 Depression Total Score: 11 10/19/ 024 10:51 AM EST documented as of this encounter Care Teams Heavy Equipment Sales Manager Relationship Specialty Start Date End Date Sonya Interiano MD [address] [place] [address] PCP - General Family Medicine 08/28/12 [facility] 09/17/24 documented as of this encounter
--- OUTSIDE RECORDS SUMMARY | 2025-01-16 16:26 | XMS_ITS | Encounter Summary ---
Author Organization [employer] Address [address] [facility] [address] [place] [address] Care Team Providers Care Straddle Truck Operator Name Role Phone Sonya Interiano MD Primary Care Provider [phone] Reason for Visit * Reason Onset Date Comments Appointment Request 08/12/2023 Encounter Details Date Type Department Care Team (Late Contact Info) Description 08/12/2023 Telephone [facility] [address] [place] [address] Sonya Interiano MD [address] [place] [phone] Appointment Request Social History Tobacco Use Types [...] pt requesting a f/u appt with PCP, documentation writer ask pt and no concerns with her health. documented in this encounter Plan of Treatment Upcoming Encounters Date Type Department Care Team ([facility] Contact Info) Description 03/28/2025 11:15 AM EDT Telemedicine [facility] [address] [place] [address] Sonya Interiano MD [address] [place] [address] documented as of this encounter Visit Diagnoses Not on filedocumented in this encounter Care Teams Straddle Truck Operator Relationship Specialty Start Date End Date Sonya Interiano MD [address] [place] [address] PCP - General Family Medicine 08/28/12 [employer] 09/17/24 documented as of this encounter
--- OUTSIDE RECORDS SUMMARY | 2025-01-16 16:26 | XMS_ITS | Encounter Summary ---
Author Organization [employer] Address [address] [place] [address] Care Team Providers Care Blender Laborer Name Role Phone Sonya Interiano MD Primary Care Provider [phone] Reason for Visit * Reason Onset Date Comments Call Back Request 03/26/2024 Encounter Details Date Type Department Care Team ([facility] Contact Info) Description 03/26/2024 Telephone [facility] [address] [place] [address] Sonya Interiano MD [address] [place], [place] [phone] Call Back Request Social History Tobacco Use [...] Info) Description 03/28/2025 11:15 AM EDT Telemedicine [facility] [address] [place] [address] Sonya Interiano MD [address] [place] [address] documented as of this encounter Visit Diagnoses Not on filedocumented in this encounter Additional Health Concerns Assessment Noted Time PHQ-9 Depression Total Score: 11 024 10:51 AM EST documented as of this encounter Care Teams Blender Laborer Relationship Specialty Start Date End Date Sonya Interiano MD [address] [place] [address] PCP - General Family Medicine 08/28/12 [employer] 09/17/24 documented as of this encounter
--- OUTSIDE RECORDS SUMMARY | 2025-01-16 16:26 | XMS_ITS | Encounter Summary ---
Author Organization [employer] Address [address] [place] [address] Care Team Providers Care Sales Coordinator Name Role Phone Sonya Interiano MD Primary Care Provider [phone] Reason for Visit * Reason Onset Date Comments Medication Question 01/15/2025 Encounter Details Date Type Department Care Team ([facility] st Contact Info) Description 01/15/2025 Telephone [facility] MEDICINE [address] [place] [address] Sonya Interiano MD [address] [place], [place] [id number] Medication Question Social History Tobacco Use Types [...] Telephone Encounter - Sophia Terry RN - 01/15/2025 3:52 PM EDT TC to [facility]. Patient stated that the Trazodone is too strong, and then told him it was notworking for her and she would like melatonin. RN explained that Trazodone is stronger that melatonin. Ziggy agreed and stated he explained this to patient, but she would till like melatonin. Routingto provider for review. * Telephone Encounter - Jerica Rojas - 01/15/2025 12:58 PM EDT Tc from Ziggy HARDWICK requesting melatonin and a call back from nurses to explain better. [phone] documented in this encounter Plan of Treatment Upcoming Encounters Date Type Department Care Team (Late st Contact Info) Description 03/28/2025 11:15 AM EDT Telemedicine [facility] [address] [place] [address] Sonya Interiano MD [address] [place] [address] documented as of this encounter Visit Diagnoses Not on filedocumented in this encounter Additional Health Concerns Assessment Noted Time PHQ-9 Depression Total Score: 11 10/19/ 024 10:51 AM EST documented as of this encounter Care Teams Sales Coordinator Relationship Specialty Start Date End Date Sonya Interiano MD [address] [place] [address] PCP - General Family Medicine 08/28/12 Smeet 09/17/24 documented as of this encounter
[2025-01-16 19:44] LABS: Bacterial Vaginosis PCR NEGATIVE (Negative); Candida Group PCR NOT DETECTED (Not Detect); Candida glab krusei PCR NOT DETECTED (Not Detect); Trichomonas vaginalis PCR NOT DETECTED (Not Detect)
== END 2025-01-16 15:45 | disposition home or self-care (01) ==
LOC: HO.CHCLNP 15:44
PROVIDERS: Visit Provider Student in an Organized Health Care Education/Training Program
DX: N89.8 Other specified noninflammatory disorders of vagina (principal)
CPT/HCPCS: 81515

== ENCOUNTER 2025-04-30 09:57 | Outpatient (REF) | payer OTHER, SELFPAY ==
--- OUTSIDE RECORDS SUMMARY | 2025-04-30 11:07 | XMS_ITS | Continuity of Care Document ---
Author Name Manuel Castorena Address [address] [place] [id number] Organization Unknown Address [address] [place] [id number] Medications No known medications Problems No known problems
--- OUTSIDE RECORDS SUMMARY | 2025-04-30 11:07 | XMS_ITS | Encounter Summary ---
Author Organization [employer] Address [address] [place] [address] Care Team Providers Care Learning And Development Intern Name Role Phone Sonya Interiano MD Primary Care Provider [phone] Reason for Visit * Reason Onset Date Comments Call Back Request 03/26/2024 Encounter Details Date Type Department Care Team ([facility] st Contact Info) Description 03/26/2024 Telephone [facility] MEDICINE [address] [place] [address] Sonya Interiano MD [address] [place] [address] Call Back Request Social History Tobacco Use [...] documented as of this encounter Care Teams Learning And Development Intern Relationship Specialty Start Date End Date Sonya Interiano MD [address] [place] [address] PCP - General Family Medicine 08/28/12 [employer] 09/17/24 documented as of this encounter
--- OUTSIDE RECORDS SUMMARY | 2025-04-30 11:07 | XMS_ITS | Clinical Summary ---
Author Organization [facility] Address [address] [place] [address] Phone Care Team Providers Care Freight Sorter Name Role Phone Physician, Pcp Unknown Primary [...] side without obstruction or gangrene 11/27/2024 11/30/2024 Family History Medical History Relation Name Comments [...] 78 12/10/2024 1:10 PM EDT Temperature 37 C (98.6 F) 11/30/2024 7:39 AM EDT Respiratory Rate 16 [...] season) 2024 01/25/2023, 06/02/2021, 05/12/2021 Depression Screening 09/12/2024 Influenza Vaccine (#1) 2025 , 07/06/2022, 06/18/2020, Additional history exists Falls Risk Assessment 11/30/2025 11/30/2024 Hypertension/CHF/CAD Annual BMP Blood Test 11/30/2025 11/30/2024, 11/29/2024, 11/28/2024, Additional history exists Cholesterol Screening (Lipid Panel) 11/16/2026 11/16/2021 DTaP,Tdap,and Td Vaccines (3 - Td or Tdap) 11/07/2027 11/07/2017, 08/23/2008 Osteoporosis Screening (Bone Density Screening) 10/16/2034 10/16/2024 Pneumococcal Vaccine: 50+ Years Completed 08/16/2018, 07/20/2017, 07/08/2003 HIB Vaccines Aged Out No longer eligi [...] this topic Medical Devices Implanted Type Area Picture Framer Device Identifier Shelf Expiration Date Model / Serial / Lot Mesh 3dmax Lght Lg 4.1x6.2 L 4.1x6.2in - Sn/A - [id number] Implanted:Qty: 1 on 11/29/2024 by Rich Lyle MD at [facility] Surgical Mesh Sling Implants Left: Abdomen CR BARD - DAVOL DIV 06/09/2029 [id number] / N/A / [id number] Mesh 3dmax Lght Lg 4.1x6.2 R 4.1x6.2in - Sn/A - [id number] Implanted:Qty: 1 on 11/29/2024 by Rich Lyle MD at [facility] Surgical Mesh Sling Implants Right: Abdomen CR BARD - [employer]OL DIV 04/08/2029 [id number] / N/A / [id number] Procedures Procedure Name Priority Date/Time Associated Diagnosis Comments BASIC METABOLIC PANEL Routine 11/30/2024 5:29 AM EDT from Last 3 Months or Most Recently Relevant to Health Maintenance Results * (ABNORMAL) Basic metabolic panel (11/30/2024 5:29 AM EDT) Sodium 136 133 - 145 mmol/L LAB CHEMISTRY METHOD 11/30/2024 7:14 AM [facility] Potassium 4.4 3.5 - 5.5 mmol/L LAB CHEMISTRY METHOD 11/30/2024 7:14 AM [facility] Chloride 105 96 - 110 mmol/L LAB CHEMISTRY METHOD 11/30/2024 7:14 AM [facility] CO2 25 21 - 32 mmol/L LAB CHEMISTRY METHOD 11/30/2024 7:14 AM [facility] Anion Gap 6 3 - 11 LAB CHEMISTRY METHOD 11/30/2024 7:14 AM [facility] Glucose 175(H) 70 - 100 mg/dL LAB CHEMISTRY METHOD 11/30/2024 7:14 AM [facility] BUN 21 5 - 25 mg/dL LAB CHEMISTRY METHOD 11/30/2024 7:14 AM [facility] Creatinine 0.79 0.50 - 1.10 mg/dL LAB CHEMISTRY METHOD 11/30/2024 7:14 AM [facility] eGFR 74 >=60 mL/min/1. 73m2 LAB CHEMISTRY METHOD 11/30/2024 7:14 AM [facility] Comment:Calculation based on the Chronic Kidney Disease Epidemiology Collaboration (CKD-EPI) equation refit without adjustment for race. BUN/Creatinine Ratio 26.6 LAB CHEMISTRY METHOD 11/30/2024 7:14 AM EDT [facility] Calcium 8.3(L) 8.5 - 10.5 mg/dL LAB CHEMISTRY METHOD 11/30/2024 7:14 AM EDT [facility] Blood Venous blood specimen / Unknown Venipuncture / Unknown 11/30/2024 5:29 AM EDT 11/30/2024 6:18 AM EDT Alisha PAET LAB BLOOD ORDERABLES Final Res ult [facility] [address] [place] [address], [place] [phone] from Last 3 Months or Most Recently Relevant to Health Maintenance Insurance [facility] Member Subscriber Plan / Payer (Ef fective 2021-Present) Name:Neha Bowman Relation to Subscriber:Self Name:Neha Bowman Payer ID:[id number] Group ID:Not on file Type:Not on file Address: [place] [address] [address] [address] Advance Directives Documents on File Type Date Recorded Patient Gravity Prospecting Operator Expl anation Advance Directives and Living Will 11/28/2024 11:10 AM [facility] Agents on File Name Relationship Healthcare Agent Relationshi p Communication Kenneth Rochelle First Alternate Health Care Agent Kim Isaura Arango Second Alternate Health Car e Agent Care Teams Freight Sorter Relationship Specialty Start Date End Date Physician, Pcp Unknown PCP - General 11/27/24
[2025-04-30 13:58] LABS: MANUAL DIFF FLAG NO
[2025-04-30 14:06] LABS: Hematocrit 38.6 % (37.0-47.0); Hemoglobin 12.5 g/dl (12.0-16.0); Imm Gran Abs Auto 0.02 X10*3/uL (0.00-0.03); Imm Gran Pct Auto 0.3 % (0.0-0.4); Lymphocytes Absolute Auto 1.8 X10*3/uL (1.2-4.9); Mean Corpuscular HGB Conc 32.4 g/dl (31.0-35.0); Mean Corpuscular Hemoglobin 30.2 pg (27.0-33.0); Mean Corpuscular Volume 93.2 fL (80.0-98.0); NRBC Abs Auto 0.000 X10*3/uL (0.0-0.012); NRBC Pct Auto 0.0 /100WBC (0.0-0.2); Platelet Count 264 X10*3/uL (160-400); Red Blood Count 4.14 X10*6/uL (4.20-5.50); White Blood Count 6.4 X10*3/uL (4.8-10.8)
[2025-04-30 14:24] LABS: Iron 171 mcg/dL (30-160); Percent Iron Saturation 72 % (15-50); Total Iron Binding Capacity 238 mcg/dL (228-428); Unsaturated Iron Binding 67 ug/dL
[2025-04-30 14:55] LABS: Folate 14.7 ng/mL (> or = 4.0); Vitamin B12 492 pg/mL (200-900)
== END 2025-04-30 09:58 | disposition home or self-care (01) ==
LOC: HO.CHCLDS 09:57
PROVIDERS: PCP Student in an Organized Health Care Education/Training Program; Visit Provider Internal Medicine
DX: R53.83 Other fatigue (principal)
CPT/HCPCS: 36415; 82607; 82746; 83540; 84443; 85025

== ENCOUNTER 2025-05-23 12:39 | Outpatient (REF) | payer OTHER, SELFPAY ==
[2025-05-23 18:05] LABS: Alanine Aminotransferase 17 U/L (0-31); Albumin Level 4.3 g/dL (3.5-5.0); Alkaline Phosphatase 58 U/L (39-117); Anion Gap 12 (12-20); Aspartate Amino Transferase 32 U/L (5-31); Blood Urea Nitrogen 24 mg/dL (9-16); Calcium 9.7 mg/dL (8.4-10.2); Carbon Dioxide 30 mmol/L (22-29); Chloride 104 mmol/L (96-108); Estimated Glomerular Filt Rate > 60; Potassium 4.6 mmol/L (3.3-5.1); Sodium 141 mmol/L (135-145); Total Protein 7.5 g/dL (6.5-8.0)
== END 2025-05-23 12:40 | disposition home or self-care (01) ==
LOC: HO.HKASLDS 12:39
PROVIDERS: PCP Student in an Organized Health Care Education/Training Program; Visit Provider Student in an Organized Health Care Education/Training Program
DX: M81.0 Age-related osteoporosis without current pathological fracture (principal); M15.9 Polyosteoarthritis, unspecified; Z51.81 Encounter for therapeutic drug level monitoring; Z79.620 Long term (current) use of immunosuppressive biologic; Z79.899 Other long term (current) drug therapy
CPT/HCPCS: 36415; 80053; 85652; 86140; 96372; 99212; J0897

== ENCOUNTER 2025-05-23 12:39 | Outpatient (AMB) | payer OTHER, SELFPAY ==
--- NOTE | 2025-05-23 13:06 | A.OFFVIS_ITS ---
Vital Signs 05/23/25 13:15 Height 4 ft 11 in Weight 138 lb 0.15 oz BMI 27.9 BP 142/80 H Blood Pressure Location Lt brachial Position Sitting Pulse 67 Pulse Source Pulse Oximeter Pulse Oximetry (%) 97 Oxygen Delivery Method Room Air Intake Visit Reasons: osteoporosis/prolia inj Intake Note: Patient presents for Osteoporosis and Prolia injection follow up. Hotel Room Attendant Required: Yes Hotel Room Attendant Language: Brim Curler Services: Hotel Room Attendant Offered & Declined Hotel Room Attendant Name: Kim Delarosa Information Interpreted: non-clinical & clinical Food Safety Scientist: Food Safety Scientist Present (Kim Delarosa) Accompanied by: Sister Allergies sulfamethoxazole (From BACTRIM) Allergy (Intermediate, Verified 04/30/25 14:27) ITCHING trimethoprim (From BACTRIM) Allergy (Intermediate, Verified 04/30/25 14:27) ITCHING Penicillins (PENICILLINS) Allergy (Unknown, Verified 04/30/25 14:27) UNKNOWN-? 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 Interval History: Patient last seen 11/23/24 with me - On Prolia 60mg SC every 6 months - Denies any falls or fractures - Concerned prolia causing elevated BP but reassured patient and sister that that is not the case Today Patient last seen 11/23/24 with me - On Prolia 60mg SC every 6 months - Denies any falls or fractures Rheumatologic History: Osteoporosis DEXA 05/2022 L spine T-score -4.1.? 1% increase from baseline Left femur neck T-score -3.6 Left femur total T-score -3.5 Prolia 10/2022 Current Rheumatology Medication(s): Prolia 60mg SC every 6 months Vitamin D 2000U COUNT INCLUDES THE [facility] Medical History Essential hypertension Surgical History H/O tubal ligation H/O: knee surgery Hx of colonoscopy Family History Father Throat cancer Mother No problems noted. Brother Diabetes Social History Household Members: None Household Members Other:: Lives alone Housing: Apartment Alcohol intake: former Patient Tobacco Use Status: Former Tobacco user Female Reproductive History Menstrual Age of Menarche: 12 Review of Systems Const Details: Review of Systems Constitutional: Denies fever, chills, weight loss ENT: Denies vision changes, eye pain or eye redness, dental caries, dry mouth GI: Denies nausea, vomiting, diarrhea, abdominal pain, change in BM Pulm: Denies SOB, SMITH, hemoptysis, wheezing Cards: Denies chest pain, palpitations Skin: Denies Raynaud's, rash, nail changes, photosensitivity, HOME WORKER: Denies headaches, weakness, paresthesias, recurrent falls MSK: as per HPI All other systems reviewed and are unremarkable except noted above Physical Exam Exam Exam: Vital signs reviewed Physical Examination CONSTITUITIONAL Patient alert and cooperative. Well appearing and in no apparent painful distress MSK Hands * Right Hand: Able to make a fist. No swelling or tenderness to palpation of the MCPs, PIPs or DIPs. * Left Hand: Able to make a fist. No swelling or tenderness to palpation of the MCPs, PIPs or DIPs. * Herbedens nodes noted bilaterally Wrists * Right Wrist: Full ROM to flexion and extension. No swelling or TTP * Left Wrist: Full ROM to flexion and extension. No swelling or TTP Elbows * Right Elbow: Full ROM. No swelling or TTP. No TTP of the medial epicondyle. No TTP of the lateral epicondyle * Left Elbow: Full ROM. No swelling or TTP. No TTP of the medial epicondyle. No TTP of the lateral epicondyle Shoulders * Right shoulder: No swelling noted. No TTP of the AC joint. No TTP of the subacromial bursa. No TTP of the posterior shoulder * Left shoulder: No swelling noted. No TTP of the AC joint. No TTP of the subacromial bursa. No TTP of the posterior shoulder Knees * Right knee: Full ROM. No swelling noted. No TTP of the knee joint line. No TTP of pes anserine bursa * Left knee: Full ROM. No swelling noted. No TTP of the knee joint line. No TTP of pes anserine bursa. * Crepitations felt bilaterally Ankles * Right ankle: Good ankle dorsiflexion and plantar flexion. No swelling. No TTP of the ankle joint * Left ankle: Good ankle dorsiflexion and plantar flexion. No swelling. No TTP of the ankle joint Feet * Right foot: Negative squeeze test * Left foot: Negative squeeze test Tender points? * No tenderness to palpation of the bilateral trapezius, supraspinatus, anterior costochondral junctions, bilateral suboccipital muscle insertions SKIN No rashes Vital Signs: Last Vital Signs Pulse 67 05/23/25 13:15 BP 142/80 H 05/23/25 13:15 Pulse Ox 97 05/23/25 13:15 Oxygen Delivery Method Room Air 05/23/25 13:15 BMI result Body Mass Index 27.9 Office Meds Prolia 60 mg/mL subcutaneous syringe Performing Provider: Thania Arredondo MD Performing Location: [facility] [place] [facility] Administered by: Fabian Lee RN on 05/23/25 14:02 Dose Route Admin Location Dispensed Lot Number Expiration Date ND [employer] 60 mg subcut 1 mL [id number] 11/10/27 57811-723-30 [employer] Total Dispensed Waste 1 mL 0 % Comments: Neha Bowman presents today for Prolia (Denosumab) 60 mg/mL injection for the treatment of osteoporosis. The patient has not had any recent fever or illness. The injection site to be used is without erythema, edema, and is clean, dry and intact. No injection site reaction noted. She tolerated the procedure well. Discussed post-injection precautions. Patient discharged to home. Results Reviewed Results Reviewed: Laboratory Tests 11/20/24 04/30/25 13:10 10:13 WBC 6.4 RBC 4.14 L Hgb 12.5 Hct 38.6 Plt Count 264 25-OH Vitamin D Total 22 L DEXA 10/2024 FINDINGS: The bone mineral density of the lumbar spine is 0.717 with a T-score of -3.9, and a Z-score of -1.9. This represents a BMD change of 3.9% compared to the prior exam. This is not statistically significant. The bone mineral density of the left total hip is 0.596 with a T-score of -3.3, and a Z-score of -1.0. This represents BMD change of 5.3% compared to the prior exam. This is not statistically significant. The bone mineral density of the left femoral neck is 0.563 with a T-score of -3.4, and a Z-score of -1.0. This represents BMD change of 6.0% compared to the prior exam. Assessment & Plan Assessment & Plan (1) Osteoporosis: Comment: DEXA 05/2022: AP spine -4.1, Left femur neck -3.6, Left femur total -3.5 DEXA 10/2024: AP spine -3.9, Left femur neck -3.3, Left femur total -3.3 Prolia 10/2022 Code(s): M81.0 - Age-related osteoporosis without current pathological fracture Category: Medical Qualifiers: Osteoporosis type: age-related Presence of current pathological fracture: without current pathological fracture Qualified Code(s): M81.0 - Age- related osteoporosis without current pathological fracture Plan: #Osteoporosis Patient is an 85-year-old female with osteoporosis here today for follow up. Repeat DEXA scan done 10/2024 shows improvement in her AP spine, and left femur neck as well as left femur total. Consider switching to PO bisphosphonates after next bone densitiy with the plan to stop after 2 years of therapy Plan - Prolia 60mg SC every 6 months, given today - Continue vitamin D - Encouraged weight bearing exercises - RTC 6 months - Labs before visit: CBC, CMP, ESR, CRP, vitamin-D (2) Polyarticular osteoarthritis: Code(s): M15.9 - Polyosteoarthritis, unspecified Plan: #Polyarticular OA Patient with polyarticular osteoarthritis with current complaints of her bilateral knees which are status post replacement and bilateral 1st CMC joints. Recommended topical uihp-ive-zabgkpa Voltaren gel to be used 4 times a day (3) Encounter for monitoring denosumab therapy: Code(s): Z51.81 - Encounter for therapeutic drug level monitoring; Z79.620 - custodial (current) use of immunosuppressive biologic Plan: #Long-term use of Denosumab Discussed with patient the risks and benefits of denosumab (Prolia) for the management of their osteoporosis Benefits include improved bone density, decreased fracture risk Risks include rapid bone loss if denosumab stopped, osteonecrosis of the jaw especially in patients with poor oral hygiene/diabetes/use of glucocorticoids/age greater than 65 years, atypical femoral fractures, injection site reactions. Mild increased risk of infections due to RANKL on T helper cells, increased risk of hypocalcemia especially in CKD patients Keep vitamin-D at least 35 ng/mL Advised to delay non emergent dental procedures to toward the end of the 6 month cycle and if they plan to stop denosumab would need to continue antiresorptive to maintain the effects of denosumabe Plan I spent 30 minutes reviewing the record and labs, taking a history, examining the patient, discussing the treatment plan, ordering diagnostic work up, answering questions and documenting in the medical record Orders: Orders C Reactive Protein 05/23/25 M81.0 - Age-related osteoporosis without current pathological fracture, Z79.899 - Other terminal block assembler (current) drug therapy Erythrocyte Sedimentation Rate 05/23/25 M81.0 - Age-related osteoporosis without current pathological fracture, Z79.899 - Other correction (current) drug therapy Vitamin D 25-OH Total 5 Months M81.0 - Age-related osteoporosis without current pathological fracture Comprehensive Met. Panel 05/23/25 M81.0 - Age-related osteoporosis without current pathological fracture Vitamin D 25-OH Total 05/23/25 M81.0 - Age-related osteoporosis without current pathological fracture Comprehensive Met. Panel 5 Months M81.0 - Age-related osteoporosis without current pathological fracture AMB Denosumab Injection Practice Supplied 05/23/25 M81.0 - Age-related osteoporosis without current pathological fracture Coding Level of Care Code Est Pt Level 4 (95716) Complex EM visit Add On G2211 Diagnoses Age-related osteoporosis without current pathological fracture M81.0 Osteoporosis type: age-related Presence of current pathological fracture: without current pathological fracture Polyarticular osteoarthritis M15.9 Encounter for monitoring denosumab therapy Z51.81; Z79.307
[2025-05-23 13:15] VITALS: BP 142/80; PULSE 67; O2SAT 97; BMI 27.9
--- OUTSIDE RECORDS SUMMARY | 2025-05-23 16:50 | XMS_ITS | Encounter Summary ---
Author Organization [employer] Address [address] [facility] [address] [address] [place] [address] Care Team Providers Care Internet Sales Director Name Role Phone Sonya Interiano MD Primary Care Provider [phone] Encounter Details Date Type Department Care Team ([facility] Contact Info) Description 04/09/2024 Orders Only [facility] [address] [place], [place] [id number] ProviderAga MD Social History Tobacco Use Types [...] documented as of this encounter Care Teams Internet Sales Director Relationship Specialty Start Date End Date Sonya Interiano MD [address] [place] [id number] PCP - General Family Medicine 08/28/12 [employer] 09/17/24 documented as of this encounter
--- OUTSIDE RECORDS SUMMARY | 2025-05-23 16:50 | XMS_ITS | Continuity of Care Document ---
Author Name [facility], Medical Address [address] [place] [id number] Organization Unknown Address [address] [place] [address] Medications No known medications Problems No known problems
--- OUTSIDE RECORDS SUMMARY | 2025-05-23 16:50 | XMS_ITS | Clinical Summary ---
Author Organization [employer] Address [address] [facility] 7t [place] [address] Care Team Providers Care After School Program Director Name Role Phone Sonya Interiano MD Primary Care Provider [phone] Allergies Active Allergy Reactions Criticality Noted Date [...] TO 60 MINUTES BEFORE MEALS 2 Active Prolia 60 MG/ML solution prefilled [...] AND SUPPER 60 tablet 11 4 Active triamcinolone (Kenalog) 0.1 % ointmentIndicati ons:Venous [...] before bedtime 28 capsule 3 4 Active traZODone (Desyrel) 50 MG tablet Take 1 tablet (50 mg) by mouth at bedtime. 30 tablet 2 5 Active losartan (Cozaar) 50 MG tablet Take 1 tablet (50 mg) by mouth Once per day. 90 tablet 5 Active levothyroxine (Synthroid) 150 MCG tablet Take 1 tablet (150 mcg) by mouth before breakfast. 30 tablet 11 5 04/05/20 26 Active melatonin 10 MG tablet Take 1 tablet (10 mg) by mouth at bedtime. 30 tablet 3 5 05/05/20 25 Active Problems Problem Noted Date Diagnosed Date [...] pt insist she was seen in [facility] - also requesting home VNA, this should [...] high potency steroids, she declined referral to [facility]. Will send out swab. Assessment & Plan [...] Encounters Date Type Department Care Team Description 05/21/2025 Telephone [facility] [address] [place] [phone] Sonya Interiano MD Med Refill 05/08/[address] [address] Sonya Interiano MD Nurse Triage 04/30/2025 Orders Only [facility] [address] [place] [address] Tayo Nelson MD Other fatigue (Primary Dx) 04/29/2025 10:45 AM EDT Telemedicine [facility] [address] [place] [address] Tayo Nelson MD 04/29/2025 Travel 04/26/2025 Telephone [facility] [address] [place] [address] Sonya Interiano MD Medication Question 04/25/2025 Travel 04/23/[address] [address] Sonya Interiano MD Nurse Triage 04/11/[address] [address] Sonya Interiano MD Medication Question 04/05/2025 3:30 PM EDT Telemedicine [facility] [address] [place] [address] Sonya Interiano MD Insomnia, unspecified type (Primary Dx); Primary hypertension 04/05/2025 Travel 04/02/2025 Telephone [facility] [address] [place] [address] Sonya Interiano MD verbal orders 03/29/[address] [address] Sonya Interiano MD Nurse Triage 03/11/[address] [address] Sonya Interiano MD Nurse Triage from Last 3 Months Immunizations Immunization Administration Dates Next Due Influenza High-dose Quadrivalent [...] 60 01/16/2025 10:48 AM EDT Temperature 36.7 C (98.1 F) 01/16/2025 10:48 AM EDT Respiratory Rate 18 01/16/2025 10:48 AM EDT Oxygen Saturation 98% 09/06/2024 2:21 PM EST Inhaled Oxygen Concentration - - Weight 63 kg (139 lb) 12/27/2024 11:02 AM EDT Height 152.4 cm (5') 12/27/2024 11:02 AM EDT Body Mass Index 27.15 12/27/2024 11:02 AM EDT Plan of Treatment Health Maintenance Due Date Last Done Comments Alcohol/Substance Use Screening 1952 Zoster Vaccines (1 of 2) 02/23/1990 RSV Patients and Patients Aged 60 years or older (1 - 1-dose 75+ series) 02/23/2015 Depression Monitoring 04/18/2024 10/19/2023, 024 COVID-19 Vaccine ( - season) 2025 01/25/2023, 06/02/2021, 05/12/2021 Influenza Vaccine (#1) 2025 , 07/06/2022, 06/18/2020, Additional history exists SDOH Screening 10/17/2025 10/17/2024 Tobacco Screening 01/16/2026 [...] Diagnosis Comments TSH W/REFLEX TO FT4 Routine 04/30/2025 1 0:13 AM EDT Other fatigue VITAMIN B12/FOLATE, SERUM PANEL Routine 04/30/2025 10:13 AM EDT Other fatigue IRON AND TOTAL IRON BINDING CAPACITY Routine 04/30/2025 10:13 AM EDT Other fatigue CBC WITH AUTO DIFFERENTIAL Routine 04/30/2025 10:13 AM EDT Other fatigue LIPID PANEL, STANDARD Routine 11/16/2021 10:13 AM EST from Last 3 Months or Most Recently Relevant to Health Maintenance Results * Vitamin B12 (Cobalamin) and Folate Panel, Serum (04/30/2025 10:13 AM EDT) Vitamin B12 492 200 - 900 pg/mL [facility] Comment:NORMAL 200-900 PG/ML INDETERMINATE 160-199 PG/ML DEFICIENT < 160 PG/ML Folate 14.7 > or = 4.0 ng/mL [facility] Comment:Reference Values:> o r = 4.0 ng/mL< 4.0 ng/mL suggests folate deficiency Methotrexate, aminopterin and folinic acid(leucovorin) are chemotherapeutic agents whose molecularstructures are similar to folate; therefore, the Architectfolate assay cannot be used for patients using these drugs. Blood Venous blood specimen / Unknown 04/30/2025 10:13 AM EDT 04/30/2025 1:55 PM EDT Tayo Castaneda MD LAB BLOOD ORDERABL ES Final Result Performing Organization Address [facility] de Phone Number [facility] [address] [place] [phone] * TSH W/Reflex to FT4 (04/30/2025 10:13 AM EDT) Pathologist [facility] TSH reflex Free T4 2.04 0.32 - 4.0 uIU/mL [facility] Blood Venous blood specimen / Unknown 04/30/2025 10:13 AM EDT 04/30/2025 1:55 PM EDT Tayo Castaneda MD LAB BLOOD ORDERABL ES Final Result Performing Organization Address [facility] de Phone Number [facility] [address] [place] [phone] * (ABNORMAL) CBC auto differential (04/30/2025 10:13 AM EDT) [facility] [address] White Blood Count 6.4 4.8 - 10.8 X10*3/uL [facility] Red Blood Count 4.14(L) 4.20 - 5.50 X10*6/uL [facility] Hemoglobin 12.5 12.0 - 16.0 g/dl [facility] Hematocrit 38.6 37.0 - 47.0 % [facility] Mean Corpuscular Volume 93.2 80.0 - 98.0 fL [facility] Mean Corpuscular Hemoglobin 30.2 27.0 - 33.0 pg [facility] Mean Corpuscular HGB Conc 32.4 31.0 - 35.0 g/dl [facility] Red Cell Distribution Width 13.4 11.0 - 16.0 % [facility] Platelet Count 264 160 - 400 X10*3/uL [facility] Mean Platelet Volume 10.3 9.4 - 12.3 fL [facility] Neutrophils Percent Auto 58.1 45 - 73 % [facility] Imm Gran Pct Auto 0.3 0.0 - 0.4 % [facility] Lymphocytes Percent Auto 28.6 20 - 40 % [facility] Monocytes Percent Auto 9.8 2 - 11 % [facility] Eosinophils Percent Auto 2.6 0 - 4 % [facility] Basophils Percent Auto 0.6 0 - 2 % [facility] NRBC Pct Auto 0.0 0.0 - 0.2 /100WBC [facility] Neutrophils Absolute Auto 3.7 2.0 - 8.3 x10*3/uL [facility] Imm Gran Abs Auto 0.02 0.00 - 0.03 X10*3/uL [facility] Lymphocytes Absolute Auto 1.8 1.2 - 4.9 X10*3/uL [facility] Monocytes Absolute Auto 0.6 0.1 - 1.2 X10*3/uL [facility] Eosinophils Absolute Auto 0.2 0.0 - 0.4 X10*3/uL [facility] Basophils Absolute Auto 0.0 0.0 - 0.2 X10*3/uL [facility] NRBC Abs Auto 0.000 0.0 - 0.012 X10*3/uL [facility] Blood Venous blood specimen / Unknown 04/30/2025 10:13 AM EDT 04/30/2025 1:55 PM EDT us Tayo Castaneda MD LAB BLOOD ORDERABL ES Final Result [facility] [address] [place] [phone] * (ABNORMAL) Iron And Total Iron Binding Capacity (04/30/2025 10:13 AM EDT) Iron 171(H) 30 - 160 mcg/dL [facility] Total Iron Binding Capacity 238 228 - 428 mcg/dL [facility] Percent Iron Saturation 72(H) 15 - 50 % [facility] Unsaturated Iron Binding 67 ug/dL [facility] Blood Venous blood specimen / Unknown 04/30/2025 10:13 AM EDT 04/30/2025 1:55 PM EDT us Tayo Castaneda MD LAB BLOOD ORDERABL ES Final Result Performing Organization Address [facility] Co de Phone Number [facility] [address] [place] [address] [phone] * (ABNORMAL) LIPID PANEL, STANDARD (11/16/2021 10:13 AM EST) Chol/HDLC Ratio 2.8 <5.0 (calc) [facility] Cholesterol, Total 187 <200 mg/dL [facility] HDL Cholesterol 67 > OR = 50 mg/dL [facility] LDL Cholesterol 103(H) mg/dL (calc) [facility] Comment: Reference range: <100 Desirable range <100 mg/dL for primary prevention; <70 mg/dL for patients with CHD or diabetic patients with > or = 2 CHD risk factors. LDL-C is now calculated using the Alfred-Nuñez calculation, which is a validated novel method providing better accuracy than the Friedewald equation in the estimation of LDL-C. Alfred SS et al. JULI. 2013;310(19): 1736-9793 (http://education.[employer].com/faq/PTK582) Non-HDL Cholesterol 120 <130 mg/dL (calc) [facility] Comment: For patients with diabetes plus 1 major ASCVD risk factor, treating to a non-HDL-C goal of <100 mg/dL (LDL-C of <70 mg/dL) is considered a therapeutic option. Triglycerides 78 <150 mg/dL [facility] 11/16/2021 10:1 3 AM EST us Sonya Interiano MD LAB BLOOD ORDERABLES Final Resul t [facility] [address] from Last 3 Months or Most Recently Relevant to Health Maintenance Insurance [facility] RET[employer] (HMO D-SNP) [place] DEGROOT [id number] Care Teams After School Program Director Relationship Specialty Start Date End Date Sonya Interiano MD [address] [place] [phone] PCP - General Family Medicine 08/28/12 [employer] 09/17/24
--- OUTSIDE RECORDS SUMMARY | 2025-05-23 16:50 | XMS_ITS | Encounter Summary ---
Author Organization [employer] Address [address] [facility] [address] 7[address] [place] [address] Care Team Providers Care Precision Printing Worker Name Role Phone Sonya Interiano MD Primary Care Provider [phone] Reason for Visit * Reason Onset Date Comments Nurse Triage 03/11/2025 Encounter Details Date Type Department Care Team ([facility] st Contact Info) Description 03/11/2025 Telephone [facility] MEDICINE [address] [place] [address] Sonya Interiano MD [address] [place] [address] Nurse Triage Social History Tobacco Use Types [...] Telephone Encounter - Marlys Myers RN - 03/11/2025 5:07 PM EDT Triage call with [facility] [id number], [place]. Pt is called x2 and no answer. Left voicemessage to call [facility] triage line at [phone] when available. * Telephone Encounter - James Jacobsen - 03/11/2025 4:50 PM EDT Symptom: Urine Symptoms Outcome: Schedule a same-day appointment or talk to a nurse or provider today Reason: Caller denied all higher acuity questions The caller accepted this outcome. Also reports Abdomen pain, constipation ( pt got over the counter Colace today ) and dizziness documented in this encounter Plan of Treatment Not on file documented as of this encounter Visit Diagnoses Not on filedocumented in this encounter Additional Health Concerns Assessment Noted Time PHQ-9 Depression Total Score: 11 024 10:51 AM EST documented as of this encounter Care Teams Precision Printing Worker Relationship Specialty Start Date End Date Sonya Interiano MD [address] [place] [phone] PCP - General Family Medicine 08/28/12 [employer] 09/17/24 documented as of this encounter
--- OUTSIDE RECORDS SUMMARY | 2025-05-23 16:50 | XMS_ITS | Encounter Summary ---
Author Organization [employer] Address [address] [facility] [address] 7[address] [place] [address] Care Team Providers Care Surgical Dental Assistant Name Role Phone Sonya Interiano MD Primary Care Provider [phone] Reason for Visit * Reason Onset Date Comments Nurse Triage 09/19/2024 Encounter Details Date Type Department Care Team ([facility] st Contact Info) Description 09/19/[address] [facility] MEDICINE [address] [place] [address] Sonya Interiano MD [address] [place] [address] Nurse Triage Social History Tobacco Use Types [...] documented as of this encounter Care Teams Surgical Dental Assistant Relationship Specialty Start Date End Date Sonya Interiano MD [address] [place] [phone] PCP - General Family Medicine 08/28/12 [employer] 09/17/24 documented as of this encounter
--- OUTSIDE RECORDS SUMMARY | 2025-05-23 16:50 | XMS_ITS | Encounter Summary ---
Author Organization [employer] [facility] Address [address] [facility] [address] [place] [address] Encounters * CPT with [facility] at [place] on 2025-05-08 Pt had lab work done as ordered last week. Endorses having weakness, fatigue. No n/v diarrhea, dizziness or blurred vision. Pt has been drinking plenty of fluids and eating meals. Pt states SBP 160 this morning prior to meds. Pt offered in office visit. Pt declines. Agrees to [facility] referral. Confirmed demographics and allergies. { reasonForRequest : provider referral , patientReports : , denies :[], chiefComplaints : Weakness , pmh : Hypertension, Kidney Stones, Osteoarthritis, Osteoporosis , allergies : Penicillins, Bactrim, Penicillin V, Sulfamethoxazole, Trimethoprim , otherAllergies :null, pain Assessment : , visitOutcome : , additionalComments :"Please asses patient, vitals and rule out need for IV fluids. treat as appropriate. labs from draw done 11/30/24. BMP not ordered last week.\n\nPLEASE LOOK IN ANDI UNDER CLINICAL DOCUMENTS >[employer] TO SEE EXTERNAL LAB RESULTS } Baseline Glucose: 175 mg/dL, Baseline BUN: 21 mg/dL, Baseline Creatinine: 0.79 mg/dL, Baseline Sodium: 136 mmol/L, Baseline Potassium: 4.4 mmol/L, Baseline Bicarbonate (CO2): 25 mmol/L, Baseline Chloride: 105 mmol/L, Baseline Hb: 12.5 g/dL, Baseline HCt: 38 % Sent to a call for a pt complaining of fatigue. SC8 arrives on scene, pt is alert and oriented, airway is patent. Pt ambulates with a steady gait. Visit was set up by pt's PCP office due to pt declining office visit. Pt complains of intermittent hematuria (none currently), and fatigue x 2-3 months due to not sleeping well. Pt denies mg, dizziness, cp, sob, n/v/d, abd pain, dysuria, foul smelling urine, black/bloody stool, fever, or loc. Pt states she has been eating/drinking normally, last BM was yesterday, and pt takes Melatonin. BP:188/95, P:82, RR:18, SpO2:98% RA; BP:192/94, P:87; Head: unremarkable; Lung sounds: clear bilaterally; Abdomen: soft, non-tender, no distention; Back: no CVA tenderness; Extremities: unremarkable; Skin: pink, warm, dry; Urine sample obtained; urine dip performed; 12 lead ECG: uploaded to [employer]. [facility] consulted and pt is advised we are limited in diagnostic testing. Pt is advised to follow up with PCP. Red flags discussed. Pt has no further questions. ORAL_MEDICATION, WOUND_CARE Written by [facility] on 2025-05-08
--- OUTSIDE RECORDS SUMMARY | 2025-05-23 16:50 | XMS_ITS | Encounter Summary ---
Author Organization [employer] Address [address] [facility] [address] [facility] [address] [place] [address] Care Team Providers Care Coconut Cooker Name Role Phone Sonya Interiano MD Primary Care Provider [phone] Reason for Visit * Reason Onset Date Comments Nurse Triage 11/22/2024 Encounter Details Date Type Department Care Team ([facility] st Contact Info) Description 11/22/2024 Telephone [facility] MEDICINE [address] [place] [address] Sonya Interiano MD [address] [place] [address] Nurse Triage Social History Tobacco Use Types [...] Center 12/04/2024 11:00 AM Sonya Interiano MD [facility] MED [facility] Insurance verified as active per Real Time Eligibility in [facility]. * Telephone Encounter - Zee Leong RN - 11/22/2024 10:14 AM EDT Per chart rview pt has hx of primary HTN, on rx losartan 50mg daily. No operations support representative needed as this radio script writer speaks Moldovan. Call returned to Neha Bowman to triage below. Reports BP of 170/68 was 20 mins ago. Per pt took losartan around 9:30am. Pt asked to recheck BP while special forces weapons sergeant 173/95 HR82 on left arm. Denies any CP , SOB or MARC. Pt not on any other BP meds. Per pt having higher readings x 4 days. Pt offered WIC today or appt tomorrow. Pt states will go to WIC tomorrow as already has appt in [place] with Ortho. Pt has a log but [...] acuity questions The caller accepted this outcome. [phone] *denied operations support representative ( states she understand a little) documented in this encounter Plan of Treatment Not on file documented as of this encounter Visit Diagnoses Not on filedocumented in this encounter Additional Health Concerns Assessment Noted Time PHQ-9 Depression Total Score: 11 10/19/ 024 10:51 AM EST documented as of this encounter Care Teams Coconut Cooker Relationship Specialty Start Date End Date Sonya Interiano MD [address] [place] [phone] PCP - General Family Medicine 08/28/12 [employer] 09/17/24 documented as of this encounter
--- OUTSIDE RECORDS SUMMARY | 2025-05-23 16:50 | XMS_ITS | Encounter Summary ---
Author Organization [facility] Address [address] [facility] [address] [place] [address] Encounters * CPT with Manuel Castorena at [employer] on 2025-03-29 No automotive parts interpreter needed as this narrative writer speaks Urdu. Call returned to Neha Bowman to triage below at [phone]. Per pt having sx of increased nervousness. Pt states sx onset this morning. Pthas states BP of 166/84. NO fever. No QUIQUE sx. Pt denies any CP, SOB or palpitations. Pt denies any urinary sx at this time. Denies any N/v or diarrhea. Pt has only had coffee for breakfast. Pt offered Same day care slot with PCP . Declines states uanble to come into office. Agrees to [place] referral. Pt advised to call EMS or seek ER if sx worsen or any of above sx develop. Confirmed demographicsand allergies. { reasonForRequest : Anxious , patientReports : , kandace es :[], chiefComplaints : High Blood Pressure , pmh : Hypertension, Kidney Stones, Osteoarthritis, Osteoporosis , allergies : Penicillins, Bactrim, Penicillin V, Sulfamethoxazole, Trimethoprim , otherAllergies :null, arturo nAssessment : , visitOutcome : , additionalComments : HPI reviewed } Encountered patient conscious, alert and ambulatory. Patient reports waking up this morning with ???anxiety?? in her chest but denies pain or shortness of breath; does report abdominal discomfort over the past two days. When asked on four separate occasions, patient adamantly denied urinary symptoms including: burning, pain or changes in continence. Patient reports she has a history high blood pressure and has felt similarly in the past while having elevated pressures. 12 lead EKG exhibits a sinus rhythm with no present ectopy, non- diagnostic for acute STEMI. Skin warm, dry and of appropriate color for ethnicity. Head and neck, free of trauma and edema. -JVD. Breath sounds present, clear and equal bilaterally. Abdomen is soft, non-tender and non-distended; patient reports diffuse discomfort when prompted. Extremities free of trauma and edema. [facility] contacted: Vascular access obtained. BMP performed, values uploaded via [facility]. During interview with physician, patient divulged experiencing urinary symptoms despite being asked prior. Urinalysis obtained, values uploaded via [facility]; culture retrieved for [facility] delivery. 500ml normal salineadministered. [facility] reports they will treat for a suspected urinary tract infection, prescription being sent to a pharmacy of patients choice. Patient advised to monitor for worsening symptoms including chest pain, shortness of breath, fevers and painful urination. Patient verbalizes understanding ofthe plan and states she is comfortable remaining home today. IV_(FLUIDS_AND/OR_MEDICATION), MEDICATION_IM, ORAL_MEDICATION, EKG, ORTHOSTATIC_VITAL_SIGNS Written by Manuel Castorena on 2025-03-29
--- OUTSIDE RECORDS SUMMARY | 2025-05-23 16:50 | XMS_ITS | Encounter Summary ---
Author Organization [employer] Address [address] [facility] [address] [place] [address] Care Team Providers Care Threader Name Role Phone Sonya Interiano MD Primary Care Provider [phone] Encounter Details Date Type Department Care Team ([facility] Contact Info) Description 06/11/2024 Orders Only [facility]ED[facility] [address] [place] [address] Sonya Interiano MD [address] [place] [address] Social History Tobacco Use Types Packs/Day Years [...] PM EDT Narrative 06/25/2024 1:54 PM EDT [facility] [address] [place] [address] Mammography Report Signed Patient: Neha Bowman MR#: [id number] : 1940 Acct:[id number] Age/Sex: 84 / F ADM Date: 06/13/24 Loc: HO.MAMMO Attending Dr: Sonya Interiano MD Ordering Physician: Sonya Interiano MD Results: 1Negati ve Date of Service: 06/13/24 Follow Up: 1 Year From Orig inal Mammogram Procedure(s): MM tomosynthesis screening BI Accession Number(s): [id number] cc: Sonya Interiano MD EXAMINATION: MM SCREENING [...] 01:51 PM EDT RP Dictated By: Kym Sidhu DO Signed By: <Electronically signed by Kym Sidhu DO in OV> 06/25/24 1351 DD/ 1315 TD/TT: 06/13/24 1341 Cloth Stretcher: Procedure Note Donotuseinterpreter, Image - 06/25/2024 [facility] [address] [place], [place] [address] Mammography Report Signed Patient: Yusuf Bowman#: [id number] : 1940Acct:[id number] Age/Sex: 84 / FADM Date: 06/13/24 Loc: MAMMO Attending Dr: Sonya Interiano MD Ordering Physician: Sonya Interiano MDResults: 1Negati ve Date of Service: 06/13/24Follow Up: 1 Year From Orig inal Mammogram Procedure(s): MM tomosynthesis screening BI Accession Number(s): [id number] cc: Sonya Interiano MD EXAMINATION: MM SCREENING [...] 06/25/24 1351 DD/ 1315 TD/TT: 06/13/24 1341 Cloth Stretcher: Sonya Interiano MD IMG BI PROCEDURES Final Result documented in this encounter Visit Diagnoses Not on filedocumented in this encounter Additional Health Concerns Assessment Noted Time PHQ-9 Depression Total Score: 11 024 10:51 AM EST documented as of this encounter Care Teams Threader Relationship Specialty Start Date End Date Sonya Interiano MD [address] [place] [address] PCP - General Family Medicine 08/28/12 [employer] 09/17/24 documented as of this encounter
--- OUTSIDE RECORDS SUMMARY | 2025-05-23 16:50 | XMS_ITS | Encounter Summary ---
Author Organization [employer] Address [address] [place] [address] Care Team Providers Care Processing Clerk Name Role Phone Sonya Interiano MD Primary Care Provider [phone] Reason for Visit * Reason Onset Date Comments Med Refill 05/21/2025 Encounter Details Date Type Department Care Team ([facility] st Contact Info) Description 05/21/2025 Telephone [facility]INE [address] [place] [address] Sonya Interiano MD [address] [place] [address] Med Refill Social History Tobacco Use Types [...] encounter Miscellaneous Notes * Telephone Encounter - Nilda Mcintosh LPN - 05/21/2025 3:05 PM EDT 90 day supply sent to [facility] on 04/05/25. * Telephone Encounter - Emily Danielson - 05/21/2025 3:01 PM EDT Tc from pt requesting medication refill for losartan (Cozaar) 50 MG tablet documented in this encounter Plan of Treatment Not on file documented as of this encounter Visit Diagnoses Not on filedocumented in this encounter Additional Health Concerns Assessment Noted Time PHQ-9 Depression Total Score: 11 024 10:51 AM EST documented as of this encounter Care Teams Processing Clerk Relationship Specialty Start Date End Date Sonya Interiano MD [address] [place] [address] PCP - General Family Medicine 08/28/12 [employer] 09/17/24 documented as of this encounter
--- OUTSIDE RECORDS SUMMARY | 2025-05-23 16:50 | XMS_ITS | Encounter Summary ---
Author Organization [employer] Address [address] [facility] [address] 7[address] [place] [address] Care Team Providers Care Lead Front Desk Agent Name Role Phone Sonya Interiano MD Primary Care Provider [phone] Reason for Visit * Reason Onset Date Comments Medication Question 01/15/2025 Encounter Details Date Type Department Care Team ([facility] st Contact Info) Description 01/15/2025 Telephone [facility] MEDICINE [address] [place] [address] Sonya Interiano MD [address] [place], [place] [phone] Medication Question Social History Tobacco Use Types [...] Telephone Encounter - Sonya Interiano MD - 01/29/2025 9:48 AM EDT SENT * Telephone Encounter - Sophia Terry RN - 01/24/2025 1:18 PM EDT Routing to provider for review. * Telephone Encounter - Jerica Butt - 01/23/2025 4:35 PM EDT Tc from visiting nurse Ziggy regarding prior message. Pt requesting melatonin. * Telephone Encounter - Sophia Terry RN - 01/15/2025 3:52 PM EDT TC to [facility]. Patient stated that the Trazodone is too strong, and then told him it was notworking for her and she would like melatonin. RN explained that Trazodone is stronger that melatonin. Ziggy agreed and stated he explained this to patient, but she would till like melatonin. Routingto provider for review. * Telephone Encounter - Jerica Popeye Rojas - 01/15/2025 12:58 PM EDT Tc from Ziggy HARDWICK requesting melatonin and a call back from nurses to explain better. [phone] documented in this encounter Plan of Treatment Not on file documented as of this encounter Visit Diagnoses Not on filedocumented in this encounter Additional Health Concerns Assessment Noted Time PHQ-9 Depression Total Score: 11 024 10:51 AM EST documented as of this encounter Care Teams Lead Front Desk Agent Relationship Specialty Start Date End Date Sonya Interiano MD [address] [place] [address] PCP - General Family Medicine 08/28/12 [employer] 09/17/24 documented as of this encounter
--- OUTSIDE RECORDS SUMMARY | 2025-05-23 16:50 | XMS_ITS | Encounter Summary ---
Author Organization [employer] Address 75 [facility] 7t [place] [address] Care Team Providers Care Client Hr Manager Name Role Phone Sonya Interiano MD Primary Care Provider [phone] Encounter Details Date Type Department Care Team ([facility] [address] Contact Info) Description 02/03/2023 Orders Only [facility] MED & PEDS [address] [place], [place] [phone] Sonya Interiano MD [address] [place], [place] [phone] Social History Tobacco Use Types Packs/Day Years [...] on filedocumented in this encounter Care Teams Client Hr Manager Relationship Specialty Start Date End Date Sonya Interiano MD [address] [place] [address] PCP - General Family Medicine 08/28/12 [employer] 09/17/24 documented as of this encounter
--- OUTSIDE RECORDS SUMMARY | 2025-05-23 16:50 | XMS_ITS | Encounter Summary ---
Author Organization [employer] Address 75 [facility] 7t [place] [address] Care Team Providers Care Insemination Worker Name Role Phone Sonya Interiano MD Primary Care Provider [phone] Reason for Visit * Reason Onset Date Comments Nurse Triage 11/04/2023 Encounter Details Date Type Department Care Team ([facility] Contact Info) Description 11/04/2023 Telephone C [facility]S [address] [place] [address] Sonya Interiano MD 505 [place] [address] Nurse Triage Social History Tobacco Use Types [...] 11/04/2023 11:03 AM EST Called pt. Via [employer] certified court/medical interpreter [id number] Cb. Pt. States that she has been [...] accepted this outcome Please contact pt at [phone] (Cuban) documented in this encounter Plan of Treatment Not on file documented as of this encounter Visit Diagnoses Diagnosis Upper respiratory tract infection, unspecified type documented in this encounter Additional Health Concerns Assessment Noted Time PHQ-9 Depression Total Score: 11 024 10:51 AM EST documented as of this encounter Care Teams Insemination Worker Relationship Specialty Start Date End Date Sonya Interiano MD 230 [place] [address] PCP - General Family Medicine 08/28/12 [employer] 09/17/24 documented as of this encounter
--- OUTSIDE RECORDS SUMMARY | 2025-05-23 16:50 | XMS_ITS | Encounter Summary ---
Author Organization [employer] Address [address] [facility] [address] 7[address] [place] [address] Care Team Providers Care Adzing And Boring Machine Feeder Name Role Phone Sonya Interiano MD Primary Care Provider [phone] Reason for Visit * Reason Onset Date Comments Call Back Request 03/26/2024 Encounter Details Date Type Department Care Team ([facility] st Contact Info) Description 03/26/2024 Telephone [facility] MEDICINE [address] [place] [address] Sonya Interiano MD [address] [place] [address] Call Back Request Social History Tobacco Use [...] documented as of this encounter Care Teams Adzing And Boring Machine Feeder Relationship Specialty Start Date End Date Sonya Interiano MD [address] [place] [address] PCP - General Family Medicine 08/28/12 [employer] 09/17/24 documented as of this encounter
--- OUTSIDE RECORDS SUMMARY | 2025-05-23 16:50 | XMS_ITS | Encounter Summary ---
Author Organization [employer] Address 75 [facility] 7t [place] [address] Care Team Providers Care Radio Television Announcer Name Role Phone Sonya Interiano MD Primary Care Provider [phone] Reason for Visit * Reason Onset Date Comments Nurse Triage 10/15/2024 Encounter Details Date Type Department Care Team ([facility] Contact Info) Description 10/15/2024 Telephone C [facility]S 505 [place], [place] [phone] Sonya Interiano MD 505 [place] [address] Nurse Triage Social History Tobacco Use Types [...] call with [facility] forest fire equipment operator [place] [id number] Pt reports insominia, weakness and excessive fatigue [...] documented as of this encounter Care Teams Radio Television Announcer Relationship Specialty Start Date End Date Sonya Interiano MD [address] [place] [address] PCP - General Family Medicine 08/28/12 [email or web address] 09/17/24 documented as of this encounter
--- OUTSIDE RECORDS SUMMARY | 2025-05-23 16:50 | XMS_ITS | Encounter Summary ---
Author Organization [employer] Address [address] [facility] [address] 7[address] [place] [address] Care Team Providers Care Pattern Puncher Name Role Phone Sonya Interiano MD Primary Care Provider [phone] Encounter Details Date Type Department Care Team ([facility] Contact Info) Description 08/29/2024 Telephone C [facility]S [address] [place], [place] [phone] Sonya Interiano MD 505 [place] [address] Social History Tobacco Use Types Packs/Day Years [...] documented as of this encounter Care Teams Pattern Puncher Relationship Specialty Start Date End Date Sonya Interiano MD [address] [place] [address] PCP - General Family Medicine 08/28/12 [employer] 09/17/24 documented as of this encounter
--- OUTSIDE RECORDS SUMMARY | 2025-05-23 16:50 | XMS_ITS | Encounter Summary ---
Author Organization [employer] Address [address] [facility] [address] [place] [address] Care Team Providers Care Candle Maker Name Role Phone Sonya Interiano MD Primary Care Provider [phone] Reason for Visit * Reason Onset Date Comments Call Back Request 12/06/2023 Med Refill 12/06/2023 Encounter Details Date Type Department Care Team ([facility] st Contact Info) Description 12/06/2023 Telephone [facility] MEDICINE [address] [place], [place] [phone] Sonya Interiano MD [address] [place] [address] Call Back Request; Med Refill Social History [...] documented as of this encounter Care Teams Candle Maker Relationship Specialty Start Date End Date Sonya Interiano MD [address] [place] [address] PCP - General Family Medicine 08/28/12 [employer] 09/17/24 documented as of this encounter
--- OUTSIDE RECORDS SUMMARY | 2025-05-23 16:50 | XMS_ITS | Encounter Summary ---
Author Organization [employer] Address [address] [facility] [address] 7[address] [place] [address] Care Team Providers Care Opera Singer Name Role Phone Sonya Interiano MD Primary Care Provider [phone] Reason for Visit * Reason Onset Date Comments Nurse Triage 09/20/2024 Encounter Details Date Type Department Care Team ([facility] st Contact Info) Description 09/20/2024 Telephone [facility] MEDICINE [address] [place] [address] Sonya Interiano MD [address] [place] [address] Nurse Triage Social History Tobacco Use Types [...] 4:05 PM EST Called pt. Via S records analysis manager [phone] Adri. No answer. Director Of Field Sales left message for pt. To call back [facility] nurses at [phone]. Called pt. Back x 2 and no answer. Director Of Field Sales DID leave second message for pt. To call back [facility] nurses at [phone]. RE: Headache vision change and dizziness. * Telephone Encounter - Jerica Rojas - 09/20/2024 3:50 PM EST Symptoms: Headache, Vision Loss or Change Outcome: Talk to a nurse or provider within 15 minutes Reason: Trouble walking The caller accepted this outcome. [phone] (Hungarian) documented in this encounter Plan of Treatment Not on file documented as of this encounter Visit Diagnoses Not on filedocumented in this encounter Additional Health Concerns Assessment Noted Time PHQ-9 Depression Total Score: 11 024 10:51 AM EST documented as of this encounter Care Teams Opera Singer Relationship Specialty Start Date End Date Sonya Interiano MD [address] [place] [address] PCP - General Family Medicine 08/28/12 [employer] 09/17/24 documented as of this encounter
--- OUTSIDE RECORDS SUMMARY | 2025-05-23 16:50 | XMS_ITS | Encounter Summary ---
Author Organization [employer] Address [address] [facility] [address] [place] [address] Care Team Providers Care Recovery Coach Name Role Phone Sonya Interiano MD Primary Care Provider [phone] Reason for Visit * Reason Onset Date Comments call back 10/22/2022 Encounter Details Date Type Department Care Team ([facility] st Contact Info) Description 10/22/2022 Telephone [facility] MEDICINE [address] [place] [address] Sonya Interiano MD [address] [place], [place] [phone] call back Social History Tobacco Use Types [...] on filedocumented in this encounter Care Teams Recovery Coach Relationship Specialty Start Date End Date Sonya Interiano MD [address] [place] [address] PCP - General Family Medicine 08/28/12 [employer] 09/17/24 documented as of this encounter
--- OUTSIDE RECORDS SUMMARY | 2025-05-23 16:50 | XMS_ITS | Encounter Summary ---
Author Organization [employer] Address [address] [facility] [address] 7t [place] [address] Care Team Providers Care Electronic Assembly Name Role Phone Sonya Interiano MD Primary Care Provider [phone] Encounter Details Date Type Department Care Team ([facility] Contact Info) Description 11/16/2024 Telephone C [facility] [address] [place], [place] [phone] Sonya Interiano MD 505 [place] [address] Social History Tobacco Use Types Packs/Day Years [...] - 11/16/2024 1:14 PM EST Tc from [facility] calling to inform provider pt has been discharged [facility] as [facility] 11[facility]14/24. [facility] also stated pt is monitoring BP and will be reporting readings. If any questions contact [phone] documented in this encounter Plan of Treatment Not on file documented as of this encounter Visit Diagnoses Not on filedocumented in this encounter Additional Health Concerns Assessment Noted Time PHQ-9 Depression Total Score: 11 024 10:51 AM EST documented as of this encounter Care Teams Electronic Assembly Relationship Specialty Start Date End Date oSnya Interiano MD [address] [place] [address] PCP - General Family Medicine 08/28/12 [employer] 09/17/24 documented as of this encounter
--- OUTSIDE RECORDS SUMMARY | 2025-05-23 16:50 | XMS_ITS | Encounter Summary ---
Author Organization [employer] Address [address] [facility] [address] [place] [address] Care Team Providers Care Hat Mender Name Role Phone Sonya Interiano MD Primary Care Provider [phone] Reason for Visit * Reason Onset Date Comments Appointment Request 08/12/2023 Encounter Details Date Type Department Care Team ([facility] st Contact Info) Description 08/12/2023 Telephone [facility] MEDICINE [address] [place] [address] Sonya Interiano MD [address] [place], [place] [phone] Appointment Request Social History Tobacco Use Types [...] pt requesting a f/u appt with PCP, film writer ask pt and no concerns with her health. documented in this encounter Plan of Treatment Not on file documented as of this encounter Visit Diagnoses Not on filedocumented in this encounter Care Teams Hat Mender Relationship Specialty Start Date End Date Sonya Interiano MD [address] [place] [address] PCP - General Family Medicine 08/28/12 [employer] 09/17/24 documented as of this encounter
--- OUTSIDE RECORDS SUMMARY | 2025-05-23 16:50 | XMS_ITS | Encounter Summary ---
Author Organization [employer] Address [address] [facility] [address] 7[address] [place] [address] Care Team Providers Care Clean Rice Broker Name Role Phone Sonya Interiano MD Primary Care Provider [phone] Reason for Visit * Reason Onset Date Comments Medication Question 09/20/2023 Encounter Details Date Type Department Care Team ([facility] st Contact Info) Description 09/20/[address] [facility] MEDICINE [address] [place] [address] Sonya Interiano MD [address] [place], [place] [phone] Medication Question Social History Tobacco Use Types [...] PM EST TC placed to patient via [employer] Full Roll Inspector. No answer. LM to call us back. TC placed to patient without [place] Full Roll Inspector. Patient answered. Patient states that she is [...] with respiration. Offered a f/u appointment at [facility] this week. Agreed to an appointment [...] on filedocumented in this encounter Care Teams Clean Rice Broker Relationship Specialty Start Date End Date Sonya Interiano MD [address] [place] [address] PCP - General Family Medicine 08/28/12 [employer] 09/17/24 documented as of this encounter
== END 2025-05-23 13:47 | disposition home or self-care (01) ==
LOC: HO.RHES 12:39
PROVIDERS: PCP Student in an Organized Health Care Education/Training Program; Visit Provider Student in an Organized Health Care Education/Training Program
DX: M81.0 Age-related osteoporosis without current pathological fracture (principal)